=== PATIENT | male | born 1950 | race Caucasian/White ===

== ENCOUNTER 2019-09-17 08:38 | Inpatient (IN) | payer MEDICARE, MEDICAID, SELFPAY ==
[2019-09-17] VITALS (27 sets, daily range): BP systolic 111–144; BP diastolic 49–95; PULSE 76–112; RESP 17–28; TEMP 36.6–36.7; O2SAT 94–100; BMI 22.6
--- NOTE | ~2019-09-17 | XR_ITS ---
XR chest 1V portable DATE: 09/28/2019 05:45 INDICATION: Mechanical ventilation. Respiratory failure. TECHNIQUE: Portable AP chest on 09/28/2019 at 0520 hours 09/27/2019 portable AP chest at 0519 hours.. COMPARISON: None FINDINGS: ET tube is approximately 2.4 cm above yris in satisfactory position. An NG tube is noted in the stomach, the distal tibia on the margin of the examination. No central lines are noted. Normal heart size. There is aortic arch calcification. No pulmonary infiltrate or consolidation, pleu ral effusion or pulmonary vascular congestion or pneumothorax is detected. IMPRESSION: ET and NG tubes in satisfactory position No active pulmonary disease Reviewed, dictated and finalized at location A. ICAL GEOGRAPHER
--- NOTE | ~2019-09-17 | XR_ITS ---
EXAMINATION: XR chest 1V portable DATE: 10/05/2019 05:51 INDICATION: Respiratory failure. TECHNIQUE: A single frontal view of the chest was obtained. COMPARISON: Chest single view 10/04/2019, chest CT 09/27/2019 FINDINGS: There is mild atelectasis in the lower lung zones. No pleural effusion or pneumothorax. The heart size is normal. The endotracheal tube tip is 2.8 cm above the yris. The nasogastric tube tip is beyond the inferior margin of the radiograph, but at least to the stomach. A left upper extremity peripherally inserted central venous catheter (PICC) is seen with tip in the right atrium. IMPRESSION: 1. Mild atelectasis in the lower lung zones. Reviewed, dictated and finalized at location A. STATISTICAL PROGRAMMER
--- NOTE | ~2019-09-17 | CT_ITS ---
EXAMINATION: CT brain wo con INDICATION: Left hemiparesis COMPARISON: 09/27/2019 TECHNIQUE: Standard unenhanced head CT. The dose-length product (DLP) was 605.33 mGy-cm. The mA was a djusted according to patient size. Iterative reconstruction technique was employed. FINDINGS: There is no acute intraparenchymal hemorrhage. No evidence of mass lesion. There is a stabl e cystic area posterior medial to the left cerebellar hemisphere which has the appearance of an arach noid cyst. No evidence of acute infarction. There is mild periventricular and subcortical hypodensity probably related to small vessel ischemic disease. There is mild prominence of the sulci and ventric les related to cerebral atrophy. Intracranial calcified cerebral atherosclerosis is noted. There are no extra-axial collections. There is no mass effect or midline shift. Changes in the globes are likel y from ocular lens surgery. There is mild mucosal thickening of the paranasal sinuses. Again noted i s thickening and sclerosis in the joseph of the maxillary sinus, consistent with chronic sinusitis. IMPRESSION: 1. No acute intracranial abnormality. 2. Age related findings. 3. Chronic sinusitis. Reviewed, dictated and finalized at location A. ESTATE BRANCH MANAGER
--- NOTE | ~2019-09-17 | XR_ITS ---
EXAMINATION: XR chest 1V portable DATE: 09/27/2019 05:44 INDICATION: Respiratory failure TECHNIQUE: frontal view of the chest was obtained. COMPARISON: Chest radiograph dated 09/26/2019 FINDINGS: Endotracheal tube tip 1.2 cm above the yris. Nasogastric tube extends below the left hemidiaphragm with distal tip collimated off the study. Skinfold projects over the right midlung zone. No other airspace opacities, pulmonary edema, pleural effusion or pneumothorax. The cardiomediastinal silhouette is normal. IMPRESSION: 1. No acute cardiopulmonary disease. Reviewed, dictated and finalized at location A. GRAPH AND TELETYPE OPERATOR
--- NOTE | ~2019-09-17 | US_ITS ---
EXAMINATION: US venous doppler [facility] DATE: 09/25/2019 10:16 INDICATION: Fevers and leukocytosis, concern for deep venous thrombosis TECHNIQUE: Schultz scale images without and with compression and Doppler images of the bilateral lower e xtremity veins were obtained. COMPARISON: None. FINDINGS: The right common femoral vein, profunda femoral vein, femoral vein, popliteal vein, peroneal trunk, p osterior tibial veins, and greater saphenous vein are patent. The left common femoral vein, profunda femoral vein, femoral vein, popliteal vein, peroneal trunk, po sterior tibial veins, and greater saphenous vein are patent. IMPRESSION: 1. Patent bilateral lower extremity veins. No evidence of deep venous thrombosis. Reviewed, dictated and finalized at location A. NDER FARM WORKER IMPRESSION: 1. Patent bilateral lower extremity veins. No evidence of deep venous thrombosi s.
--- NOTE | ~2019-09-17 | XR_ITS ---
EXAMINATION: XR abdomen NG/feed tube recheck DATE: 09/23/2019 01:26 INDICATION: Orogastric tube moved. Recheck placement. TECHNIQUE: A supine view of the abdomen and lower chest was obtained for evaluation of feeding tube placement. COMPARISON: 09/20/2019 FINDINGS: Orogastric tube tip and proximal side port in the body of the stomach. Gas and stool seen in the visu alized colon. Note gas-filled loops of small bowel in the visualized abdomen. Lung bases are clear. H eart size is normal. IMPRESSION: 1. Orogastric tube in the stomach. Reviewed, dictated and finalized at location A. ETING CAMPAIGN ANALYST
--- NOTE | ~2019-09-17 | XR_ITS ---
EXAMINATION: XR abdomen NG/feed tube insert DATE: 09/20/2019 23:59 INDICATION: Nasogastric tube placement. TECHNIQUE: An upright view of the abdomen was obtained. COMPARISON: None. FINDINGS: The lower abdomen is excluded. There are no dilated loops of bowel. The nasogastric tube ti p is in the stomach. IMPRESSION: 1. Nasogastric tube tip in the stomach. Reviewed, dictated and finalized at location A. ALL MACHINE REPAIRER
--- NOTE | ~2019-09-17 | US_ITS ---
EXAMINATION: US art doppler w press LE DATE: 09/18/2019 09:47 BOX FOLDING MACHINE OPERATOR INDICATION: Right groin mass. TECHNIQUE: Segmental pressures and plethysmographic and Doppler waveforms of the brachial and lower e xtremity arteries were obtained. COMPARISON: None. FINDINGS: Right and left brachial artery pressures of 142 mm Hg and 140 mm Hg, respectively, are concordant (no rmal difference <= 30 mmHg). The right high-thigh pressure index is 1.1 (normal > 1.2). The right ankle-brachial index (TANGELA) is 1. 12 (normal >= 0.9-1.0). The right great toe-brachial index (TBI) is 1.06 (normal >= 0.60). The right lower extremity segmental pressure gradients are normal (normal gradients <= 20-30 mmHg between adjac ent levels on the same leg or the same levels on the two legs). Arterial Doppler waveforms are biphas ic. The left high-thigh pressure index is 1.08. The left TANGELA is 1.09. The left TBI is 0.84. The left lowe r extremity segmental pressure gradients are normal. Arterial Doppler waveforms are biphasic. IMPRESSION: 1. Normal lower extremity arterial Doppler. Reviewed, dictated and finalized at location B. FOLDING MACHINE OPERATOR
--- NOTE | ~2019-09-17 | XR_ITS ---
EXAMINATION: XR chest 1V portable INDICATION: Respiratory failure TECHNIQUE: Portable AP chest at 0510 hours COMPARISON: 09/30/2019 FINDINGS: The endotracheal tube ends approximately 3.1 cm above the yris. The nasogastric tube is f ollowed as far as the stomach. Its tip is beyond the inferior margin of the radiograph. Retrocardiac airspace opacities have resolved. There is no pleural effusion or pneumothorax. The cardiomediastinal silhouette is stable. IMPRESSION: 1. Resolved retrocardiac airspace opacities. No acute cardiopulmonary abnormality. Reviewed, dictated and finalized at location A. WARE QUALITY TEST ENGINEER IMPRESSION: 1. Resolved retrocardiac airspace opacities. No acute cardiopulmonary abnormali ty.
--- NOTE | ~2019-09-17 | XR_ITS ---
EXAMINATION: XR chest 1V portable EXAM DATE: 09/23/2019 22:41 INDICATION: Respiratory failure. TECHNIQUE: Portable AP frontal chest x-ray was obtained. Comparison is made to prior examination from 09/23/2019. FINDINGS: Endotracheal tube tip is 2 centimeters above the yris (ideal range is between 2 to 5 cm). Feeding tube is in position. There is ill-defined left basilar airspace disease, could be pneumonia, edema or aspiration. There a re no sizable pleural effusions. There is no pneumothorax suspected. Cardiomediastinal silhouette is normal. The bones and soft tissues are unremarkable. IMPRESSION: 1. Tubes in position. 2. Developing left basilar pneumonia, aspiration or edema. Reviewed, dictated and finalized at location A. RLIBRARY LOAN SPECIALIST
--- NOTE | ~2019-09-17 | XR_ITS ---
XR chest 1V portable 10/06/2019 06:15 Indication: Respiratory failure Procedure: AP portable chest Comparison: Comparison to multiple prior studies sequentially, with oldest reviewed study dated 10/02. Findings: Heart size normal. Left basilar airspace disease. Endotracheal tube tip 2.3 cm above the ca shahriar. NG tube in the stomach. No edema, pleural effusion or pneumothorax. Impression: 1: Left basilar airspace disease which may represent atelectasis or pneumonia. Reviewed, dictated and finalized at location A. OR WATER/WASTEWATER ENGINEER Impression: 1: Left basilar airspace disease which may represent atelectasis or pneumonia.
--- NOTE | ~2019-09-17 | US_ITS ---
EXAMINATION: US venous doppler LE EXAM DATE: 09/18/2019 16:14 INDICATION: Lower leg pain. TECHNIQUE: Multiple grayscale, color flow and Doppler images of the lower extremity deep venous syste ms bilaterally were obtained and reviewed. Correlation is made to right inguinal ultrasound earlier s janeth date. FINDINGS: Right side: The right common femoral, femoral and profunda veins demonstrate normal color flow, respi ratory variation, augmentation and compressibility. Compressibility, color flow confirmed within the right popliteal, posterior tibial, peroneal, and greater saphenous veins. Right inguinal lymphadeno robin, could be reactive, granulomatous process, lymphoma or metastatic disease. Left side: The left common femoral, femoral and profunda veins demonstrate normal color flow, respira tory variation, augmentation and compressibility. Compressibility, color flow confirmed within the l eft popliteal, posterior tibial, peroneal, and greater saphenous veins. IMPRESSION: 1. No lower extremity deep venous thrombosis bilaterally. 2. Right inguinal lymphadenopathy. Reviewed, dictated and finalized at location A. UTER EQUIPMENT INSTALLER
--- NOTE | ~2019-09-17 | CT_ITS ---
EXAMINATION: CT brain wo con DATE: 09/25/2019 09:23 INDICATION: Encephalopathy TECHNIQUE: Computed tomography (CT) of the head was performed without intravenous contrast. Sagittal and coronal reconstructions were performed. The mA was adjusted according to patient size. Iterative reconstruction technique was employed. The dose-length product was 529.67 mGy-cm. COMPARISON: head CT dated 09/21/2019 FINDINGS: No acute intracranial hemorrhage or acute infarction. Small posterior fossa arachnoid cyst along the left side of the falx. Unchanged mild to moderate scattered white matter hypoattenuation consistent w ith chronic small vessel ischemic disease. Ventricles are normal and symmetric. No mass/mass effect. Changes of bilateral intraocular lens replacement. Mucosal thickening in the paranasal sinuses. Mast oid air cells and middle ear cavities are clear. IMPRESSION: 1. No acute intracranial process. 2. Moderate scattered white matter hypoattenuation consistent with chronic small vessel ischemic dise ase. Reviewed, dictated and finalized at location A. EMS INTEGRATION ENGINEER IMPRESSION: 1. No acute intracranial process. 2. Moderate scattered white matter hypoattenuation consistent with chronic smal l vessel ischemic disease.
--- NOTE | ~2019-09-17 | XR_ITS ---
EXAMINATION: XR chest 1V portable INDICATION: Respiratory failure TECHNIQUE: Portable AP chest at 0519 hours COMPARISON: 10/03/2019 FINDINGS: The endotracheal tube ends approximately 1.7 cm above the yris. The nasogastric tube is f ollowed as far as the stomach. Its tip is beyond the inferior margin of the radiograph. A left upper extremity PICC has been inserted which ends with its tip at the superior cavoatrial junction. The harpal gs are free of acute opacities. Previously described bibasilar airspace opacities have resolved. Ther e is no pleural effusion or pneumothorax. The cardiomediastinal silhouette is normal. IMPRESSION: 1. No acute cardiopulmonary abnormality. 2. Left upper extremity PICC insertion. Reviewed, dictated and finalized at location A. TOR
--- NOTE | ~2019-09-17 | XR_ITS ---
EXAMINATION: XR chest 1V portable INDICATION: Acute on chronic respiratory failure TECHNIQUE: Portable AP chest at 0518 hours COMPARISON: 09/25/2019 FINDINGS: The endotracheal tube ends approximately 1.0 cm above the yris. The nasogastric tube is f ollowed as far as the stomach. Its tip is beyond the inferior margin of the radiograph. The lungs are free of acute opacities. There is no pleural effusion or pneumothorax. The cardiomediastinal silhoue tte is normal. IMPRESSION: 1. No acute cardiopulmonary abnormality. Reviewed, dictated and finalized at location A. DRIER
--- NOTE | ~2019-09-17 | CT_ITS ---
EXAMINATION: CT chest abdomen pelvis wo con DATE: 09/27/2019 08:47 INDICATION: Fever. TECHNIQUE: Computed tomography (CT) of the chest, abdomen, and pelvis was performed without intraveno us contrast. Automated exposure control and iterative reconstruction technique were employed. The dos e-length product was 741.41 mGy-cm. COMPARISON: Chest CT 03/11/2019 FINDINGS: CHEST CT: Motion artifact is noted. There is mild emphysema. There are tree-in-bud opacities in the lower lobes , consistent with pneumonia. There is mild atelectasis in left lower lobe and lingula. The endotrache al tube tip is in expected position above the yris. The heart size is normal. There are coronary ar tamie calcifications. No pericardial effusion. There is severe thoracic spondylosis. ABDOMEN/PELVIS CT: The nasogastric tube tip is in the proximal duodenum. The liver, gallbladder, spleen, pancreas, adren al glands, and kidneys are normal. There is no urolithiasis. The prostate is moderately enlarged. The re is a left inguinal hernia containing fat. There are no dilated loops of bowel. The appendix is not visualized. There is no free intraperitoneal fluid. There is right inguinal lymphadenopathy. The lar gest node measures 2.9 x 2.2 cm. There is severe lumbar spondylosis. IMPRESSION: 1. Mild pneumonia involving the lower lobes. 2. Mild emphysema. 3. Right inguinal lymphadenopathy, which may be lymphoma or less likely reactive lymphadenopathy. 4. Nasogastric tube tip in the proximal duodenum. Reviewed, dictated and finalized at location B. ROOM DANCE INSTRUCTOR IMPRESSION: 1. Mild pneumonia involving the lower lobes. 2. Mild emphysema. 3. Right inguinal lymphadenopathy, which may be lymphoma or less likely reactiv e lymphadenopathy. 4. Nasogastric tube tip in the proximal duodenum.
--- NOTE | ~2019-09-17 | XR_ITS ---
EXAMINATION: XR chest 1V portable INDICATION: Respiratory failure TECHNIQUE: Portable AP chest at 0546 hours COMPARISON: 09/29/2019 FINDINGS: The endotracheal tube ends approximately 3.2 cm above the yris. The nasogastric tube is f ollowed as far as the stomach. Its tip is beyond the inferior margin of the radiograph. The lungs are hyperinflated. Retrocardiac airspace opacities have improved. There is no pleural effusion or pneumo thorax. IMPRESSION: 1. Retrocardiac airspace opacities with improvement, consistent with atelectasis versus pneumonia. Reviewed, dictated and finalized at location A. OR MEDICAL ASSISTANT IMPRESSION: 1. Retrocardiac airspace opacities with improvement, consistent with atelectasi s versus pneumonia.
--- NOTE | ~2019-09-17 | XR_ITS ---
EXAMINATION: XR lumbar puncture diagnostic DATE: 09/30/2019 14:39 INDICATION: Altered mental status. Fever. TECHNIQUE: A timeout was performed to verify the patient's name, date of , and procedure to be performed. The skin overlying the L2-L3 level was prepped and draped in usual sterile fashion. Sub cutaneous 1% lidocaine was used for local anesthesia. A 20 gauge spinal needle was advanced under fl uoroscopic guidance. The needle was removed and the entry site was cleaned and dressed. There were n o immediate complications. Fluoroscopy exposure time was 0.1 minutes. The total number of images was 2. FINDINGS: Real-time fluoroscopy demonstrates the needle at the L2-L3 level. The opening pressure was 4 cm water (Normal range is variably defined as 6-20 cm water and up to 25 cm water in obese patients . Pressure >25 cm water is one of the modified Dandy criteria for idiopathic intracranial hypertensio n). 12 mL of clear, colorless fluid was collected in 4 tubes. IMPRESSION: 1. Successful fluoro-guided lumbar puncture. Reviewed, dictated and finalized at location A. TER MECHANICAL
--- NOTE | ~2019-09-17 | XR_ITS ---
EXAMINATION: XR chest 1V portable DATE: 10/08/2019 05:58 INDICATION: Respiratory failure. TECHNIQUE: A single frontal view of the chest was obtained. COMPARISON: Chest single view 10/07/2019 FINDINGS: A skin fold overlies left hemithorax. There are mild airspace opacities in left lower lung zone. No pleural effusion or pneumothorax. The heart size is normal. The endotracheal tube tip is 4.8 cm above the yris. A left upper extremity peripherally inserted central venous catheter (PICC) is seen with tip in the superior vena cava. The nasogastric tube tip is beyond the inferior margin of th e radiograph, but at least to the stomach. IMPRESSION: 1. Stable mild airspace opacities in left lower lung zone, consistent with atelectasis versus pneumon ia. Reviewed, dictated and finalized at location A. MOBILE CLUB MEMBERSHIP SALES AGENT IMPRESSION: 1. Stable mild airspace opacities in left lower lung zone, consistent with atel ectasis versus pneumonia.
--- NOTE | ~2019-09-17 | US_ITS ---
EXAMINATION: US biopsy lymph node DATE: 09/19/2019 11:03 INDICATION: Right inguinal lymphadenopathy. TECHNIQUE: The procedure including the risks, benefits, and alternatives was discussed with the patie nt. Risks discussed included bleeding and infection. The patient understood the risks and agreed to p roceed. The skin overlying the right inguinal region was prepped and draped in usual sterile fashion. Anesthetic was administered with 1% lidocaine subcutaneously. An 18 gauge core biopsy needle was t hen used to obtain 6 core biopsy specimens under continuous sonographic guidance. The entry site was cleaned and dressed. There were no immediate complications. FINDINGS: Ultrasound images demonstrate the needle in a 5.5 x 2.6 cm inguinal lymph node. IMPRESSION: 1. Ultrasound-guided core needle biopsy of a right inguinal lymph node. Reviewed, dictated and finalized at location A. AND FRAME MECHANIC
--- NOTE | ~2019-09-17 | XR_ITS ---
EXAMINATION: XR chest 1V portable DATE: 09/22/2019 05:30 INDICATION: Acute on chronic respiratory failure. TECHNIQUE: A single frontal view of the chest was obtained. COMPARISON: Chest single view 09/20/2019, chest CT 03/11/2019 FINDINGS: The chest demonstrates clear lungs without pneumonia, pleural effusion, or pneumothorax. Th e heart size is normal. The endotracheal tube tip is 3.0 cm above the yris. IMPRESSION: 1. No acute cardiopulmonary disease. Reviewed, dictated and finalized at location A. ING SECOND HAND
--- NOTE | ~2019-09-17 | CT_ITS ---
EXAMINATION: CT brain wo con DATE: 09/21/2019 09:54 INDICATION: Altered mental status. TECHNIQUE: Computed tomography (CT) of the head was performed without intravenous contrast. The mA wa s adjusted according to patient size. Iterative reconstruction technique was employed. The dose-lengt h product was 605.33 mGy-cm. COMPARISON: None FINDINGS: There are scattered areas of low attenuation in the cerebral white matter. There is no intr acranial hemorrhage, acute infarction, or abnormal intracranial mass lesion. There is an old infarct in left cerebellum. The ventricles are normal in size. There are likely changes of ocular lens replac ement surgeries. There is mucosal thickening in the paranasal sinuses. Left maxillary sinus is small and completely opacified. The mastoid air cells are normal. IMPRESSION: 1. Old infarct in left cerebellum. 2. Moderate nonspecific cerebral white matter disease, which likely represents chronic small vessel i schemic disease. 3. Silent sinus syndrome involving left maxillary sinus. Reviewed, dictated and finalized at location A. E VENDING MACHINE SERVICER IMPRESSION: 1. Old infarct in left cerebellum. 2. Moderate nonspecific cerebral white matter disease, which likely represents chronic small vessel ischemic disease. 3. Silent sinus syndrome involving left maxillary sinus.
--- NOTE | ~2019-09-17 | CT_ITS ---
EXAMINATION: CT brain wo con DATE: 09/27/2019 08:48 INDICATION: Encephalopathy. Fever. TECHNIQUE: Computed tomography (CT) of the head was performed without intravenous contrast. The mA wa s adjusted according to patient size. Iterative reconstruction technique was employed. The dose-lengt h product was 605.33 mGy-cm. COMPARISON: Head CT 09/25/2019 FINDINGS: There are scattered areas of low attenuation in the cerebral white matter. A 1.6 x 1.6 x 2. 8 cm cystic area posteromedial to left cerebellar hemisphere is likely an arachnoid cyst. There is no intracranial hemorrhage, acute infarction, or abnormal intracranial mass lesion. The ventricles are normal in size. There are likely changes of ocular lens replacement surgeries. There is mucosal thick ening in the paranasal sinuses. There is thickening and sclerosis of the joseph of the maxillary sinus es, consistent with chronic sinusitis. There are trace mastoid effusions. IMPRESSION: 1. Unchanged moderate nonspecific cerebral white matter disease, which likely represents chronic smal l vessel ischemic disease. 2. Chronic sinusitis. Reviewed, dictated and finalized at location B. OGENATION STILL OPERATOR IMPRESSION: 1. Unchanged moderate nonspecific cerebral white matter disease, which likely r epresents chronic small vessel ischemic disease. 2. Chronic sinusitis.
--- NOTE | ~2019-09-17 | XR_ITS ---
XR abdomen NG/feed tube rechec DATE: 09/26/2019 14:57 INDICATION: NG tube placement TECHNIQUE: Portable semiupright AP view on 09/26/2019 at 1452 hours COMPARISON: 09/23/2019 KUB for feeding tube placement FINDINGS: The nasogastric tube is present within the stomach, the distal tip overlying the gastric an trum. An ET tube is present, the distal tip approximately 1.7 cm above the yris; ideal range is 2-5 cm. Mild to moderate gaseous distention of proximal small bowel segments. Normal heart size. Thoracic aortic calcification. IMPRESSION: NG tube tip in gastric antrum Reviewed, dictated and finalized at Location A. Reviewed, dictated and finalized at location B. GE CONTROL MANAGER
--- NOTE | ~2019-09-17 | US_ITS ---
US soft tissue groin RT 09/18/2019 09:44 Indication: Palpable right groin mass for 2 months Procedure: High-resolution ultrasound of the right groin Comparison: No prior studies for comparison. Findings: There are enlarged right groin lymph nodes. The largest measures 6.1 x 4.6 x 2.6 cm with ef facement of the normal fatty hilum. Impression: 1: Right inguinal lymphadenopathy, largest demonstrating effacement of normal fatty hilum, possibly p athologic. Consider lymphoma. Recommend percutaneous biopsy. Reviewed, dictated and finalized at location B. T MAKER Impression: 1: Right inguinal lymphadenopathy, largest demonstrating effacement of normal f atty hilum, possibly pathologic. Consider lymphoma. Recommend percutaneous biop sy.
--- NOTE | ~2019-09-17 | XR_ITS ---
EXAMINATION: XR chest 1V portable DATE: 10/07/2019 05:51 INDICATION: Respiratory failure. TECHNIQUE: A single frontal view of the chest was obtained. COMPARISON: Chest single view 10/06/2019, chest CT 09/27/2019 FINDINGS: There are airspace opacities in left lower lung zone. No pleural effusion or pneumothorax. The heart size is normal. The endotracheal tube tip is 1.1 cm above the yris. The nasogastric tube tip is beyond the inferior margin of the radiograph, but at least to the stomach. A left upper extrem ity peripherally inserted central venous catheter (PICC) is seen with tip at the superior cavoatrial junction. IMPRESSION: 1. Stable airspace opacities in left lower lung zone, consistent with atelectasis versus pneumonia. Reviewed, dictated and finalized at location A. RCULOSIS SPECIALIST IMPRESSION: 1. Stable airspace opacities in left lower lung zone, consistent with atelectas is versus pneumonia.
--- NOTE | ~2019-09-17 | XR_ITS ---
XR chest 1V portable DATE: 09/29/2019 06:11 INDICATION: Mechanical ventilation, respiratory failure, fevers, leukocytosis TECHNIQUE: Portable AP chest on 09/29/2019 at 0554 hours COMPARISON: 09/28/2019 portable AP chest at 0520 hours FINDINGS: ET tube is approximately 1.4 cm above yris; ideal range is 2-5 cm. NG tube is noted passing into the stomach, beyond the margin of the radiograph. No central lines are noted. Bilateral hyperinflation. Mild infiltrate or atelectasis is suggested in the left lower lobe, retroca rdiac area. The lungs otherwise appear clear of infiltrate or consolidation. No pleural effusion or p ulmonary vascular congestion or pneumothorax. Normal heart size. Aortic arch calcification. IMPRESSION: ET tube 1.4 cm above yris; ideal range is 2-5 cm NG tube in stomach Bilateral hyperinflation Left lower lobe infiltrate and/atelectasis Reviewed, dictated and finalized at location A. STIC ASSOCIATE
--- NOTE | ~2019-09-17 | XR_ITS ---
EXAMINATION: XR chest 1V portable DATE: 09/25/2019 05:54 INDICATION: Acute on chronic respiratory failure TECHNIQUE: frontal view of the chest was obtained. COMPARISON: Chest radiograph dated 09/24/2019 09/17/2019 no new airspace opacities, pulmonary edema, pl eural effusion or pneumothorax. FINDINGS: Endotracheal tube tip approximately 5 mm above the yris. Nasogastric tube extends below the left h emidiaphragm with distal tip collimated off the study. Opacities at the left lower lung zone have essentially resolved with appearance now at baseline mark rable to radiograph dated 09/17/2019. The cardiomediastinal silhouette is normal. IMPRESSION: 1. Endotracheal tube tip 5 mm above yris. Recommend withdrawal by 1.5 cm. 2. No evident acute cardiopulmonary disease. Reviewed, dictated and finalized at location A. H SCALER AND MIXER
--- NOTE | ~2019-09-17 | XR_ITS ---
EXAMINATION: XR chest 1V portable DATE: 10/09/2019 05:44 INDICATION: Respiratory failure. TECHNIQUE: A single frontal view of the chest was obtained. COMPARISON: Chest single view 10/08/2019 FINDINGS: There are mild airspace opacities in the lower lung zones. No pleural effusion or pneumotho rax. The heart size is normal. The endotracheal tube tip is 3.8 cm above the yris. A left upper ext remity peripherally inserted central venous catheter (PICC) is seen with tip port in the superior ve na cava. IMPRESSION: 1. Mild airspace opacities in the lower lung zones with worsening on the right, consistent with atele ctasis versus pneumonia. Reviewed, dictated and finalized at location A. NG MACHINE OPERATOR IMPRESSION: 1. Mild airspace opacities in the lower lung zones with worsening on the right, consistent with atelectasis versus pneumonia.
--- NOTE | ~2019-09-17 | XR_ITS ---
EXAMINATION: XR chest 1V portable DATE: 09/24/2019 06:01 INDICATION: Acute respiratory failure. TECHNIQUE: frontal view of the chest was obtained. COMPARISON: Chest radiograph dated 09/23/2019 FINDINGS: Endotracheal tube tip 1.8 cm above the yris. Nasogastric tube extends below the left hemidiaphragm with distal tip collimated off the study. Unchanged subtle opacities in the left lower lung zone. No new airspace opacities, pleural effusion o r pneumothorax. The cardiomediastinal silhouette is normal. IMPRESSION: 1. Unchanged subtle opacities in the left lower lung zone with differential including atelectasis, pu lmonary edema or pneumonia. Reviewed, dictated and finalized at location A. CONDUCTOR PACKAGES PLATEMAKER IMPRESSION: 1. Unchanged subtle opacities in the left lower lung zone with differential inc luding atelectasis, pulmonary edema or pneumonia.
--- NOTE | ~2019-09-17 | XR_ITS ---
EXAMINATION: XR chest ET placement DATE: 09/20/2019 23:58 INDICATION: Endotracheal tube and nasogastric tube placement TECHNIQUE: 1. frontal view of the chest was obtained for assessment of endotracheal tube positioning. 2. Semiupright portable AP view of the abdomen was obtained for assessment of nasogastric tube positi oning. COMPARISON: Chest radiograph date FINDINGS: Chest: Endotracheal tube tip 1.7 cm above the yris. No focal airspace opacities, pulmonary edema, pleural effusion or pneumothorax. The cardiomediastinal silhouette is normal. Visualized bones and soft tissu es are unremarkable. Abdomen: Nasogastric tube tip in proximal side port in the body of the stomach. Gas and stool seen scattered t hroughout the visualized portion of the colon. No dilated loops of gas-filled small bowel to suggest obstruction. IMPRESSION: 1. Endotracheal tube and nasogastric tube in acceptable positions. 2. No acute cardiopulmonary disease. Reviewed, dictated and finalized at location A. IED EXERCISE PHYSIOLOGIST
--- NOTE | ~2019-09-17 | XR_ITS ---
EXAMINATION: XR chest 1V portable INDICATION: Respiratory failure TECHNIQUE: Portable AP chest at 0528 hours COMPARISON: 10/01/2019 FINDINGS: The endotracheal tube ends approximately 3.9 cm above the yris. The nasogastric tube is f ollowed as far as the stomach. Its tip is beyond the inferior margin of the radiograph. The lungs are free of acute opacities. There is no pleural effusion or pneumothorax. The cardiomediastinal silhoue tte is stable. IMPRESSION: 1. No acute cardiopulmonary abnormality. Reviewed, dictated and finalized at location A. MBLER CAMPER
--- NOTE | ~2019-09-17 | XR_ITS ---
EXAMINATION: XR chest 1V portable DATE: 10/07/2019 10:51 INDICATION: Respiratory failure. TECHNIQUE: A single frontal view of the chest was obtained on 2 radiographs. COMPARISON: Chest single view at 5:24 AM FINDINGS: There are mild airspace opacities in left lower lung zone. No pleural effusion or pneumotho rax. The heart size is normal. The endotracheal tube tip is 3.5 cm above the yris. A left upper ext remity peripherally inserted central venous catheter (PICC) is seen with tip in the superior vena cav a. The nasogastric tube tip is beyond the inferior margin of the radiograph, but at least to the stom ach. IMPRESSION: 1. Unchanged mild airspace opacities in left lower lung zone, consistent with atelectasis versus pneu monia. Reviewed, dictated and finalized at location A. RVISOR DOPING IMPRESSION: 1. Unchanged mild airspace opacities in left lower lung zone, consistent with a telectasis versus pneumonia.
--- NOTE | ~2019-09-17 | XR_ITS ---
XR chest 1V portable DATE: 10/03/2019 05:37 INDICATION: Respiratory failure TECHNIQUE: Portable AP chest on 10/03/2019 0517 hours COMPARISON: 10/02/2019 portable AP chest at 0528 hours FINDINGS: ET tube is in satisfactory position. A nasogastric tube is noted passing into the stomach, distal tip overlying gastric antrum. No central lines. Bilateral hyperinflation. Mild infiltrate and/atelectasis in the lung bases. Normal heart size. Aortic arch calcification. IMPRESSION: Bibasilar mild infiltrate and/or atelectasis Reviewed, dictated and finalized at location A. CTOR OF RETAIL MARKETING
--- NOTE | ~2019-09-17 | XR_ITS ---
EXAMINATION: XR chest 1V portable DATE: 09/23/2019 01:26 INDICATION: Acute on chronic respiratory failure TECHNIQUE: frontal view of the chest was obtained. COMPARISON: Chest radiograph dated 09/22/2019 FINDINGS: Endotracheal tube tip 2.3 cm above the yris. Orogastric tube which on subsequent radiograph demonst rates tip in proximal side port in the body of the stomach. Lungs are clear with no focal airspace opacities, pulmonary edema, pleural effusion or pneumothorax. The cardiomediastinal silhouette is normal. Widening of the left acromioclavicular joint with deformi ty of the lateral head of the left clavicle which could represent sequela of prior trauma, surgery or infection. IMPRESSION: 1. Lines and tubes in expected position. No acute cardiopulmonary disease. Reviewed, dictated and finalized at location A. BALL MARKER
--- NOTE | ~2019-09-17 | XR_ITS ---
EXAMINATION: XR chest 2V EXAM DATE: 09/17/2019 11:47 INDICATION: Shortness of breath, cough, COPD. TECHNIQUE: Frontal and lateral projections of the chest obtained and reviewed. Comparison is made to prior examination from 06/16/2019. FINDINGS: The lungs are clear. There are no pleural effusions. The cardiomediastinal silhouette is within normal limits. There is no pneumothorax suspected. The bones and soft tissues are unremarkab le. IMPRESSION: No acute cardiopulmonary findings. Reviewed, dictated and finalized at location A. ND EQUIPMENT REPAIRER
--- NOTE | 2019-09-17 08:57 | ED.SOB ---
HPI - SOB/Dyspnea General Chief Complaint: Shortness of Breath/Dyspnea Stated Complaint: I got COPD Time Seen by Provider: 09/17/19 08:46 Source: patient Mode of arrival: ambulatory Limitations: no limitations History of Present Illness HPI Narrative: Pt is a 69 y/o male with a H/O COPD, who presents to the ED with c/o worsening SOB. He states that his COPD flares up every once in a while. He is on 3L home O2 and uses his inhalers/nebulizers as needed. Pt denies having a fever. He also reports pain to his rt groin that radiates down his leg. MD elicited complaint: shortness of breath Pertinent past history: COPD Timing: progressively worsening Known history of: COPD Associated symptoms: other (rt groin pain, rt leg pain) Treatment prior to arrival: oxygen and bronchodilator Related Data Home oxygen amount: 3 liters Home Medications Medication Instructions Recorded Confirmed furosemide 20 mg tablet See Rx Instructions PO BID 07/17/19 08/19/19 imiquimod 5 % topical cream packet See Rx Instructions TOPICAL 5XW 07/17/19 08/19/19 tiotropium bromide 18 mcg capsule 1 cap INHALATION DAILY 07/17/19 08/19/19 with inhalation device Allergies Allergy/AdvReac Type Severity Reaction Status Date / Time penicillin G Allergy Severe Unknown Verified 09/17/19 09:02 Penicillins Allergy Unknown Unknown Verified 09/17/19 09:02 Review of Systems Review of Systems: All systems reviewed & are unremarkable except as noted in HPI and below Constitutional: Constitutional: Denies fever(s) Respiratory: Respiratory: Reports dyspnea Genitourinary: Genitourinary: Reports other (rt groin pain) Musculoskeletal: Musculoskeletal: Reports other (rt leg pain) [facility] Past Medical History Medical History Anxiety associated with depression (~1971) COPD mixed type (~2014) Encounter for counseling regarding immunization Osteoarthritis (arthritis due to wear and tear of joints) (~2008) Skin cancer (~2008) Tobacco abuse disorder (~1971) Surgical History Surgical History History of cataract surgery (~2015) Status post biopsy of skin (~2015) Family History Family History (Updated 07/17/19 @ 09:13 by Juliette Lomeli MD) Mother Family history of malignant neoplasm Family history of arthritis Hypertension Father Hypertension Acute myocardial infarction Sibling Hypertension 2 brothers and 2 sisters Acute myocardial infarction brother, sister Sibling Diabetes mellitus sister Sibling Cerebrovascular accident sister Social History Social History Social History: Pt states he quit smoking a couple of months ago. Started smoking @ age 18 Smoking packs per day: 3 Smoking cigarettes per day: 6 Years smoked: 30 Smoking pack-years: 9 Smoking status: Current some day smoker Tobacco type: cigarettes Second hand tobacco smoke exposure: No Alcohol intake: current Drinks per week: 2 Substance use: former Substance use type: marijuana Additional living arrangements comments: lives in the basement home of his son (sushi chef), [id number] (nurse), and their children. Retired from [employer]. Gender identity (if verbalized by the patient): Male Spiritual care concerns: No Agree to blood products: Yes Exam Const: General: no acute distress and alert Orientation/consciousness: patient oriented x3 HENMT: Head: normal to inspection Eyes: Conjunctivae: conjunctivae normal Pupils: Equal, round and reactive pupils present Neck: Neck: normal visual inspection Chest: Chest palpation & inspection: normal inspection of the chest Resp: Effort & Inspection: normal respiratory effort Auscultation: wheezes and diminished lung sounds Cardio: Rate: regular rate Rhythm: regular rhythm GI: GI Palp: Yes Soft to palpation Neuro:
[2019-09-17 09:05] LABS: Basophils Percent Auto 0.3 % (0.2-1.2); Eosinophils Absolute Auto 0.2 K/mm3 (0-0.3); Hematocrit 46.7 % (42.0-52.0); Hemoglobin 15.4 g/dL (14.0-18.0); Immature Granulocyte Absolute 0.03 K/mm3 (0.00-0.031); Immature Granulocyte Percent A 0.3 % (0-0.5); Lymphocytes Absolute Auto 2.07 K/mm3 (0.9-3.2); Lymphocytes Percent Auto 20.5 % (18.3-44.2); Mean Corpuscular Hemoglobin 30.6 pg (26-34); Mean Corpuscular Volume 92.8 fl (80-100); Monocytes Absolute Auto 1.1 K/mm3 (0.1-0.6); Monocytes Percent Auto 10.8 % (2.6-8.5); Neutrophils Absolute Auto 6.7 K/mm3 (1.3-6.7); Neutrophils Percent Auto 66.1 % (45.5-73.1); Platelet Count Result 361 k/mm3 (150-375); Red Blood Count 5.03 M/mm3 (4.6-6.20); Red Cell Distribution Width 14.1 % (11.5-14.5); White Blood Count 10.1 K/mm3 (4.5-10.0)
--- NOTE | 2019-09-17 09:08 | ECG_ITS ---
Measurements Intervals Myton Rate: 110 P: 50 MA: 147 QRS: 46 QRSD: 93 T: 61 QT: 338 QTc: 459 Interpretive Statements SINUS TACHYCARDIA ABNORMAL ECG Electronically Signed On 09-17-2019 10:56:39 ENTRY TECH by Santiago Whitfield D.O.
[2019-09-17] MEDS: methylPREDNISolone SOD SUCC 125 MG VIAL IV PUSH (10:13)
[2019-09-17] MEDS: ALBUTEROL SULFATE NEB 2.5 MG/0.5 ML INH 5 MG INHALATION ×3 (10:22→20:03)
[2019-09-17] MEDS: IPRATROPIUM BR 0.02% INH SOLN 0.5 MG/2.5 ML VIAL INHALATION ×3 (10:22→20:03)
[2019-09-17 10:29] LABS: CRP 20.2 mg/dL (<1.0)
[2019-09-17 10:33] LABS: Blood Urea Nitrogen 27 mg/dL (9-20); Calcium 9.7 mg/dL (8.4-10.2); Carbon Dioxide 22 mmol/L (22-30); Chloride 100 mmol/L (98-107); Estimated CRCL calculation 32 ml/min; Estimated Glomerular Filt Rate 36; Glucose 81 mg/dL (75-110); Potassium 3.9 mmol/L (3.4-5.0); Sodium 138 mmol/L (137-145)
--- NOTE | 2019-09-17 13:02 | PC.NURSE ---
SBAR faxed. Pt eating lunch tray
--- NOTE | 2019-09-17 13:29 | PC.NURSE ---
Attempt to call report, floor unable to take.
--- NOTE | 2019-09-17 14:01 | ADMGEN ---
This patient, Beto Cornejo, was admitted to [facility] Surg Room 307-01 at 135 . Patient/family oriented to hospital policies and general routines including ID bracelet, bed and alarms, visiting hours, pain management, procedures, bathroom and other care routines, personal items, smoking policy, room service/diet, and visiting hours. Valuables list has been completed. Information on how to activate the Rapid Response Team has been discussed. Patient/Family are encouraged to report perceived risks to care and to ask questions if they do not understand what they are told or what they should do.
--- NOTE | 2019-09-17 14:49 | ADMGEN ---
This patient, Beto Cornejo, was admitted to [facility] Surg Room 378-65 [id number]. Patient/family oriented to hospital policies and general routines including ID bracelet, bed and alarms, visiting hours, pain management, procedures, bathroom and other care routines, personal items, smoking policy, room service/diet, and visiting hours. Valuables list has been completed. Information on how to activate the Rapid Response Team has been discussed. Patient/Family are encouraged to report perceived risks to care and to ask questions if they do not understand what they are told or what they should do.
--- NOTE | 2019-09-17 16:16 | PM.IMHP ---
H&P: HPI History of Present Illness Chief complaint: Shortness of breath. Narrative: Beto Cornejo is a pleasant 69 year old male with COPD/asthma overlap, chronic respiratory failure with hypoxia, diastolic congestive heart failure, and history of tobacco abuse who presented to the emergency department earlier this morning from home for evaluation of shortness of breath. He is on 3 liters nasal cannula at nighttime and p.r.n. throughout the day and has inhalers and nebulizers at home if needed. Over the last several days, he notes progressive dyspnea on lesser and lesser exertion with wheezing, without a whole lot of benefit from his home treatments. He is not certain as to what sets off his COPD, but is wondering if it may be related to the changes in weather patterns recently. He also notes sinus congestion and a loose cough which he has not been able to expect rate as well as soreness in his chest muscles due to the coughing. He has not had fever, chills, or sweats. No exertional chest pain. No orthopnea or lower extremity edema. He denies nausea and vomiting but says his appetite has not been good and notes a 10 pound weight loss in the past couple of months. As an aside, the patient mentions a ?mass? in his right groin that is causing pain down his right leg and occasional paresthesias. He was seen by his primary care provider and was prescribed naproxen for the pain, which he has been taking daily for at least a month. Unfortunately, it has not helped him much. He has a difficult time describing the pain, but states it is as feels somewhat like pins and needles. Sounds like he may have some mild cramping that leg as well, that will occasionally be better with rest, but occasionally better if up ambulating. He has not noticed any lumps or bumps anywhere else. He has had low back pain for a long time, is not any worse than usual. He denies saddle anesthesia and incontinence. No temperature color changes of the lower limbs. Review of Systems Review of Systems: Narrative: Twelve systems were reviewed with pertinent positives and negatives as per HPI. He denies dysuria, hematuria, hesitancy, and frequency. He does note, however, that he gets up to use the bathroom 3 to 4 times per night. He admits that his stream is slower than usual and occasionally he will dribble. He does not believe that he has urinary retention, however. He is moving his bowels without issue. No lower extremity edema, calf pain, or tenderness. No history of venous thromboembolism. He denies racing heart and pleuritic pain. He has skin cancer ?all over my body? and is on imiquimod. His skin is chronically dry, scaly, and erythematous, and will filemon and this is unchanged. Except as documented, all other systems were reviewed and are negative. [facility] Past Medical History Medical History (Updated 09/17/19 @ 21:58 by Evangelina Mendoza PA-C) Anxiety associated with depression (~1971) Chronic anemia Chronic respiratory failure with hypoxia On 3 liters nasal cannula at nighttime and p.r.n. throughout the day. COPD mixed type (~2014) Asthma-COPD overlap. Followed by Dr. Karen Ozuna. Diastolic heart failure Echocardiogram in March 2019 showed normal LV size and function with an impaired diastolic relaxation and ejection fraction of 60 to 65%. Dyslipidemia Eczema Osteoarthritis (arthritis due to wear and tear of joints) (~2008) Skin cancer (~2008) Smoking Tobacco abuse disorder (~1971) Surgical History Surgical History (Updated 09/17/19 @ 16:21 by Evangelina Mendoza PA-C) History of cataract surgery (~2015) Status post biopsy of skin (~2015) Status post surgical removal of malignant neoplasm of skin Patient has had multiple skin cancers excised from the face, chest, and back. Family History Family History Mother Family history of malignant neoplasm Family history of arthritis Hypertension Fat
[2019-09-17] MEDS: SODIUM CHLORIDE 0.9% IV 1,000 ML 100 ML IV CONT (18:35)
[2019-09-17] MEDS: methylPREDNISolone SOD SUCC 125 MG VIAL 60 MG IV PUSH (18:50)
[2019-09-17] MEDS: TRAZODONE HCL 50 MG TABLET 100 MG PO (20:48)
[2019-09-18] VITALS (12 sets, daily range): BP systolic 123–134; BP diastolic 48–69; PULSE 58–109; RESP 16–20; TEMP 36.6–37.5; O2SAT 94–95; BMI 23.2
[2019-09-18] MEDS: ALBUTEROL SULFATE NEB 2.5 MG/0.5 ML INH 5 MG INHALATION ×4 (02:11→22:08)
[2019-09-18] MEDS: IPRATROPIUM BR 0.02% INH SOLN 0.5 MG/2.5 ML VIAL INHALATION ×4 (02:12→22:09)
[2019-09-18] MEDS: SODIUM CHLORIDE 0.9% IV 1,000 ML 100 ML IV CONT (05:10)
[2019-09-18] MEDS: methylPREDNISolone SOD SUCC 125 MG VIAL 60 MG IV PUSH ×4 (05:12→17:34)
[2019-09-18 06:20] LABS: Blood Urea Nitrogen 31 mg/dL (9-20); Calcium 8.8 mg/dL (8.4-10.2); Carbon Dioxide 21 mmol/L (22-30); Chloride 104 mmol/L (98-107); Estimated CRCL calculation 50 ml/min; Estimated Glomerular Filt Rate 60; Glucose 304 mg/dL (75-110); Hematocrit 34.2 % (42.0-52.0); Hemoglobin 11.8 g/dL (14.0-18.0); Immature Granulocyte Absolute 0.02 K/mm3 (0.00-0.031); Immature Granulocyte Percent A 0.2 % (0-0.5); Lymphocytes Absolute Auto 0.87 K/mm3 (0.9-3.2); Lymphocytes Percent Auto 10.7 % (18.3-44.2); Mean Corpuscular HGB Conc 34.5 g/dl (32-36); Mean Corpuscular Hemoglobin 30.9 pg (26-34); Mean Corpuscular Volume 89.5 fl (80-100); Monocytes Absolute Auto 0.4 K/mm3 (0.1-0.6); Monocytes Percent Auto 4.3 % (2.6-8.5); Neutrophils Absolute Auto 6.9 K/mm3 (1.3-6.7); Neutrophils Percent Auto 84.8 % (45.5-73.1); Platelet Count Result 316 k/mm3 (150-375); Potassium 3.9 mmol/L (3.4-5.0); Red Blood Count 3.82 M/mm3 (4.6-6.20); Red Cell Distribution Width 13.5 % (11.5-14.5); Sodium 136 mmol/L (137-145); White Blood Count 8.1 K/mm3 (4.5-10.0)
[2019-09-18] MEDS: TAMSULOSIN HCL 0.4 MG CAPSULE PO (08:48)
[2019-09-18] MEDS: TRAZODONE HCL 50 MG TABLET 100 MG PO ×2 (08:48→20:27)
[2019-09-18] MEDS: ACETAMINOPHEN 325 MG TABLET PO (14:39)
--- NOTE | 2019-09-18 15:07 | PM.IMPN ---
Progress Note: A&P Assessment and Plan (1) Acute exacerbation of chronic obstructive airways disease: Code(s): J44.1 - Chronic obstructive pulmonary disease with (acute) exacerbation Status: Acute Assessment and Plan: May be precipitated by the change in weather. No history to suggest infection. We will schedule nebulizers and steroids. Consider tapering tomorrow Add Mucinex and Cornet to help mobilize secretions. CRP is noted to be 20.2. Although we will continue without abx at this moment (2) Chronic respiratory failure with hypoxia: Code(s): J96.11 - Chronic respiratory failure with hypoxia Status: Acute Assessment and Plan: He is at his baseline oxygen requirement. Monitor for now (3) Acute kidney injury: Code(s): N17.9 - Acute kidney failure, unspecified Status: Acute Assessment and Plan: Etiology is not entirely clear, but would consider secondary to NSAID use. He also describes symptoms of BPH, and thus will do a bladder scan to rule out urinary retention. For now will have to avoid nephro-toxic agents, including holding his furosemide. Will hold IVF for now Monitor renal function tomorrow Consider further workup if Cr worsens tomorrow (4) Diastolic heart failure: Code(s): I50.30 - Unspecified diastolic (congestive) heart failure Status: Acute Assessment and Plan: He is clinically compensated. Monitor volume status as furosemide is currently on hold as above. IVF stopped for now (5) Chronic anemia: Code(s): D64.9 - Anemia, unspecified Status: Acute Assessment and Plan: Hemoglobin and hematocrit were higher than what they typically run, arguing that he may be dehydrated. H&H back to within his baseline Repeat CBC in a.m. Continue to monitor (6) Mass of right inguinal region: Code(s): R19.09 - Other intra-abdominal and pelvic swelling, mass and lump Status: Acute Assessment and Plan: Soft tissue ultrasound of the right inguinal region read as right inguinal lymphadenopathy, largest demonstrating effacement of normal fatty hilum, possibly pathologic. Consider lymphoma. Recommend percutaneous biopsy. Art doppler unremarkable Venous doppler to be performed Possibly infectious given elevated CRP vs malignancy vs other Patient wishes to have US guided biopsy of lymphadenopathy of right groin. Will order this for tomorrow Subjective Date/time seen: 09/18/19 15:07 Interval history: Patient is a 69 yo M with history of COPD/asthma overlap, chronic respiratory failure with hypoxia, diastolic congestive heart failure, and history of tobacco abuse who is here for COPD exacerbation and for evaluation of right inguinal lymphadenopathy. Patient states he is feeling slightly better today. He still has a dry cough that has unchanged since yesterday. His breathing has improved. His right inguinal pain has improved; the results of US today were discussed with him today and he wishes to proceed with the recommended US guided biopsy. He has a slight headache today. Patient otherwise has no other complaints. Denies f/c/ns, lightheadedness, dizziness, cp/palpitations, n/v/d/c, abdominal pain, dysuria, hematuria, brbpr, melena, calf pain/swelling, s/sx of stroke. Review of Systems Review of Systems: All systems reviewed & are unremarkable except as noted in HPI and below Exam Const: General: comfortable, no acute distress, acute distress (mild-moderate. Able to speak sentences. Coughing fits) respiratory and ill appearing chronically Orientation/consciousness: patient oriented x3 HENMT: Head: normocephalic and atraumatic General nose exam: Normal nares present (NC noted) Face and sinus: fa
[2019-09-19] VITALS (12 sets, daily range): BP systolic 118–137; BP diastolic 69–89; PULSE 76–107; RESP 16–20; TEMP 36.4–36.8; O2SAT 93–98
[2019-09-19] MEDS: ALBUTEROL SULFATE NEB 2.5 MG/0.5 ML INH 5 MG INHALATION ×4 (03:40→20:27)
[2019-09-19] MEDS: IPRATROPIUM BR 0.02% INH SOLN 0.5 MG/2.5 ML VIAL INHALATION ×4 (03:40→20:27)
[2019-09-19] MEDS: methylPREDNISolone SOD SUCC 125 MG VIAL 60 MG IV PUSH ×3 (05:26→20:43)
[2019-09-19 06:41] LABS: Basophils Percent Auto 0.1 % (0.2-1.2); Hematocrit 33.5 % (42.0-52.0); Hemoglobin 11.2 g/dL (14.0-18.0); Immature Granulocyte Absolute 0.06 K/mm3 (0.00-0.031); Immature Granulocyte Percent A 0.4 % (0-0.5); Lymphocytes Absolute Auto 1.42 K/mm3 (0.9-3.2); Mean Corpuscular HGB Conc 33.4 g/dl (32-36); Mean Corpuscular Hemoglobin 30.9 pg (26-34); Mean Corpuscular Volume 92.5 fl (80-100); Monocytes Absolute Auto 1.1 K/mm3 (0.1-0.6); Monocytes Percent Auto 7.7 % (2.6-8.5); Neutrophils Absolute Auto 11.6 K/mm3 (1.3-6.7); Neutrophils Percent Auto 81.8 % (45.5-73.1); Platelet Count Result 332 k/mm3 (150-375); Red Blood Count 3.62 M/mm3 (4.6-6.20); Red Cell Distribution Width 13.6 % (11.5-14.5); White Blood Count 14.2 K/mm3 (4.5-10.0)
[2019-09-19 06:52] LABS: Blood Urea Nitrogen 29 mg/dL (9-20); Calcium 8.8 mg/dL (8.4-10.2); Carbon Dioxide 28 mmol/L (22-30); Chloride 106 mmol/L (98-107); Estimated CRCL calculation 59 ml/min; Estimated Glomerular Filt Rate > 60; Glucose 166 mg/dL (75-110); Magnesium 1.9 mg/dL (1.6-2.3); Sodium 141 mmol/L (137-145)
[2019-09-19 06:57] LABS: CRP 5.3 mg/dL (<1.0)
[2019-09-19 07:14] LABS: INR 0.9; Prothrombin Time 11.6 Seconds (11.1-14.7)
[2019-09-19 07:15] LABS: Partial Thromboplastin Time 21.8 SECONDS (22.3-36.8)
--- NOTE | 2019-09-19 08:09 | PC.NURSE ---
Called radiology to verify that patient can have morning medication. Will give morning PO medication.
[2019-09-19] MEDS: TAMSULOSIN HCL 0.4 MG CAPSULE PO (08:32)
[2019-09-19] MEDS: TRAZODONE HCL 50 MG TABLET 100 MG PO ×2 (08:32→20:43)
--- NOTE | 2019-09-19 17:11 | PM.IMPN ---
Progress Note: A&P Assessment and Plan (1) Acute exacerbation of chronic obstructive airways disease: Code(s): J44.1 - Chronic obstructive pulmonary disease with (acute) exacerbation Status: Acute Assessment and Plan: May be precipitated by the change in weather. No history to suggest infection. Showing slow improvement Continue scheduled nebulizers and steroids. Will hold on Q8hr Solumedrol tomorrow. Taper the next day Add Mucinex and Cornet to help mobilize secretions. CRP is noted to be 20.2 on admission, which decreased to 5.3. We will continue without abx at this moment (2) Chronic respiratory failure with hypoxia: Code(s): J96.11 - Chronic respiratory failure with hypoxia Status: Acute Assessment and Plan: He is at his baseline oxygen requirement. Appeared to have increased effort in beginning of visit after coughing fit, but improved over the course of visit. Currently on RA Monitor for now (3) Acute kidney injury: Code(s): N17.9 - Acute kidney failure, unspecified Status: Acute Assessment and Plan: Etiology is not entirely clear, but would consider secondary to NSAID use. Cr improved to 1.00 today For now will have to avoid nephro-toxic agents, including holding his furosemide. Will hold IVF for now Monitor renal function tomorrow (4) Diastolic heart failure: Code(s): I50.30 - Unspecified diastolic (congestive) heart failure Status: Acute Assessment and Plan: He is clinically compensated. Monitor volume status as furosemide is currently on hold as above. IVF stopped for now Consider resuming lasix tomorrow (5) Chronic anemia: Code(s): D64.9 - Anemia, unspecified Status: Acute Assessment and Plan: Hemoglobin and hematocrit were higher than what they typically run, arguing that he may be dehydrated. H&H back to within his baseline. Hgb 11.2 today Trend tomorrow (6) Mass of right inguinal region: Code(s): R19.09 - Other intra-abdominal and pelvic swelling, mass and lump Status: Acute Assessment and Plan: Soft tissue ultrasound of the right inguinal region read as right inguinal lymphadenopathy, largest demonstrating effacement of normal fatty hilum, possibly pathologic. Consider lymphoma. Biopsy performed today. Venous Doppler negative for DVT. Possibly infectious given elevated CRP vs malignancy vs other Monitor for now Will have patient follow up with PCP as outpatient once results return Subjective Date/time seen: 09/19/19 17:11 Interval history: Patient is a 69 yo M with history of COPD/asthma overlap, chronic respiratory failure with hypoxia, diastolic congestive heart failure, and history of tobacco abuse who is here for COPD exacerbation and for evaluation of right inguinal lymphadenopathy. Patient states he is feeling overall better today, although he has good moments and bad moments, particularly when he woke up from his nap right before I entered the room. His coughing fits are better, but he gets SOB shortly after and takes a while to catch his breath. He still has a dry cough that has unchanged since yesterday. Patient otherwise has no other complaints. Denies f/c/ns, lightheadedness, dizziness, cp/palpitations, n/v/d/c, abdominal pain, dysuria, hematuria, brbpr, melena, calf pain/swelling, s/sx of stroke. Review of Systems Review of Systems: All systems reviewed & are unremarkable except as noted in HPI and below Exam Narrative: Exam Narrative: Patient lying on right side, increased work of breathing after having a coughing fit, this improved during visit. Patient on RA Const: General: comfortable, no acute distress, acute distress (mild-mod resp distress. Able
--- NOTE | 2019-09-19 19:36 | PC.NURSE ---
Patient states getting up independent and urinating on his own with no issues. R. groin mass biopsy covered with band-aid.
[2019-09-20] VITALS (16 sets, daily range): BP systolic 113–166; BP diastolic 48–85; PULSE 73–100; RESP 16–44; TEMP 37.1–39.2; O2SAT 92–99
[2019-09-20] MEDS: IPRATROPIUM BR 0.02% INH SOLN 0.5 MG/2.5 ML VIAL INHALATION ×3 (01:58→20:26)
[2019-09-20] MEDS: ALBUTEROL SULFATE NEB 2.5 MG/0.5 ML INH 5 MG INHALATION ×3 (01:58→20:25)
[2019-09-20] MEDS: ACETAMINOPHEN 325 MG TABLET PO (05:33)
[2019-09-20] MEDS: methylPREDNISolone SOD SUCC 125 MG VIAL 60 MG IV PUSH ×3 (05:34→22:17)
[2019-09-20 06:01] LABS: Basophils Percent Auto 0.1 % (0.2-1.2); Hematocrit 37.9 % (42.0-52.0); Hemoglobin 12.2 g/dL (14.0-18.0); Immature Granulocyte Absolute 0.13 K/mm3 (0.00-0.031); Immature Granulocyte Percent A 0.8 % (0-0.5); Lymphocytes Absolute Auto 0.97 K/mm3 (0.9-3.2); Lymphocytes Percent Auto 5.9 % (18.3-44.2); Mean Corpuscular HGB Conc 32.2 g/dl (32-36); Mean Corpuscular Hemoglobin 30.7 pg (26-34); Mean Corpuscular Volume 95.2 fl (80-100); Mean Platelet Volume 9.3 fl (7.4-10.4); Monocytes Absolute Auto 1.5 K/mm3 (0.1-0.6); Neutrophils Absolute Auto 13.9 K/mm3 (1.3-6.7); Neutrophils Percent Auto 84.2 % (45.5-73.1); Platelet Count Result 335 k/mm3 (150-375); Red Blood Count 3.98 M/mm3 (4.6-6.20); Red Cell Distribution Width 13.5 % (11.5-14.5); White Blood Count 16.5 K/mm3 (4.5-10.0)
[2019-09-20 06:25] LABS: Blood Urea Nitrogen 38 mg/dL (9-20); Carbon Dioxide 27 mmol/L (22-30); Chloride 103 mmol/L (98-107); Estimated CRCL calculation 54 ml/min; Estimated Glomerular Filt Rate > 60; Glucose 117 mg/dL (75-110); Potassium 4.1 mmol/L (3.4-5.0); Sodium 140 mmol/L (137-145)
[2019-09-20] MEDS: TAMSULOSIN HCL 0.4 MG CAPSULE PO (08:50)
[2019-09-20] MEDS: METAXALONE 800 MG TABLET PO ×2 (08:50→22:18)
[2019-09-20] MEDS: TRAZODONE HCL 50 MG TABLET 100 MG PO ×2 (08:51→22:17)
--- NOTE | 2019-09-20 11:28 | PC.NURSE ---
Received call from Dr. Bermeo with preliminary groin node biopsy- lymphoma. Melany Beverly PA-C notified with finding.
--- NOTE | 2019-09-20 12:45 | PM.IMPN ---
Progress Note: A&P Assessment and Plan (1) Acute exacerbation of chronic obstructive airways disease: Code(s): J44.1 - Chronic obstructive pulmonary disease with (acute) exacerbation Status: Acute Assessment and Plan: May be precipitated by the change in weather. No history to suggest infection. Clinically about the same as yesterday. Dr. Ozuna consulted as improvement has stagnated. Input is much appreciated. Continue scheduled nebulizers and steroids. Continue with Q8hr Solumedrol for now. Continue Mucinex and Cornet to help mobilize secretions. CRP is noted to be 20.2 on admission, which decreased to 5.3. We will continue without abx at this moment (2) Chronic respiratory failure with hypoxia: Code(s): J96.11 - Chronic respiratory failure with hypoxia Status: Acute Assessment and Plan: He is at his baseline oxygen requirement. Appeared to have increased effort in beginning of visit after coughing fit, but improved over the course of visit. Currently on 3L O2 [place] Monitor for now (3) Acute kidney injury: Code(s): N17.9 - Acute kidney failure, unspecified Status: Acute Assessment and Plan: Etiology is not entirely clear, but would consider secondary to NSAID use. Cr stable at 1.10 today For now will have to avoid nephro-toxic agents, including holding his furosemide. Will hold IVF for now Monitor renal function tomorrow (4) Diastolic heart failure: Code(s): I50.30 - Unspecified diastolic (congestive) heart failure Status: Acute Assessment and Plan: He is clinically compensated. Monitor volume status as furosemide is currently on hold as above. IVF stopped for now Consider resuming lasix tomorrow (5) Chronic anemia: Code(s): D64.9 - Anemia, unspecified Status: Acute Assessment and Plan: On admission, Hemoglobin and hematocrit were higher than what they typically run, arguing that he may be dehydrated. H&H back to within his baseline. Hgb 12.2 today Trend tomorrow (6) Mass of right inguinal region: Code(s): R19.09 - Other intra-abdominal and pelvic swelling, mass and lump Status: Acute Assessment and Plan: Soft tissue ultrasound of the right inguinal region read as right inguinal lymphadenopathy, largest demonstrating effacement of normal fatty hilum, possibly pathologic. Consider lymphoma. Biopsy performed yesterday and preliminary results have returned suggestive for lymphoma. Discussed this with him in length and he would like to see Heme/Onc to discuss further. Venous Doppler negative for DVT. Prelim biopsy suggestive of lymphoma Dr. Barr has been consulted and appreciate input. Monitor for now Subjective Date/time seen: 09/20/19 12:45 Interval history: Patient is a 69 yo M with history of COPD/asthma overlap, chronic respiratory failure with hypoxia, diastolic congestive heart failure, and history of tobacco abuse who is here for COPD exacerbation and for evaluation of right inguinal lymphadenopathy. Patient states he is feeling about the same as today. He states his symptoms are not improving the way they usually progress on previous COPD exacerbations. He still gets out of breath with walking to the bathroom, with eating his food, and particularly with his coughing fits. His preliminary results for his lymph node biopsy came back suggestive of lymphoma; I asked if he would like to here these results or wait for final results and he stated he would like to hear them and stated he wished to have further consultation to Heme/Onc while still here in the hospital. Denies f/c/ns, lightheadedness, dizziness, cp/palpitations, n/v/d/c, abdominal pain, dysuria, hematuria, brbpr, melena, calf p
[2019-09-20] MEDS: ACETAMINOPHEN 325 MG TABLET 650 MG PO ×2 (13:51→22:18)
--- NOTE | 2019-09-20 15:16 | CONS_ITS ---
DATE OF CONSULTATION: 09/20/2019 REASON FOR CONSULTATION: Lymphoma. HISTORY OF PRESENTING ILLNESS: This is a 69-year-old pleasant male with history of COPD/asthma, quit smoking about 6 months ago, came into the hospital with increasing shortness of breath. He has been on 3 L of oxygen at nighttime and as needed, but has been getting progressively more short of breath over the last several years duration. He also has been coughing and complaining of muscle soreness due to violent cough. He denies any fevers or chills. He noted the right inguinal region lymph node about a month ago. He does have some occasional paresthesias. He lost 25 pounds weight in 6 months. He denies any night sweats. REVIEW OF SYSTEMS: 12-point review of system was reviewed and as per HPI, otherwise negative. PAST MEDICAL HISTORY: Chronic anemia, chronic respiratory failure with hypoxia on 3 L of oxygen at home as needed, COPD, diastolic heart failure, dyslipidemia, eczema, osteoarthritis, history of skin cancer in 2008. PAST SURGICAL HISTORY: Cataract surgery, skin biopsy, and surgical removal of malignant neoplasm of the skin. FAMILY HISTORY: Coronary artery disease in the father and diabetes in siblings. Mother had unknown malignancy. SOCIAL HISTORY: The patient used to smoke heavily and quit about 6 months ago. He drinks 2 drinks per week. He lives with his son. HOME MEDICATIONS: Reviewed. ALLERGIES: REVIEWED. PHYSICAL EXAMINATION: GENERAL: This patient is quite tired looking male, in no apparent distress, oriented x3. VITAL SIGNS: Per nursing note. HEENT: Normocephalic, atraumatic. Clear oropharynx. LUNGS: Clear to auscultation bilaterally. CARDIOVASCULAR: Regular rate and rhythm. No murmurs. ABDOMEN: Soft, nontender, nondistended. Bowel sounds are positive in all 4 quadrants. No hepatosplenomegaly. EXTREMITIES: No edema. LYMPHATICS: There is a right inguinal lymph node noted. No axillary and cervical lymph nodes noted. LABORATORY DATA: WBC 16.5, hemoglobin 12.2, platelet 335,000, neutrophils 85%, lymphocytes 5.9%. INR 0.9, creatinine 1.1, calcium 9.0. C-reactive protein 5.3. ASSESSMENT AND PLAN: 1. Non-Hodgkin's lymphoma. Status post right inguinal lymph node biopsy today. Preliminary report shows non-Hodgkin's lymphoma. Final pathology is pending. The patient has lost weight about 25 pounds in 6 months. He has no other lymphadenopathy on my examination. I would recommend PET scan after discharge from the hospital for complete staging of this newly diagnosed lymphoma. Based on the final pathology and PET scan assessment, we will discuss treatment management with the patient. I have provided this patient my office information for followup. 2. COPD/asthma. The patient is on steroids along with nebulizer. Dr. Karen Ozuna is following the patient. 3. Leukocytosis, likely secondary to COPD exacerbation and steroid use. I would like to thank you for allowing us to see this patient in consultation. We will follow with him in the office for further management of his lymphoma. LYSSA STEINER M.D. TRAUMA MANAGER TRAUMA MANAGER D Jules MT: [place]
--- NOTE | 2019-09-20 22:55 | PC.NURSE ---
Transferred to ICU 9 per hospital bed. All belongings transferred and verified. Report given at bedside to Valentina CUPOLA MECHANIC.
--- NOTE | 2019-09-20 23:25 | P.PCNBED_ITS ---
Procedures Intubation: Intubation Date: 09/20/19 Intubation Time: 23:26 A pre- procedural Time-Out was completed immediately before starting the procedure and confirmed: Patient Identification, Site, Procedure, Patient Position and the Availability of Requisite Equipment: Yes Sedative: etomidate Mg given: 15 Paralytic: succinylcholine Mg given: 100 Laryngoscope: fiber optic video scope ET tube size: 8 Tube secured depth (cm): 24 Tube secured locati on: lips Tube placement confirmation: visualized tube passing through cords, equal breath sounds bilaterally, no breath sounds over epigastrium and confirmation by capnometry Patient tolerated procedure: well Intubation complications: none Additional comments: Date of service of procedure was 09/20/2019 at 23:15 hrs.
[2019-09-20 23:47] LABS: Alveolar/Arterial O2 Gradient 159.7 mmHg; Base Excess ABG 0.9 mEq/l (+/-2.0); Fractional Inspired Oxygen 60 %; HCO3 ABG 28.3 mEq/l (22.0-26.0); Oxygen Content ABG 18.6 %vol (16.0-22.0); Oxygen Saturation ABG 99.3 % (95.0-100.0); Oxyhemoglobin 97.9 % THb (90.0-100.0); PCO2 ABG 57.5 mmHg (35.0-45.0); PO2 ABG 204.9 mmHg (80.0-100.0); PO2 FiO2 Ratio Arterial Blood 3.41 %; Total Hemoglobin 13.2 g/dL (12.0-18.0)
[2019-09-20 23:48] LABS: Device VENTILATOR; Modified Allen's Test Pass; Site Drawn RIGHT RADIAL
[2019-09-20 23:49] LABS: Arterial Blood Gas PEEP 5 cmH2O; Arterial Blood Gas Vent Mode CMV; Arterial Blood Gas Ventilator rate 14 /MIN
[2019-09-21] VITALS (27 sets, daily range): BP systolic 100–136; BP diastolic 65–81; PULSE 79–102; RESP 13–25; TEMP 37.2–38; O2SAT 94–100
[2019-09-21] MEDS: MIDAZOLAM HCL 50 MG in DEXTROSE 5% 90 ML IV CONT (00:09)
--- NOTE | 2019-09-21 00:13 | PC.NURSE ---
This patient, Beto Cornejo, was received from [medical floor ] on 09/20/19 at 2240.REPORT RECEIVED FROM ARLETTE BUTLER. Personal belongings list checked and signed. Patient/family oriented to unit policies and routines
[2019-09-21] MEDS: ALBUTEROL SULFATE NEB 2.5 MG/0.5 ML INH 5 MG INHALATION ×4 (01:24→20:08)
[2019-09-21] MEDS: IPRATROPIUM BR 0.02% INH SOLN 0.5 MG/2.5 ML VIAL INHALATION ×4 (01:24→20:08)
[2019-09-21 04:28] LABS: Basophils Absolute Auto 0.1 K/mm3 (0.0-0.1); Basophils Percent Auto 0.2 % (0.2-1.2); Hematocrit 36.2 % (42.0-52.0); Hemoglobin 11.9 g/dL (14.0-18.0); Immature Granulocyte Absolute 0.23 K/mm3 (0.00-0.031); Immature Granulocyte Percent A 1.1 % (0-0.5); Lymphocytes Absolute Auto 1.68 K/mm3 (0.9-3.2); Lymphocytes Percent Auto 7.8 % (18.3-44.2); Mean Corpuscular HGB Conc 32.9 g/dl (32-36); Mean Corpuscular Hemoglobin 30.9 pg (26-34); Mean Platelet Volume 9.1 fl (7.4-10.4); Monocytes Absolute Auto 1.4 K/mm3 (0.1-0.6); Monocytes Percent Auto 6.5 % (2.6-8.5); Neutrophils Absolute Auto 18.1 K/mm3 (1.3-6.7); Neutrophils Percent Auto 84.4 % (45.5-73.1); Nucleated Red Blood Cells Perc 0.1 % (0.0-0.2); Platelet Count Result 245 k/mm3 (150-375); Red Blood Count 3.85 M/mm3 (4.6-6.20); Red Cell Distribution Width 13.7 % (11.5-14.5); White Blood Count 21.4 K/mm3 (4.5-10.0)
[2019-09-21 04:43] LABS: Blood Urea Nitrogen 38 mg/dL (9-20); Calcium 8.1 mg/dL (8.4-10.2); Carbon Dioxide 29 mmol/L (22-30); Chloride 101 mmol/L (98-107); Estimated CRCL calculation 50 ml/min; Estimated Glomerular Filt Rate 60; Glucose 225 mg/dL (75-110); Potassium 4.4 mmol/L (3.4-5.0); Sodium 138 mmol/L (137-145)
--- NOTE | 2019-09-21 05:06 | ECG_ITS ---
Measurements Intervals [place] Rate: 81 P: 59 SC: 158 QRS: 42 QRSD: 93 T: 60 QT: 374 QTc: 435 Interpretive Statements SINUS RHYTHM NORMAL ECG Electronically Signed On 09-21-2019 8:28:06 [employer]ATIONS by Santiago Whitfield D.O.
[2019-09-21 05:35] LABS: Alveolar/Arterial O2 Gradient 296.7 mmHg; Base Excess ABG 2.4 mEq/l (+/-2.0); Fractional Inspired Oxygen 60 %; HCO3 ABG 29.6 mEq/l (22.0-26.0); Oxygen Content ABG 18.5 %vol (16.0-22.0); Oxygen Saturation ABG 92.4 % (95.0-100.0); Oxyhemoglobin 91.4 % THb (90.0-100.0); PCO2 ABG 56.5 mmHg (35.0-45.0); PO2 FiO2 Ratio Arterial Blood 1.15 %; Site Drawn RIGHT RADIAL; Total Hemoglobin 14.4 g/dL (12.0-18.0); pH ABG 7.337 (7.350-7.450)
[2019-09-21 05:36] LABS: Arterial Blood Gas PEEP 5 cmH2O; Arterial Blood Gas Tidal Volume 500 ml; Arterial Blood Gas Vent Mode CMV; Arterial Blood Gas Ventilator rate 14 /MIN; Device VENTILATOR; Modified Allen's Test Pass
[2019-09-21] MEDS: methylPREDNISolone SOD SUCC 125 MG VIAL 60 MG IV PUSH ×3 (06:25→21:07)
[2019-09-21] MEDS: BUDESONIDE RESPULE NEB 0.5 MG/2 ML AMP INHALATION ×2 (08:45→20:08)
--- NOTE | 2019-09-21 09:15 | WPDCNINT ---
Assessment and Plan Assessment and plan (1) Acute and chronic respiratory failure: Qualifiers: Respiratory failure complication: unspecified whether with hypoxia or hypercapnia Qualified Code(s): J96.20 - Acute and chronic respiratory failure, unspecified whether with hypoxia or hypercapnia Code(s): J96.20 - Acute and chronic respiratory failure, unspecified whether with hypoxia or hypercapnia Status: Acute Assessment and Plan: patient worsened overnight on 09/20/2019, tachypneic, increased work of breathing, impending respiratory failure, Dr. Coughlin intubated the patient and transferred the patient to the ICU - continue bronchodilators - chest x-ray and ABGs reviewed, ventilator adjusted - likely secondary to COPD exacerbation and/or bronchitis - pulmonology was consulted when patient was on the floor, await evaluation and recommendations (2) Acute exacerbation of chronic obstructive airways disease: Code(s): J44.1 - Chronic obstructive pulmonary disease with (acute) exacerbation Status: Acute Assessment and Plan: continue mechanical ventilation, steroids, - will start ceftriaxone (3) Mass of right inguinal region: Code(s): R19.09 - Other intra-abdominal and pelvic swelling, mass and lump Status: Acute Assessment and Plan: patient had a lymph node biopsy from the right groin, preliminary report showed non-Hodgkin's lymphoma - appreciate Hematology/Oncology evaluation and recommendation (4) Acute kidney injury: Code(s): N17.9 - Acute kidney failure, unspecified Status: Acute Assessment and Plan: patient initially presented with acute kidney injury, the course of the stay in the hospital kidney functions have improved OUMAR has resolved - continue to monitor urine output, renal function electrolytes (5) Diastolic heart failure: Qualifiers: Heart failure chronicity: chronic Qualified Code(s): I50.32 - Chronic diastolic (congestive) heart failure Code(s): I50.30 - Unspecified diastolic (congestive) heart failure Status: Acute Assessment and Plan: history of chronic diastolic heart failure - Echocardiogram in March 2019 showed normal LV size and function with an impaired diastolic relaxation and ejection fraction of 60 to 65% - heart failure seems to be compensated, will continue to monitor (6) Hyperglycemia: Code(s): R73.9 - Hyperglycemia, unspecified Status: Acute Assessment and Plan: hyperglycemia likely related to steroids - started on sliding scale insulin Accu-Cheks (7) DVT prophylaxis: Code(s): Z29.9 - Encounter for prophylactic measures, unspecified Status: Acute Assessment and Plan: will start Lovenox Additional Plan discussed with brother and updated with his condition and plan of care. I answered all questions Code status: Full code Critical care time spent: 42 minutes Due to a high probability of clinically significant, life threatening deterioration, the patient required my highest level of preparedness to intervene emergently and I personally spent this critical care time directly and personally managing the patient. This critical care time included obtaining a history; examining the patient; pulse oximetry; ordering and review of studies; arranging urgent treatment with development of a management plan; evaluation of patient's response to treatment; frequent reassessment; and discussions with other providers. It was exclusive of separately billable procedures and treating other patients and teaching time. Please see Assessment and Plan section and the rest of the note for further information on patient assessment and treatment [employer] Utility Worker Consult Note Consult date: 09/21/19 Time Seen: 07:08 Reason for consult: acute on chronic respiratory failure with COPD exacerbation, non-Hodgkin's lymphoma HPI: Beto Cornejo is a 69 year old male with pa
[2019-09-21] MEDS: ENOXAPARIN 40 MG/0.4 ML SYRINGE SUB-Q (10:04)
[2019-09-21] MEDS: GUAIFENESIN 200 MG/10 ML UDC PO ×3 (12:11→21:07)
[2019-09-21] MEDS: INSULIN ASPART (*BKC) 100 UNITS/ML SUB-Q (12:26)
[2019-09-21] MEDS: MIDAZOLAM HCL 50 MG in DEXTROSE 5% 90 ML 8 MG IV CONT (13:41)
--- NOTE | 2019-09-21 16:38 | PM.IMPN ---
Progress Note: A&P Assessment and Plan (1) Acute exacerbation of chronic obstructive airways disease: Code(s): J44.1 - Chronic obstructive pulmonary disease with (acute) exacerbation Status: Acute Assessment and Plan: Worsening COPD with resp distress. Pt is intubated in ICU. Pt is on iv solumedrol, albuterol treatments, iv rocephin and iv vancomycin (2) Chronic respiratory failure with hypoxia: Code(s): J96.11 - Chronic respiratory failure with hypoxia Status: Acute Assessment and Plan: Pt wears oxygen at home (3) Acute kidney injury: Code(s): N17.9 - Acute kidney failure, unspecified Status: Acute Assessment and Plan: Monitor renal function (4) Diastolic heart failure: Qualifiers: Heart failure chronicity: chronic Qualified Code(s): I50.32 - Chronic diastolic (congestive) heart failure Code(s): I50.30 - Unspecified diastolic (congestive) heart failure Status: Acute Assessment and Plan: He is clinically compensated. (5) Chronic anemia: Code(s): D64.9 - Anemia, unspecified Status: Acute Assessment and Plan: Continue to trend hb/ hct (6) Mass of right inguinal region: Code(s): R19.09 - Other intra-abdominal and pelvic swelling, mass and lump Status: Acute Assessment and Plan: Soft tissue ultrasound of the right inguinal region read as right inguinal lymphadenopathy, largest demonstrating effacement of normal fatty hilum, possibly pathologic. Consider lymphoma. Biopsy performed yesterday and preliminary results have returned suggestive for lymphoma. Prelim biopsy suggestive of lymphoma Dr. Barr has been consulted and appreciate input. Pt to follow with Dr Barr on discharge Subjective Date/time seen: 09/21/19 16:38 Interval history: Patient is a 69 yo M with history of COPD/asthma overlap, scleroderma, chronic respiratory failure with hypoxia, diastolic congestive heart failure, and history of tobacco abuse who is here for COPD exacerbation and for evaluation of right inguinal lymphadenopathy. Pt had lymph node biospy seen by Dr Barr will need further investigations later after discharge for possible non hodgkins lymphoma. Pt unfortunately developed severe SOB and was intubated and admitted to ICU last night. Continue ventilatory support. Review of Systems Review of Systems: All systems reviewed & are unremarkable except as noted in HPI and below Exam Narrative: Exam Narrative: Intubated in icu, dry skin all over, smaller nose Const: General: acute distress (mild-mod resp distress. Able to speak shor sentences. Improved during visit) respiratory and ill appearing chronically HENMT: Head: normocephalic and atraumatic Face and sinus: face symmetric Mouth: Yes tongue normal and Yes dry mucous membranes Throat: posterior oropharynx normal Eyes: General: appearance normal, both eyes and all related structures Sclera: sclerae normal Pupils: Equal, round and reactive pupils present EOM: EOMs intact bilaterally Neck: Neck: trachea midline and supple Thyroid: thyroid normal Lymphatic: lymphadenopathy noted Resp: Auscultation: wheezes and diminished lung sounds diffuse Cardio: Rate: regular rate Rhythm: regular rhythm Heart sounds: no gallops, no murmurs and no rubs GI: Inspection: non-distended Auscultation: normal bowel sounds Other: Right inguinal lymph node with bandage, slight drainage on bandage Skin: General skin exam: erythema (diffusely erythematous, dry skin, diffuse lesions noted) Neuro: General: patient oriented x3 and no focal motor deficits Cranial nerves: Yes Equal, round and reactive pupils present Extrem: Right lower extremit
[2019-09-21] MEDS: ACETAMINOPHEN 325 MG TABLET 650 MG PO (18:42)
--- NOTE | 2019-09-21 19:54 | PM.PNPUL ---
Progress Note: A&P Assessment and Plan (1) Acute and chronic respiratory failure: Qualifiers: Respiratory failure complication: unspecified whether with hypoxia or hypercapnia Qualified Code(s): J96.20 - Acute and chronic respiratory failure, unspecified whether with hypoxia or hypercapnia Code(s): J96.20 - Acute and chronic respiratory failure, unspecified whether with hypoxia or hypercapnia Status: Acute Assessment and Plan: intubated 09/20/2019 for increased respiratory rate, increased hypercapnea, hypoxemia, failed BiPAP. (2) Acute exacerbation of chronic obstructive airways disease: Code(s): J44.1 - Chronic obstructive pulmonary disease with (acute) exacerbation Status: Acute Assessment and Plan: Has a history of COPD/asthma overlap; his home medications may not be sufficient. He has not been follwed in the office, although we have seen him ias an inpatient before. 04/02/2019 FEV1 59%, (+) airflow obstruction, TLC 131%, Airway resistance 410. DLCO 83%, normal. (3) Diastolic heart failure: Qualifiers: Heart failure chronicity: chronic Qualified Code(s): I50.32 - Chronic diastolic (congestive) heart failure Code(s): I50.30 - Unspecified diastolic (congestive) heart failure Status: Acute Assessment and Plan: Compensated. (4) History of tobacco abuse: Code(s): Z87.891 - Personal history of nicotine dependence Status: Acute Assessment and Plan: 2 ppd x 40 years, quit a yew months ago Subjective Date/time seen: 09/21/19 19:54 thank you for the consultation. Please see job #[id number]. Objective Data Vital Signs Vital Signs: Vital Signs - 24 hr 09/20/19 19:55 09/20/19 20:26 09/20/19 20:35 Temperature 37.1 C Pulse Rate 86 92 96 Respiratory Rate 32 H 28 H 24 H Blood Pressure Pulse Oximetry 96 09/20/19 22:10 09/20/19 22:18 09/20/19 22:35 Temperature 39.2 C H 39.2 C H Pulse Rate 100 Respiratory Rate 30 H 44 H Blood Pressure 166/85 H Pulse Oximetry 96 92 09/20/19 23:00 09/20/19 23:18 09/20/19 23:43 Temperature 37.6 C H Pulse Rate 92 Respiratory Rate 35 H Blood Pressure 136/70 Pulse Oximetry 99 94 09/21/19 00:00 09/21/19 01:24 09/21/19 01:33 Temperature 37.6 C H Pulse Rate 100 82 86 Respiratory Rate 23 H 13 22 H Blood Pressure 116/67 Pulse Oximetry 99 09/21/19 01:34 09/21/19 02:00 09/21/19 04:00 Temperature 37.2 C Pulse Rate 80 90 102 H Respiratory Rate 16 17 Blood Pressure 124/65 136/79 Pulse Oximetry 98 98 98 09/21/19 05:15 09/21/19 06:00 09/21/19 08:00 Temperature 38.0 C H Pulse Rate 81 79 86 Respiratory Rate 25 H Blood Pressure 128/74 Pulse Oximetry 98 100 09/21/19 08:45 09/21/19 08:55 09/21/19 10:00 Temperature Pulse Rate 98 95 95 Respiratory Rate 17 17 16 Blood Pressure 124/76 Pulse Oximetry 100 95 09/21/19 11:15 09/21/19 12:00 09/21/19 13:55 Temperature 38.0 C H Pulse Rate 98 98 96 Respiratory Rate 16 16 Blood Pressure 122/72 Pulse Oximetry 95 97 96 09/21/19 14:00 09/21/19 14:05 09/21/19 16:00 Temperature 37.7 C H Pulse Rate 100 88 96 Respiratory Rate 16 16 19 Blood Pressure 109/81 113/77 Pulse Oximetry 94 94 09/21/19 16:35 09/21/19 18:00 09/21/19 18:42 Temperature 37.6 C Pulse Rate 94 89 Respiratory Rate Blood Pressure Pulse Oximetry 94 09/21/19 18:55 09/21/19 19:42 Temperature 37.2 C Pulse Rate 89 Respiratory Rate 16 Blood Pressure 116/73 Pulse Oximetry 95 Intake/Output Intake/Output: Intake & Output 09/18/19 09/19/19 09/20/19 09/21/19 23:59 23:59 23:59 23:59 Intake Total 3680 1760 1810 473.8 O
[2019-09-22] VITALS (26 sets, daily range): BP systolic 114–136; BP diastolic 70–81; PULSE 67–104; RESP 9–19; TEMP 37.2–37.6; O2SAT 90–97
[2019-09-22] MEDS: GUAIFENESIN 200 MG/10 ML UDC PO ×6 (00:15→20:14)
--- NOTE | 2019-09-22 00:25 | CONS_ITS ---
DATE OF CONSULTATION: 09/21/2019 REASON FOR THE CONSULTATION: Adan Dorado, consulted me to see the patient for worsening acute on chronic respiratory failure. HISTORY: This 69-year-old male was admitted on September 17 with COPD exacerbation. He has COPD and asthma overlap. He also has diastolic congestive heart failure. He presented for increasing shortness of breath. He uses oxygen 3 L at night, and if needed during the day. On admission, he reported increasing shortness of breath with less exertion, as well as increased wheezing. His nebulized treatments were not helping him as much as usual. He thinks that the changes in the weather may have increased his COPD symptoms. He is currently intubated, so I cannot talk to him and get answers, but he told the admitting provider that he had not had fever, chills, sweats, lower extremity swelling, nausea, or vomiting, but he did have a 10-pound weight loss in the last few months and a mass in his groin, which was causing pain. Since admission, the mass was biopsied, and it is positive for non-Hodgkin lymphoma. He has not been a CO2 retainer in the past. A blood gas was obtained yesterday ,and he had increased PCO2 at 57.5. He started wearing BiPAP, and overnight, he deteriorated. He was semi-electively intubated around 11:30 last night, [address] Coughlin after being transferred to the intensive care unit. His chest x-ray does not show an infiltrate. He had the left pupil smaller than the right, so a stat head CT was obtained, which did not show any acute changes. The pupils have now normalized. ALLERGIES: PENICILLIN G. MEDICATIONS: Home Medications: 1. Symbicort 160/4.5 two puffs; this says q.4 to 6 hours; however, that is not the dosing of it. This is a controller medication, and the normal dose is 2 puffs twice a day. If he is using it every 4 to 6 hours like a rescue inhaler, this is a problem. 2. Lasix 20 mg p.o. b.i.d. 3. Topical imiquimod 5% topically 5 times per week. 4. Metaxalone, which is Skelaxin 800 mg p.o. b.i.d. p.r.n. muscle spasms. 5. Naprosyn 500 mg p.o. b.i.d. 6. Prednisone 10 mg daily, which was prescribed on September 17. 7. Spiriva HandiHaler 18 mcg 1 capsule daily. 8. Trazodone 100 mg p.o. b.i.d. 9. Ventolin HFA rescue inhaler 90 mcg q.4 hours p.r.n. shortness of breath. Hospital Medications: 1. Versed infusion 3 mg/hour. 2. Fentanyl infusion 75 mcg/hour. 3. Ceftriaxone 1 g IV daily, started today. 4. Vancomycin per pharmacy protocol, started today. 5. Nebulized albuterol 2.5 mg q.6 hours. 6. Ipratropium 0.5 mg nebulized q.6 hours. 7. Solu-Medrol 60 mg IV q.8 hours. 8. Aspart insulin sliding scale. 9. Budesonide 0.5 mg inhaled q.12 hours. 10. Enoxaparin 40 mg subcutaneously daily. 11. Guaifenesin 200 mg p.o. q.4 hours. PAST MEDICAL HISTORY: 1. COPD and asthma overlap. 2. Chronic respiratory failure with hypoxia, 3 L of oxygen at night, and during the day, if needed. 3. Diastolic congestive heart failure. Echo on March 22 showed a normal LV size and function, impaired diastolic relaxation, ejection fraction of 60% to 65%. 4. Dyslipidemia. 5. Osteoarthritis. 6. Squamous cell skin cancer on a biopsy of the right upper arm in 2016, multiple skin cancers removed from his limbs and face. 7. Osteoarthritis. 8. Eczema. 9. Chronic anemia. 10. Anxiety and depression. PAST SURGICAL HISTORY: 1. Cataract surgery in 2015. Multiple skin biopsies in 2008 to the present. 2. Left shoulder septic arthritis with an open left distal clavicle excision, irrigation and debridement down to the muscle for infection and abscess around the acromioclavicular joint. SOCIAL HISTORY: Heavy tobacco use, started at age 18, approximately 2 packs a day for approximately 40 years. He stoppe
[2019-09-22] MEDS: ALBUTEROL SULFATE NEB 2.5 MG/0.5 ML INH 5 MG INHALATION ×4 (02:07→19:52)
[2019-09-22] MEDS: IPRATROPIUM BR 0.02% INH SOLN 0.5 MG/2.5 ML VIAL INHALATION ×4 (02:07→19:52)
[2019-09-22 04:45] LABS: Alveolar/Arterial O2 Gradient 110.3 mmHg; Carboxyhemoglobin 0.2 % THb (0-2.0); Fractional Inspired Oxygen 35 %; HCO3 ABG 32.3 mEq/l (22.0-26.0); Methemoglobin ABG 0.3 %THb (0-1.5); Modified Allen's Test Pass; Oxygen Content ABG 17.4 %vol (16.0-22.0); Oxygen Saturation ABG 94.9 % (95.0-100.0); Oxyhemoglobin 94.1 % THb (90.0-100.0); PCO2 ABG 54.5 mmHg (35.0-45.0); PO2 ABG 75.9 mmHg (80.0-100.0); PO2 FiO2 Ratio Arterial Blood 2.17 %; Reduced Hemoglobin 5.4 %THb (0-5.0); Site Drawn RIGHT RADIAL; Total Hemoglobin 13.1 g/dL (12.0-18.0); pH ABG 7.391 (7.350-7.450)
[2019-09-22 04:46] LABS: Arterial Blood Gas Vent Mode CMV; Arterial Blood Gas Ventilator rate 16 /MIN; Device VENTILATOR
[2019-09-22 04:47] LABS: Arterial Blood Gas PEEP 5 cmH2O; Arterial Blood Gas Pressure Support 0 cmH2O; Arterial Blood Gas Tidal Volume 500 ml
[2019-09-22 04:52] LABS: Hematocrit 35.3 % (42.0-52.0); Hemoglobin 11.8 g/dL (14.0-18.0); Mean Corpuscular HGB Conc 33.4 g/dl (32-36); Mean Corpuscular Hemoglobin 31.3 pg (26-34); Mean Corpuscular Volume 93.6 fl (80-100); Mean Platelet Volume 9.3 fl (7.4-10.4); Platelet Count Result 231 k/mm3 (150-375); Red Blood Count 3.77 M/mm3 (4.6-6.20); Red Cell Distribution Width 13.1 % (11.5-14.5); White Blood Count 19.8 K/mm3 (4.5-10.0)
[2019-09-22 05:04] LABS: Lactic Acid 1.5 mmol/L (0.7-2.1)
[2019-09-22 05:21] LABS: Alanine Aminotransferase 50 U/L (4-50); Albumin Level 3.1 g/dL (3.5-5.1); Alkaline Phosphatase 79 U/L (38-126); Aspartate Amino Transferase 23 U/L (17-59); Bilirubin,Total 0.3 mg/dL (0.2-1.3); Blood Urea Nitrogen 49 mg/dL (9-20); Calcium 8.2 mg/dL (8.4-10.2); Carbon Dioxide 33 mmol/L (22-30); Chloride 100 mmol/L (98-107); Estimated CRCL calculation 46 ml/min; Estimated Glomerular Filt Rate 55; Glucose 220 mg/dL (75-110); Magnesium 2.6 mg/dL (1.6-2.3); Phosphorus 3.7 mg/dL (2.5-4.5); Potassium 4.6 mmol/L (3.4-5.0); Sodium 138 mmol/L (137-145)
[2019-09-22] MEDS: methylPREDNISolone SOD SUCC 125 MG VIAL 60 MG IV PUSH ×3 (05:56→21:49)
[2019-09-22] MEDS: INSULIN ASPART (*BKC) 100 UNITS/ML SUB-Q ×3 (06:21→23:16)
[2019-09-22] MEDS: MIDAZOLAM HCL 50 MG in DEXTROSE 5% 90 ML 6 MG IV CONT (06:50)
[2019-09-22 08:15] LABS: CRP 28.6 mg/dL (<1.0)
[2019-09-22] MEDS: ENOXAPARIN 40 MG/0.4 ML SYRINGE SUB-Q (08:35)
[2019-09-22] MEDS: BUDESONIDE RESPULE NEB 0.5 MG/2 ML AMP INHALATION ×2 (08:58→19:52)
[2019-09-22] MEDS: DORNASE ALFA INH SOLN 1 MG/ML 2.5 ML AMP 2.5 MG INHALATION ×2 (09:22→19:52)
[2019-09-22] MEDS: PANTOPRAZOLE SODIUM IV 40 MG VIAL IV PUSH (11:14)
--- NOTE | 2019-09-22 12:41 | PM.IMPN ---
Progress Note: A&P Assessment and Plan (1) Acute exacerbation of chronic obstructive airways disease: Code(s): J44.1 - Chronic obstructive pulmonary disease with (acute) exacerbation Status: Acute Assessment and Plan: Worsening COPD with resp distress. Pt is intubated in ICU. Pt is on iv solumedrol, albuterol treatments, iv rocephin and iv vancomycin (2) Chronic respiratory failure with hypoxia: Code(s): J96.11 - Chronic respiratory failure with hypoxia Status: Acute Assessment and Plan: Pt wears oxygen at home (3) Acute kidney injury: Code(s): N17.9 - Acute kidney failure, unspecified Status: Acute Assessment and Plan: Monitor renal function (4) Diastolic heart failure: Qualifiers: Heart failure chronicity: chronic Qualified Code(s): I50.32 - Chronic diastolic (congestive) heart failure Code(s): I50.30 - Unspecified diastolic (congestive) heart failure Status: Acute Assessment and Plan: He is clinically compensated. (5) Chronic anemia: Code(s): D64.9 - Anemia, unspecified Status: Acute Assessment and Plan: Continue to trend hb/ hct (6) Mass of right inguinal region: Code(s): R19.09 - Other intra-abdominal and pelvic swelling, mass and lump Status: Acute Assessment and Plan: Soft tissue ultrasound of the right inguinal region read as right inguinal lymphadenopathy, largest demonstrating effacement of normal fatty hilum, possibly pathologic. Consider lymphoma. Biopsy performed yesterday and preliminary results have returned suggestive for lymphoma. Prelim biopsy suggestive of lymphoma Dr. Barr has been consulted and appreciate input. Pt to follow with Dr Barr on discharge Subjective Date/time seen: 09/22/19 12:41 Interval history: Patient is a 69 yo M with history of COPD/asthma overlap, scleroderma, chronic respiratory failure with hypoxia, diastolic congestive heart failure, and history of tobacco abuse who is here for COPD exacerbation and for evaluation of right inguinal lymphadenopathy. Pt had lymph node biospy seen by Dr Barr will need further investigations later after discharge for possible non hodgkins lymphoma. Pt unfortunately developed severe SOB and was intubated and admitted to ICU, 09/20/2019. Continue ventilatory support. Discussion with brother at the bedside.. Review of Systems Review of Systems: ROS unobtainable: unobtainable due to endotracheal tube Exam Narrative: Exam Narrative: Intubated in icu, dry skin all over, smaller nose Const: General: acute distress (mild-mod resp distress. Able to speak shor sentences. Improved during visit) respiratory and ill appearing chronically Orientation/consciousness: patient oriented x3 HENMT: Head: normocephalic and atraumatic General nose exam: Normal nares present (NC noted) Face and sinus: face symmetric Mouth: Yes tongue normal and Yes dry mucous membranes Throat: posterior oropharynx normal Eyes: General: appearance normal, both eyes and all related structures Sclera: sclerae normal Pupils: Equal, round and reactive pupils present EOM: EOMs intact bilaterally Neck: Neck: trachea midline and supple Thyroid: thyroid normal Lymphatic: lymphadenopathy noted Resp: Auscultation: wheezes and diminished lung sounds diffuse Cardio: Rate: regular rate Rhythm: regular rhythm Heart sounds: no gallops, no murmurs and no rubs GI: Inspection: non-distended Auscultation: normal bowel sounds Other: Right inguinal lymph node with bandage, slight drainage on bandage Skin: General skin exam: erythema (diffusely erythematous, dry skin, diffuse lesions noted) Neuro: General: patient oriented
--- NOTE | 2019-09-22 13:15 | WPDINTPN ---
Progress Note: A&P Assessment and Plan (1) Staphylococcus aureus bacteremia: Code(s): R78.81 - Bacteremia Status: Acute Assessment and Plan: blood cultures x2 growing Staphylococcus aureus sensitivities pending, patient went on vancomycin and ceftriaxone - will repeat blood cultures - check echocardiogram for vegetations (2) UTI (urinary tract infection): Qualifiers: Urinary tract infection type: site unspecified Hematuria presence: without hematuria Qualified Code(s): N39.0 - Urinary tract infection, site not specified Code(s): N39.0 - Urinary tract infection, site not specified Status: Acute Assessment and Plan: urine cultures growing Staph aureus sensitivities pending - continue antibiotics as above (3) Acute and chronic respiratory failure: Qualifiers: Respiratory failure complication: unspecified whether with hypoxia or hypercapnia Qualified Code(s): J96.20 - Acute and chronic respiratory failure, unspecified whether with hypoxia or hypercapnia Code(s): J96.20 - Acute and chronic respiratory failure, unspecified whether with hypoxia or hypercapnia Status: Acute Assessment and Plan: patient worsened overnight on 09/20/2019, tachypneic, increased work of breathing, impending respiratory failure, Dr. Coughlin intubated the patient and transferred the patient to the ICU. Likely related to bacteremia and UTI and severe sepsis - continue bronchodilators - chest x-ray and ABGs reviewed, ventilator adjusted - likely secondary to COPD exacerbation and/or bronchitis - appreciate Pulmonary evaluation recommendation (4) Acute exacerbation of chronic obstructive airways disease: Code(s): J44.1 - Chronic obstructive pulmonary disease with (acute) exacerbation Status: Acute Assessment and Plan: continue mechanical ventilation, steroids, - continue antibiotics as above (5) Mass of right inguinal region: Code(s): R19.09 - Other intra-abdominal and pelvic swelling, mass and lump Status: Acute Assessment and Plan: patient had a lymph node biopsy from the right groin, preliminary report showed non-Hodgkin's lymphoma. Await final pathology report - appreciate Hematology/Oncology evaluation and recommendation (6) Acute kidney injury: Code(s): N17.9 - Acute kidney failure, unspecified Status: Acute Assessment and Plan: patient initially presented with acute kidney injury, the course of the stay in the hospital kidney functions have improved OUMAR has resolved - continue to monitor urine output, renal function electrolytes (7) Diastolic heart failure: Qualifiers: Heart failure chronicity: chronic Qualified Code(s): I50.32 - Chronic diastolic (congestive) heart failure Code(s): I50.30 - Unspecified diastolic (congestive) heart failure Status: Acute Assessment and Plan: history of chronic diastolic heart failure - Echocardiogram in March 2019 showed normal LV size and function with an impaired diastolic relaxation and ejection fraction of 60 to 65% - heart failure seems to be compensated, will continue to monitor (8) Hyperglycemia: Code(s): R73.9 - Hyperglycemia, unspecified Status: Acute Assessment and Plan: hyperglycemia likely related to steroids - continue sliding scale insulin Accu-Cheks (9) DVT prophylaxis: Code(s): Z29.9 - Encounter for prophylactic measures, unspecified Status: Acute Assessment and Plan: Lovenox Additional Plan discussed with family and updated them with his condition and plan of care. I answered all questions Code status: Full code Critical care time spent: 34 minutes minutes Due to a high probability of clinically significant, life threatening deterioration, the patient required my highest level of preparedness to intervene emergently and I personally spent this critical care
--- NOTE | 2019-09-22 15:24 | PC.NURSE ---
Pt sonMaxi, will bring nonformulary ointment 09/23/19. Imiquimod.
--- NOTE | 2019-09-22 20:30 | PM.PNPUL ---
Progress Note: A&P Assessment and Plan (1) Acute and chronic respiratory failure: Qualifiers: Respiratory failure complication: unspecified whether with hypoxia or hypercapnia Qualified Code(s): J96.20 - Acute and chronic respiratory failure, unspecified whether with hypoxia or hypercapnia Code(s): J96.20 - Acute and chronic respiratory failure, unspecified whether with hypoxia or hypercapnia Status: Acute Assessment and Plan: intubated 09/20/2019 for increased respiratory rate, increased hypercapnea, hypoxemia, failed BiPAP. His FiO2 was increased to 40% today, still low. He may be ready for extubation soon, as his CXR is stable without infiltrate, FiO2 40%, and sedation is lower. Will decrease solumedrol to 40 IV Q 8 hours, continue vancomycin and Rocephin. (2) Acute exacerbation of chronic obstructive airways disease: Code(s): J44.1 - Chronic obstructive pulmonary disease with (acute) exacerbation Status: Acute Assessment and Plan: Has a history of COPD/asthma overlap; his home medications may not be sufficient. He has not been followed in our office, although we have seen him as an inpatient before. 04/02/2019 PFT: FEV1 59%, (+) airflow obstruction, TLC 131%, Airway resistance 410%. DLCO 83%, normal. He is on IV steroids, decreasing dose tomorrow to 40 mg IV Q 8 hr. (3) Diastolic heart failure: Qualifiers: Heart failure chronicity: chronic Qualified Code(s): I50.32 - Chronic diastolic (congestive) heart failure Code(s): I50.30 - Unspecified diastolic (congestive) heart failure Status: Acute Assessment and Plan: Compensated. (4) History of tobacco abuse: Code(s): Z87.891 - Personal history of nicotine dependence Status: Acute Assessment and Plan: 2 ppd x 40 years, quit a few months ago (5) Staphylococcus aureus bacteremia: Code(s): R78.81 - Bacteremia Status: Acute Assessment and Plan: Blood cultures reported today 2:2 with Staph aureus from Sep 20. Echo ordered for tomorrow to r/o endocarditis. Subjective Date/time seen: 09/22/19 20:30 This 69 yo man is seen in follow up for for acute hypercapnic with chronic hypoxemic respiratory failure due to exacerbation of COPD/asthma. He was intubated late on the night of Sep 20. His FiO2 was 0.35, and increased to 0.4 toady due to thick secretions and saturation lower, around 90%. His blood cultures from Sep 20 show 2:2 Staph aureus, sensitivities are pending. PMH: New diagnosis of non-Hodgkin's lymphoma; OUMAR; dCHF, anemia, dyslipidemia, OA, multiple skin cancers, anxiety with depression. Review of Systems Review of Systems: Narrative: Not obtainable from the patient due to sedation and intubation. Exam Const: General: no acute distress Other: Versed 2 mg/hour Fentanyl 50 mcg/hour Eyes: Other: Left eye does not close completely. Neck: Neck: no JVD Resp: Auscultation: diminished lung sounds Cardio: Rate: regular rate Rhythm: regular rhythm GI: Other: decreased bowel sounds Skin: Other: Thick rough skin over limbs and torso Psych: Other: sedated Objective Data Vital Signs Vital Signs: Vital Signs - 24 hr 09/21/19 22:00 09/21/19 23:03 09/22/19 00:00 Temperature 37.2 C Pulse Rate 85 84 81 Respiratory Rate 16 16 Blood Pressure 106/70 114/71 Pulse Oximetry 94 95 95 09/22/19 02:00 09/22/19 02:08 09/22/19 04:00 Temperature 37.3 C Pulse Rate 82 85 85 Respiratory Rate 16 16 16 Blood Pressure 116/71 125/76 Pulse Oximetry 95 95 93 09/22/19 04:25 09/22/19 06:00 09/22/19 08:00 Temperature 37.5 C Pulse Rate 82 84 81 Respiratory Rate 16 16 Blood Pressure
[2019-09-23] VITALS (33 sets, daily range): BP systolic 132–176; BP diastolic 56–94; PULSE 43–125; RESP 10–48; TEMP 36.7–37.7; O2SAT 92–96; BMI 20.7
--- NOTE | 2019-09-23 | ECHO_ITS ---
Patient Info Name: Beto Cornejo Age: 69 years : 1950 Gender: Male Ht: 67 in Wt: 145 lbs BSA: 1.77 m2 HR: 85 bpm BP: 144 / 85 mmHg Technical Quality: Good Exam Date: 09/23/2019 8:02 AM Exam Location: [facility] Patient Status: Inpatient Admit Date: 09/18/2019 Staff Ordering Physician: Niharika Moran MD [employer] Teammate: Josué Newman, LIZBETH, RT Attending Provider: Destiney Del Rosario MD Referring Physician: Luisa GUARDADO; Exam Type: CA echo doppler color flow Study Info Indications I33.9 - Acute and subacute endocarditis, unspecified Complete two-dimensional, color flow and Doppler transthoracic echocardiogram is performed. Summary 1. Left ventricular chamber dimension is moderately enlarged. 2. Left ventricular systolic function is moderately reduced, estimated at 35-40%. 3. The left ventricular diastolic function is grade I diastolic dysfunction. 4. E/e' 10 is mildly elevated. 5. Global longitudinal strain is abnormal at -12.4%. 6. Left atrial chamber dimension is mildly enlarged. 7. The aortic valve is not well visualized. 8. There is mild aortic valve sclerosis. 9. The mitral valve has mild thickened leaflets. 10. There is moderate to severe mitral valve regurgitation. 11. There is trace tricuspid valve regurgitation. 12. Dilated inferior vena cava with >50% collapse upon inspiration consistent with elevated right atrial pressure, 10 mmHg. Left Ventricle E/e' 10 is mildly elevated. Global longitudinal strain is abnormal at -12.4%. Left ventricular chamber dimension is moderately enlarged. Left ventricular systolic function is moderately reduced, estimated at 35-40%. The left ventricular diastolic function is grade I diastolic dysfunction. Right Ventricle Right ventricular chamber dimension is normal. Right ventricular systolic function is normal. Left Atria Left atrial chamber dimension is mildly enlarged. Right Atria Right atrial chamber dimension is normal. Aortic Valve Cannot determine number of aortic valve leaflets. The aortic valve is not well visualized. There is mild aortic valve sclerosis. There is no aortic valve stenosis. There is no aortic valve regurgitation. No aortic valve vegetation visualized. Pulmonic Valve The pulmonic valve is not well visualized. There is no pulmonic regurgitation. Mitral Valve The mitral valve has mild thickened leaflets. There is no mitral valve stenosis. There is moderate to severe mitral valve regurgitation. No mitral valve vegetation visualized. Tricuspid Valve There is trace tricuspid valve regurgitation. No tricuspid valve vegetation visualized. RVSP is not calculated due to inadequate TR jet. Pericardium/Pleural There is no pericardial effusion. Inferior Vena Cava Dilated inferior vena cava with >50% collapse upon inspiration consistent with elevated right atrial pressure, 10 mmHg. Aorta The aortic root size at the sinus of Valsalva is normal. Left Ventricular Outflow Tract Name Value Normal LVOT 2D LVOT Diameter 2.1 cm Pulmonic Valve Name Value Normal -------
[2019-09-23] MEDS: GUAIFENESIN 200 MG/10 ML UDC PO ×4 (00:39→21:33)
--- NOTE | 2019-09-23 01:11 | PC.NURSE ---
OG noted to be moved out 3-5 cm on 0000 assessment. Tube replaced at 63 cm and taped to ETT for security. Dr. Coughlin called for KUB to ensure proper placement. Orders received.
[2019-09-23] MEDS: ALBUTEROL SULFATE NEB 2.5 MG/0.5 ML INH 5 MG INHALATION ×4 (01:59→20:31)
[2019-09-23] MEDS: IPRATROPIUM BR 0.02% INH SOLN 0.5 MG/2.5 ML VIAL INHALATION ×4 (01:59→20:31)
[2019-09-23] MEDS: MIDAZOLAM HCL 50 MG in DEXTROSE 5% 90 ML IV CONT ×2 (03:36→21:43)
[2019-09-23 04:24] LABS: Alveolar/Arterial O2 Gradient 136.5 mmHg; Base Excess ABG 8.4 mEq/l (+/-2.0); Carboxyhemoglobin 0.3 % THb (0-2.0); Device VENTILATOR; Fractional Inspired Oxygen 40 %; HCO3 ABG 34.6 mEq/l (22.0-26.0); Methemoglobin ABG 0.4 %THb (0-1.5); Modified Allen's Test Pass; Oxygen Content ABG 18.4 %vol (16.0-22.0); Oxygen Saturation ABG 96.5 % (95.0-100.0); Oxyhemoglobin 95.2 % THb (90.0-100.0); PCO2 ABG 54.5 mmHg (35.0-45.0); PO2 FiO2 Ratio Arterial Blood 2.15 %; Reduced Hemoglobin 4.1 %THb (0-5.0); Site Drawn RIGHT RADIAL; Total Hemoglobin 13.7 g/dL (12.0-18.0); pH ABG 7.421 (7.350-7.450)
[2019-09-23 04:25] LABS: Arterial Blood Gas PEEP 5 cmH2O; Arterial Blood Gas Vent Mode ASV
[2019-09-23 04:35] LABS: Hematocrit 37.7 % (42.0-52.0); Hemoglobin 12.4 g/dL (14.0-18.0); Mean Corpuscular HGB Conc 32.9 g/dl (32-36); Mean Corpuscular Hemoglobin 30.9 pg (26-34); Mean Platelet Volume 9.7 fl (7.4-10.4); Platelet Count Result 271 k/mm3 (150-375); Red Blood Count 4.01 M/mm3 (4.6-6.20); Red Cell Distribution Width 12.8 % (11.5-14.5); White Blood Count 17.7 K/mm3 (4.5-10.0)
[2019-09-23 04:49] LABS: Lactic Acid 2.3 mmol/L (0.7-2.1)
[2019-09-23 04:52] LABS: Blood Urea Nitrogen 59 mg/dL (9-20); Calcium 8.7 mg/dL (8.4-10.2); Carbon Dioxide 33 mmol/L (22-30); Chloride 103 mmol/L (98-107); Estimated CRCL calculation 59 ml/min; Estimated Glomerular Filt Rate > 60; Glucose 240 mg/dL (75-110); Magnesium 2.6 mg/dL (1.6-2.3); Phosphorus 3.1 mg/dL (2.5-4.5); Potassium 4.7 mmol/L (3.4-5.0); Sodium 143 mmol/L (137-145)
[2019-09-23] MEDS: INSULIN ASPART (*BKC) 100 UNITS/ML SUB-Q ×3 (05:02→17:00)
[2019-09-23] MEDS: methylPREDNISolone SOD SUCC 40 MG VIAL IV PUSH ×3 (05:10→21:33)
--- NOTE | 2019-09-23 06:55 | PC.NURSE ---
0000 bedside glucose noted to be 224 mg/dl. 3 units novolog SSI administered. 0600 bedside glucose noted to be 242 3 units novolog SSI administered.
--- NOTE | 2019-09-23 07:09 | WPDCDIQUERY2 ---
CDI Query Clarification Request 2 queries: 1) -Pt intubated on ventilator. -Dr Ozuna and Dr Moran have documented acute on chronic respiratory failure. -Dr Del Rosario just documented chronic respiratory failure Please clarify if acute respiratory failure was ruled in or ruled out. 2) -Two blood cultures are growing staph aureus -Urine culture growing staph aureus -Dr Moran has documented bacteremia and UTI -Dr Ozuna has documented bacteremia and will check echo to rule out endocarditis -Dr Del Rosario doesn't mention either - On 09/20 T 102.5, P100, RR 32, WBC 21.4 and lactic acid 2.3. Please clarify if there is a corresponding diagnosis/diagnoses for above findings. <Luly Verudzco RN - Last Filed: 09/23/19 07:22>
[2019-09-23] MEDS: PANTOPRAZOLE SODIUM IV 40 MG VIAL IV PUSH (07:23)
[2019-09-23] MEDS: ENOXAPARIN 40 MG/0.4 ML SYRINGE SUB-Q (07:24)
--- NOTE | 2019-09-23 08:22 | PC.NURSE ---
Patient is receiving 5 units of lantus, blood sugar check at 0820, blood sugar is 208. Unable to transmit blood sugar into computer.
[2019-09-23] MEDS: INSULIN GLARGINE (*BKC) 100 UNITS/ML SUB-Q (08:23)
[2019-09-23] MEDS: BUDESONIDE RESPULE NEB 0.5 MG/2 ML AMP INHALATION ×2 (08:52→20:31)
[2019-09-23] MEDS: DORNASE ALFA INH SOLN 1 MG/ML 2.5 ML AMP 2.5 MG INHALATION ×2 (08:52→20:31)
--- NOTE | 2019-09-23 09:25 | WPDINTPN ---
Progress Note: A&P Assessment and Plan (1) Staphylococcus aureus bacteremia: Code(s): R78.81 - Bacteremia Status: Acute Assessment and Plan: blood cultures x2 growing Staphylococcus aureus, sensitive to oxacillin (But patient is allergic to penicillin), patient on vancomycin and ceftriaxone. - blood cultures have been repeated - echocardiogram ordered to look for vegetations/endocarditis (2) UTI (urinary tract infection): Qualifiers: Urinary tract infection type: site unspecified Hematuria presence: without hematuria Qualified Code(s): N39.0 - Urinary tract infection, site not specified Code(s): N39.0 - Urinary tract infection, site not specified Status: Acute Assessment and Plan: urine cultures growing Staph aureus sensitivities pending - continue antibiotics as above (3) Acute and chronic respiratory failure: Qualifiers: Respiratory failure complication: unspecified whether with hypoxia or hypercapnia Qualified Code(s): J96.20 - Acute and chronic respiratory failure, unspecified whether with hypoxia or hypercapnia Code(s): J96.20 - Acute and chronic respiratory failure, unspecified whether with hypoxia or hypercapnia Status: Acute Assessment and Plan: patient worsened overnight on 09/20/2019, tachypneic, increased work of breathing, impending respiratory failure, Dr. Coughlin intubated the patient and transferred the patient to the ICU. Likely related to bacteremia and UTI and severe sepsis - continue bronchodilators - chest x-ray and ABGs reviewed, ventilator adjusted - likely secondary to COPD exacerbation and/or bronchitis - appreciate Pulmonary evaluation recommendation - started patient on Precedex infusion, will wean fentanyl and Versed, place patient on SBT and evaluate for extubation (4) Acute exacerbation of chronic obstructive airways disease: Code(s): J44.1 - Chronic obstructive pulmonary disease with (acute) exacerbation Status: Acute Assessment and Plan: continue mechanical ventilation, steroids, - continue antibiotics as above (5) Mass of right inguinal region: Code(s): R19.09 - Other intra-abdominal and pelvic swelling, mass and lump Status: Acute Assessment and Plan: patient had a lymph node biopsy from the right groin, preliminary report showed non-Hodgkin's lymphoma. Await final pathology report - appreciate Hematology/Oncology evaluation and recommendation (6) Acute kidney injury: Code(s): N17.9 - Acute kidney failure, unspecified Status: Acute Assessment and Plan: patient initially presented with acute kidney injury, the course of the stay in the hospital kidney functions have improved OUAMR has resolved - continue to monitor urine output, renal function electrolytes (7) Diastolic heart failure: Qualifiers: Heart failure chronicity: chronic Qualified Code(s): I50.32 - Chronic diastolic (congestive) heart failure Code(s): I50.30 - Unspecified diastolic (congestive) heart failure Status: Acute Assessment and Plan: history of chronic diastolic heart failure - Echocardiogram in March 2019 showed normal LV size and function with an impaired diastolic relaxation and ejection fraction of 60 to 65% - heart failure seems to be compensated, will continue to monitor (8) Hyperglycemia: Code(s): R73.9 - Hyperglycemia, unspecified Status: Acute Assessment and Plan: hyperglycemia likely related to steroids - continue sliding scale insulin Accu-Cheks - added low dose of Lantus (9) DVT prophylaxis: Code(s): Z29.9 - Encounter for prophylactic measures, unspecified Status: Acute Assessment and Plan: Lovenox Additional Plan discussed with family and updated them with his condition and plan of care. I answered all questions Code status: Full code Critical care time spent: 33 donna
--- NOTE | 2019-09-23 10:56 | PCDIET ---
Nutrition Follow-Up Complete: Nutrition Diagnosis: Inadequate Oral Intake as related to COPD as evidenced by weight loss of 10 pounds in the past 3 months/poor intake reported. Nutrition Goal: Adequate intake of at least 75% of meal/supplements Goal not met, as patient intubated. Previously tolerating tube feedings (Vital 1.2 @ 45mL/hr with 30mL water flush every 4 hours) but currently on hold with plan for SBT. Last recorded weight is 60.1 kg which is decreased. Bowel Motility: No documented bowel movements. Previously tolerating tube feedings with no significant residuals documented. Labs Reviewed: Glu (240), BUN (59), Alb (3.1) Meds Noted: Rocephin, Solu Medrol, Precedex, Novolog, Protonix, Vancomycin Additional Notes: No reported skin breakdown. Agree with holding feedings for possible extubation. If unable to extubate today, recommend resuming Vital 1.2. Recommend increased goal rate of 60mL/hr x 22 hours/day for total of 1584kcal, 99g protein and 1070mL free water. Would continue 30mL water flush every 4 hours. New goal: patient to meet estimated nutritional needs. Nutrition Monitoring and Evaluation: Follow up every Monday/Monday. Follow daily in ICU rounds.
[2019-09-23 16:02] LABS: Glucose Point of Care 224 (65-105)
[2019-09-23 16:02] LABS: Glucose Point of Care 200 (65-105)
[2019-09-23 16:02] LABS: Glucose Point of Care 202 (65-105)
[2019-09-23 16:02] LABS: Glucose Point of Care 177 (65-105)
[2019-09-23 16:02] LABS: Glucose Point of Care 264 (65-105)
[2019-09-23 16:02] LABS: Glucose Point of Care 242 (65-105)
[2019-09-23 16:02] LABS: Glucose Point of Care 208 (65-105)
[2019-09-23 16:02] LABS: Glucose Point of Care 200 (65-105)
[2019-09-23 16:02] LABS: Glucose Point of Care 198 (65-105)
[2019-09-23 16:02] LABS: Glucose Point of Care 210 (65-105)
[2019-09-23 16:10] LABS: Arterial Blood Gas Tidal Volume 500 ml
[2019-09-23 17:00] LABS: Glucose Point of Care 255 (65-105)
--- NOTE | 2019-09-23 17:18 | PM.IMPN ---
Progress Note: A&P Assessment and Plan (1) Acute exacerbation of chronic obstructive airways disease: Code(s): J44.1 - Chronic obstructive pulmonary disease with (acute) exacerbation Status: Acute Assessment and Plan: Patient is a 69 yo M with history of COPD/asthma overlap, scleroderma, chronic respiratory failure with hypoxia, diastolic congestive heart failure, and history of tobacco abuse who is here for acute on chrronid respiratory failure 2/2 COPD exacerbation and for evaluation of right inguinal lymphadenopathy. Pt had lymph node biospy seen by Dr Barr will need further investigations later after discharge for possible non hodgkins lymphoma. Pt unfortunately developed severe SOB and was intubated and admitted to ICU, 09/20/2019. Continue ventilatory support. Discussion with brother at the bedside.. patient blood and urine culure are growing staph resulting in bactremia, patient is being treated with vancomycin and ceftriaxone and cardiac echo is ordered to rule out vegetation, patient still on vent trail of weaning off the vent was unsuccessful today. (2) Chronic respiratory failure with hypoxia: Code(s): J96.11 - Chronic respiratory failure with hypoxia Status: Acute Assessment and Plan: Pt wears oxygen at home (3) Acute kidney injury: Code(s): N17.9 - Acute kidney failure, unspecified Status: Acute Assessment and Plan: Monitor renal function (4) Diastolic heart failure: Qualifiers: Heart failure chronicity: chronic Qualified Code(s): I50.32 - Chronic diastolic (congestive) heart failure Code(s): I50.30 - Unspecified diastolic (congestive) heart failure Status: Acute Assessment and Plan: He is clinically compensated. Cardiac echo is pending (5) Chronic anemia: Code(s): D64.9 - Anemia, unspecified Status: Acute Assessment and Plan: Continue to trend hb/ hct (6) Mass of right inguinal region: Code(s): R19.09 - Other intra-abdominal and pelvic swelling, mass and lump Status: Acute Assessment and Plan: Soft tissue ultrasound of the right inguinal region read as right inguinal lymphadenopathy, largest demonstrating effacement of normal fatty hilum, possibly pathologic. Consider lymphoma. Biopsy performed yesterday and preliminary results have returned suggestive for lymphoma. Prelim biopsy suggestive of lymphoma Dr. Barr has been consulted and appreciate input. Pt to follow with Dr Barr on discharge (7) Staphylococcus aureus bacteremia: Code(s): R78.81 - Bacteremia Status: Acute Assessment and Plan: Plan is above (8) Acute and chronic respiratory failure: Qualifiers: Respiratory failure complication: unspecified whether with hypoxia or hypercapnia Qualified Code(s): J96.20 - Acute and chronic respiratory failure, unspecified whether with hypoxia or hypercapnia Code(s): J96.20 - Acute and chronic respiratory failure, unspecified whether with hypoxia or hypercapnia Status: Acute Assessment and Plan: Plan is above Subjective Date/time seen: 09/23/19 17:18 Interval history: Patient is a 69 yo M with history of COPD/asthma overlap, scleroderma, chronic respiratory failure with hypoxia, diastolic congestive heart failure, and history of tobacco abuse who is here for acute on chrronid respiratory failure 2/2 COPD exacerbation and for evaluation of right inguinal lymphadenopathy. Pt had lymph node biospy seen by Dr Barr will need further investigations later after discharge for possible non hodgkins lymphoma. Pt unfortunately developed severe SOB and was intubated and admitted to ICU, 09/20/2019. Continue ventilatory martinez
[2019-09-23] MEDS: MIDAZOLAM HCL 2 MG/2 ML VIAL IV PUSH (20:29)
[2019-09-23 23:23] LABS: Alveolar/Arterial O2 Gradient 131.4 mmHg; Base Excess ABG 7.7 mEq/l (+/-2.0); Carboxyhemoglobin 0.3 % THb (0-2.0); Fractional Inspired Oxygen 35 %; HCO3 ABG 32.7 mEq/l (22.0-26.0); Methemoglobin ABG 0.2 %THb (0-1.5); Oxygen Content ABG 17.1 %vol (16.0-22.0); Oxygen Saturation ABG 93.2 % (95.0-100.0); Oxyhemoglobin 91.5 % THb (90.0-100.0); PO2 ABG 63.5 mmHg (80.0-100.0); PO2 FiO2 Ratio Arterial Blood 1.81 %; Total Hemoglobin 13.3 g/dL (12.0-18.0)
[2019-09-23 23:24] LABS: Device VENTILATOR; Modified Allen's Test Pass; Site Drawn RIGHT RADIAL
[2019-09-23 23:25] LABS: Arterial Blood Gas PEEP 5 cmH2O; Arterial Blood Gas Tidal Volume 500 ml; Arterial Blood Gas Vent Mode CMV; Arterial Blood Gas Ventilator rate 16 /MIN
[2019-09-24] VITALS (29 sets, daily range): BP systolic 123–164; BP diastolic 76–100; PULSE 74–120; RESP 16–24; TEMP 36.4–39.2; O2SAT 93–100
[2019-09-24 01:07] LABS: Glucose Point of Care 373 (65-105)
[2019-09-24] MEDS: INSULIN ASPART (*BKC) 100 UNITS/ML SUB-Q ×3 (01:07→17:54)
[2019-09-24] MEDS: GUAIFENESIN 200 MG/10 ML UDC PO ×6 (01:07→20:29)
[2019-09-24] MEDS: ALBUTEROL SULFATE NEB 2.5 MG/0.5 ML INH 5 MG INHALATION ×4 (02:29→21:34)
[2019-09-24] MEDS: IPRATROPIUM BR 0.02% INH SOLN 0.5 MG/2.5 ML VIAL INHALATION ×4 (02:29→21:34)
[2019-09-24 04:43] LABS: Hematocrit 39.6 % (42.0-52.0); Hemoglobin 12.7 g/dL (14.0-18.0); Mean Corpuscular HGB Conc 32.1 g/dl (32-36); Mean Corpuscular Hemoglobin 30.6 pg (26-34); Mean Corpuscular Volume 95.4 fl (80-100); Mean Platelet Volume 10.5 fl (7.4-10.4); Platelet Count Result 262 k/mm3 (150-375); Red Blood Count 4.15 M/mm3 (4.6-6.20)
[2019-09-24 04:54] LABS: Blood Urea Nitrogen 68 mg/dL (9-20); Calcium 8.6 mg/dL (8.4-10.2); Carbon Dioxide 33 mmol/L (22-30); Chloride 103 mmol/L (98-107); Estimated CRCL calculation 42 ml/min; Estimated Glomerular Filt Rate 55; Glucose 350 mg/dL (75-110); Magnesium 2.6 mg/dL (1.6-2.3); Phosphorus 3.7 mg/dL (2.5-4.5); Potassium 4.3 mmol/L (3.4-5.0); Sodium 144 mmol/L (137-145)
[2019-09-24] MEDS: methylPREDNISolone SOD SUCC 40 MG VIAL IV PUSH (05:04)
[2019-09-24] MEDS: MIDAZOLAM HCL 50 MG in DEXTROSE 5% 90 ML 12 MG IV CONT (05:06)
[2019-09-24] MEDS: BUDESONIDE RESPULE NEB 0.5 MG/2 ML AMP INHALATION ×2 (08:10→21:34)
[2019-09-24] MEDS: DORNASE ALFA INH SOLN 1 MG/ML 2.5 ML AMP 2.5 MG INHALATION ×2 (08:11→21:34)
[2019-09-24] MEDS: ACETAMINOPHEN 325 MG TABLET 650 MG PO (08:37)
[2019-09-24] MEDS: ENOXAPARIN 40 MG/0.4 ML SYRINGE SUB-Q (08:38)
[2019-09-24] MEDS: PANTOPRAZOLE SODIUM IV 40 MG VIAL IV PUSH (08:38)
[2019-09-24] MEDS: INSULIN GLARGINE (*BKC) 100 UNITS/ML 12 UNITS SUB-Q (08:54)
[2019-09-24] MEDS: polyethylene glycoL 3350 17 GM POWD.PACK PO (10:32)
--- NOTE | 2019-09-24 10:43 | PCDIET ---
Nutrition Follow-Up Complete: Nutrition Diagnosis: Inadequate Oral Intake as related to COPD as evidenced by weight loss of 10 pounds in the past 3 months/poor intake reported. Nutrition Goal: Patient to meet estimated nutritional needs. Goal in progress. MD ordered increase to 60mL/hr Vital 1.2 as recommended. Previously tolerating Vital 1.2 @ 45mL/hr without issues. Last recorded weight is 60.1 kg which is stable. Bowel Motility: No documented bowel movement. Residuals 0-20. Labs Reviewed: Glu (350) Meds Noted: Lantus, Novolog, Miralax, Albuterol, Rocephin, Versed, Protonix, Vancomycin, Solu Medrol Additional Notes: MD added Lantus and Miralax. +Febrile with plan to consult ID. No pressure sores documented. Nutrition Monitoring and Evaluation: Follow up every Monday/Monday. Follow daily in ICU rounds.
[2019-09-24] MEDS: INSULIN HUMAN REGULAR (*BKC) 100 UNITS/ML 10 UNITS SUB-Q (12:15)
--- NOTE | 2019-09-24 13:15 | WPDINTPN ---
Progress Note: A&P Assessment and Plan (1) Staphylococcus aureus bacteremia: Code(s): R78.81 - Bacteremia Status: Acute Assessment and Plan: blood cultures x2 growing Staphylococcus aureus, sensitive to oxacillin (But patient is allergic to penicillin), patient on vancomycin and ceftriaxone. - repeat blood cultures 09/22/2019 growing staph aureus - echocardiogram on 09/23/2019 showed EF of 35-40%, grade 1 diastolic dysfunction, aortic valve is not visualized well, mitral valve has mild thickened leaflets, moderate to severe mitral valve regurg, - patient required PANKAJ - infectious Disease has been consulted and await evaluation (2) UTI (urinary tract infection): Qualifiers: Urinary tract infection type: site unspecified Hematuria presence: without hematuria Qualified Code(s): N39.0 - Urinary tract infection, site not specified Code(s): N39.0 - Urinary tract infection, site not specified Status: Acute Assessment and Plan: urine cultures growing Staph aureus sensitivities pending - continue antibiotics as above (3) Acute and chronic respiratory failure: Qualifiers: Respiratory failure complication: unspecified whether with hypoxia or hypercapnia Qualified Code(s): J96.20 - Acute and chronic respiratory failure, unspecified whether with hypoxia or hypercapnia Code(s): J96.20 - Acute and chronic respiratory failure, unspecified whether with hypoxia or hypercapnia Status: Acute Assessment and Plan: patient worsened overnight on 09/20/2019, tachypneic, increased work of breathing, impending respiratory failure, Dr. Coughlin intubated the patient and transferred the patient to the ICU. Likely related to bacteremia and UTI and severe sepsis - continue bronchodilators - chest x-ray and ABGs reviewed, ventilator adjusted - likely secondary to COPD exacerbation and/or bronchitis - appreciate Pulmonary evaluation recommendation - patient currently off all sedation, will continue monitor and add fentanyl and Versed infusion if necessary (4) Acute exacerbation of chronic obstructive airways disease: Code(s): J44.1 - Chronic obstructive pulmonary disease with (acute) exacerbation Status: Acute Assessment and Plan: continue mechanical ventilation, - no wheezing noted, will discontinue steroids - continue antibiotics as above (5) Mass of right inguinal region: Code(s): R19.09 - Other intra-abdominal and pelvic swelling, mass and lump Status: Acute Assessment and Plan: patient had a lymph node biopsy from the right groin, preliminary report showed non-Hodgkin's lymphoma. 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 - appreciate Hematology/Oncology evaluation and recommendation (6) Acute kidney injury: Code(s): N17.9 - Acute kidney failure, unspecified Status: Acute Assessment and Plan: patient initially presented with acute kidney injury, the course of the stay in the hospital kidney functions have improved OUMAR has resolved - continue to monitor urine output, renal function electrolytes (7) Diastolic heart failure: Qualifiers: Heart failure chronicity: chronic Qualified Code(s): I50.32 - Chronic diastolic (congestive) heart failure Code(s): I50.30 - Unspecified diastolic (congestive) heart failure Status: Acute Assessment and Plan: history of chronic diastolic heart failure - echocardiogram 09/23/2019 as above. Grade 2 diastolic dysfunction, EF is reduced to 35-40% from previous echocardiogram - Echocardiogram in March 2019 showed normal LV size and function with an impaired diastolic relaxation and ejection fraction of 60 to 65% - heart failure seems to be compensated, will continue to monitor (8) Hyperglycemia: Code(s): R73.9 - Hyperglycemia, unspecified Status: Acute Assessment and Plan: hyperglycemia likely r
[2019-09-24 13:17] LABS: Vancomycin Trough < 5.0 ug/mL (10.0-20.0)
[2019-09-24 15:39] LABS: Glucose Point of Care 423 (65-105)
--- NOTE | 2019-09-24 16:53 | PM.IMPN ---
Progress Note: A&P Assessment and Plan (1) Acute exacerbation of chronic obstructive airways disease: Code(s): J44.1 - Chronic obstructive pulmonary disease with (acute) exacerbation Status: Acute Assessment and Plan: Patient is a 69 yo M with history of COPD/asthma overlap, scleroderma, chronic respiratory failure with hypoxia, diastolic congestive heart failure, and history of tobacco abuse who is here for acute on chrronid respiratory failure 2/2 COPD exacerbation and for evaluation of right inguinal lymphadenopathy. Pt had lymph node biospy seen by Dr Barr will need further investigations later after discharge for possible non hodgkins lymphoma. Pt unfortunately developed severe SOB and was intubated and admitted to ICU, 09/20/2019. Continue ventilatory support. Discussion with brother at the bedside.. patient blood and urine culure are growing staph resulting in bactremia, patient is being treated with vancomycin and ceftriaxone and cardiac echo is ordered to rule out vegetation shows possible vegitation and PANKAJ is orderd and patient will be seen by Dr. Frausto, patient still on vent trail of weaning off the vent was unsuccessful today. (2) Chronic respiratory failure with hypoxia: Code(s): J96.11 - Chronic respiratory failure with hypoxia Status: Acute Assessment and Plan: Pt wears oxygen at home (3) Acute kidney injury: Code(s): N17.9 - Acute kidney failure, unspecified Status: Acute Assessment and Plan: Monitor renal function (4) Diastolic heart failure: Qualifiers: Heart failure chronicity: chronic Qualified Code(s): I50.32 - Chronic diastolic (congestive) heart failure Code(s): I50.30 - Unspecified diastolic (congestive) heart failure Status: Acute Assessment and Plan: He is clinically compensated. Cardiac echo is pending (5) Chronic anemia: Code(s): D64.9 - Anemia, unspecified Status: Acute Assessment and Plan: Continue to trend hb/ hct (6) Mass of right inguinal region: Code(s): R19.09 - Other intra-abdominal and pelvic swelling, mass and lump Status: Acute Assessment and Plan: Soft tissue ultrasound of the right inguinal region read as right inguinal lymphadenopathy, largest demonstrating effacement of normal fatty hilum, possibly pathologic. Consider lymphoma. Biopsy performed yesterday and preliminary results have returned suggestive for lymphoma. Prelim biopsy suggestive of lymphoma Dr. Barr has been consulted and appreciate input. Pt to follow with Dr Barr on discharge (7) Staphylococcus aureus bacteremia: Onset Date: 09/2019 Code(s): R78.81 - Bacteremia Status: Acute Assessment and Plan: Plan is above (8) Acute and chronic respiratory failure: Qualifiers: Respiratory failure complication: unspecified whether with hypoxia or hypercapnia Qualified Code(s): J96.20 - Acute and chronic respiratory failure, unspecified whether with hypoxia or hypercapnia Code(s): J96.20 - Acute and chronic respiratory failure, unspecified whether with hypoxia or hypercapnia Status: Acute Assessment and Plan: Plan is above Subjective Date/time seen: 09/24/19 16:53 Interval history: Patient is a 69 yo M with history of COPD/asthma overlap, scleroderma, chronic respiratory failure with hypoxia, diastolic congestive heart failure, and history of tobacco abuse who is here for acute on chrronid respiratory failure 2/2 COPD exacerbation and for evaluation of right inguinal lymphadenopathy. Pt had lymph node biospy seen by Dr Barr will need further investigations later after discharge for possible non hodgkins lymphoma. Pt unfortunately developed severe SOB
--- NOTE | 2019-09-24 17:00 | WPDINFPN2 ---
Progress Note: A&P Assessment and Plan (1) Staphylococcus aureus bacteremia: Onset Date: 09/20/19 Code(s): R78.81 - Bacteremia Status: Acute Assessment and Plan: 1. JAMILAH bacteremia, unknown source 2. New Dx NHL 3. Resp failure REC Ctx # 4. Further history from patient once extubated. Stop vanc Subjective Date/time seen: 09/24/19 17:00 Objective Data Vital Signs Vital Signs: Vital Signs - 24 hr 09/23/19 17:26 09/23/19 18:00 09/23/19 20:00 Temperature 37.1 C 36.7 C Pulse Rate 95 110 H 108 H Respiratory Rate 30 H 38 H Blood Pressure 160/75 H 149/74 H Pulse Oximetry 96 94 94 09/23/19 20:32 09/23/19 20:45 09/23/19 20:50 Temperature Pulse Rate 97 112 H 118 H Respiratory Rate 26 H 24 H Blood Pressure Pulse Oximetry 95 09/23/19 21:25 09/23/19 22:00 09/23/19 23:20 Temperature Pulse Rate 118 H 125 H 110 H Respiratory Rate 48 H Blood Pressure 132/78 Pulse Oximetry 93 92 09/24/19 00:00 09/24/19 02:00 09/24/19 02:29 Temperature 36.7 C Pulse Rate 104 H 104 H 103 H Respiratory Rate 22 H 18 19 Blood Pressure 134/76 123/79 Pulse Oximetry 96 96 09/24/19 02:30 09/24/19 02:36 09/24/19 03:39 Temperature 36.4 C L Pulse Rate 104 H 103 H 114 H Respiratory Rate 21 H 20 Blood Pressure 152/80 H Pulse Oximetry 95 94 09/24/19 04:58 09/24/19 06:00 09/24/19 08:00 Temperature 39.2 C H Pulse Rate 113 H 114 H 97 Respiratory Rate 16 16 Blood Pressure 134/85 135/85 Pulse Oximetry 95 96 95 09/24/19 08:11 09/24/19 08:21 09/24/19 08:37 Temperature 39.2 C H Pulse Rate 111 H 114 H Respiratory Rate 19 18 Blood Pressure Pulse Oximetry 96 09/24/19 09:37 09/24/19 10:00 09/24/19 10:33 Temperature 39.1 C H 39.1 C H 39.2 C H Pulse Rate 112 H Respiratory Rate 20 Blood Pressure 138/86 Pulse Oximetry 96 09/24/19 11:19 09/24/19 12:00 09/24/19 14:00 Temperature 39.1 C H Pulse Rate 114 H 113 H 110 H Respiratory Rate 20 17 Blood Pressure 147/94 H 128/76 Pulse Oximetry 95 95 94 09/24/19 14:02 09/24/19 14:12 09/24/19 16:00 Temperature 39.2 C H Pulse Rate 108 H 112 H 120 H Respiratory Rate 16 20 23 H Blood Pressure 160/94 H Pulse Oximetry 95 94 09/24/19 16:50 Temperature Pulse Rate 112 H Respiratory Rate Blood Pressure Pulse Oximetry 95 Intake/Output Intake/Output: Intake & Output 09/21/19 09/22/19 09/23/19 09/24/19 23:59 23:59 23:59 23:59 Intake Total 520.8 637.0 1117 1264 Output Total 1650 1880 2000 1800 Balance -1129.2 -1243.0 -883 -536 Meds/Results Medications: Active Medications Generic Name Dose Route Start Last Admin Trade Name Freq PRN Reason Stop Dose Admin Acetaminophen 650 mg 09/20/19 09:00 09/24/19 08:37 Tylenol Tablet PO 650 mg Q4H PRN Administration Headache Albuterol 5 mg 09/17/19 14:00 09/24/19 14:02 Albuterol Sulf Neb 2.5mg/0.5ml INHALATION 5 mg Q6HRT AZUCENA Administration Budesonide 0.5 mg 09/21/19 08:55 09/24/19 08:10 Pulmicort Respule Neb INHALATION 0.5 mg Q12HRT AZUCENA Administration Dextrose 12.5 gm 09/24/19 08:05 Dextrose 50% Syringe IV PUSH PRN PRN Hypoglycemia Protocol Dornase Jesus 2.5 mg 09/22/19 09:15 09/24/19 08:11 Pulmozyme INHALATION 2.5 mg Q12HRT AZUCENA Administration Enoxaparin Sodium 40 mg 09/21/19 09:00 09/24/19 08:38 Lovenox SUB-Q 40 mg DAILY AZUCENA Administration Glucagon 1 mg 09/24/19 08:05 Glucagon For Inj IM PRN PRN Hypoglycemia Protocol Glucose 15 gm 09/24/19 08:05 Glutose 15 PO PRN PRN Hypoglycemia Protocol Guaifenesin 200 mg 09/21/19 10:45 09/24/19 14:16 Guaifenesin Liq PO 200 mg Q4HR AZUCENA Administration Sodium Chloride 1,000 mls @ 100 mls/hr 09/17/19 16:25 09/18/19 08:45 Normal Saline Iv IV CONT 0 mls/hr .Q10H AZUCENA Infusion Ceftriaxone Sodium/Dextrose 1 gm in 50 mls @ 100 mls/hr 09/21/19 09:00
[2019-09-24 17:47] LABS: Glucose Point of Care 269 (65-105)
--- NOTE | 2019-09-24 19:48 | CONS_ITS ---
DATE OF CONSULTATION: 09/24/2019 REASON FOR CONSULTATION: Staph aureus bacteremia. HISTORY OF PRESENT ILLNESS: The patient is a 69-year-old male who cannot provide any history as he is sedated and intubated. He was admitted to the hospital originally on September 17. He was treated for COPD exacerbation initially, but then developed increasing respiratory distress on the evening of September 20, blood cultures were collected at that point and he was intubated. He remains on the ventilator currently. Blood cultures returned positive following day and he has been given vancomycin and ceftriaxone, consultation now requested. Further blood cultures collected on September 22, were also positive as noted below. Otherwise, his hospital course has been complicated by a new development of non-Hodgkin's lymphoma after biopsy of a right inguinal lymph node, acute kidney injury, diastolic heart failure, and ongoing anemia. His present illness encompassed several days of dyspnea, audible wheezing, sinus congestion, cough, chest soreness, anorexia, 10-pound weight loss, lower extremity pain, cramping, and low back pain. ALLERGIES: PENICILLIN, UNKNOWN REACTION. PRESENT MEDICATIONS: Prednisone 10 mg daily. No other immunosuppressants. PAST MEDICAL HISTORY: Multiple skin biopsies and skin cancer removals, cataract surgery, osteoarthritis, eczema, hyperlipidemia, diastolic heart failure, chronic respiratory failure on home O2, chronic anemia, anxiety, and depression. HABITS: Quit smoking several months ago. No illicit drugs. Past marijuana and cocaine. SOCIAL HISTORY: Retired. Lives with his son and [id number]. FAMILY HISTORY: Not pertinent to his present illness. REVIEW OF SYSTEMS: A 14-point review is otherwise negative, not obtainable from the patient directly today due to intubated status. PHYSICAL EXAMINATION: GENERAL: Middle-aged male, appears older than his actual age. VITAL SIGNS: He was initially afebrile, but on the afternoon of September 20, it got to 38.6, and later that day up to 39.2. In the last 24 hours, T-max 39.2, no pressors, 160/94, 23, 120, 35% FiO2. SKIN: Erythroderma, multiple areas of skin atrophy and scarring, torso, upper and lower extremities as well as the face. NODES: No axillary or cervical adenopathy. EENT: Suffused conjunctiva. Oral exam is difficult due to multiple tubes, but inspection is normal otherwise. NECK: Without meningismus or mass. CHEST: He has no indwelling vascular devices such as pacemakers or defibrillators. LUNGS: Coarse breath sounds with rhonchi. Breath sounds are vesicular. Clear to percussion. CARDIAC: Distant S1, S2. Tachycardic, regular. ABDOMEN: Mildly distended. Hypoactive bowel sounds. No organomegaly. No masses. EXTREMITIES: 1+ edema. No clubbing. No cyanosis. No splinter hemorrhages. LABORATORY DATA: Blood culture on September 20 and , all with JAMILAH, GABRIELA equal 2. MRSA screen was positive from the notes. White count 14.0, hemoglobin 12.7, platelets are 262. No differential done today; earlier showed a minimal left shift. Blood gases reviewed. Chemistries with CO2 33, BUN 68, creatinine 1.3. Estimated GFR 55. His glucose 350. Accu-Cheks widely variable. Magnesium high, CRP 29. His albumin 3.1. Vancomycin trough undetectable. Pathology report indicates peripheral T-cell lymphoma. RADIOLOGY DATA: Chest x-ray with left lower lung zone opacities, appropriate tube placements. Echocardiogram with Doppler showed no vegetations. ASSESSMENT: 1. Staph aureus bacteremia with infection, not a skin contaminant, associated with fever and leukocytosis. Potential sources could include skin, primary endovascular including endocarditis, pulmonary, , or bone joint infection such
[2019-09-24] MEDS: MIDAZOLAM HCL 50 MG in DEXTROSE 5% 90 ML 6 MG IV CONT (22:08)
--- NOTE | 2019-09-24 23:09 | PM.PNPUL ---
Progress Note: A&P Assessment and Plan (1) Acute and chronic respiratory failure: Qualifiers: Respiratory failure complication: unspecified whether with hypoxia or hypercapnia Qualified Code(s): J96.20 - Acute and chronic respiratory failure, unspecified whether with hypoxia or hypercapnia Code(s): J96.20 - Acute and chronic respiratory failure, unspecified whether with hypoxia or hypercapnia Status: Acute Assessment and Plan: -CXR is fairly normal - weaning and vent management per ground water technician (2) COPD exacerbation: Code(s): J44.1 - Chronic obstructive pulmonary disease with (acute) exacerbation Status: Acute Assessment and Plan: 1) continue Albuterol and Pulmicort Nebs 2) daily weaning trials and vent managment per Riprap Placer 3) Nicotine patch 21 mg daily Subjective Date/time seen: 09/24/19 23:09 Interval history: 69 y/o male with severe COPD admitted with MSSA bacteremia and COPD exacerbation. He is intubated and sedation holiday was being attemted this morning. No source of the MSSA bacteremia has been clearly identified. He is on minimal support from the vent. 2D Echo did not show endocarditis. Review of Systems Review of Systems: All systems reviewed & are unremarkable except as noted in HPI and below Exam Narrative: Exam Narrative: Intubated and sedated Const: General: no acute distress Neck: Neck: supple and no JVD Resp: Auscultation: no crackles, no rhonchi, wheezes and diminished lung sounds Other: no significant ET tube secretions Cardio: Rate: regular rate Rhythm: regular rhythm Heart sounds: no gallops, no murmurs and no rubs GI: Auscultation: normal bowel sounds Extrem: General: normal to inspection, no edema and no pedal edema Objective Data Vital Signs Vital Signs: Vital Signs - 24 hr 09/23/19 23:20 09/24/19 00:00 09/24/19 02:00 Temperature 36.7 C Pulse Rate 110 H 104 H 104 H Respiratory Rate 22 H 18 Blood Pressure 134/76 123/79 Pulse Oximetry 92 96 96 09/24/19 02:29 09/24/19 02:30 09/24/19 02:36 Temperature Pulse Rate 103 H 104 H 103 H Respiratory Rate 19 21 H Blood Pressure Pulse Oximetry 95 09/24/19 03:39 09/24/19 04:58 09/24/19 06:00 Temperature 36.4 C L Pulse Rate 114 H 113 H 114 H Respiratory Rate 20 16 Blood Pressure 152/80 H 134/85 Pulse Oximetry 94 95 96 09/24/19 08:00 09/24/19 08:11 09/24/19 08:21 Temperature 39.2 C H Pulse Rate 97 111 H 114 H Respiratory Rate 16 19 18 Blood Pressure 135/85 Pulse Oximetry 95 96 09/24/19 08:37 09/24/19 09:37 09/24/19 10:00 Temperature 39.2 C H 39.1 C H 39.1 C H Pulse Rate 112 H Respiratory Rate 20 Blood Pressure 138/86 Pulse Oximetry 96 09/24/19 10:33 09/24/19 11:03 09/24/19 11:19 Temperature 39.2 C H 39.2 C H Pulse Rate 114 H Respiratory Rate Blood Pressure Pulse Oximetry 95 09/24/19 12:00 09/24/19 14:00 09/24/19 14:02 Temperature 39.1 C H Pulse Rate 113 H 110 H 108 H Respiratory Rate 20 17 16 Blood Pressure 147/94 H 128/76 Pulse Oximetry 95 94 95 09/24/19 14:12 09/24/19 16:00 09/24/19 16:50 Temperature 39.2 C H Pulse Rate 112 H 112 H 112 H Respiratory Rate 20 23 H Blood Pressure 160/94 H Pulse Oximetry 95 95 09/24/19 18:00 09/24/19 20:00 09/24/19 21:34 Temperature 37.9 C H 37.3 C Pulse Rate 112 H 107 H 101 H Respiratory Rate 17 22 H 16 Blood Pressure 164/98 H 155/100 H Pulse Oximetry 94 100 93 09/24/19 21:54 09/24/19 22:00 Temperature Pulse Rate 102 H 109 H Respiratory Rate 20 24 H Blood Pressure 155/90 H Pulse Oximetry 95 Intake/Output Intake/Output: Intake & Output 09/21/19 09/22/19 09/23/19 09/24/19 23:59 23:59 23:59 23:59 Intake Total 520.8 637.0 1117 2575 Output Total 1650 1880 1999 3250 Balance -1129.2 -1243.0 -883 -675 Meds/Results Medications: Active Medications Generic Name Dose Route Start Last Admin Trade Name Freq PRN Reason Stop
[2019-09-25] VITALS (30 sets, daily range): BP systolic 123–158; BP diastolic 74–100; PULSE 99–145; RESP 10–30; TEMP 37.2–38.7; O2SAT 91–98
[2019-09-25] MEDS: INSULIN ASPART (*BKC) 100 UNITS/ML SUB-Q ×5 (00:32→23:59)
[2019-09-25] MEDS: GUAIFENESIN 200 MG/10 ML UDC PO ×5 (00:32→20:47)
[2019-09-25 00:33] LABS: Glucose Point of Care 332 (65-105)
[2019-09-25] MEDS: ALBUTEROL SULFATE NEB 2.5 MG/0.5 ML INH 5 MG INHALATION ×4 (02:39→20:54)
[2019-09-25] MEDS: IPRATROPIUM BR 0.02% INH SOLN 0.5 MG/2.5 ML VIAL INHALATION ×4 (02:39→20:54)
[2019-09-25 04:42] LABS: Alveolar/Arterial O2 Gradient 124.3 mmHg; Base Excess ABG 5.5 mEq/l (+/-2.0); Carboxyhemoglobin 0.3 % THb (0-2.0); Fractional Inspired Oxygen 35 %; HCO3 ABG 30.4 mEq/l (22.0-26.0); Methemoglobin ABG 0.2 %THb (0-1.5); Oxygen Content ABG 18.1 %vol (16.0-22.0); Oxygen Saturation ABG 95.1 % (95.0-100.0); Oxyhemoglobin 93.6 % THb (90.0-100.0); PCO2 ABG 45.3 mmHg (35.0-45.0); PO2 ABG 72.6 mmHg (80.0-100.0); PO2 FiO2 Ratio Arterial Blood 2.07 %; Reduced Hemoglobin 5.9 %THb (0-5.0); Total Hemoglobin 13.7 g/dL (12.0-18.0); pH ABG 7.445 (7.350-7.450)
[2019-09-25 04:43] LABS: Hematocrit 42.2 % (42.0-52.0); Hemoglobin 13.2 g/dL (14.0-18.0); Mean Corpuscular HGB Conc 31.3 g/dl (32-36); Mean Corpuscular Hemoglobin 29.7 pg (26-34); Mean Corpuscular Volume 94.8 fl (80-100); Mean Platelet Volume 10.1 fl (7.4-10.4); Platelet Count Result 241 k/mm3 (150-375); Red Blood Count 4.45 M/mm3 (4.6-6.20); Red Cell Distribution Width 12.9 % (11.5-14.5); White Blood Count 20.1 K/mm3 (4.5-10.0)
[2019-09-25 04:43] LABS: Device VENTILATOR; Modified Allen's Test Pass; Site Drawn LEFT RADIAL
[2019-09-25 04:44] LABS: Arterial Blood Gas Minute Volume 9 LPM; Arterial Blood Gas PEEP 5 cmH2O; Arterial Blood Gas Tidal Volume 733 ml; Arterial Blood Gas Vent Mode ASV; Arterial Blood Gas Ventilator rate 10 /MIN
[2019-09-25 05:00] LABS: Blood Urea Nitrogen 66 mg/dL (9-20); Calcium 8.6 mg/dL (8.4-10.2); Carbon Dioxide 33 mmol/L (22-30); Chloride 109 mmol/L (98-107); Estimated CRCL calculation 59 ml/min; Estimated Glomerular Filt Rate > 60; Glucose 374 mg/dL (75-110); Magnesium 2.7 mg/dL (1.6-2.3); Potassium 3.7 mmol/L (3.4-5.0); Sodium 148 mmol/L (137-145)
[2019-09-25] MEDS: SODIUM CHLORIDE 0.9% IV 500 ML 999 ML IV CONT ×2 (05:10→20:30)
[2019-09-25 06:14] LABS: Glucose Point of Care 345 (65-105)
[2019-09-25] MEDS: PANTOPRAZOLE SODIUM IV 40 MG VIAL IV PUSH (09:46)
[2019-09-25] MEDS: polyethylene glycoL 3350 17 GM POWD.PACK PO (09:56)
[2019-09-25] MEDS: BUDESONIDE RESPULE NEB 0.5 MG/2 ML AMP INHALATION ×2 (09:59→20:54)
[2019-09-25] MEDS: DORNASE ALFA INH SOLN 1 MG/ML 2.5 ML AMP 2.5 MG INHALATION ×2 (10:00→20:54)
[2019-09-25] MEDS: ENOXAPARIN 40 MG/0.4 ML SYRINGE SUB-Q (10:02)
[2019-09-25] MEDS: INSULIN GLARGINE (*BKC) 100 UNITS/ML 25 UNITS SUB-Q ×2 (10:36→20:44)
--- NOTE | 2019-09-25 10:54 | PCDIET ---
ICU Rounding Note: Patient remains intubated; receiving Glucerna 1.2 @ 60mL/hr and tolerating well. Last recorded weight is 59.9kg which is stable. I/O negative. Bowel Motility: No documented bowel movement. MD adding Dulcolax today. Labs Reviewed: Glu (345), Na (148) Meds Noted: Albuterol, Rocephin, Fentanyl, Novolog, Lantus, Versed, Protonix, Miralax, NS @ 100mL/hr Additional Notes: Lantus increased from 12u to 25u daily BID. No reported skin issues. Following daily in ICU rounds. Assessing/reassessing every Monday/Monday.
--- NOTE | 2019-09-25 11:13 | ECG_ITS ---
Measurements Intervals [place] Rate: 126 P: 71 MS: 133 QRS: 60 QRSD: 95 T: 77 QT: 297 QTc: 431 Interpretive Statements SINUS TACHYCARDIA BASELINE ARTIFACT- II, III ABNORMAL ECG Electronically Signed On 09-25-2019 11:25:53 [employer] by Santiago Whitfield D.O.
[2019-09-25 12:08] LABS: Glucose Point of Care 331 (65-105)
--- NOTE | 2019-09-25 12:20 | WPDINFPN2 ---
Progress Note: A&P Assessment and Plan (1) Staphylococcus aureus bacteremia: Onset Date: 09/20/19 Code(s): R78.81 - Bacteremia Status: Acute Assessment and Plan: 1. JAMILAH bacteremia, unknown source 2. New Dx NHL 3. Resp failure 4. Multifactorial leukocytosis 5. PCN allergy REC Ctx # 5. Further history from patient once extubated. Redo BCs. Subjective Date/time seen: 09/25/19 12:20 Interval history: sedated and intubated Exam Narrative: Exam Narrative: t max since last visit 38.7 Const: General: in distress Eyes: General: appearance normal, both eyes and all related structures Resp: Effort & Inspection: normal respiratory effort Auscultation: rales Cardio: Rate: tachycardic Rhythm: regular rhythm Heart sounds: no murmurs GI: Inspection: non-distended GI Palp: Yes Soft to palpation and No Tenderness to palpation present (GI) Urinary Catheter: Urinary Catheter: patent and draining Objective Data Vital Signs Vital Signs: Vital Signs - 24 hr 09/24/19 14:00 09/24/19 14:02 09/24/19 14:12 Temperature Pulse Rate 110 H 108 H 112 H Respiratory Rate 17 16 20 Blood Pressure 128/76 Pulse Oximetry 94 95 09/24/19 16:00 09/24/19 16:50 09/24/19 18:00 Temperature 39.2 C H 37.9 C H Pulse Rate 112 H 112 H 112 H Respiratory Rate 23 H 17 Blood Pressure 160/94 H 164/98 H Pulse Oximetry 95 95 94 09/24/19 20:00 09/24/19 21:34 09/24/19 21:54 Temperature 37.3 C Pulse Rate 107 H 101 H 102 H Respiratory Rate 22 H 16 20 Blood Pressure 155/100 H Pulse Oximetry 100 93 09/24/19 22:00 09/24/19 23:30 09/25/19 00:00 Temperature 37.2 C Pulse Rate 109 H 102 H 99 Respiratory Rate 24 H 12 Blood Pressure 155/90 H 141/77 H Pulse Oximetry 95 93 98 09/25/19 02:00 09/25/19 02:39 09/25/19 02:48 Temperature Pulse Rate 107 H 110 H 110 H Respiratory Rate 12 10 L 11 L Blood Pressure 137/82 Pulse Oximetry 93 92 09/25/19 03:53 09/25/19 04:00 09/25/19 04:50 Temperature 37.2 C 37.2 C Pulse Rate 128 H 120 H Respiratory Rate 12 Blood Pressure 123/74 Pulse Oximetry 93 94 09/25/19 06:00 09/25/19 08:00 09/25/19 10:00 Temperature 37.2 C Pulse Rate 118 H 113 H 124 H Respiratory Rate 14 12 15 Blood Pressure 152/86 H 145/83 H Pulse Oximetry 93 94 09/25/19 10:08 09/25/19 10:24 09/25/19 11:16 Temperature Pulse Rate 124 H 127 H 127 H Respiratory Rate 19 Blood Pressure Pulse Oximetry 96 91 09/25/19 12:00 Temperature 38.7 C H Pulse Rate 145 H Respiratory Rate 22 H Blood Pressure 158/91 H Pulse Oximetry 95 Intake/Output Intake/Output: Intake & Output 09/22/19 09/23/19 09/24/19 09/25/19 23:59 23:59 23:59 23:59 Intake Total 637.0 1117 2575 1086.8 Output Total 1880 2000 3250 1250 Balance -1243.0 -883 -675 -163.2 Meds/Results Medications: Active Medications Generic Name Dose Route Start Last Admin Trade Name Freq PRN Reason Stop Dose Admin Acetaminophen 650 mg 09/20/19 09:00 09/24/19 08:37 Tylenol Tablet PO 650 mg Q4H PRN Administration Headache Albuterol 5 mg 09/17/19 14:00 09/25/19 09:59 Albuterol Sulf Neb 2.5mg/0.5ml INHALATION 5 mg Q6HRT AZUCENA Administration Budesonide 0.5 mg 09/21/19 08:55 09/25/19 09:59 Pulmicort Respule Neb INHALATION 0.5 mg Q12HRT AZUCENA Administration Dextrose 12.5 gm 09/24/19 08:05 Dextrose 50% Syringe IV PUSH PRN PRN Hypoglycemia Protocol Dornase Jesus 2.5 mg 09/22/19 09:15 09/25/19 10:00 Pulmozyme INHALATION 2.5 mg Q12HRT AZUCENA Administration Enoxaparin Sodium 40 mg 09/21/19 09:00 09/25/19 10:02 Lovenox SUB-Q 40 mg DAILY AZUCENA Administration Glucagon 1 mg 09/24/19 08:05 Glucagon For Inj IM PRN PRN Hypoglycemia Protocol Glucose 15 gm 09/24/19 08:05 Glutose 15 PO PRN PRN Hypoglycemia Protocol Guaifenesin 200 mg 09/21/19 10:45 09/25/19 09:56 Guaifenesin Liq PO 200 mg
[2019-09-25] MEDS: BISACODYL 10 MG SUPPOSITORY RECTAL (13:15)
[2019-09-25] MEDS: PROPOFOL IV EMULSION 100 ML 1.8 MG IV CONT (13:51)
--- NOTE | 2019-09-25 14:05 | WPDINTPN ---
Progress Note: A&P Assessment and Plan (1) Staphylococcus aureus bacteremia: Onset Date: 09/20/19 Code(s): R78.81 - Bacteremia Status: Acute Assessment and Plan: blood cultures x2 growing Staphylococcus aureus, sensitive to oxacillin (But patient is allergic to penicillin), patient on vancomycin and ceftriaxone. - repeat blood cultures 09/22/2019 growing staph aureus - echocardiogram on 09/23/2019 showed EF of 35-40%, grade 1 diastolic dysfunction, aortic valve is not visualized well, mitral valve has mild thickened leaflets, moderate to severe mitral valve regurg, - appreciate infectious disease evaluation recommendations. Continue ceftriaxone 2 g daily, vancomycin was discontinued. Infectious Disease physician does not think that he needs a PANKAJ at this point (2) UTI (urinary tract infection): Qualifiers: Urinary tract infection type: site unspecified Hematuria presence: without hematuria Qualified Code(s): N39.0 - Urinary tract infection, site not specified Code(s): N39.0 - Urinary tract infection, site not specified Status: Acute Assessment and Plan: urine cultures growing Staph aureus continue ceftriaxone as above (3) Acute and chronic respiratory failure: Qualifiers: Respiratory failure complication: unspecified whether with hypoxia or hypercapnia Qualified Code(s): J96.20 - Acute and chronic respiratory failure, unspecified whether with hypoxia or hypercapnia Code(s): J96.20 - Acute and chronic respiratory failure, unspecified whether with hypoxia or hypercapnia Status: Acute Assessment and Plan: patient worsened overnight on 09/20/2019, tachypneic, increased work of breathing, impending respiratory failure, Dr. Coughlin intubated the patient and transferred the patient to the ICU. Likely related to bacteremia and UTI and severe sepsis - continue bronchodilators - chest x-ray and ABGs reviewed, ventilator adjusted - likely secondary to COPD exacerbation and/or bronchitis - appreciate Pulmonary evaluation recommendation - patient currently off sedation, opens eyes but does not follow simple commands or track. Will start on low-dose propofol given hypertension and tachycardia (4) Acute exacerbation of chronic obstructive airways disease: Code(s): J44.1 - Chronic obstructive pulmonary disease with (acute) exacerbation Status: Acute Assessment and Plan: continue mechanical ventilation, - no wheezing noted, will discontinue steroids - continue antibiotics as above (5) Mass of right inguinal region: Code(s): R19.09 - Other intra-abdominal and pelvic swelling, mass and lump Status: Acute Assessment and Plan: patient had a lymph node biopsy from the right groin, preliminary report showed non-Hodgkin's lymphoma. 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 - appreciate Hematology/Oncology evaluation and recommendation (6) Acute kidney injury: Code(s): N17.9 - Acute kidney failure, unspecified Status: Acute Assessment and Plan: patient initially presented with acute kidney injury, the course of the stay in the hospital kidney functions have improved OUMAR has resolved - continue to monitor urine output, renal function electrolytes (7) Diastolic heart failure: Qualifiers: Heart failure chronicity: chronic Qualified Code(s): I50.32 - Chronic diastolic (congestive) heart failure Code(s): I50.30 - Unspecified diastolic (congestive) heart failure Status: Acute Assessment and Plan: history of chronic diastolic heart failure - echocardiogram 09/23/2019 as above. Grade 2 diastolic dysfunction, EF is reduced to 35-40% from previous echocardiogram - Echocardiogram in March 2019 showed normal LV size and function with an impaired diastolic relaxation and ejection fraction of 60 to 65% - heart failure seems to be compensated, will
--- NOTE | 2019-09-25 15:19 | PM.IMPN ---
Progress Note: A&P Assessment and Plan (1) Acute exacerbation of chronic obstructive airways disease: Code(s): J44.1 - Chronic obstructive pulmonary disease with (acute) exacerbation Status: Acute (2) Chronic respiratory failure with hypoxia: Code(s): J96.11 - Chronic respiratory failure with hypoxia Status: Acute Assessment and Plan: 09/25/19 15:19 Patient is a 69 yo M with history of COPD/asthma overlap, scleroderma, chronic respiratory failure with hypoxia, diastolic congestive heart failure, and history of tobacco abuse who is here for acute on chrronid respiratory failure 2/2 COPD exacerbation and for evaluation of right inguinal lymphadenopathy. Pt had lymph node biospy seen by Dr Barr will need further investigations later after discharge for possible non hodgkins lymphoma. Pt unfortunately developed severe SOB and was intubated and admitted to ICU, 09/20/2019. Continue ventilatory support. Discussion with brother at the bedside.. patient blood and urine culure are growing staph resulting in bactremia, patient is being treated with vancomycin and ceftriaxone and cardiac echo is ordered to rule out vegetation shows possible vegitation and PANKAJ is orderd and patient seen by Dr. 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 (3) Acute kidney injury: Code(s): N17.9 - Acute kidney failure, unspecified Status: Acute Assessment and Plan: Monitor renal function (4) Diastolic heart failure: Qualifiers: Heart failure chronicity: chronic Qualified Code(s): I50.32 - Chronic diastolic (congestive) heart failure Code(s): I50.30 - Unspecified diastolic (congestive) heart failure Status: Acute Assessment and Plan: He is clinically compensated. Cardiac ecch showed possible vegetation PANKAJ is ordered (5) Chronic anemia: Code(s): D64.9 - Anemia, unspecified Status: Acute Assessment and Plan: Continue to trend hb/ hct (6) Mass of right inguinal region: Code(s): R19.09 - Other intra-abdominal and pelvic swelling, mass and lump Status: Acute Assessment and Plan: Soft tissue ultrasound of the right inguinal region read as right inguinal lymphadenopathy, largest demonstrating effacement of normal fatty hilum, possibly pathologic. Consider lymphoma. Biopsy performed yesterday and preliminary results have returned suggestive for lymphoma. Prelim biopsy suggestive of lymphoma Dr. Barr has been consulted and appreciate input. Pt to follow with Dr Barr on discharge (7) Staphylococcus aureus bacteremia: Onset Date: 09/20/19 Code(s): R78.81 - Bacteremia Status: Acute Assessment and Plan: Plan is above (8) Acute and chronic respiratory failure: Qualifiers: Respiratory failure complication: unspecified whether with hypoxia or hypercapnia Qualified Code(s): J96.20 - Acute and chronic respiratory failure, unspecified whether with hypoxia or hypercapnia Code(s): J96.20 - Acute and chronic respiratory failure, unspecified whether with hypoxia or hypercapnia Status: Acute Assessment and Plan: Plan is above Subjective Date/time seen: 09/25/19 15:19 Patient is a 69 yo M with history of COPD/asthma overlap, scleroderma, chronic respiratory failure with hypoxia, diastolic congestive heart failure, and history of tobacco abuse who is here for acute on chrronid respiratory failure 2/2 COPD exacerbation and for evaluation of right inguinal lymphadenopathy. Pt had lymph no
[2019-09-25 17:35] LABS: Glucose Point of Care 282 (65-105)
--- NOTE | 2019-09-25 18:53 | PC.NURSE ---
Patient transtered to for CT head in the Am. No significant changes noted.
[2019-09-25 21:14] LABS: Glucose Point of Care 249 (65-105)
--- NOTE | 2019-09-25 22:11 | PM.PNPUL ---
Progress Note: A&P Assessment and Plan (1) COPD exacerbation: Code(s): J44.1 - Chronic obstructive pulmonary disease with (acute) exacerbation Status: Acute Assessment and Plan: Day 4 intubation on minimal vent support - daily SBT trials - continue duonebs but if tachycardia persists despite being fever free, consider hold Albuterol but continuing Ipratropium - Cardiology consulted for PANKAJ to r/ro endocarditis - consider MRI of brain if mental status does not improve off sedation. Time Spent With Patient Time with patient: 25 - 35 minutes Subjective Date/time seen: 09/25/19 22:11 Interval history: 69 y/o with combined severe Asthma/COPD overlap intubated for respiratory failure and severe sepsis from JAMILAH. New diagnosis of NHL. His blood culture from 09/22/19 are positive and he continues to have intermittent fever. Unclear if this is from ongoing infection or NHL. He certainly has metabolic encephalopty form sepsis and sedation. CT head was normal. Endocarditis should be ruled out by PANKAJ. I would also consider MRI to look for micro septic emboli if mental status does not improve. Review of Systems Review of Systems: All systems reviewed & are unremarkable except as noted in HPI and below Exam Const: General: no acute distress Other: intubated and sedated. Neck: Neck: supple and no JVD Resp: Auscultation: clear to auscultation bilaterally and diminished lung sounds Cardio: Rate: regular rate and tachycardic Heart sounds: no gallops and Murmur heart sound present GI: Auscultation: normal bowel sounds Skin: General skin exam: normal color Extrem: General: normal to inspection Other: no petichial hemorrhages Objective Data Vital Signs Vital Signs: Vital Signs - 24 hr 09/24/19 23:30 09/25/19 00:00 09/25/19 02:00 Temperature 37.2 C Pulse Rate 102 H 99 107 H Respiratory Rate 12 12 Blood Pressure 141/77 H 137/82 Pulse Oximetry 93 98 93 09/25/19 02:39 09/25/19 02:48 09/25/19 03:53 Temperature 37.2 C Pulse Rate 110 H 110 H Respiratory Rate 10 L 11 L Blood Pressure Pulse Oximetry 92 09/25/19 04:00 09/25/19 04:50 09/25/19 06:00 Temperature 37.2 C Pulse Rate 128 H 120 H 118 H Respiratory Rate 12 14 Blood Pressure 123/74 152/86 H Pulse Oximetry 93 94 93 09/25/19 08:00 09/25/19 10:00 09/25/19 10:08 Temperature 37.2 C Pulse Rate 115 H 126 H 124 H Respiratory Rate 12 15 Blood Pressure 145/83 H Pulse Oximetry 94 96 09/25/19 10:24 09/25/19 11:16 09/25/19 12:00 Temperature 38.7 C H Pulse Rate 127 H 127 H 143 H Respiratory Rate 19 22 H Blood Pressure 158/91 H Pulse Oximetry 91 95 09/25/19 12:32 09/25/19 13:01 09/25/19 14:00 Temperature 38.7 C H 38.6 C H Pulse Rate 133 H Respiratory Rate 17 Blood Pressure 154/100 H Pulse Oximetry 94 09/25/19 14:20 09/25/19 14:21 09/25/19 16:00 Temperature 37.6 C H Pulse Rate 137 H 134 H 137 H Respiratory Rate 24 H 22 H Blood Pressure 156/91 H Pulse Oximetry 94 94 09/25/19 17:20 09/25/19 18:00 09/25/19 20:00 Temperature 38.1 C H Pulse Rate 131 H 130 H 134 H Respiratory Rate 21 H 24 H Blood Pressure 151/91 H 141/81 H Pulse Oximetry 94 95 94 09/25/19 20:55 09/25/19 21:03 Temperature Pulse Rate 137 H 135 H Respiratory Rate 29 H 30 H Blood Pressure Pulse Oximetry Intake/Output Intake/Output: Intake & Output 09/22/19 09/23/19 09/24/19 09/25/19 23:59 23:59 23:59 23:59 Intake Total 637.0 1117 2575 2191.8 Output Total 1880 1999 9160 2400 [facility] -1243.0 -883 -675 -208.2 Meds/Results Medications: Active Medications Generic Name Dose Route Start Last Admin Trade Name Freq PRN Reason Stop Dose Admin Acetaminophen 650 mg 09/20/19 09:00 09/24/19 08:37 Tylenol Tablet PO 650 mg Q4H PRN Administration Headache Albuterol 5 mg 09/17/19 14:00 09/25/19 20:54 Albuterol Sulf Neb 2.5mg/0.5ml INHALATION 5 mg Q6HRT AZUCENA Administrati
[2019-09-26] VITALS (31 sets, daily range): BP systolic 115–153; BP diastolic 63–92; PULSE 108–133; RESP 18–120; TEMP 37.3–39.3; O2SAT 92–98
[2019-09-26] MEDS: GUAIFENESIN 200 MG/10 ML UDC PO ×6 (00:03→20:17)
[2019-09-26 00:07] LABS: Glucose Point of Care 227 (65-105)
[2019-09-26] MEDS: PROPOFOL IV EMULSION 100 ML 10.8 MG IV CONT (00:49)
[2019-09-26 01:17] LABS: Hematocrit 42.1 % (42.0-52.0); Hemoglobin 13.3 g/dL (14.0-18.0); Mean Corpuscular HGB Conc 31.6 g/dl (32-36); Mean Corpuscular Hemoglobin 30.8 pg (26-34); Mean Corpuscular Volume 97.5 fl (80-100); Mean Platelet Volume 10.4 fl (7.4-10.4); Platelet Count Result 253 k/mm3 (150-375); Red Blood Count 4.32 M/mm3 (4.6-6.20); Red Cell Distribution Width 13.4 % (11.5-14.5); White Blood Count 23.8 K/mm3 (4.5-10.0)
[2019-09-26 01:33] LABS: Blood Urea Nitrogen 61 mg/dL (9-20); Carbon Dioxide 36 mmol/L (22-30); Chloride 113 mmol/L (98-107); Estimated CRCL calculation 45 ml/min; Estimated Glomerular Filt Rate 60; Glucose 240 mg/dL (75-110); Magnesium 2.6 mg/dL (1.6-2.3); Phosphorus 2.4 mg/dL (2.5-4.5); Potassium 4.2 mmol/L (3.4-5.0); Sodium 153 mmol/L (137-145)
[2019-09-26] MEDS: IPRATROPIUM BR 0.02% INH SOLN 0.5 MG/2.5 ML VIAL INHALATION ×4 (01:53→20:18)
[2019-09-26] MEDS: ALBUTEROL SULFATE NEB 2.5 MG/0.5 ML INH 5 MG INHALATION ×4 (01:53→20:18)
[2019-09-26 02:04] LABS: Vancomycin Trough < 5.0 ug/mL (10.0-20.0)
[2019-09-26 05:00] LABS: Alveolar/Arterial O2 Gradient 134.3 mmHg; Carboxyhemoglobin 0.3 % THb (0-2.0); Fractional Inspired Oxygen 35 %; HCO3 ABG 33.9 mEq/l (22.0-26.0); Methemoglobin ABG 0.3 %THb (0-1.5); Oxygen Content ABG 18.2 %vol (16.0-22.0); Oxygen Saturation ABG 94.6 % (95.0-100.0); Oxyhemoglobin 92.9 % THb (90.0-100.0); PCO2 ABG 42.8 mmHg (35.0-45.0); PO2 ABG 65.5 mmHg (80.0-100.0); PO2 FiO2 Ratio Arterial Blood 1.87 %; Reduced Hemoglobin 6.5 %THb (0-5.0); Total Hemoglobin 13.9 g/dL (12.0-18.0)
[2019-09-26 05:02] LABS: Device VENTILATOR; Modified Allen's Test Pass; Site Drawn LEFT RADIAL; pH ABG 7.517 (7.350-7.450)
[2019-09-26 05:03] LABS: Arterial Blood Gas PEEP 5 cmH2O; Arterial Blood Gas Tidal Volume 754 ml; Arterial Blood Gas Vent Mode ASV; Arterial Blood Gas Ventilator rate 23 /MIN
[2019-09-26] MEDS: INSULIN ASPART (*BKC) 100 UNITS/ML SUB-Q (05:26)
[2019-09-26 05:32] LABS: Glucose Point of Care 206 (65-105)
[2019-09-26] MEDS: PROPOFOL IV EMULSION 100 ML 12.6 MG IV CONT ×3 (07:49→21:26)
[2019-09-26] MEDS: INSULIN GLARGINE (*BKC) 100 UNITS/ML 30 UNITS SUB-Q ×2 (08:03→20:18)
[2019-09-26] MEDS: BUDESONIDE RESPULE NEB 0.5 MG/2 ML AMP INHALATION ×2 (08:30→20:18)
[2019-09-26] MEDS: DORNASE ALFA INH SOLN 1 MG/ML 2.5 ML AMP 2.5 MG INHALATION ×2 (08:30→20:22)
--- NOTE | 2019-09-26 08:48 | WPDINTPN ---
Progress Note: A&P Assessment and Plan (1) Staphylococcus aureus bacteremia: Onset Date: 09/20/19 Code(s): R78.81 - Bacteremia Status: Acute Assessment and Plan: blood cultures x2 growing Staphylococcus aureus, sensitive to oxacillin (But patient is allergic to penicillin), patient on vancomycin and ceftriaxone. - repeat blood cultures 09/22/2019 growing staph aureus - echocardiogram on 09/23/2019 showed EF of 35-40%, grade 1 diastolic dysfunction, aortic valve is not visualized well, mitral valve has mild thickened leaflets, moderate to severe mitral valve regurg, - appreciate infectious disease evaluation recommendations. Continue ceftriaxone 2 g daily, vancomycin was discontinued. Infectious Disease physician does not think that he needs a PANKAJ at this point (2) UTI (urinary tract infection): Qualifiers: Hematuria presence: without hematuria Urinary tract infection type: site unspecified Qualified Code(s): N39.0 - Urinary tract infection, site not specified Code(s): N39.0 - Urinary tract infection, site not specified Status: Acute Assessment and Plan: urine cultures growing Staph aureus continue ceftriaxone as above (3) Acute and chronic respiratory failure: Qualifiers: Respiratory failure complication: unspecified whether with hypoxia or hypercapnia Qualified Code(s): J96.20 - Acute and chronic respiratory failure, unspecified whether with hypoxia or hypercapnia Code(s): J96.20 - Acute and chronic respiratory failure, unspecified whether with hypoxia or hypercapnia Status: Acute Assessment and Plan: patient worsened overnight on 09/20/2019, tachypneic, increased work of breathing, impending respiratory failure, Dr. Coughlin intubated the patient and transferred the patient to the ICU. Likely related to bacteremia and UTI and severe sepsis - continue bronchodilators - chest x-ray and ABGs reviewed, continue ASV mode of ventilation - likely secondary to COPD exacerbation and/or bronchitis - appreciate Pulmonary evaluation recommendation - on propofol for sedation (4) Acute exacerbation of chronic obstructive airways disease: Code(s): J44.1 - Chronic obstructive pulmonary disease with (acute) exacerbation Status: Acute Assessment and Plan: continue mechanical ventilation, - continue antibiotics as above (5) Mass of right inguinal region: Code(s): R19.09 - Other intra-abdominal and pelvic swelling, mass and lump Status: Acute Assessment and Plan: patient had a lymph node biopsy from the right groin, preliminary report showed non-Hodgkin's lymphoma. 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 - appreciate Hematology/Oncology evaluation and recommendation (6) Acute kidney injury: Code(s): N17.9 - Acute kidney failure, unspecified Status: Acute Assessment and Plan: patient initially presented with acute kidney injury, the course of the stay in the hospital kidney functions have improved OUMAR has resolved - continue to monitor urine output, renal function electrolytes (7) Diastolic heart failure: Qualifiers: Heart failure chronicity: chronic Qualified Code(s): I50.32 - Chronic diastolic (congestive) heart failure Code(s): I50.30 - Unspecified diastolic (congestive) heart failure Status: Acute Assessment and Plan: history of chronic diastolic heart failure - echocardiogram 09/23/2019 as above. Grade 2 diastolic dysfunction, EF is reduced to 35-40% from previous echocardiogram - Echocardiogram in March 2019 showed normal LV size and function with an impaired diastolic relaxation and ejection fraction of 60 to 65% - heart failure seems to be compensated, will continue to monitor - Will add metoprolol (8) Hyperglycemia: Code(s): R73.9 - Hyperglycemia, unspecified Status: Acute Assessment and Plan:
--- NOTE | 2019-09-26 09:01 | P.CDI_ITS ---
CDI Query Clarification Request - 69 y/o with combined severe Asthma/COPD overlap intubated for respiratory failure and severe sepsis from JAMILAH. documented by Dr Rhina Huerta - Likely related to bacteremia and UTI and severe sepsis documented by Dr Moran - Hospitalists have documented bacteremia. - Bacteremia (positive blood culture without systemic illness) and sepsis (systemic illness) are conflicting diagnosis. Please clarify diagnosis: * Bacteremia * Sepsis * Unable to determine <Luly Verduzco RN - Last Filed: 09/26/19 09:06>
[2019-09-26] MEDS: POTASSIUM/PHOSPHORUS/SODIUM 1.5 GM PACKET 1 PACKET FEED TUBE (09:04)
[2019-09-26] MEDS: ENOXAPARIN 40 MG/0.4 ML SYRINGE SUB-Q (09:05)
[2019-09-26] MEDS: polyethylene glycoL 3350 17 GM POWD.PACK PO (09:07)
[2019-09-26] MEDS: PANTOPRAZOLE SODIUM IV 40 MG VIAL IV PUSH (09:07)
[2019-09-26] MEDS: BISACODYL 10 MG SUPPOSITORY RECTAL (10:34)
[2019-09-26] MEDS: METOPROLOL TARTRATE 25 MG TABLET PO (10:35)
--- NOTE | 2019-09-26 11:19 | PCDIET ---
ICU Rounding Note: Patient tolerating Glucerna 1.2 @ 60mL/hr goal rate with no significant residuals. MD adding Dulcolax again today, as no reported bowel movements. Last recorded weight is 59.7kg which is stable. Bowel Motility: No documented bowel movements. Labs Reviewed: Glu (206), BUN (61), Na (153), Cl (113), PO4 (2.4), Mg (2.6) Meds Noted: s/p Phos-NaK, Propofol at 12.6mL/hr (332kcal over 24 hour period), Albuterol, Rocephin, Fentanyl, Novolog, Lantus, Versed, Protonix, Miralax Additional Notes: Glucose levels improving with increasing insulin. No documented pressure sores. Recommend continuing present tube feeding and considering added water flushes (100mL every 4 hours). Currently receiving 30mL water every 4 hours. Following daily in ICU rounds. Assessing/reassessing every Monday/Monday.
--- NOTE | 2019-09-26 12:30 | NEURO_ITS ---
TEST: ELECTROENCEPHALOGRAM DIAGNOSIS: ACUTE ENCEPHALOPATHY PATIENT NUMBER: [id number] EEG NUMBER: 20 RECORDING DATE: 09/26/19 CLINICAL HISTORY: Patient started having trouble breathing 3 days ago, was brought into the ICU and intubated. Now having trouble taking off of sedation. CONDITION OF RECORDING: COMATOSE EEG DESCRIPTION: The whole record consists of diffused low to medium voltage 2- 3hz delta activity mixed with 5-7hz theta activity. Bilateral symmetrical sleep activity is seen during sleep. Intermittently there are 2-3hz delta followed by the low voltage beta activity; Raising the possibility of hypoxic encephalopathy. Nonparoxysmal. Nonfocal. Nonlateralizing. IMPRESSION: Severely abnormal record due to the presence of bi-hemispheric theta and delta activity without any evidence of paroxysmal discharge. The findings are consistent with the diagnosis of organic or metabolic encephalopathy, most likely hypoxia. MTDD
--- NOTE | 2019-09-26 12:38 | WPDONCPN ---
Progress Note: A/P - Additional Plan Right inguinal lymphadenopathy. Status post biopsy. 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 Other possibility include reactive process. 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 I have discussed this with Dr. Schmidt today. Staph aureus bacteremia. Patient is on is on Rocephin. Acute respiratory failure. CT head showed no evidence of disease. EEG is being done. 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 Looks quite tired and weak and obvious signs of significant weight loss. Exam Vital signs: Temp Pulse Resp BP Pulse Ox 38.6 C H 121 H 18 124/77 95 09/26/19 12:00 09/26/19 12:00 09/26/19 12:00 09/26/19 12:00 09/26/19 12:00 Patient is sedated and intubated Lungs are clear to auscultation bilaterally Cardiovascular regular rate rhythm no murmurs Abdomen soft nontender nondistended bowel sounds are positive Extremities no edema PN: Objective Data - Labs CBC & Chem 7: 09/26/19 00:59 09/26/19 00:59 Labs: Laboratory Results - last 24 hr 09/25/19 09/25/19 09/26/19 17:23 20:42 00:01 WBC RBC Hgb Hct MCV MCH MCHC RDW Plt Count MPV Puncture Site ABG pH ABG pCO2 ABG pO2 ABG PO2/FiO2 Ratio ABG HCO3 ABG O2 Saturation ABG O2 Content ABG Base Excess A-a Gradient Oxyhemoglobin Carboxyhemoglobin Methemoglobin Reduced Hemoglobin Total Hemoglobin O2 Delivery Device O2 Liters/Min Minute Volume Vent Rate Vent Mode FiO2 Tidal Volume PEEP Peak Inspir Pressure Pressure Support Sodium Potassium Chloride Carbon Dioxide BUN Creatinine Estim Creat Clear Calc Estimated GFR Glucose POC Capillary Glucose 282 H 249 H 227 H Calcium Phosphorus Magnesium Vancomycin Trough 09/26/19 09/26/19 09/26/19 00:59 00:59 00:59 WBC 23.8 H RBC 4.32 L Hgb 13.3 L Hct 42.1 MCV 97.5 MCH 30.8 MCHC 31.6 L RDW 13.4 Plt Count 253 MPV 10.4 Puncture Site ABG pH ABG pCO2 ABG pO2 ABG PO2/FiO2 Ratio ABG HCO3 ABG O2 Saturation ABG O2 Content ABG Base Excess A-a Gradient Oxyhemoglobin Carboxyhemoglobin Methemoglobin Reduced Hemoglobin Total Hemoglobin O2 Delivery Device O2 Liters/Min Minute Volume Vent Rate Vent Mode FiO2 Tidal Volume PEEP Peak Inspir Pressure Pressure Support Sodium 153 H Potassium 4.2 Chloride 113 H Carbon Dioxide 36 H BUN 61 H Creatinine 1.20 Estim Creat Clear Calc 45 Estimated GFR 60 Glucose 240 H POC Capillary Glucose Calcium 9.0 Phosphorus 2.4 L Magnesium 2.6 H Vancomycin Trough < 5.0 L 09/26/19 09/26/19 04:49 05:26 WBC RBC Hgb Hct MCV MCH MCHC RDW Plt Count MPV Puncture Site Left radial ABG pH 7.517 H* ABG pCO2 42.8 ABG pO2 65.5 L ABG PO2/FiO2 Ratio 1.87 ABG HCO3 33.9 H ABG O2 Saturation 94.6 L ABG O2 Content 18.2 ABG Base Excess 10.0 A-a Gradient 134.3 Oxyhemoglobin 92.9 Carboxyhemoglobin 0.3 Methemoglobin 0.3 Reduced Hemoglobin 6.5 H Total Hemoglobin 13.9 O2 Delivery Device Ventilator O2 Liters/Min Not Reportable Minute Volume Not Reportable Vent Rate 23 Vent Mode Asv FiO2 35 Tidal Volume 754 PEEP 5 Peak Inspir Pressure Not Reportable Pressure Support Not Reportable Sodium Potassium Chloride Carbon D
--- NOTE | 2019-09-26 13:18 | WPDINFPN2 ---
Progress Note: A&P Assessment and Plan (1) Staphylococcus aureus bacteremia: Onset Date: 09/20/19 Code(s): R78.81 - Bacteremia Status: Acute Assessment and Plan: 1. JAMILAH bacteremia, unknown source, still positive. TTE result discussed 2. New Dx NHL 3. Resp failure 4. Multifactorial leukocytosis 5. PCN allergy REC Ctx # 6, continue. Discussed: PANKAJ not required from my standpoint, since prolonged IV rx is expected. But PANKAJ results + or - would give helpful prognostic info and would help guide length of therapy. Myocardial or perivalvular abscess - if present -would also change his plan of care. In addition, his low LOC could be a manifestation of IE, in which case PANKAJ result would also be helpful. Further history from patient once extubated. Subjective Date/time seen: 09/26/19 13:18 Interval history: sedated on propafol, though did not arouse when sedation withdrawn. EEG in process. No pressors Exam Narrative: Exam Narrative: t max 38.6 Const: General: no acute distress Eyes: Other: suffused conjunctivae Neck: Neck: no JVD Resp: Auscultation: rales and diminished lung sounds Cardio: Rate: tachycardic Rhythm: regular rhythm Heart sounds: S1 normal heart sound present, S2 normal heart sound present and no murmurs GI: GI Palp: No abdominal tenderness, Yes Soft to palpation and No Guarding due to palpation present (GI) Objective Data Vital Signs Vital Signs: Vital Signs - 24 hr 09/25/19 14:00 09/25/19 14:20 09/25/19 14:21 Temperature Pulse Rate 133 H 137 H 134 H Respiratory Rate 17 24 H Blood Pressure 154/100 H Pulse Oximetry 94 94 09/25/19 16:00 09/25/19 17:20 09/25/19 18:00 Temperature 37.6 C H Pulse Rate 137 H 131 H 130 H Respiratory Rate 22 H 21 H Blood Pressure 156/91 H 151/91 H Pulse Oximetry 94 94 95 09/25/19 20:00 09/25/19 20:05 09/25/19 20:30 Temperature 38.1 C H 37.9 C H Pulse Rate 134 H 135 H Respiratory Rate 24 H Blood Pressure 141/81 H Pulse Oximetry 94 93 09/25/19 20:55 09/25/19 21:00 09/25/19 21:03 Temperature 37.5 C Pulse Rate 137 H 135 H Respiratory Rate 29 H 30 H Blood Pressure Pulse Oximetry 09/25/19 22:00 09/25/19 22:55 09/26/19 00:00 Temperature 38.2 C H Pulse Rate 128 H 128 H 129 H Respiratory Rate 23 H 22 H Blood Pressure 135/76 123/80 Pulse Oximetry 94 94 93 09/26/19 01:53 09/26/19 01:58 09/26/19 01:59 Temperature Pulse Rate 127 H 126 H 126 H Respiratory Rate 21 H 23 H Blood Pressure Pulse Oximetry 94 09/26/19 02:00 09/26/19 04:00 09/26/19 04:52 Temperature 37.3 C Pulse Rate 127 H 128 H 127 H Respiratory Rate 24 H 26 H Blood Pressure 137/81 136/75 Pulse Oximetry 95 95 94 09/26/19 06:00 09/26/19 07:40 09/26/19 08:00 Temperature 38.2 C H Pulse Rate 126 H 128 H 131 H Respiratory Rate 20 25 H Blood Pressure 128/92 H 142/87 H Pulse Oximetry 94 94 94 09/26/19 08:30 09/26/19 08:32 09/26/19 08:45 Temperature 38.4 C H Pulse Rate 125 H 124 H 126 H Respiratory Rate 28 H 28 H Blood Pressure Pulse Oximetry 92 09/26/19 10:00 09/26/19 10:35 09/26/19 10:41 Temperature Pulse Rate 130 H 133 H 132 H Respiratory Rate 23 H Blood Pressure 153/72 H Pulse Oximetry 93 94 09/26/19 12:00 Temperature 38.6 C H Pulse Rate 120 H Respiratory Rate 18 Blood Pressure 124/77 Pulse Oximetry 95 Intake/Output Intake/Output: Intake & Output 09/23/19 09/24/19 09/25/19 09/26/19 23:59 23:59 23:59 23:59 Intake Total 1117 2575 3291.8 1276.0 Output Total 1999 3250 2400 1300 [facility] -883 -675 891.8 -24.0 Meds/Results Medications: Active Medications Generic Name Dose Route Start Last Admin Trade Name Freq PRN Reason Stop Dose Admin Acetaminophen 650 mg 09/20/19 09:00 09/24/19 08:37 Tylenol Tablet PO 650 mg Q4H PRN Administration Headache Albuterol 5 mg 09/17/19 14:00 09/26/19 08:30 Albuterol Sulf Neb 2.5mg/0.5ml INHALATION 5
--- NOTE | 2019-09-26 13:23 | PM.CNCAR ---
Assessment and Plan Assessment and plan (1) Staphylococcus aureus bacteremia: Onset Date: 09/20/19 Code(s): R78.81 - Bacteremia Status: Acute Assessment and Plan: Unknown source. Concern with regards to reported progression of severity mitral regurgitation from current echocardiogram compared to March. My personal review reveals no more than moderate mitral regurgitation, however, EF has declined compared to prior study. Persistent JAMILAH despite sensitive antibiotics with recurrent fever and progressive leukocytosis. As such, we have been asked to perform transesophageal echocardiogram to exclude cardiac source of emboli. (2) Mitral regurgitation: Code(s): I34.0 - Nonrheumatic mitral (valve) insufficiency Status: Acute Assessment and Plan: Severity is progressed although likely a function of annular dilatation given LV dysfunction and critical illness as no clear mobile echodensity is identified on the mitral valve by surface echocardiogram. PANKAJ to further clarify. (3) Encephalopathy: Code(s): G93.40 - Encephalopathy, unspecified Status: Acute Assessment and Plan: Per Critical Care/ICU. EEG pending. Likely multifactorial. (4) Acute and chronic respiratory failure: Qualifiers: Respiratory failure complication: unspecified whether with hypoxia or hypercapnia Qualified Code(s): J96.20 - Acute and chronic respiratory failure, unspecified whether with hypoxia or hypercapnia Code(s): J96.20 - Acute and chronic respiratory failure, unspecified whether with hypoxia or hypercapnia Status: Acute Assessment and Plan: Remains intubated. Management per Critical Care Service. Wean ventilatory support as able. (5) Lymphoma: Code(s): C85.90 - Non-Hodgkin lymphoma, unspecified, unspecified site Status: Acute Assessment and Plan: Oncology following patient recent diagnosis of lymphoma. Overall prognosis quite poor given encephalopathy, persistent bacteremia, immune compromised state and lymphoma. (6) Cardiomyopathy: Code(s): I42.9 - Cardiomyopathy, unspecified Status: Acute Assessment and Plan: New diagnosis EF 35-40%. Patient appears reasonably compensated. Likely functional critical illness, however, cannot exclude underlying CAD. Further workup deferred until stabilization with regards to persistent bacteremia and lymphoma prognosis is clarified. Continue supportive medical therapy as tolerated. Change Metoprolol to Carvedilol. FRANCINE-I as BP allows. History of Present Illness History of Present Illness Consult date/time: Date of service: 09/26/19 13:23 This is a cardiology consultation at the request of for our opinion regarding transesophageal echocardiogram in setting of persistent Staph Aureus bacteremia with unidentified source. Requesting physician: Liz Duran MD Consult reason: Other (persistent bacteremia, transesophageal echocardiogram) Reason For Visit: copd exacerbation Narrative: Patient is a 69 yo WM with a history of COPD with exacerbation, acute on chronic respiratory failure requiring intubation, chronic diastolic heart failure, tobacco abuse, and recent diagnosis lymphoma with persistent JAMILAH bacteremia, progressive leukocytosis and fevers despite antibiotics with unknown source of bacteremia referred for transesophageal echocardiogram. On previous echo EF noted to be preserved with mild mitral regurgitation in March an echo this hospitalization interpreted as moderate to severe MR with EF 35-40. Given these findings and clinical concern we have been asked to perform transesophageal echocardiogram to evaluate for endocarditis/cardiac source of emboli. Patient is unable to provide any history and is unresponsive at this time given his encephalopathy as well as resumption of anesthesia per ICU protocol with propofol. Infectious Disease has been consulted and is following this patient as
[2019-09-26 13:26] LABS: Glucose Point of Care 191 (65-105)
--- NOTE | 2019-09-26 13:32 | WPDMODSED ---
Moderate Sedation Note-Pt Data Patient Data Diagnosis: Persistent bacteremia, septicemia, mitral regurgitation Present Complaint: None; intubated/sedated mechanical ventilatory support Procedure to be performed/Plan: Transesophageal echocardiogram Allergies Allergy/AdvReac Type Severity Reaction Status Date / Time penicillin G Allergy Severe Unknown Verified 09/17/19 09:02 Penicillins Allergy Unknown Unknown Verified 09/17/19 09:02 Home Medications Medication Instructions Recorded Confirmed Type budesonide-formoterol HFA 160 2 puff INHALATION Q4-6H #10.2 gm 07/17/19 09/17/19 Rx mcg-4.5 mcg/actuation aerosol inhaler furosemide 20 mg tablet 20 mg PO BID 07/17/19 09/17/19 History imiquimod 5 % topical cream packet See Rx Instructions TOPICAL 5XW 07/17/19 09/17/19 History metaxalone 800 mg tablet 800 mg PO BID PRN #60 tablet 07/17/19 09/17/19 Rx tiotropium bromide 18 mcg capsule 1 cap INHALATION DAILY 07/17/19 09/17/19 History with inhalation device trazodone 100 mg tablet 100 mg PO BID #180 tablet 07/17/19 09/17/19 Rx naproxen 500 mg tablet 500 mg PO BID #20 tablet 08/22/19 09/17/19 Rx Ventolin HFA 90 mcg/actuation 1 puff INHALATION Q4H PRN #18 gm NS 09/17/19 09/17/19 Rx aerosol inhaler prednisone 10 mg tablet 10 mg PO DAILY #100 tablet 09/17/19 09/17/19 Rx Current Medications: Active Medications Acetaminophen (Tylenol Tablet) 650 mg PO Q4H PRN PRN Reason: Headache Last Admin: 09/24/19 08:37 Dose: 650 mg Documented by: Albuterol (Albuterol Sulf Neb 2.5mg/0.5ml) 5 mg INHALATION Q6HRT [facility] Last Admin: 09/26/19 08:30 Dose: 5 mg Documented by: Budesonide (Pulmicort Respule Neb) 0.5 mg INHALATION Q12HRT [facility] Last Admin: 09/26/19 08:30 Dose: 0.5 mg Documented by: Dextrose (Dextrose 50% Syringe) 12.5 gm IV PUSH PRN PRN; Protocol PRN Reason: Hypoglycemia Dornase Jesus (Pulmozyme) 2.5 mg INHALATION Q12HRT [facility] Last Admin: 09/26/19 08:30 Dose: 2.5 mg Documented by: Enoxaparin Sodium (Lovenox) 40 mg SUB-Q DAILY [facility] Last Admin: 09/26/19 09:05 Dose: 40 mg Documented by: Glucagon (Glucagon For Inj) 1 mg IM PRN PRN; Protocol PRN Reason: Hypoglycemia Glucose (Glutose 15) 15 gm PO PRN PRN; Protocol PRN Reason: Hypoglycemia Guaifenesin (Guaifenesin Liq) 200 mg PO Q4HR [facility] Last Admin: 09/26/19 13:17 Dose: 200 mg Documented by: Sodium Chloride (Normal Saline Iv) 1,000 mls @ 100 mls/hr IV CONT .Q10H [facility] Last Infusion: 09/18/19 08:45 Dose: 0 mls/hr Documented by: Midazolam HCl 50 mg/ Dextrose 100 mls @ 0 mls/hr IV CONT .Q0M [facility]; Protocol Last Titration: 09/25/19 12:00 Dose: 0 mg/hr, 0 mls/hr Documented by: Fentanyl Citrate 2,500 mcg/ (Sodium Chloride) 250 mls @ 0 mls/hr IV CONT .Q0M [facility]; Protocol Last Titration: 09/25/19 12:00 Dose: 0 mcg/hr, 0 mls/hr Documented by: Dextrose (Dextrose 5% 1,000 Ml) 1,000 mls @ 100 mls/hr IVPB PRN PRN; Protocol PRN Reason: Hypoglycemia Ceftriaxone Sodium (Rocephin 2 Gm/D5w 100 Ml) 2 gm in 100 mls @ 200 mls/hr IVPB DAILY [facility] Last Admin: 09/26/19 09:04 Dose: 200 mls/hr Documented by: Acetaminophen (Ofirmev 1,000 Mg Ivpb) 1,000 mg in 100 mls @ 400 mls/hr IVPB Q6H PRN PRN Reason: Pain or Fever Last Infusion: 09/26/19 08:20 Dose: Infused Documented by: Propofol (Diprivan) 100 mls @ 12.579 mls/hr IV CONT .Q7H57M [facility]; Protocol Last Admin: 09/26/19 07:49 Dose: 35 mcg/kg/min, 12.6 mls/hr Documented by: Insulin Aspart (Novolog) 3 - 6 units SUB-Q Q6HR [facility]; Protocol Last Admin: 09/26/19 12:45 Dose: Not Given Documented by: Insulin Glargine (Lantus) 30 units SUB-Q Q12HR [facility] Last Admin: 09/26/19 08:03 Dose: 30 units Documented by: Ipratropium Powell (Atrovent Neb) 0.5 mg INHALATION Q6HRT [facility] Last Admin: 09/26/19 08:30 Dose: 0.5 mg Documented by: Metoprolol Tartrate (Lopressor) 25 mg PO Q12HR [facility] Multi-Ingred Cream/Lotion/Oil/Oint (Lubrifresh Pm Eye Ointment) 1 applic EACH EYE Q12HR [facility] Last Admin: 09/26/19 09:06 Dose: 1 applic Docu
--- NOTE | 2019-09-26 13:35 | WPDTEECHO ---
PANKAJ TransEsophageal Echocardiogram Date of procedure: 09/26/19 Procedure Type: Transesophageal echocardiogram Diagnosis: Persistent bacteremia, septicemia, mitral regurgitation Indications: Persistent bacteremia, septicemia, mitral regurgitation Image Quality: Good Findings: Brief history present illness: Patient is a 69 yo WM with a history of COPD with exacerbation, acute on chronic respiratory failure requiring intubation, chronic diastolic heart failure, tobacco abuse, and recent diagnosis lymphoma with persistent JAMILAH bacteremia, progressive leukocytosis and fevers despite antibiotics with unknown source of bacteremia referred for transesophageal echocardiogram. On previous echo EF noted to be preserved with mild mitral regurgitation in March an echo this hospitalization interpreted as moderate to severe MR with EF 35-40%. Given these findings and clinical concern we have been asked to perform transesophageal echocardiogram to evaluate for endocarditis/cardiac source of emboli. Patient remains intubated and encephalopathic. Patient is currently sedated with propofol per ICU protocol. Procedure in detail: After verbal and written informed consent was obtained from the patient's son (LIBERTY) the patient risks, benefits, and alternatives explained in detail he agreed to proceed with the plan of care as outlined above. The patient was evaluated at bedside in the ICU. The posterior oropharynx examination was limited due to OG and ET tube placement. Examination of the neck and jaw were again limited but without significant abnormality. Lungs were clear to auscultation but diminished diffusely. The patient was then placed in the appropriate 30 to 45 degree angle supine position at a slight left lateral decubitus position. Patient was monitored throughout the study with telemetry, oxygen saturation, end-tidal CO2 monitoring, blood pressure, heart rate, and respirations. After confirmation of adequate moderate sedation with continuation of Propofol as managed by Critical Care and ICU protocol, the transesophageal echocardiogram probe was advanced through the oral bite block into the posterior hypopharynx posterior to the ET and OG tube and into the esophagus easily and without complication. Multiple, multiplanar echocardiographic images were obtained in multiple standard re- projections. Pulsed wave, continuous-wave, and color-flow Doppler were utilized in conjunction with this study. At the conclusion of the study, the transesophageal echocardiogram probe was removed and without complication. The OG tube remained in place with removal of PANKAJ probed at the conclusion of the study. The patient tolerated the procedure well without difficulty. Patient was in sinus rhythm/tachycardia throughout the study. Moderate Sedation/Anesthesia administration: Patient was already sedated with Propofol per ICU protocol managed by Critical Care and received a 40mcg bolus of Propofol prior to initiation of study. Procedure start time was 1346 and end time was 1408 for a total intra-service/procedure face-face time of 18 minutes. Sedation was administered by a qualified/certified observer Сергей Pritchett RN under supervision of Dr. Moran/Critical Care and myself with intra-procedure [id number] observation and management throughout the entirety of the procedure. There were no other issues or complications and patient tolerated the procedure well. Findings: Left ventricular size was within normal limits with moderate LV systolic dysfunction ejection fraction of 35%. Right ventricular size and systolic function within normal limits. Left atrial size is mildly enlarged.. Right atrial size is normal. 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 Mitral valve is anatomically normal with preserved leaflet excursion
--- NOTE | 2019-09-26 13:46 | PM.PNPUL ---
Progress Note: A&P Assessment and Plan (1) COPD exacerbation: Code(s): J44.1 - Chronic obstructive pulmonary disease with (acute) exacerbation Status: Acute Assessment and Plan: -Stable COPD -Intubated for airway protection from septic encephalopathy -continue Albuterol/Ipratropium Nebs Q6h -continue Pulmicort Nebs 0.5 mg bid -daily SBT per [employer] as tolerated. Time Spent With Patient Time with patient: 25 - 35 minutes Subjective Date/time seen: 09/26/19 13:46 Interval history: Still intubated sedated. Still febrile with tachycardia, severe sepsis, WBC trending down. Still encephalopathic. Getting PANKAJ today to definitively rule out endocarditis. COPD is stable, no significant endotracheal secretions. Review of Systems Review of Systems: All systems reviewed & are unremarkable except as noted in HPI and below Constitutional: Constitutional: Reports as per HPI Exam Const: General: no acute distress Other: intubated, on minimal sedation with propofol HENMT: Mouth: Yes moist mucous membranes Neck: Neck: supple and no JVD Resp: Auscultation: no crackles, no rhonchi, no wheezes and diminished lung sounds Cardio: Rate: tachycardic Rhythm: regular rhythm Heart sounds: no gallops and no murmurs Skin: Wounds: wounds noted Other: very dry skin, eczema like Neuro: Cognition (Neuro): abnormal cognition Other: sedated Extrem: General: normal to inspection, no edema and no pedal edema Objective Data Vital Signs Vital Signs: Vital Signs - 24 hr 09/25/19 14:00 09/25/19 14:20 09/25/19 14:21 Temperature Pulse Rate 133 H 137 H 134 H Respiratory Rate 17 24 H Blood Pressure 154/100 H Pulse Oximetry 94 94 09/25/19 16:00 09/25/19 17:20 09/25/19 18:00 Temperature 37.6 C H Pulse Rate 137 H 131 H 130 H Respiratory Rate 22 H 21 H Blood Pressure 156/91 H 151/91 H Pulse Oximetry 94 94 95 09/25/19 20:00 09/25/19 20:05 09/25/19 20:30 Temperature 38.1 C H 37.9 C H Pulse Rate 134 H 135 H Respiratory Rate 24 H Blood Pressure 141/81 H Pulse Oximetry 94 93 09/25/19 20:55 09/25/19 21:00 09/25/19 21:03 Temperature 37.5 C Pulse Rate 137 H 135 H Respiratory Rate 29 H 30 H Blood Pressure Pulse Oximetry 09/25/19 22:00 09/25/19 22:55 09/26/19 00:00 Temperature 38.2 C H Pulse Rate 128 H 128 H 129 H Respiratory Rate 23 H 22 H Blood Pressure 135/76 123/80 Pulse Oximetry 94 94 93 09/26/19 01:53 09/26/19 01:58 09/26/19 01:59 Temperature Pulse Rate 127 H 126 H 126 H Respiratory Rate 21 H 23 H Blood Pressure Pulse Oximetry 94 09/26/19 02:00 09/26/19 04:00 09/26/19 04:52 Temperature 37.3 C Pulse Rate 127 H 128 H 127 H Respiratory Rate 24 H 26 H Blood Pressure 137/81 136/75 Pulse Oximetry 95 95 94 09/26/19 06:00 09/26/19 07:40 09/26/19 08:00 Temperature 38.2 C H Pulse Rate 126 H 128 H 131 H Respiratory Rate 20 25 H Blood Pressure 128/92 H 142/87 H Pulse Oximetry 94 94 94 09/26/19 08:30 09/26/19 08:32 09/26/19 08:45 Temperature 38.4 C H Pulse Rate 125 H 124 H 126 H Respiratory Rate 28 H 28 H Blood Pressure Pulse Oximetry 92 09/26/19 10:00 09/26/19 10:35 09/26/19 10:41 Temperature Pulse Rate 130 H 133 H 132 H Respiratory Rate 23 H Blood Pressure 153/72 H Pulse Oximetry 93 94 09/26/19 12:00 Temperature 38.6 C H Pulse Rate 120 H Respiratory Rate 18 Blood Pressure 124/77 Pulse Oximetry 95 Intake/Output Intake/Output: Intake & Output 09/23/19 09/24/19 09/25/19 09/26/19 23:59 23:59 23:59 23:59 Intake Total 1117 2575 3291.8 1276.0 Output Total 1999 3250 2400 1300 Balance -883 -675 891.8 -24.0 Meds/Results Medications: Active Medications Generic Name Dose Route Start Last Admin Trade Name Freq PRN Reason Stop Dose Admin Acetaminophen 650 mg 09/20/19 09:00 09/24/19 08:37 Tylenol Tablet PO 650 mg Q4H PRN Administration Headache Albuterol 5 mg 09/17
--- NOTE | 2019-09-26 16:23 | PM.IMPN ---
Progress Note: A&P Assessment and Plan (1) Acute exacerbation of chronic obstructive airways disease: Code(s): J44.1 - Chronic obstructive pulmonary disease with (acute) exacerbation Status: Acute (2) Chronic respiratory failure with hypoxia: Code(s): J96.11 - Chronic respiratory failure with hypoxia Status: Acute Assessment and Plan: 09/26/19 16:23 Patient is a 69 yo M with history of COPD/asthma overlap, scleroderma, chronic respiratory failure with hypoxia, diastolic congestive heart failure, and history of tobacco abuse who is here for acute on chrronid respiratory failure 2/2 COPD exacerbation and for evaluation of right inguinal lymphadenopathy. Pt had lymph node biospy seen by Dr Barr will need further investigations later after discharge for possible non hodgkins lymphoma. Pt unfortunately developed severe SOB and was intubated and admitted to ICU, 09/20/2019. Continue ventilatory support. Discussion with brother at the bedside.. patient blood and urine culure are growing staph resulting in bactremia, patient is being treated with vancomycin and ceftriaxone and cardiac echo is ordered to rule out vegetation shows possible vegitation and PANKAJ is orderd and patient seen by Dr. 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 (3) Acute kidney injury: Code(s): N17.9 - Acute kidney failure, unspecified Status: Acute Assessment and Plan: Monitor renal function (4) Diastolic heart failure: Qualifiers: Heart failure chronicity: chronic Qualified Code(s): I50.32 - Chronic diastolic (congestive) heart failure Code(s): I50.30 - Unspecified diastolic (congestive) heart failure Status: Acute Assessment and Plan: He is clinically compensated. Cardiac ecch showed possible vegetation PANKAJ is ordered (5) Chronic anemia: Code(s): D64.9 - Anemia, unspecified Status: Acute Assessment and Plan: Continue to trend hb/ hct (6) Mass of right inguinal region: Code(s): R19.09 - Other intra-abdominal and pelvic swelling, mass and lump Status: Acute Assessment and Plan: Soft tissue ultrasound of the right inguinal region read as right inguinal lymphadenopathy, largest demonstrating effacement of normal fatty hilum, possibly pathologic. Consider lymphoma. Biopsy performed yesterday and preliminary results have returned suggestive for lymphoma. Prelim biopsy suggestive of lymphoma Dr. Barr has been consulted and appreciate input. Pt to follow with Dr Barr on discharge (7) Staphylococcus aureus bacteremia: Onset Date: 09/20/19 Code(s): R78.81 - Bacteremia Status: Acute Assessment and Plan: Plan is above (8) Acute and chronic respiratory failure: Qualifiers: Respiratory failure complication: unspecified whether with hypoxia or hypercapnia Qualified Code(s): J96.20 - Acute and chronic respiratory failure, unspecified whether with hypoxia or hypercapnia Code(s): J96.20 - Acute and chronic respiratory failure, unspecified whether with hypoxia or hypercapnia Status: Acute Assessment and Plan: Plan is above Subjective Date/time seen: 09/26/19 16:23 Patient is a 69 yo M with history of COPD/asthma overlap, scleroderma, chronic respiratory failure with hypoxia, diastolic congestive heart failure, and history of tobacco abuse who is here for acute on chrronid respiratory failure 2/2 COPD exacerbation and for evaluation o
[2019-09-26 17:34] LABS: Glucose Point of Care 132 (65-105)
--- NOTE | 2019-09-26 18:28 | PC.NURSE ---
Patient continues to be febrile. WBC increasing. PANKAJ and EEG done. Dr. Shaver attempted to contact patient's son with results of PANKAJ. no change in neurological status.
[2019-09-26] MEDS: carvediloL 3.125 MG TABLET PO (20:17)
[2019-09-27] VITALS (34 sets, daily range): BP systolic 100–142; BP diastolic 67–83; PULSE 95–118; RESP 20–33; TEMP 37.9–38.7; O2SAT 94–99
[2019-09-27 00:10] LABS: Glucose Point of Care 157 (65-105)
[2019-09-27] MEDS: GUAIFENESIN 200 MG/10 ML UDC PO ×6 (00:15→20:14)
[2019-09-27] MEDS: ALBUTEROL SULFATE NEB 2.5 MG/0.5 ML INH 5 MG INHALATION ×4 (02:15→19:29)
[2019-09-27] MEDS: IPRATROPIUM BR 0.02% INH SOLN 0.5 MG/2.5 ML VIAL INHALATION ×4 (02:15→19:30)
[2019-09-27 05:11] LABS: Alveolar/Arterial O2 Gradient 225.2 mmHg; Base Excess ABG 8.9 mEq/l (+/-2.0); Carboxyhemoglobin 0.3 % THb (0-2.0); Fractional Inspired Oxygen 50 %; HCO3 ABG 32.7 mEq/l (22.0-26.0); Methemoglobin ABG 0.3 %THb (0-1.5); Oxygen Content ABG 18.5 %vol (16.0-22.0); Oxygen Saturation ABG 97.1 % (95.0-100.0); Oxyhemoglobin 95.3 % THb (90.0-100.0); PCO2 ABG 41.6 mmHg (35.0-45.0); PO2 ABG 84.5 mmHg (80.0-100.0); PO2 FiO2 Ratio Arterial Blood 1.69 %; Reduced Hemoglobin 4.1 %THb (0-5.0); Total Hemoglobin 13.8 g/dL (12.0-18.0)
[2019-09-27 05:13] LABS: Arterial Blood Gas PEEP 5 cmH2O; Arterial Blood Gas Vent Mode CMV; Arterial Blood Gas Ventilator rate 18 /MIN; Device VENTILATOR; Modified Allen's Test Unable to perform; Site Drawn LEFT RADIAL; pH ABG 7.513 (7.350-7.450)
[2019-09-27 05:14] LABS: Arterial Blood Gas Tidal Volume 450 ml
[2019-09-27 05:15] LABS: Basophils Absolute Auto 0.1 K/mm3 (0.0-0.1); Basophils Percent Auto 0.2 % (0.2-1.2); Eosinophils Absolute Auto 0.1 K/mm3 (0-0.3); Eosinophils Percent Auto 0.4 % (0-4.4); Hematocrit 43.3 % (42.0-52.0); Hemoglobin 13.3 g/dL (14.0-18.0); Immature Granulocyte Absolute 0.67 K/mm3 (0.00-0.031); Immature Granulocyte Percent A 2.5 % (0-0.5); Lymphocytes Absolute Auto 2.45 K/mm3 (0.9-3.2); Lymphocytes Percent Auto 9.2 % (18.3-44.2); Mean Corpuscular HGB Conc 30.7 g/dl (32-36); Mean Corpuscular Hemoglobin 30.6 pg (26-34); Mean Corpuscular Volume 99.5 fl (80-100); Monocytes Absolute Auto 0.8 K/mm3 (0.1-0.6); Monocytes Percent Auto 3.1 % (2.6-8.5); Neutrophils Absolute Auto 22.5 K/mm3 (1.3-6.7); Neutrophils Percent Auto 84.6 % (45.5-73.1); Platelet Count Result 228 k/mm3 (150-375); Red Blood Count 4.35 M/mm3 (4.6-6.20); Red Cell Distribution Width 13.6 % (11.5-14.5); White Blood Count 26.6 K/mm3 (4.5-10.0)
[2019-09-27 05:16] LABS: Blood Urea Nitrogen 64 mg/dL (9-20); Calcium 8.8 mg/dL (8.4-10.2); Carbon Dioxide 37 mmol/L (22-30); Chloride 110 mmol/L (98-107); Estimated CRCL calculation 45 ml/min; Estimated Glomerular Filt Rate 60; Glucose 164 mg/dL (75-110); Sodium 149 mmol/L (137-145)
[2019-09-27] MEDS: PROPOFOL IV EMULSION 100 ML 12.6 MG IV CONT ×3 (05:26→20:20)
[2019-09-27 05:39] LABS: Magnesium 2.5 mg/dL (1.6-2.3)
--- NOTE | 2019-09-27 06:13 | CONS_ITS ---
DATE OF CONSULTATION: 09/26/2019 HISTORY OF PRESENT ILLNESS: A 69 years old right-handed male, admitted to the hospital with the diagnoses of 1. COPD with asthma overlap. 2. Chronic respiratory failure with hypoxia. 3. Diastolic congestive heart failure. 4. History of tobacco abuse, initially presented to the emergency room for the complaint of increasing shortness of breath. He was on 3 L nasal cannula at night and p.r.n. throughout the day, but over the last several days he was having progressive dyspnea, Additionally, he has ongoing history of sinus congestion, mass in the right groin causing pain down his right lower extremity. Initially, he was evaluated by the physician with the ongoing diagnosis of anxiety and depression, chronic anemia, chronic respiratory failure, diastolic heart failure, eczema, osteoarthritis, smoking and tobacco abuse disorder. Since that time, he has been seen by a different physician. Neurology consultation has been obtained for the reason that he is comatose. As per the review of the most recent notes, the patient does have lymphoma diagnosed by the oncologist with right inguinal lymph node, though no axillary or cervical lymph notes, diagnosed as non-Hodgkin lymphoma, underwent right inguinal lymph node biopsy as well. He has also been seen by the critical care physician, Dr. Moran for the respiratory failure complication. Neuro consultation has been obtained because of the unresponsive status. Most recently has been treated for the Staphylococcus aureus bacteremia, hematuria with UTI, and respiratory failure with hypoxia or hypercapnia in addition to ongoing diagnosis of diabetes mellitus. PHYSICAL EXAMINATION: GENERAL: Today, he was not in acute distress. HEENT: Head was normocephalic with no cranial bruit. Ear, nose, throat exam was normal. NECK: Supple with no meningeal signs. HEART: Regular with no murmur. LUNGS: Clear with rhonchi. ABDOMEN: Soft with normal bowel sounds. NEUROLOGICAL: He was unresponsive to verbal commands, unresponsive to painful stimuli. Pupils were sluggish. Extraocular moves are absent. Gag was absent. Motor examination revealed him to have a spontaneous movement of the upper and lower extremities. Reflexes were completely absent. Plantar responses could not be elicited. ASSESSMENT AND PLAN: Status post respiratory failure with no localizing signs on the neurological examination. Patient has had the CT scan on 09/25, which revealed him to have no bleed, scattered white matter hypoattenuation consistent with chronic vessel ischemic changes. EEG will be requested, and further recommendation will be made accordingly. LEOPOLDO Tre SANDERS SOAP MAKER SOAP MAKER D I MT: Reagan GUIDRY
[2019-09-27] MEDS: polyethylene glycoL 3350 17 GM POWD.PACK PO (07:31)
[2019-09-27] MEDS: PANTOPRAZOLE SODIUM IV 40 MG VIAL IV PUSH (07:31)
[2019-09-27] MEDS: carvediloL 3.125 MG TABLET PO ×2 (07:31→20:14)
[2019-09-27] MEDS: ENOXAPARIN 40 MG/0.4 ML SYRINGE SUB-Q (07:32)
[2019-09-27] MEDS: INSULIN GLARGINE (*BKC) 100 UNITS/ML 30 UNITS SUB-Q ×2 (08:05→20:26)
[2019-09-27] MEDS: DORNASE ALFA INH SOLN 1 MG/ML 2.5 ML AMP 2.5 MG INHALATION ×2 (08:58→19:30)
[2019-09-27] MEDS: BUDESONIDE RESPULE NEB 0.5 MG/2 ML AMP INHALATION ×2 (08:58→19:29)
--- NOTE | 2019-09-27 10:28 | PM.PNPUL ---
Progress Note: A&P Assessment and Plan (1) COPD exacerbation: Code(s): J44.1 - Chronic obstructive pulmonary disease with (acute) exacerbation Status: Acute Assessment and Plan: -Stable COPD -Intubated for airway protection from septic encephalopathy -continue Albuterol/Ipratropium Nebs Q6h -continue Pulmicort Nebs 0.5 mg bid -daily SBT per [employer] Vice President as tolerated Subjective Date/time seen: 09/27/19 10:28 Interval history: Still intubated and sedated. Still having significant fevers with climbing WBC. I viewed CT chest from [facility] and do not see any significant pneumonia to explain fevers. He has very small LLL atelectesis only. He is stable on ASV. PANKAJ did showed no evidence of endocarditis Review of Systems Review of Systems: All systems reviewed & are unremarkable except as noted in HPI and below Exam Const: General: comfortable and no acute distress Other: intubated and sedated on propofol HENMT: Mouth: Yes moist mucous membranes Neck: Neck: supple and no JVD Resp: Effort & Inspection: normal respiratory effort Auscultation: clear to auscultation bilaterally, no crackles, no rhonchi, no wheezes and diminished lung sounds Cardio: Rate: regular rate and tachycardic GI: Auscultation: normal bowel sounds Skin: Other: diffuse chronic echzema Extrem: General: normal to inspection, no edema and no pedal edema Objective Data Vital Signs Vital Signs: Vital Signs - 24 hr 09/26/19 10:35 09/26/19 10:41 09/26/19 12:00 Temperature 38.6 C H Pulse Rate 133 H 132 H 120 H Respiratory Rate 18 Blood Pressure 124/77 Pulse Oximetry 94 95 09/26/19 14:00 09/26/19 14:30 09/26/19 14:45 Temperature Pulse Rate 124 H 119 H 117 H Respiratory Rate 120 H 24 H 24 H Blood Pressure 116/67 Pulse Oximetry 92 96 09/26/19 16:00 09/26/19 17:05 09/26/19 17:16 Temperature 38.8 C H Pulse Rate 121 H 116 H Respiratory Rate 25 H Blood Pressure 126/77 Pulse Oximetry 95 96 09/26/19 17:46 09/26/19 18:00 09/26/19 20:00 Temperature 39.3 C H 39.3 C H 39.2 C H Pulse Rate 120 H 114 H Respiratory Rate 20 22 H Blood Pressure 119/71 116/72 Pulse Oximetry 96 96 09/26/19 20:17 09/26/19 20:18 09/26/19 20:34 Temperature Pulse Rate 112 H 116 H 115 H Respiratory Rate 25 H 26 H Blood Pressure Pulse Oximetry 96 09/26/19 22:00 09/26/19 23:26 09/27/19 00:00 Temperature 38.4 C H 38.5 C H Pulse Rate 108 H 113 H 118 H Respiratory Rate 22 H 28 H Blood Pressure 115/63 127/75 Pulse Oximetry 96 98 96 09/27/19 02:00 09/27/19 02:18 09/27/19 02:30 Temperature 38.6 C H Pulse Rate 114 H 117 H 118 H Respiratory Rate 28 H 33 H 30 H Blood Pressure 119/74 Pulse Oximetry 96 97 09/27/19 02:41 09/27/19 03:00 09/27/19 03:45 Temperature 38.5 C H 38.4 C H 38.3 C H Pulse Rate 108 H Respiratory Rate 24 H Blood Pressure 115/72 Pulse Oximetry 96 09/27/19 05:14 09/27/19 05:33 09/27/19 07:31 Temperature 38.1 C H Pulse Rate 112 H 104 H 114 H Respiratory Rate 20 Blood Pressure 113/74 Pulse Oximetry 96 96 09/27/19 09:01 09/27/19 09:43 Temperature Pulse Rate 101 H 98 Respiratory Rate 25 H 23 H Blood Pressure Pulse Oximetry Intake/Output Intake/Output: Intake & Output 09/24/19 09/25/19 09/26/19 09/27/19 23:59 23:59 23:59 23:59 Intake Total 2575 3291.8 2323.0 1150 Output Total 3250 2400 2050 1030 Balance -675 891.8 273.0 120 Meds/Results Medications: Active Medications Generic Name Dose Route Start Last Admin Trade Name Freq PRN Reason Stop Dose Admin Acetaminophen 650 mg 09/20/19 09:00 09/24/19 08:37 Tylenol Tablet PO 650 mg Q4H PRN Administration Headache Albuterol 5 mg 09/17/19 14:00 09/27/19 08:58 Albuterol Sulf Neb 2.5mg/0.5ml INHALATION 5 mg Q6HRT AZUCENA Administration Budesonide 0.5 mg 09/21/19 08:55 09/27/19 08:58 Pulmicort Respule Neb INHALATION 0.5 mg Q12HRT AZUCENA Administr
--- NOTE | 2019-09-27 10:58 | PCDIET ---
Nutrition Follow-Up Complete: Nutrition Diagnosis: Inadequate oral intake as related to COPD as evidenced by weight loss of 10 pounds in the past 3 months/poor intake reported. Nutrition Goal: Patient to meet estimated nutritional needs. Goal met. Patient tolerating Glucerna 1.2 @ 60mL/hr with no significant residuals. Last recorded weight is 59.1 kg which is stable. Bowel Motility: +BM reported. ordering Dulcolax again today. Labs Reviewed: Glu (164), Na (149), Cl (110) Meds Noted: Albuterol, Rocephin, Fentanyl, Novolog, Lantus, Versed, Miralax, Propofol @ 12.6mL/hr (332kcal over 24 hour period) Additional Notes: No skin breakdown, per RN. Recommend increasing water flush to 100mL every 4 hours and checking TG level. Will continue to monitor with same goal. Nutrition Monitoring and Evaluation: Follow up every Monday/Monday. Follow daily in ICU rounds.
--- NOTE | 2019-09-27 11:16 | WPDINTPN ---
Progress Note: A&P Assessment and Plan (1) Staphylococcus aureus bacteremia: Onset Date: 09/20/19 Code(s): R78.81 - Bacteremia Status: Acute Assessment and Plan: blood cultures x2 growing Staphylococcus aureus, sensitive to oxacillin (But patient is allergic to penicillin) - repeat blood cultures 09/22/2019 growing staph aureus - echocardiogram on 09/23/2019 showed EF of 35-40%, grade 1 diastolic dysfunction, aortic valve is not visualized well, mitral valve has mild thickened leaflets, moderate to severe mitral valve regurg, - PANKAJ on 09/26/2019 with no vegetations or intracardiac thrombi, EF 35%, mild to moderate mitral valve regurg. - appreciate infectious disease evaluation recommendations. Continue ceftriaxone 2 g daily, - Patient continues to spike fevers with increasing leukocytosis, CT scan of the head, chest/abdomen /pelvis without contrast was ordered on 09/27/19, no acute intracranial abnormalities were noted, mild pneumonia involving the lower lobes, emphysema, right inguinal lymphadenopathy which may be lymphoma (2) UTI (urinary tract infection): Qualifiers: Urinary tract infection type: site unspecified Hematuria presence: without hematuria Qualified Code(s): N39.0 - Urinary tract infection, site not specified Code(s): N39.0 - Urinary tract infection, site not specified Status: Acute Assessment and Plan: urine cultures growing Staph aureus continue ceftriaxone as above (3) Acute and chronic respiratory failure: Qualifiers: Respiratory failure complication: unspecified whether with hypoxia or hypercapnia Qualified Code(s): J96.20 - Acute and chronic respiratory failure, unspecified whether with hypoxia or hypercapnia Code(s): J96.20 - Acute and chronic respiratory failure, unspecified whether with hypoxia or hypercapnia Status: Acute Assessment and Plan: patient worsened overnight on 09/20/2019, tachypneic, increased work of breathing, impending respiratory failure, Dr. Coughlin intubated the patient on 09/20/2019 and transferred the patient to the ICU. Likely related to bacteremia and UTI and severe sepsis - continue bronchodilators - chest x-ray and ABGs reviewed, continue CMV mode of ventilation - likely secondary to COPD exacerbation and/or bronchitis - appreciate Pulmonary evaluation recommendation - on propofol for sedation (4) Acute exacerbation of chronic obstructive airways disease: Code(s): J44.1 - Chronic obstructive pulmonary disease with (acute) exacerbation Status: Acute Assessment and Plan: continue mechanical ventilation, - continue antibiotics as above (5) Mass of right inguinal region: Code(s): R19.09 - Other intra-abdominal and pelvic swelling, mass and lump Status: Acute Assessment and Plan: patient had a lymph node biopsy from the right groin, preliminary report showed non-Hodgkin's lymphoma. 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 - appreciate Hematology/Oncology evaluation and recommendation (6) Acute kidney injury: Code(s): N17.9 - Acute kidney failure, unspecified Status: Acute Assessment and Plan: patient initially presented with acute kidney injury, the course of the stay in the hospital kidney functions have improved OUMAR has resolved - continue to monitor urine output, renal function electrolytes (7) Diastolic heart failure: Qualifiers: Heart failure chronicity: chronic Qualified Code(s): I50.32 - Chronic diastolic (congestive) heart failure Code(s): I50.30 - Unspecified diastolic (congestive) heart failure Status: Acute Assessment and Plan: history of chronic diastolic heart failure - echocardiogram 09/23/2019 as above. Grade 2 diastolic dysfunction, EF is reduced to 35-40% from previous echocardiogram - Echocardiogram in March 2019 showed normal LV size and funct
[2019-09-27 12:42] LABS: Glucose Point of Care 129 (65-105)
--- NOTE | 2019-09-27 15:13 | WPDINFPN2 ---
Progress Note: A&P Assessment and Plan (1) Staphylococcus aureus bacteremia: Onset Date: 09/20/19 Code(s): R78.81 - Bacteremia Status: Acute Assessment and Plan: 1. JAMILAH bacteremia, endovascular source currently, but no focal site is apparent. PANKAJ no infection seen 2. New Dx NHL 3. Resp failure 4. Multifactorial leukocytosis, persists 5. PCN allergy REC Ctx # 7, continue. He is on optimal therapy: Ancef would be more narrow spectrum but not superior, and I would prefer Ctx given his azotemia (and thus avoid the potential for underdosing of ancef). Discussed. Subjective Date/time seen: 09/27/19 15:13 Interval history: intubated no pressors Exam Narrative: Exam Narrative: 39.3 core = t max. All temperature readings since yesterday are via urinary bladder probe. Const: General: no acute distress Resp: Effort & Inspection: normal respiratory effort Auscultation: clear to auscultation bilaterally, no crackles, no rales and diminished lung sounds Cardio: Rate: tachycardic Rhythm: regular rhythm Heart sounds: no gallops and no murmurs GI: Inspection: non-distended GI Palp: Yes Soft to palpation and No Tenderness to palpation present (GI) Urinary Catheter: Urinary Catheter: patent and draining and urine clear Skin: General skin exam: erythema Rashes: no rashes noted Extrem: General: no edema Objective Data Vital Signs Vital Signs: Vital Signs - 24 hr 09/26/19 16:00 09/26/19 17:05 09/26/19 17:16 Temperature 38.8 C H Pulse Rate 121 H 116 H Respiratory Rate 25 H Blood Pressure 126/77 Pulse Oximetry 95 96 09/26/19 17:46 09/26/19 18:00 09/26/19 20:00 Temperature 39.3 C H 39.3 C H 39.2 C H Pulse Rate 120 H 114 H Respiratory Rate 20 22 H Blood Pressure 119/71 116/72 Pulse Oximetry 96 96 09/26/19 20:17 09/26/19 20:18 09/26/19 20:34 Temperature Pulse Rate 112 H 116 H 115 H Respiratory Rate 25 H 26 H Blood Pressure Pulse Oximetry 96 09/26/19 22:00 09/26/19 23:26 09/27/19 00:00 Temperature 38.4 C H 38.5 C H Pulse Rate 108 H 113 H 118 H Respiratory Rate 22 H 28 H Blood Pressure 115/63 127/75 Pulse Oximetry 96 98 96 09/27/19 02:00 09/27/19 02:18 09/27/19 02:30 Temperature 38.6 C H Pulse Rate 114 H 117 H 118 H Respiratory Rate 28 H 33 H 30 H Blood Pressure 119/74 Pulse Oximetry 96 97 09/27/19 02:41 09/27/19 03:00 09/27/19 03:45 Temperature 38.5 C H 38.4 C H 38.3 C H Pulse Rate 108 H Respiratory Rate 24 H Blood Pressure 115/72 Pulse Oximetry 96 09/27/19 05:14 09/27/19 05:33 09/27/19 07:31 Temperature 38.1 C H Pulse Rate 112 H 104 H 114 H Respiratory Rate 20 Blood Pressure 113/74 Pulse Oximetry 96 96 09/27/19 08:00 09/27/19 08:50 09/27/19 09:01 Temperature 37.9 C H Pulse Rate 113 H 102 H 101 H Respiratory Rate 25 H 25 H Blood Pressure 133/83 Pulse Oximetry 98 99 09/27/19 09:43 09/27/19 10:00 09/27/19 10:30 Temperature 38.1 C H Pulse Rate 98 100 112 H Respiratory Rate 23 H 24 H Blood Pressure 105/69 Pulse Oximetry 95 97 09/27/19 12:00 09/27/19 12:05 09/27/19 12:35 Temperature 38.6 C H 38.6 C H 38.7 C H Pulse Rate 113 H Respiratory Rate 25 H Blood Pressure 113/80 Pulse Oximetry 98 09/27/19 13:53 09/27/19 13:58 09/27/19 14:16 Temperature 38.3 C H Pulse Rate 105 H 105 H 110 H Respiratory Rate 28 H 27 H 25 H Blood Pressure 104/75 Pulse Oximetry 98 Intake/Output Intake/Output: Intake & Output 09/24/19 09/25/19 09/26/19 09/27/19 23:59 23:59 23:59 23:59 Intake Total 2575 3291.8 2323.0 1450 Output Total 3250 2400 2050 1030 Balance -675 891.8 273.0 420 Meds/Results Medications: Active Medications Generic Name Dose Route Start Last Admin Trade Name Freq PRN Reason Stop Dose Admin Acetaminophen 650 mg 09/20/19 09:00 09/24/19 08:37 Tylenol Tablet PO 650 mg Q4H PRN Administration Headache Albuterol 5 mg 09/17/19 14:00 09/27/19
--- NOTE | 2019-09-27 16:32 | PM.PNCARD ---
Progress Note: A&P Assessment and Plan (1) Staphylococcus aureus bacteremia: Onset Date: 09/20/19 Code(s): R78.81 - Bacteremia Status: Acute Assessment and Plan: Unknown source. PANKAJ 09/26/2019: No evidence of echodensity on the mitral, aortic or visualized portions of the tricuspid valve. No evidence for intracardiac thrombi or vegetation identified on the study. Moderate LV dysfunction EF 35% with [id number] mitral regurgitation (2) Mitral regurgitation: Qualifiers: Cardiac valve disease etiology: nonrheumatic Qualified Code(s): I34.0 - Nonrheumatic mitral (valve) insufficiency Code(s): I34.0 - Nonrheumatic mitral (valve) insufficiency Status: Acute Assessment and Plan: PANKAJ as above (3) Encephalopathy: Code(s): G93.40 - Encephalopathy, unspecified Status: Acute Assessment and Plan: Per Critical Care/ICU. Likely multifactorial. Continue supportive care (4) Acute and chronic respiratory failure: Qualifiers: Respiratory failure complication: unspecified whether with hypoxia or hypercapnia Qualified Code(s): J96.20 - Acute and chronic respiratory failure, unspecified whether with hypoxia or hypercapnia Code(s): J96.20 - Acute and chronic respiratory failure, unspecified whether with hypoxia or hypercapnia Status: Acute Assessment and Plan: Remains intubated. Management per Critical Care Service (5) Lymphoma: Code(s): C85.90 - Non-Hodgkin lymphoma, unspecified, unspecified site Status: Acute Assessment and Plan: Oncology following. Recent diagnosis of lymphoma. Overall prognosis quite poor given encephalopathy, persistent bacteremia, immune compromised state and lymphoma . (6) Cardiomyopathy: Qualifiers: Cardiomyopathy type: unspecified Qualified Code(s): I42.9 - Cardiomyopathy, unspecified Code(s): I42.9 - Cardiomyopathy, unspecified Status: Acute Assessment and Plan: New diagnosis EF 35-40%. Reasonably compensated. Likely functional critical illness, however, cannot exclude underlying CAD. Further workup deferred until stabilization with regards to persistent bacteremia and lymphoma prognosis is clarified. Continue supportive medical therapy as tolerated. Continue carvedilol at 3.125 mg q.12 hours. Blood pressure soft at times. Will not start lisinopril at this point Additional Plan No further cardiac recommendations at this time. Will follow p.r.n.. Please do not hesitate to call if we can be of further assistance. Plan discussed with Dr. Singh 1966 09/27/2019 Time Spent With Patient Time with patient: less than 15 minutes Subjective Date/time seen: 09/27/19 16:32 Interval history: Follow-up for: Ejection fraction 35% found on PANKAJ, mitral regurgitation Date of service: 09/27/2019 Subjective: Sedated, intubated, not responsive Review of Systems Review of Systems: ROS unobtainable: unobtainable due to endotracheal tube and unobtainable due to mental condition Exam Const: General: comfortable and no acute distress HENMT: General nose exam: no epistaxis Eyes: Sclera: sclerae normal Other: Open signs spontaneously but not to command Neck: Neck: no JVD Resp: Auscultation: clear to auscultation bilaterally Other: Intubated on vent Cardio: Rate: tachycardic Heart sounds: no murmurs GI: Auscultation: normal bowel sounds Other: Oral/gastric tube with tube feeding Urinary Catheter: Urinary Catheter: patent and draining and urine dark Skin: General skin exam: normal color Neuro: Other: Intubated/sedated. Does not respond to verbal or noxious stimuli Extrem: General: no edema and no pedal edema Psych: Other: Intubated/ sedated Objective Data V
--- NOTE | 2019-09-27 16:36 | PM.IMPN ---
Progress Note: A&P Assessment and Plan (1) Acute exacerbation of chronic obstructive airways disease: Code(s): J44.1 - Chronic obstructive pulmonary disease with (acute) exacerbation Status: Acute (2) Chronic respiratory failure with hypoxia: Code(s): J96.11 - Chronic respiratory failure with hypoxia Status: Acute Assessment and Plan: Patient is a 69 yo M with history of COPD/asthma overlap, scleroderma, chronic respiratory failure with hypoxia, diastolic congestive heart failure, and history of tobacco abuse who is here for acute on chrronid respiratory failure 2/2 COPD exacerbation and for evaluation of right inguinal lymphadenopathy. Pt had lymph node biospy seen by Dr Barr will need further investigations later after discharge for possible non hodgkins lymphoma. Pt unfortunately developed severe SOB and was intubated and admitted to ICU, 09/20/2019. Continue ventilatory support. Discussion with brother at the bedside.. patient blood and urine culure are growing staph resulting in bactremia, patient is being treated with vancomycin and ceftriaxone and cardiac echo is ordered to rule out vegetation shows possible vegitation and PANKAJ is orderd and patient seen by Dr. Frausto recommended CPM and order redo blood culture, today patient is more somnolent and not as responsive DW an/sqq 89([id number] scan of the head is negative seen by neurologist recommended EEG, patient had a PANKAJ 09/26 did not show any vegetation patient still on vent trail of weaning off the vent.. (3) Acute kidney injury: Code(s): N17.9 - Acute kidney failure, unspecified Status: Acute Assessment and Plan: Monitor renal function (4) Diastolic heart failure: Qualifiers: Heart failure chronicity: chronic Qualified Code(s): I50.32 - Chronic diastolic (congestive) heart failure Code(s): I50.30 - Unspecified diastolic (congestive) heart failure Status: Acute Assessment and Plan: He is clinically compensated. Cardiac ecch showed possible vegetation PANKAJ is ordered (5) Chronic anemia: Code(s): D64.9 - Anemia, unspecified Status: Acute Assessment and Plan: Continue to trend hb/ hct (6) Mass of right inguinal region: Code(s): R19.09 - Other intra-abdominal and pelvic swelling, mass and lump Status: Acute Assessment and Plan: Soft tissue ultrasound of the right inguinal region read as right inguinal lymphadenopathy, largest demonstrating effacement of normal fatty hilum, possibly pathologic. Consider lymphoma. Biopsy performed yesterday and preliminary results have returned suggestive for lymphoma. Prelim biopsy suggestive of lymphoma Dr. Barr has been consulted and appreciate input. Pt to follow with Dr Barr on discharge (7) Staphylococcus aureus bacteremia: Onset Date: 09/20/19 Code(s): R78.81 - Bacteremia Status: Acute Assessment and Plan: Patient is seen by suspect possible endocardiac source however PANKAJ dose not show any vagetation, plan is above (8) Acute and chronic respiratory failure: Qualifiers: Respiratory failure complication: unspecified whether with hypoxia or hypercapnia Qualified Code(s): J96.20 - Acute and chronic respiratory failure, unspecified whether with hypoxia or hypercapnia Code(s): J96.20 - Acute and chronic respiratory failure, unspecified whether with hypoxia or hypercapnia Status: Acute Assessment and Plan: Plan is above Subjective Date/time seen: 09/27/19 16:36 Patient is a 69 yo M with history of COPD/asthma overlap, scleroderma, chronic respiratory failure with hypoxia, diastolic congestive heart failure, and history of tobacco abuse who is here for acute on chrronid r
[2019-09-27 20:19] LABS: Glucose Point of Care 131 (65-105)
[2019-09-27 20:34] LABS: Glucose Point of Care 130 (65-105)
[2019-09-27 23:22] LABS: Glucose Point of Care 97 (65-105)
[2019-09-28] VITALS (37 sets, daily range): BP systolic 94–138; BP diastolic 58–86; PULSE 88–112; RESP 18–44; TEMP 37.6–39.1; O2SAT 94–99
[2019-09-28] MEDS: ALBUTEROL SULFATE NEB 2.5 MG/0.5 ML INH 5 MG INHALATION ×4 (01:12→20:04)
[2019-09-28] MEDS: IPRATROPIUM BR 0.02% INH SOLN 0.5 MG/2.5 ML VIAL INHALATION ×4 (01:13→20:04)
[2019-09-28] MEDS: GUAIFENESIN 200 MG/10 ML UDC PO ×6 (01:53→20:45)
[2019-09-28] MEDS: PROPOFOL IV EMULSION 100 ML 12.6 MG IV CONT (03:04)
[2019-09-28 04:33] LABS: Alveolar/Arterial O2 Gradient 209.4 mmHg; Base Excess ABG 8.1 mEq/l (+/-2.0); Carboxyhemoglobin 0.3 % THb (0-2.0); Fractional Inspired Oxygen 50 %; HCO3 ABG 32.4 mEq/l (22.0-26.0); Methemoglobin ABG 0.2 %THb (0-1.5); Oxygen Content ABG 18.5 %vol (16.0-22.0); Oxygen Saturation ABG 97.9 % (95.0-100.0); Oxyhemoglobin 96.7 % THb (90.0-100.0); PCO2 ABG 43.5 mmHg (35.0-45.0); PO2 ABG 98.2 mmHg (80.0-100.0); PO2 FiO2 Ratio Arterial Blood 1.96 %; Reduced Hemoglobin 2.8 %THb (0-5.0); Total Hemoglobin 13.5 g/dL (12.0-18.0)
[2019-09-28 04:34] LABS: Device VENTILATOR; Modified Allen's Test Pass; Site Drawn LEFT RADIAL
[2019-09-28 04:35] LABS: Arterial Blood Gas PEEP 5 cmH2O; Arterial Blood Gas Tidal Volume 450 ml; Arterial Blood Gas Vent Mode CMV; Arterial Blood Gas Ventilator rate 18 /MIN
[2019-09-28 05:36] LABS: Glucose Point of Care 93 (65-105)
[2019-09-28 06:34] LABS: Hematocrit 41.2 % (42.0-52.0); Hemoglobin 12.9 g/dL (14.0-18.0); Mean Corpuscular HGB Conc 31.3 g/dl (32-36); Mean Corpuscular Hemoglobin 30.4 pg (26-34); Mean Corpuscular Volume 97.2 fl (80-100); Mean Platelet Volume 11.3 fl (7.4-10.4); Platelet Count Result 198 k/mm3 (150-375); Red Blood Count 4.24 M/mm3 (4.6-6.20); Red Cell Distribution Width 13.4 % (11.5-14.5); White Blood Count 27.2 K/mm3 (4.5-10.0)
[2019-09-28 07:05] LABS: Blood Urea Nitrogen 64 mg/dL (9-20); Calcium 9.2 mg/dL (8.4-10.2); Carbon Dioxide 33 mmol/L (22-30); Chloride 109 mmol/L (98-107); Estimated CRCL calculation 41 ml/min; Estimated Glomerular Filt Rate 60; Glucose 94 mg/dL (75-110); Magnesium 2.6 mg/dL (1.6-2.3); Phosphorus 4.6 mg/dL (2.5-4.5); Sodium 147 mmol/L (137-145)
[2019-09-28] MEDS: DORNASE ALFA INH SOLN 1 MG/ML 2.5 ML AMP 2.5 MG INHALATION ×2 (08:29→20:05)
[2019-09-28] MEDS: BUDESONIDE RESPULE NEB 0.5 MG/2 ML AMP INHALATION ×2 (08:29→20:04)
[2019-09-28] MEDS: PANTOPRAZOLE SODIUM IV 40 MG VIAL IV PUSH (08:42)
[2019-09-28] MEDS: polyethylene glycoL 3350 17 GM POWD.PACK PO (08:42)
[2019-09-28] MEDS: ENOXAPARIN 40 MG/0.4 ML SYRINGE SUB-Q (08:44)
[2019-09-28] MEDS: carvediloL 3.125 MG TABLET PO ×2 (08:44→20:45)
[2019-09-28] MEDS: FAMOTIDINE 20 MG/2 ML VIAL IV PUSH ×2 (09:34→20:45)
[2019-09-28] MEDS: INSULIN GLARGINE (*BKC) 100 UNITS/ML 22 UNITS SUB-Q (09:34)
--- NOTE | 2019-09-28 10:00 | PM.PNCARD ---
Progress Note: A&P Assessment and Plan (1) Staphylococcus aureus bacteremia: Onset Date: 09/20/19 Code(s): R78.81 - Bacteremia Status: Acute Assessment and Plan: Unknown source. PANKAJ 09/26/2019: No evidence of echodensity on the mitral, aortic or visualized portions of the tricuspid valve. No evidence for intracardiac thrombi or vegetation identified on the study. Moderate LV dysfunction EF 35% with [id number] mitral regurgitation (2) Mitral regurgitation: Qualifiers: Cardiac valve disease etiology: nonrheumatic Qualified Code(s): I34.0 - Nonrheumatic mitral (valve) insufficiency Code(s): I34.0 - Nonrheumatic mitral (valve) insufficiency Status: Acute Assessment and Plan: PANKAJ as above (3) Encephalopathy: Code(s): G93.40 - Encephalopathy, unspecified Status: Acute Assessment and Plan: Per Critical Care/ICU. Likely multifactorial. Continue supportive care (4) Acute and chronic respiratory failure: Qualifiers: Respiratory failure complication: unspecified whether with hypoxia or hypercapnia Qualified Code(s): J96.20 - Acute and chronic respiratory failure, unspecified whether with hypoxia or hypercapnia Code(s): J96.20 - Acute and chronic respiratory failure, unspecified whether with hypoxia or hypercapnia Status: Acute Assessment and Plan: Remains intubated. Management per Critical Care Service (5) Lymphoma: Code(s): C85.90 - Non-Hodgkin lymphoma, unspecified, unspecified site Status: Acute Assessment and Plan: Oncology following. Recent diagnosis of lymphoma. Overall prognosis quite poor given encephalopathy, persistent bacteremia, immune compromised state and lymphoma . (6) Cardiomyopathy: Qualifiers: Cardiomyopathy type: unspecified Qualified Code(s): I42.9 - Cardiomyopathy, unspecified Code(s): I42.9 - Cardiomyopathy, unspecified Status: Acute Assessment and Plan: New diagnosis EF 35-40%. Reasonably compensated. Likely functional critical illness, however, cannot exclude underlying CAD. Further workup deferred until stabilization with regards to persistent bacteremia and lymphoma prognosis is clarified. Continue supportive medical therapy as tolerated. Continue carvedilol at 3.125 mg q.12 hours. Blood pressure soft at times. Will not start lisinopril at this point (7) Hypernatremia: Code(s): E87.0 - Hyperosmolality and hypernatremia Status: Acute Assessment and Plan: I think he is intravascularly dry. He is hypernatremic has elevated BUN and creatinine consistent with prerenal azotemia. Will give him 500 cc of normal saline at 100 cc/hour Subjective Date/time seen: 09/28/19 10:00 Interval history: Follow-up for: Ejection fraction 35% found on PANKAJ, mitral regurgitation Date of service: 09/28/2019 Subjective: Sedated, intubated, not responsive. Still mildly tachycardic. Review of Systems Review of Systems: All systems reviewed & are unremarkable except as noted in HPI and below ROS unobtainable: unobtainable due to endotracheal tube and unobtainable due to mental condition Constitutional: Constitutional: Reports as per HPI and Reports no additional constitutional complaints Eyes: Eyes: Reports as per HPI and Reports no additional eye complaints ENT: Reports system reviewed and no additional complaints, except as documented and Reports as per HPI Cardiovascular: Cardiovascular: Reports as per HPI and Reports no additional cardiovascular complaints Respiratory: Respiratory: Reports as per HPI and Reports no additional respiratory complaints Gastrointestinal: Gastrointestinal: Reports as per HPI and Reports no additional gastrointestinal complaints G
[2019-09-28] MEDS: SODIUM CHLORIDE 0.9% IV 500 ML 100 ML IV CONT (10:09)
[2019-09-28] MEDS: MUPIROCIN 2% OINT 22 GM TUBE 1 APPLIC EACH NARE ×2 (11:36→20:45)
--- NOTE | 2019-09-28 12:07 | PM.PNPUL ---
Progress Note: A&P Assessment and Plan (1) COPD exacerbation: Code(s): J44.1 - Chronic obstructive pulmonary disease with (acute) exacerbation Status: Acute Assessment and Plan: -Stable COPD -Intubated for airway protection from septic encephalopathy -continue Albuterol/Ipratropium Nebs Q6h -continue Pulmicort Nebs 0.5 mg bid -daily SBT per Service Team Leader as tolerated Subjective Date/time seen: 09/28/19 12:07 Interval history: Mental status is still poor but difficulty to fully assess while on propofol. Still having fevers but not as high today. More tachypneic today. Review of Systems Review of Systems: All systems reviewed & are unremarkable except as noted in HPI and below Exam Const: General: in distress (tachypnic ) moderate HENMT: Mouth: Yes moist mucous membranes Neck: Neck: supple and no JVD Resp: Auscultation: wheezes (mild today) Cardio: Rate: tachycardic Rhythm: regular rhythm Heart sounds: no gallops and no murmurs GI: Auscultation: normal bowel sounds Skin: Other: diffuse chronic eczema Neuro: Other: sedated, no response to commands but does with draw to pain or irritation. [id number]: 6 Extrem: General: normal to inspection, no edema and no pedal edema Objective Data Vital Signs Vital Signs: Vital Signs - 24 hr 09/27/19 12:35 09/27/19 13:53 09/27/19 13:58 Temperature 38.7 C H 38.3 C H Pulse Rate 105 H 105 H Respiratory Rate 28 H 27 H Blood Pressure 104/75 Pulse Oximetry 98 09/27/19 14:16 09/27/19 16:00 09/27/19 17:08 Temperature 37.9 C H Pulse Rate 110 H 111 H 109 H Respiratory Rate 25 H 24 H Blood Pressure 142/78 H Pulse Oximetry 97 96 09/27/19 18:00 09/27/19 19:35 09/27/19 19:37 Temperature 37.9 C H Pulse Rate 103 H 113 H 114 H Respiratory Rate 20 30 H Blood Pressure 130/77 Pulse Oximetry 94 97 09/27/19 19:44 09/27/19 20:00 09/27/19 20:14 Temperature 38.1 C H Pulse Rate 115 H 115 H 115 H Respiratory Rate 28 H 23 H Blood Pressure 100/67 Pulse Oximetry 97 09/27/19 20:59 09/27/19 21:29 09/27/19 22:00 Temperature 38.3 C H 38.1 C H 38.2 C H Pulse Rate 97 Respiratory Rate 21 H Blood Pressure 115/78 Pulse Oximetry 96 09/27/19 23:37 09/28/19 00:00 09/28/19 01:13 Temperature 38.2 C H Pulse Rate 95 110 H 107 H Respiratory Rate 20 28 H Blood Pressure 110/69 Pulse Oximetry 98 95 09/28/19 01:14 09/28/19 01:20 09/28/19 02:00 Temperature 38.4 C H Pulse Rate 109 H 103 H 108 H Respiratory Rate 22 H 18 Blood Pressure 111/74 Pulse Oximetry 96 96 09/28/19 03:29 09/28/19 03:59 09/28/19 04:00 Temperature 38.6 C H 37.8 C H 38.3 C H Pulse Rate 103 H Respiratory Rate 30 H Blood Pressure 112/76 Pulse Oximetry 98 09/28/19 04:09 09/28/19 05:54 09/28/19 05:55 Temperature 38.0 C H Pulse Rate 95 104 H 108 H Respiratory Rate 24 H Blood Pressure 125/79 Pulse Oximetry 99 95 09/28/19 08:00 09/28/19 08:29 09/28/19 08:43 Temperature 37.6 C H Pulse Rate 111 H 109 H 108 H Respiratory Rate 30 H 29 H Blood Pressure 138/86 Pulse Oximetry 94 95 09/28/19 08:44 09/28/19 08:45 09/28/19 10:00 Temperature 38.1 C H Pulse Rate 108 H 110 H 105 H Respiratory Rate 31 H 24 H Blood Pressure 134/80 Pulse Oximetry 97 09/28/19 11:24 Temperature Pulse Rate 97 Respiratory Rate Blood Pressure Pulse Oximetry 96 Intake/Output Intake/Output: Intake & Output 09/25/19 09/26/19 09/27/19 09/28/19 23:59 23:59 23:59 23:59 Intake Total 3291.8 2323.0 2632 1141 Output Total 2400 2050 1980 700 Balance 891.8 273.0 652 441 Meds/Results Medications: Active Medications Generic Name Dose Route Start Last Admin Trade Name Freq PRN Reason Stop Dose Admin Acetaminophen 650 mg 09/20/19 09:00 09/24/19 08:37 Tylenol Tablet PO 650 mg Q4H PRN Administration Headache Albuterol 5 mg 09/17/19 14:00 09/28/19 08:29 Albuterol Sulf Neb 2.5mg/0.5ml INH
[2019-09-28] MEDS: PROPOFOL IV EMULSION 100 ML 10.8 MG IV CONT (12:11)
[2019-09-28 12:34] LABS: Glucose Point of Care 117 (65-105)
--- NOTE | 2019-09-28 12:41 | WPDINTPN ---
Progress Note: A&P Assessment and Plan (1) Staphylococcus aureus bacteremia: Onset Date: 09/20/19 Code(s): R78.81 - Bacteremia Status: Acute Assessment and Plan: blood cultures x2 from 09/20 growing Staphylococcus aureus, sensitive to oxacillin (But patient is allergic to penicillin) - repeat blood cultures 09/22/2019 growing staph aureus. now blood culture from 09/26 are negative till date. - echocardiogram on 09/23/2019 showed EF of 35-40%, grade 1 diastolic dysfunction, aortic valve is not visualized well, mitral valve has mild thickened leaflets, moderate to severe mitral valve regurg, - PANKAJ on 09/26/2019 with no vegetations or intracardiac thrombi, EF 35%, mild to moderate mitral valve regurg. - appreciate infectious disease evaluation recommendations. Continue ceftriaxone 2 g daily - Patient continues to spike fevers with increasing leukocytosis, CT scan of the head, chest/abdomen /pelvis without contrast was ordered on 09/27/19, no acute intracranial abnormalities were noted, mild pneumonia involving the lower lobes, emphysema, right inguinal lymphadenopathy which may be lymphoma (2) UTI (urinary tract infection): Qualifiers: Urinary tract infection type: site unspecified Hematuria presence: without hematuria Qualified Code(s): N39.0 - Urinary tract infection, site not specified Code(s): N39.0 - Urinary tract infection, site not specified Status: Acute Assessment and Plan: urine cultures growing Staph aureus continue ceftriaxone as above (3) Acute and chronic respiratory failure: Qualifiers: Respiratory failure complication: unspecified whether with hypoxia or hypercapnia Qualified Code(s): J96.20 - Acute and chronic respiratory failure, unspecified whether with hypoxia or hypercapnia Code(s): J96.20 - Acute and chronic respiratory failure, unspecified whether with hypoxia or hypercapnia Status: Acute Assessment and Plan: patient worsened overnight on 09/20/2019, tachypneic, increased work of breathing, impending respiratory failure, Dr. Coughlin intubated the patient on 09/20/2019 and transferred the patient to the ICU. Likely related to bacteremia and UTI and severe sepsis - continue bronchodilators - chest x-ray and ABGs reviewed, continue CMV mode of ventilation - likely secondary to COPD exacerbation and/or bronchitis. He has been off steroids now. - appreciate Pulmonary evaluation recommendation - Weaning propofol. Will place him on a Precedex drip. No benzodiazepine and opiates will be given even on p.r.n. basis. - Not ready for SBT trial because of poor mental status and not following command. SBT trial when he is fully awake and following command. (4) Acute exacerbation of chronic obstructive airways disease: Code(s): J44.1 - Chronic obstructive pulmonary disease with (acute) exacerbation Status: Acute Assessment and Plan: continue mechanical ventilation, - continue antibiotics as above - Of steroids now. - Continue bronchodilators. (5) Mass of right inguinal region: Code(s): R19.09 - Other intra-abdominal and pelvic swelling, mass and lump Status: Acute Assessment and Plan: patient had a lymph node biopsy from the right groin, preliminary report showed non-Hodgkin's lymphoma. 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 - appreciate Hematology/Oncology evaluation and recommendation (6) Acute kidney injury: Code(s): N17.9 - Acute kidney failure, unspecified Status: Acute Assessment and Plan: patient initially presented with acute kidney injury, the course of the stay in the hospital kidney functions have improved OUMAR has resolved - continue to monitor urine output, renal function electrolytes (7) Diastolic heart failure: Qualif
[2019-09-28 17:24] LABS: Glucose Point of Care 88 (65-105)
--- NOTE | 2019-09-28 17:40 | PM.IMPN ---
Progress Note: A&P Assessment and Plan (1) Acute exacerbation of chronic obstructive airways disease: Code(s): J44.1 - Chronic obstructive pulmonary disease with (acute) exacerbation Status: Acute (2) Chronic respiratory failure with hypoxia: Code(s): J96.11 - Chronic respiratory failure with hypoxia Status: Acute Assessment and Plan: 09/28/19 17:40 Patient is a 69 yo M with history of COPD/asthma overlap, scleroderma, chronic respiratory failure with hypoxia, diastolic congestive heart failure, and history of tobacco abuse who is here for acute on chrronid respiratory failure 2/2 COPD exacerbation and for evaluation of right inguinal lymphadenopathy. Pt had lymph node biospy seen by Dr Barr will need further investigations later after discharge for possible non hodgkins lymphoma. Pt unfortunately developed severe SOB and was intubated and admitted to ICU, 09/20/2019. Continue ventilatory support. Discussion with brother at the bedside.. patient blood and urine culure are growing staph resulting in bactremia, patient is being treated with vancomycin and ceftriaxone and cardiac echo is ordered to rule out vegetation shows possible vegitation and PANKAJ is orderd and patient seen by Dr. 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 CT scan of the head is negative seen by neurologist recommended EEG, patient had a PANKAJ 09/26 did not show any vegetation patient still on vent trail of weaning off the vent possibly tomorrow (3) Acute kidney injury: Code(s): N17.9 - Acute kidney failure, unspecified Status: Acute Assessment and Plan: Monitor renal function (4) Diastolic heart failure: Qualifiers: Heart failure chronicity: chronic Qualified Code(s): I50.32 - Chronic diastolic (congestive) heart failure Code(s): I50.30 - Unspecified diastolic (congestive) heart failure Status: Acute Assessment and Plan: He is clinically compensated. Cardiac ecch showed possible vegetation PANKAJ is ordered (5) Chronic anemia: Code(s): D64.9 - Anemia, unspecified Status: Acute Assessment and Plan: Continue to trend hb/ hct (6) Mass of right inguinal region: Code(s): R19.09 - Other intra-abdominal and pelvic swelling, mass and lump Status: Acute Assessment and Plan: Soft tissue ultrasound of the right inguinal region read as right inguinal lymphadenopathy, largest demonstrating effacement of normal fatty hilum, possibly pathologic. Consider lymphoma. Biopsy performed yesterday and preliminary results have returned suggestive for lymphoma. Prelim biopsy suggestive of lymphoma Dr. Barr has been consulted and appreciate input. Pt to follow with Dr Barr on discharge (7) Staphylococcus aureus bacteremia: Onset Date: 09/20/19 Code(s): R78.81 - Bacteremia Status: Acute Assessment and Plan: Patient is seen by suspect possible endocardiac source however PANKAJ dose not show any vagetation, plan is above (8) Acute and chronic respiratory failure: Qualifiers: Respiratory failure complication: unspecified whether with hypoxia or hypercapnia Qualified Code(s): J96.20 - Acute and chronic respiratory failure, unspecified whether with hypoxia or hypercapnia Code(s): J96.20 - Acute and chronic respiratory failure, unspecified whether with hypoxia or hypercapnia Status: Acute Assessment and Plan: Plan is above Subjective Date/time seen: 09/28/19 17:40 Patient is a 69 yo M with history of COPD/asthma overlap, scleroderma, chronic respiratory failure with hypoxia, diastolic congestive heart failure, and history of tobacco abus
[2019-09-28 20:58] LABS: Glucose Point of Care 85 (65-105)
[2019-09-28 23:53] LABS: Glucose Point of Care 102 (65-105)
[2019-09-29] VITALS (37 sets, daily range): BP systolic 102–139; BP diastolic 61–84; PULSE 76–98; RESP 18–33; TEMP 36.9–39.1; O2SAT 92–99
[2019-09-29] MEDS: GUAIFENESIN 200 MG/10 ML UDC PO ×6 (00:54→20:10)
[2019-09-29] MEDS: ALBUTEROL SULFATE NEB 2.5 MG/0.5 ML INH 5 MG INHALATION ×4 (01:39→19:28)
[2019-09-29] MEDS: IPRATROPIUM BR 0.02% INH SOLN 0.5 MG/2.5 ML VIAL INHALATION ×4 (01:40→19:29)
[2019-09-29 04:29] LABS: Alveolar/Arterial O2 Gradient 216.1 mmHg; Base Excess ABG 4.8 mEq/l (+/-2.0); Carboxyhemoglobin 0.3 % THb (0-2.0); Fractional Inspired Oxygen 50 %; HCO3 ABG 27.5 mEq/l (22.0-26.0); Methemoglobin ABG 0.2 %THb (0-1.5); Oxygen Content ABG 17.3 %vol (16.0-22.0); Oxygen Saturation ABG 98.2 % (95.0-100.0); Oxyhemoglobin 96.4 % THb (90.0-100.0); PCO2 ABG 34.2 mmHg (35.0-45.0); PO2 ABG 101.9 mmHg (80.0-100.0); PO2 FiO2 Ratio Arterial Blood 2.04 %; Reduced Hemoglobin 3.1 %THb (0-5.0); Total Hemoglobin 12.7 g/dL (12.0-18.0)
[2019-09-29 04:33] LABS: Device VENTILATOR; Modified Allen's Test Pass; Site Drawn RIGHT RADIAL; pH ABG 7.523 (7.350-7.450)
[2019-09-29 04:34] LABS: Arterial Blood Gas PEEP 5 cmH2O; Arterial Blood Gas Vent Mode CMV; Arterial Blood Gas Ventilator rate 18 /MIN
[2019-09-29 04:35] LABS: Arterial Blood Gas Tidal Volume 450 ml
[2019-09-29 04:48] LABS: Glucose Point of Care 122 (65-105)
[2019-09-29 06:23] LABS: Basophils Percent Auto 0.1 % (0.2-1.2); Eosinophils Absolute Auto 0.1 K/mm3 (0-0.3); Eosinophils Percent Auto 0.6 % (0-4.4); Hematocrit 39.1 % (42.0-52.0); Hemoglobin 12.3 g/dL (14.0-18.0); Immature Granulocyte Percent A 1.3 % (0-0.5); Lymphocytes Absolute Auto 2.02 K/mm3 (0.9-3.2); Lymphocytes Percent Auto 8.5 % (18.3-44.2); Mean Corpuscular HGB Conc 31.5 g/dl (32-36); Mean Corpuscular Hemoglobin 30.7 pg (26-34); Mean Corpuscular Volume 97.5 fl (80-100); Mean Platelet Volume 11.8 fl (7.4-10.4); Monocytes Absolute Auto 0.9 K/mm3 (0.1-0.6); Monocytes Percent Auto 3.8 % (2.6-8.5); Neutrophils Absolute Auto 20.3 K/mm3 (1.3-6.7); Neutrophils Percent Auto 85.7 % (45.5-73.1); Platelet Count Result 208 k/mm3 (150-375); Red Blood Count 4.01 M/mm3 (4.6-6.20); Red Cell Distribution Width 13.1 % (11.5-14.5); White Blood Count 23.7 K/mm3 (4.5-10.0)
[2019-09-29 07:54] LABS: Blood Urea Nitrogen 61 mg/dL (9-20); Calcium 8.9 mg/dL (8.4-10.2); Carbon Dioxide 27 mmol/L (22-30); Chloride 110 mmol/L (98-107); Estimated CRCL calculation 42 ml/min; Estimated Glomerular Filt Rate 60; Glucose 114 mg/dL (75-110); Sodium 143 mmol/L (137-145)
[2019-09-29] MEDS: BUDESONIDE RESPULE NEB 0.5 MG/2 ML AMP INHALATION ×2 (08:28→19:29)
[2019-09-29] MEDS: DORNASE ALFA INH SOLN 1 MG/ML 2.5 ML AMP 2.5 MG INHALATION ×2 (08:32→19:29)
[2019-09-29] MEDS: MUPIROCIN 2% OINT 22 GM TUBE 1 APPLIC EACH NARE ×2 (08:40→20:11)
[2019-09-29] MEDS: ENOXAPARIN 40 MG/0.4 ML SYRINGE SUB-Q (08:41)
[2019-09-29] MEDS: FAMOTIDINE 20 MG/2 ML VIAL IV PUSH ×2 (08:41→20:10)
[2019-09-29] MEDS: carvediloL 3.125 MG TABLET PO ×2 (08:42→20:08)
--- NOTE | 2019-09-29 08:49 | WPDINTPN ---
Progress Note: A&P Assessment and Plan (1) Staphylococcus aureus bacteremia: Onset Date: 09/20/19 Code(s): R78.81 - Bacteremia Status: Acute Assessment and Plan: blood cultures x2 from 09/20 growing Staphylococcus aureus, sensitive to oxacillin (But patient is allergic to penicillin) - repeat blood cultures 09/22/2019 growing staph aureus. now blood culture from 09/26 are negative till date. - echocardiogram on 09/23/2019 showed EF of 35-40%, grade 1 diastolic dysfunction, aortic valve is not visualized well, mitral valve has mild thickened leaflets, moderate to severe mitral valve regurg, - PANKAJ on 09/26/2019 with no vegetations or intracardiac thrombi, EF 35%, mild to moderate mitral valve regurg. - appreciate infectious disease evaluation recommendations. Continue ceftriaxone 2 g daily - Patient continues to spike fevers with increasing leukocytosis, CT scan of the head, chest/abdomen /pelvis without contrast was ordered on 09/27/19, no acute intracranial abnormalities were noted, mild pneumonia involving the lower lobes, emphysema, right inguinal lymphadenopathy which may be lymphoma. - WBC count seems stable today. (2) UTI (urinary tract infection): Qualifiers: Hematuria presence: without hematuria Urinary tract infection type: site unspecified Qualified Code(s): N39.0 - Urinary tract infection, site not specified Code(s): N39.0 - Urinary tract infection, site not specified Status: Acute Assessment and Plan: urine cultures growing Staph aureus continue ceftriaxone as above (3) Acute and chronic respiratory failure: Qualifiers: Respiratory failure complication: unspecified whether with hypoxia or hypercapnia Qualified Code(s): J96.20 - Acute and chronic respiratory failure, unspecified whether with hypoxia or hypercapnia Code(s): J96.20 - Acute and chronic respiratory failure, unspecified whether with hypoxia or hypercapnia Status: Acute Assessment and Plan: patient worsened overnight on 09/20/2019, tachypneic, increased work of breathing, impending respiratory failure, Dr. Coughlin intubated the patient on 09/20/2019 and transferred the patient to the ICU. Likely related to bacteremia and UTI and severe sepsis - continue bronchodilators - chest x-ray and ABGs reviewed, continue CMV mode of ventilation. - likely secondary to COPD exacerbation and/or bronchitis. He has been off steroids now. - appreciate Pulmonary evaluation recommendation - Weaned from propofol completely. He is currently on Precedex drip. No benzodiazepine will be given even on p.r.n. basis. May use p.r.n. doses of opiates 25 mcg at the time but try not to give him a lot. - Not ready for SBT trial because of poor mental status and not following command. SBT trial when he is fully awake and following command. - Respiratory alkalosis likely secondary to tachypnea because of withdrawal of propofol. We will continue to monitor. - ETT tip is 1.4 cm above yris. Will pull the tube of 2 cm and repeated chest x-ray. (4) Acute exacerbation of chronic obstructive airways disease: Code(s): J44.1 - Chronic obstructive pulmonary disease with (acute) exacerbation Status: Acute Assessment and Plan: continue mechanical ventilation, - continue antibiotics as above - Off steroids now. - Continue bronchodilators. (5) Mass of right inguinal region: Code(s): R19.09 - Other intra-abdominal and pelvic swelling, mass and lump Status: Acute Assessment and Plan: patient had a lymph node biopsy from the right groin, preliminary report showed non-Hodgkin's lymphoma. 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 - appreciate Hematology/Oncology evaluation and recommendation (6) Acute kidney injury: Code(s): N17.9 -
--- NOTE | 2019-09-29 09:14 | PM.PNCARD ---
Progress Note: A&P Assessment and Plan (1) Staphylococcus aureus bacteremia: Onset Date: 09/20/19 Code(s): R78.81 - Bacteremia Status: Acute Assessment and Plan: Unknown source. PANKAJ 09/26/2019: No evidence of echodensity on the mitral, aortic or visualized portions of the tricuspid valve. No evidence for intracardiac thrombi or vegetation identified on the study. Moderate LV dysfunction EF 35% with [id number] mitral regurgitation (2) Mitral regurgitation: Qualifiers: Cardiac valve disease etiology: nonrheumatic Qualified Code(s): I34.0 - Nonrheumatic mitral (valve) insufficiency Code(s): I34.0 - Nonrheumatic mitral (valve) insufficiency Status: Acute Assessment and Plan: PANKAJ as above (3) Encephalopathy: Code(s): G93.40 - Encephalopathy, unspecified Status: Acute Assessment and Plan: Per Critical Care/ICU. Likely multifactorial. Continue supportive care (4) Acute and chronic respiratory failure: Qualifiers: Respiratory failure complication: unspecified whether with hypoxia or hypercapnia Qualified Code(s): J96.20 - Acute and chronic respiratory failure, unspecified whether with hypoxia or hypercapnia Code(s): J96.20 - Acute and chronic respiratory failure, unspecified whether with hypoxia or hypercapnia Status: Acute Assessment and Plan: Remains intubated. Management per Critical Care Service (5) Lymphoma: Code(s): C85.90 - Non-Hodgkin lymphoma, unspecified, unspecified site Status: Acute Assessment and Plan: Oncology following. Recent diagnosis of lymphoma. Overall prognosis quite poor given encephalopathy, persistent bacteremia, immune compromised state and lymphoma . (6) Cardiomyopathy: Qualifiers: Cardiomyopathy type: unspecified Qualified Code(s): I42.9 - Cardiomyopathy, unspecified Code(s): I42.9 - Cardiomyopathy, unspecified Status: Acute Assessment and Plan: New diagnosis EF 35-40%. Reasonably compensated. Likely functional critical illness, however, cannot exclude underlying CAD. Further workup deferred until stabilization with regards to persistent bacteremia and lymphoma prognosis is clarified. Continue supportive medical therapy as tolerated. Continue carvedilol at 3.125 mg q.12 hours. Blood pressure soft at times. Will not start lisinopril at this point (7) Hypernatremia: Code(s): E87.0 - Hyperosmolality and hypernatremia Status: Acute Assessment and Plan: Sodium improved after IV fluids yesterday Subjective Date/time seen: 09/29/19 09:14 Interval history: Follow-up for: Ejection fraction 35% found on PANKAJ, mitral regurgitation Date of service: 09/29/2019 Subjective: Sedated, intubated and more responsive today. Tachycardia has improved after I give him IV fluids yesterday. Hypernatremia has also improved. Review of Systems Review of Systems: All systems reviewed & are unremarkable except as noted in HPI and below ROS unobtainable: unobtainable due to endotracheal tube and unobtainable due to mental condition Constitutional: Constitutional: Reports as per HPI and Reports no additional constitutional complaints Eyes: Eyes: Reports as per HPI and Reports no additional eye complaints ENT: Reports system reviewed and no additional complaints, except as documented and Reports as per HPI Cardiovascular: Cardiovascular: Reports as per HPI and Reports no additional cardiovascular complaints Respiratory: Respiratory: Reports as per HPI and Reports no additional respiratory complaints Gastrointestinal: Gastrointestinal: Reports as per HPI and Reports no additional gastrointestinal complaints Genitourinary: Genitourinary: Reports no additional m
[2019-09-29] MEDS: INSULIN GLARGINE (*BKC) 100 UNITS/ML 16 UNITS SUB-Q (09:52)
--- NOTE | 2019-09-29 11:11 | PM.PNPUL ---
Progress Note: A&P Assessment and Plan (1) COPD exacerbation: Code(s): J44.1 - Chronic obstructive pulmonary disease with (acute) exacerbation Status: Acute Assessment and Plan: -Stable COPD -Intubated for airway protection from septic encephalopathy -continue Albuterol/Ipratropium Nebs Q6h -continue Pulmicort Nebs 0.5 mg bid -daily SBT per Monitor Car Operator as tolerated Time Spent With Patient Time with patient: 25 - 35 minutes Subjective Date/time seen: 09/29/19 11:11 Interval history: Slightly more alert with some response. GCS is 7 today. Still on ASV with minimal support. No significant ET secretions. Still having signficant intermittent fevers. Has been switeched to Dexametomidine for attempting to wean from vent. Review of Systems Review of Systems: All systems reviewed & are unremarkable except as noted in HPI and below Exam Const: General: no acute distress Neck: Neck: supple and no JVD Resp: Auscultation: no crackles, no rales, no rhonchi, no wheezes and diminished lung sounds Cardio: Rate: regular rate Rhythm: regular rhythm Heart sounds: no gallops and no murmurs GI: Auscultation: normal bowel sounds Neuro: Other: GCS 7 Extrem: General: normal to inspection, no edema and no pedal edema Objective Data Vital Signs Vital Signs: Vital Signs - 24 hr 09/28/19 11:24 09/28/19 12:00 09/28/19 14:00 Temperature 38.3 C H 38.8 C H Pulse Rate 97 105 H 95 Respiratory Rate 44 H 22 H Blood Pressure 106/63 95/61 L Pulse Oximetry 96 99 97 09/28/19 14:30 09/28/19 14:39 09/28/19 14:43 Temperature 38.9 C H Pulse Rate 96 97 Respiratory Rate 31 H Blood Pressure Pulse Oximetry 95 09/28/19 14:49 09/28/19 15:21 09/28/19 16:00 Temperature 39.1 C H 39.1 C H Pulse Rate 97 100 Respiratory Rate 27 H 26 H Blood Pressure 113/71 Pulse Oximetry 96 09/28/19 17:31 09/28/19 18:00 09/28/19 20:00 Temperature 39.1 C H 37.9 C H Pulse Rate 109 H 107 H 100 Respiratory Rate 29 H 26 H Blood Pressure 135/83 95/66 L Pulse Oximetry 97 97 98 09/28/19 20:05 09/28/19 20:13 09/28/19 20:37 Temperature Pulse Rate 100 100 112 H Respiratory Rate 30 H 29 H Blood Pressure Pulse Oximetry 95 09/28/19 20:45 09/28/19 20:59 09/28/19 21:29 Temperature 39.0 C H 37.8 C H Pulse Rate 111 H Respiratory Rate Blood Pressure Pulse Oximetry 09/28/19 22:00 09/28/19 23:27 09/29/19 00:00 Temperature 37.8 C H 37.3 C Pulse Rate 88 88 85 Respiratory Rate 21 H 23 H Blood Pressure 94/58 L 124/73 Pulse Oximetry 96 95 97 09/29/19 01:40 09/29/19 01:41 09/29/19 02:00 Temperature Pulse Rate 89 91 86 Respiratory Rate 27 H 25 H Blood Pressure 107/65 Pulse Oximetry 99 92 09/29/19 03:57 09/29/19 04:00 09/29/19 04:10 Temperature 38.2 C H Pulse Rate 91 91 92 Respiratory Rate 22 H Blood Pressure 119/71 Pulse Oximetry 95 99 09/29/19 05:51 09/29/19 08:00 09/29/19 08:02 Temperature 38.9 C H Pulse Rate 94 89 98 Respiratory Rate 33 H 25 H Blood Pressure 139/72 133/84 Pulse Oximetry 94 98 09/29/19 08:15 09/29/19 08:16 09/29/19 08:30 Temperature 39.0 C H Pulse Rate 94 96 94 Respiratory Rate 32 H 32 H Blood Pressure Pulse Oximetry 96 96 09/29/19 08:40 09/29/19 08:42 09/29/19 10:00 Temperature Pulse Rate 95 95 90 Respiratory Rate 32 H 24 H Blood Pressure 122/71 Pulse Oximetry 96 Intake/Output Intake/Output: Intake & Output 09/26/19 09/27/19 09/28/19 09/29/19 23:59 23:59 23:59 23:59 Intake Total 2323.0 2632 2956 1297 Output Total 2049 1980 1550 800 Balance 273.0 652 1406 497 Meds/Results Medications: Active Medications Generic Name Dose Route Start Last Admin Trade Name Freq PRN Reason Stop Dose Admin Acetaminophen 650 mg 09/20/19 09:00 09/24/19 08:37 Tylenol Tablet PO 650 mg Q4H PRN Administration Headache Albuterol 5 mg 09/17/19 14:00 09/29/19 08:28 Albuterol
[2019-09-29 12:03] LABS: Glucose Point of Care 144 (65-105)
--- NOTE | 2019-09-29 15:55 | PM.IMPN ---
Progress Note: A&P Assessment and Plan (1) Acute exacerbation of chronic obstructive airways disease: Code(s): J44.1 - Chronic obstructive pulmonary disease with (acute) exacerbation Status: Acute (2) Chronic respiratory failure with hypoxia: Code(s): J96.11 - Chronic respiratory failure with hypoxia Status: Acute Assessment and Plan: 09/29/19 15:55 Patient is a 69 yo M with history of COPD/asthma overlap, scleroderma, chronic respiratory failure with hypoxia, diastolic congestive heart failure, and history of tobacco abuse who is here for acute on chrronid respiratory failure 2/2 COPD exacerbation and for evaluation of right inguinal lymphadenopathy. Pt had lymph node biospy seen by Dr Barr will need further investigations later after discharge for possible non hodgkins lymphoma. Pt unfortunately developed severe SOB and was intubated and admitted to ICU, 09/20/2019. Continue ventilatory support. Discussion with brother at the bedside.. patient blood and urine culure are growing staph resulting in bactremia, patient is being treated with vancomycin and ceftriaxone and cardiac echo is ordered to rule out vegetation shows possible vegitation and PANKAJ is orderd and patient seen by Dr. 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 CT scan of the head is negative seen by neurologist recommended EEG, patient had a PANKAJ 09/26 did not show any vegetation D/W cotton presser patient is littel more awake today patient still on vent trail of weaning off the vent possibly tomorrow (3) Acute kidney injury: Code(s): N17.9 - Acute kidney failure, unspecified Status: Acute Assessment and Plan: Monitor renal function (4) Diastolic heart failure: Qualifiers: Heart failure chronicity: chronic Qualified Code(s): I50.32 - Chronic diastolic (congestive) heart failure Code(s): I50.30 - Unspecified diastolic (congestive) heart failure Status: Acute Assessment and Plan: He is clinically compensated. Cardiac ecch showed possible vegetation PANKAJ is ordered (5) Chronic anemia: Code(s): D64.9 - Anemia, unspecified Status: Acute Assessment and Plan: Continue to trend hb/ hct (6) Mass of right inguinal region: Code(s): R19.09 - Other intra-abdominal and pelvic swelling, mass and lump Status: Acute Assessment and Plan: Soft tissue ultrasound of the right inguinal region read as right inguinal lymphadenopathy, largest demonstrating effacement of normal fatty hilum, possibly pathologic. Consider lymphoma. Biopsy performed yesterday and preliminary results have returned suggestive for lymphoma. Prelim biopsy suggestive of lymphoma Dr. Barr has been consulted and appreciate input. Pt to follow with Dr Barr on discharge (7) Staphylococcus aureus bacteremia: Onset Date: 09/20/19 Code(s): R78.81 - Bacteremia Status: Acute Assessment and Plan: Patient is seen by suspect possible endocardiac source however PANKAJ dose not show any vagetation, plan is above (8) Acute and chronic respiratory failure: Qualifiers: Respiratory failure complication: unspecified whether with hypoxia or hypercapnia Qualified Code(s): J96.20 - Acute and chronic respiratory failure, unspecified whether with hypoxia or hypercapnia Code(s): J96.20 - Acute and chronic respiratory failure, unspecified whether with hypoxia or hypercapnia Status: Acute Assessment and Plan: Plan is above Subjective Date/time seen: 09/29/19 15:55 Patient is a 69 yo M with history of COPD/asthma overlap, scleroderma, chronic respiratory failure with hypoxia, diastolic co
--- NOTE | 2019-09-29 16:01 | WPDNEUROPN ---
Progress Note: A&P Assessment and Plan (1) Hypernatremia: Code(s): E87.0 - Hyperosmolality and hypernatremia Status: Acute (2) Cardiomyopathy: Qualifiers: Cardiomyopathy type: unspecified Qualified Code(s): I42.9 - Cardiomyopathy, unspecified Code(s): I42.9 - Cardiomyopathy, unspecified Status: Acute (3) Lymphoma: Code(s): C85.90 - Non-Hodgkin lymphoma, unspecified, unspecified site Status: Acute (4) Mitral regurgitation: Qualifiers: Cardiac valve disease etiology: nonrheumatic Qualified Code(s): I34.0 - Nonrheumatic mitral (valve) insufficiency Code(s): I34.0 - Nonrheumatic mitral (valve) insufficiency Status: Acute (5) Encephalopathy: Code(s): G93.40 - Encephalopathy, unspecified Status: Acute (6) COPD exacerbation: Code(s): J44.1 - Chronic obstructive pulmonary disease with (acute) exacerbation Status: Acute (7) UTI (urinary tract infection): Qualifiers: Urinary tract infection type: site unspecified Hematuria presence: without hematuria Qualified Code(s): N39.0 - Urinary tract infection, site not specified Code(s): N39.0 - Urinary tract infection, site not specified Status: Acute (8) Staphylococcus aureus bacteremia: Onset Date: 09/20/19 Code(s): R78.81 - Bacteremia Status: Acute (9) History of tobacco abuse: Code(s): Z87.891 - Personal history of nicotine dependence Status: Acute (10) DVT prophylaxis: Code(s): Z29.9 - Encounter for prophylactic measures, unspecified Status: Acute (11) Hyperglycemia: Code(s): R73.9 - Hyperglycemia, unspecified Status: Acute (12) Acute and chronic respiratory failure: Qualifiers: Respiratory failure complication: unspecified whether with hypoxia or hypercapnia Qualified Code(s): J96.20 - Acute and chronic respiratory failure, unspecified whether with hypoxia or hypercapnia Code(s): J96.20 - Acute and chronic respiratory failure, unspecified whether with hypoxia or hypercapnia Status: Acute (13) Chronic anemia: Code(s): D64.9 - Anemia, unspecified Status: Acute (14) Diastolic heart failure: Qualifiers: Heart failure chronicity: chronic Qualified Code(s): I50.32 - Chronic diastolic (congestive) heart failure Code(s): I50.30 - Unspecified diastolic (congestive) heart failure Status: Acute (15) Acute kidney injury: Code(s): N17.9 - Acute kidney failure, unspecified Status: Acute (16) Chronic respiratory failure with hypoxia: Code(s): J96.11 - Chronic respiratory failure with hypoxia Status: Acute (17) 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 Status: Acute (18) Critical illness neuropathy: Code(s): 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 - Critical illness polyneuropathy Status: Acute (19) Left hemiparesis: Code(s): G81.94 - Hemiplegia, unspecified affecting left nondominant side Status: Acute Additional Plan please continue the medical management as being done and consider doing a spinal tap once the CT scan of the brain and repeat is done without contrast discussed with the wash worker Review of Systems Constitutional: Constitutional: Reports no additional constitutional complaints Eyes: Eyes: Reports no additional eye complaints ENT: Reports system reviewed and no additional complaints, except as documented Cardiovascular: Cardiovascular: Reports no additional cardiovascular complaints Respiratory: Respiratory: Reports no additional respiratory complaints Gastrointestinal: Gastrointestinal: Reports no additional gastrointestinal complaints Genitourinary: Genitourinary: Reports no additional male genitourinary complaints Musculoskeletal: Musculoskeletal: Reports no additional musculoskeletal complaints Neurologic: Comments: on clinical examination ganesh
[2019-09-29 16:41] LABS: Glucose Point of Care 146 (65-105)
[2019-09-29 23:41] LABS: Glucose Point of Care 124 (65-105)
[2019-09-30] VITALS (40 sets, daily range): BP systolic 81–143; BP diastolic 56–113; PULSE 71–114; RESP 14–43; TEMP 37.9–39.6; O2SAT 91–100
[2019-09-30] MEDS: GUAIFENESIN 200 MG/10 ML UDC PO ×3 (00:33→08:26)
[2019-09-30] MEDS: IPRATROPIUM BR 0.02% INH SOLN 0.5 MG/2.5 ML VIAL INHALATION ×4 (01:34→20:24)
[2019-09-30] MEDS: ALBUTEROL SULFATE NEB 2.5 MG/0.5 ML INH 5 MG INHALATION ×4 (01:34→20:24)
[2019-09-30 05:18] LABS: Hematocrit 38.3 % (42.0-52.0); Mean Corpuscular HGB Conc 31.3 g/dl (32-36); Mean Corpuscular Hemoglobin 30.3 pg (26-34); Mean Corpuscular Volume 96.7 fl (80-100); Mean Platelet Volume 11.5 fl (7.4-10.4); Platelet Count Result 245 k/mm3 (150-375); Red Blood Count 3.96 M/mm3 (4.6-6.20); Red Cell Distribution Width 12.7 % (11.5-14.5); White Blood Count 19.6 K/mm3 (4.5-10.0)
[2019-09-30 05:30] LABS: Blood Urea Nitrogen 49 mg/dL (9-20); Calcium 8.8 mg/dL (8.4-10.2); Carbon Dioxide 28 mmol/L (22-30); Chloride 107 mmol/L (98-107); Estimated CRCL calculation 48 ml/min; Estimated Glomerular Filt Rate 60; Glucose 138 mg/dL (75-110); Magnesium 2.3 mg/dL (1.6-2.3); Potassium 3.8 mmol/L (3.4-5.0); Sodium 142 mmol/L (137-145)
[2019-09-30 05:35] LABS: Alveolar/Arterial O2 Gradient 218.3 mmHg; Base Excess ABG 4.8 mEq/l (+/-2.0); Carboxyhemoglobin 0.3 % THb (0-2.0); Fractional Inspired Oxygen 50 %; HCO3 ABG 28.9 mEq/l (22.0-26.0); Methemoglobin ABG 0.2 %THb (0-1.5); Oxygen Saturation ABG 97.4 % (95.0-100.0); Oxyhemoglobin 95.7 % THb (90.0-100.0); PCO2 ABG 41.1 mmHg (35.0-45.0); PO2 FiO2 Ratio Arterial Blood 1.84 %; Reduced Hemoglobin 3.8 %THb (0-5.0); Total Hemoglobin 11.8 g/dL (12.0-18.0); pH ABG 7.465 (7.350-7.450)
[2019-09-30 05:36] LABS: Device VENTILATOR; Modified Allen's Test Pass; Site Drawn RIGHT RADIAL
[2019-09-30 05:37] LABS: Arterial Blood Gas PEEP 5 cmH2O; Arterial Blood Gas Tidal Volume 450 ml; Arterial Blood Gas Vent Mode CMV; Arterial Blood Gas Ventilator rate 18 /MIN
[2019-09-30] MEDS: DORNASE ALFA INH SOLN 1 MG/ML 2.5 ML AMP 2.5 MG INHALATION (08:03)
[2019-09-30] MEDS: BUDESONIDE RESPULE NEB 0.5 MG/2 ML AMP INHALATION ×2 (08:03→20:24)
[2019-09-30] MEDS: ENOXAPARIN 40 MG/0.4 ML SYRINGE SUB-Q (08:26)
[2019-09-30] MEDS: MUPIROCIN 2% OINT 22 GM TUBE 1 APPLIC EACH NARE ×2 (08:26→20:20)
[2019-09-30] MEDS: carvediloL 3.125 MG TABLET PO ×2 (08:26→21:05)
[2019-09-30] MEDS: FAMOTIDINE 20 MG/2 ML VIAL IV PUSH ×2 (08:26→20:20)
[2019-09-30] MEDS: polyethylene glycoL 3350 17 GM POWD.PACK PO (08:27)
[2019-09-30 08:42] LABS: Glucose Point of Care 126 (65-105)
--- NOTE | 2019-09-30 08:48 | WPDINTPN ---
Progress Note: A&P Assessment and Plan (1) Staphylococcus aureus bacteremia: Onset Date: 09/20/19 Code(s): R78.81 - Bacteremia Status: Acute Assessment and Plan: Blood cultures x2 from 09/20 growing Staphylococcus aureus, sensitive to oxacillin (But patient is allergic to penicillin) - Currently on Rocephin - Repeat blood cultures 09/22/2019 growing staph aureus. now blood culture from 09/26 are negative till date. - Echocardiogram on 09/23/2019 showed EF of 35-40%, grade 1 diastolic dysfunction, aortic valve is not visualized well, mitral valve has mild thickened leaflets, moderate to severe mitral valve regurg, - PANKAJ on 09/26/2019 with no vegetations or intracardiac thrombi, EF 35%, mild to moderate mitral valve regurg. - Appreciate infectious disease evaluation recommendations. Continue ceftriaxone 2 g daily - Patient continues to spike fevers with increasing leukocytosis, CT scan of the head, chest/abdomen /pelvis without contrast was ordered on 09/27/19, no acute intracranial abnormalities were noted, mild pneumonia involving the lower lobes, emphysema, right inguinal lymphadenopathy which may be lymphoma which could also be causing these fevers. Will check lipase - WBC count seems to be coming down now (2) Acute and chronic respiratory failure: Qualifiers: Respiratory failure complication: unspecified whether with hypoxia or hypercapnia Qualified Code(s): J96.20 - Acute and chronic respiratory failure, unspecified whether with hypoxia or hypercapnia Code(s): J96.20 - Acute and chronic respiratory failure, unspecified whether with hypoxia or hypercapnia Status: Acute Assessment and Plan: patient worsened overnight on 09/20/2019, tachypneic, increased work of breathing, impending respiratory failure, Dr. Coughlin intubated the patient on 09/20/2019 and transferred the patient to the ICU. Likely related to bacteremia and UTI and severe sepsis - continue bronchodilators - chest x-ray and ABGs reviewed, continue CMV mode of ventilation. - likely secondary to COPD exacerbation and/or bronchitis. He has been off steroids now. - appreciate Pulmonary evaluation recommendation - Weaned from propofol completely. He is currently on Precedex drip. No benzodiazepine will be given even on p.r.n. basis. May use p.r.n. doses of opiates 25 mcg at the time but try not to give him a lot. - Mental status has improved overall. Will try SBT today but dont expect extubation with continued agitation - ABG reviewed. I will decrease TV to 400 due to resp alkalosis (3) Encephalopathy: Code(s): G93.40 - Encephalopathy, unspecified Status: Acute Assessment and Plan: patient with acute encephalopathy. Most [facility] - CT scan of the brain without contrast was done, did not show any acute intracranial abnormalities - neurology has been consulted, - EEG was done on 09/26/2019, Reportedly showing diffuse slowing. - Plan to repeat head CT today - Mental status has overall improved since pt has been taken off of heavy sedatives for mech ventilation - Continue precedex. Currently on Precedex drip.. No benzodiazepine will be given even for p.r.n. basis. May use low-dose opiates on p.r.n. basis but will keep it to the minimum. (4) UTI (urinary tract infection): Qualifiers: Urinary tract infection type: site unspecified Hematuria presence: without hematuria Qualified Code(s): N39.0 - Urinary tract infection, site not specified Code(s): N39.0 - Urinary tract infection, site not specified Status: Acute Assessment and Plan: urine cultures growing Staph aureus continue ceftriaxone as above (5) Acute exacerbation of chronic obstructive airways disease: Code(s): J44.1 - Chronic obstructive pulmonary disease with (acute) exacerbation Status: Acute Assessment and Plan: continue mechanical ventilation, - continue an
[2019-09-30 09:25] LABS: Lipase 71 U/L (23-300)
--- NOTE | 2019-09-30 11:05 | PCDIET ---
ICU Rounding Note: Patient has been tolerating Glucerna 1.2 @ 60mL/hr goal rate with no significant residuals. Water flush increased to 70mL every 4 hours. Last recorded weight is 64.0kg which is increased from last review (stable with admission). Bowel Motility: Last documented bowel movement 09/28/19. Labs Reviewed: Glu (138), BUN (49) Meds Noted: Albuterol, Pepcid, Rocephin, Fentanyl, Precedex, Novolog, Miralax, Lantus Additional Notes: No documented skin breakdown. Neurology to see today. Following daily in ICU rounds. Assessing/reassessing every Monday/Monday.
--- NOTE | 2019-09-30 11:21 | PM.EVENT ---
Event Note Event Note Event Note: Head CT reviewed and discussed with Neurology. Ordered XR guided LP
--- NOTE | 2019-09-30 11:36 | WPDNEUROPN ---
Progress Note: A&P Additional Plan will need spinal tap for febrile status Review of Systems Review of Systems: All systems reviewed & are unremarkable except as noted in HPI and below Exam Const: General: ill appearing and uncomfortable Nutritional Appearance: cachectic Orientation/consciousness: confusion Eyes: Alignment and Position: position normal Pupils: Equal, round and reactive pupils present Direct Ophthalmoscopy: no photophobia Neck: Neck: full ROM Resp: Auscultation: rhonchi GI: Auscultation: normal bowel sounds Neuro: General: no meningeal signs, patient obtunded and Unable to assess gait Cranial nerves: Yes Equal, round and reactive pupils present, Yes Nystagmus not present and Yes Normal facial strength present Cognition (Neuro): abnormal cognition Gait exam (Neuro): Unable to assess gait Motor exam (neuro): Abnormal motor strength present Sensory Exam: normal sensation Deep tendon reflexes (DTR's): Right patellar reflex intensity grade: 1+ and Left patellar reflex intensity grade: 1+ Plantar Reflex Responses: equivocal: bilateral Objective Data Vital Signs Vital Signs: Vital Signs - 24 hr 09/29/19 11:40 09/29/19 12:00 09/29/19 12:18 Temperature 38.2 C H 39.1 C H Pulse Rate 80 83 Respiratory Rate 28 H Blood Pressure 102/65 Pulse Oximetry 95 97 09/29/19 12:48 09/29/19 14:00 09/29/19 14:15 Temperature 38.9 C H 38.9 C H Pulse Rate 78 84 Respiratory Rate 30 H 30 H Blood Pressure 117/63 Pulse Oximetry 97 93 09/29/19 14:25 09/29/19 14:29 09/29/19 16:00 Temperature 38.7 C H Pulse Rate 83 91 78 Respiratory Rate 30 H 18 Blood Pressure 106/61 Pulse Oximetry 96 09/29/19 17:35 09/29/19 18:00 09/29/19 19:29 Temperature 36.9 C Pulse Rate 86 89 86 Respiratory Rate 21 H 33 H Blood Pressure 116/73 Pulse Oximetry 95 97 09/29/19 19:36 09/29/19 19:42 09/29/19 19:48 Temperature Pulse Rate 86 98 93 Respiratory Rate 32 H 33 H Blood Pressure Pulse Oximetry 96 98 09/29/19 20:00 09/29/19 20:08 09/29/19 20:09 Temperature 38.6 C H 38.6 C H Pulse Rate 89 92 Respiratory Rate 29 H Blood Pressure 137/68 Pulse Oximetry 94 09/29/19 20:32 09/29/19 22:00 09/29/19 23:25 Temperature 38.6 C H 38.6 C H Pulse Rate 84 76 Respiratory Rate 24 H Blood Pressure 115/66 Pulse Oximetry 96 95 09/30/19 00:00 09/30/19 01:35 09/30/19 01:40 Temperature 38.2 C H Pulse Rate 88 95 95 Respiratory Rate 27 H 20 Blood Pressure 143/81 H Pulse Oximetry 96 96 09/30/19 01:42 09/30/19 02:00 09/30/19 03:35 Temperature 37.9 C H Pulse Rate 81 79 80 Respiratory Rate 20 22 H 22 H Blood Pressure 118/60 Pulse Oximetry 91 95 09/30/19 04:00 09/30/19 04:16 09/30/19 04:46 Temperature 38.2 C H 38.3 C H 38.4 C H Pulse Rate 79 Respiratory Rate 21 H Blood Pressure 113/62 Pulse Oximetry 95 09/30/19 04:55 09/30/19 06:00 09/30/19 08:03 Temperature 38.7 C H Pulse Rate 95 81 90 Respiratory Rate 21 H 22 H Blood Pressure 94/59 L Pulse Oximetry 99 94 95 09/30/19 08:13 09/30/19 08:26 09/30/19 11:16 Temperature 39.6 C H Pulse Rate 92 104 H Respiratory Rate 23 H Blood Pressure Pulse Oximetry Intake/Output Intake/Output: Intake & Output 09/27/19 09/28/19 09/29/19 09/30/19 23:59 23:59 23:59 23:59 Intake Total 2632 2956 2873 1330 Output Total 1980 1550 1900 950 Balance 652 1406 973 380 Meds/Results Medications: Active Medications Generic Name Dose Route Start Last Admin Trade Name Freq PRN Reason Stop Dose Admin Acetaminophen 650 mg 09/20/19 09:00 09/24/19 08:37 Tylenol Tablet PO 650 mg Q4H PRN Administration Headache Albuterol 5 mg 09/17/19 14:00 09/30/19 08:03 Albuterol Sulf Neb 2.5mg/0.5ml INHALATION 5 mg Q6HRT AZUCENA Administration Budesonide 0.5 mg 09/21/19 08:55 09/30/19 08:03 Pulmicort Respule Neb INHALATION 0.5 mg Q12HRT AZUCENA Administration Carvedil
--- NOTE | 2019-09-30 12:14 | WPDINFPN2 ---
Progress Note: A&P Assessment and Plan (1) Staphylococcus aureus bacteremia: Onset Date: 09/20/19 Code(s): R78.81 - Bacteremia Status: Acute Assessment and Plan: 1. JAMILAH bacteremia, endovascular source currently, but no focal site is apparent. PANKAJ no infection seen. Repeat BCs appear to have sterilized (4 days incubation) 2. New Dx NHL, with immunocompromise 3. Resp failure 4. Multifactorial leukocytosis, persists 5. PCN allergy REC Ctx # 10, continue. He is on optimal therapy. LP planned. 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 infections or (less likely) from the lymphoma itself Subjective Date/time seen: 09/30/19 12:14 Interval history: sedated no pressors intubated, eyes open does not follow simple requests Exam Narrative: Exam Narrative: t max 39.7 core Const: General: no acute distress Eyes: General: appearance normal, both eyes and all related structures Resp: Auscultation: clear to auscultation bilaterally, no rales, no rhonchi, no wheezes and diminished lung sounds Cardio: Rate: regular rate Rhythm: regular rhythm Heart sounds: no murmurs GI: Inspection: distended GI Palp: Yes Soft to palpation, No Tenderness to palpation present (GI) and No Guarding due to palpation present (GI) Urinary Catheter: Urinary Catheter: patent and draining and urine clear Objective Data Vital Signs Vital Signs: Vital Signs - 24 hr 09/29/19 12:18 09/29/19 12:48 09/29/19 14:00 Temperature 39.1 C H 38.9 C H 38.9 C H Pulse Rate 78 Respiratory Rate 30 H Blood Pressure 117/63 Pulse Oximetry 97 09/29/19 14:15 09/29/19 14:25 09/29/19 14:29 Temperature Pulse Rate 84 83 91 Respiratory Rate 30 H 30 H Blood Pressure Pulse Oximetry 93 09/29/19 16:00 09/29/19 17:35 09/29/19 18:00 Temperature 38.7 C H 36.9 C Pulse Rate 78 86 89 Respiratory Rate 18 21 H Blood Pressure 106/61 116/73 Pulse Oximetry 96 95 97 09/29/19 19:29 09/29/19 19:36 09/29/19 19:42 Temperature Pulse Rate 86 86 98 Respiratory Rate 33 H 32 H Blood Pressure Pulse Oximetry 96 98 09/29/19 19:48 09/29/19 20:00 09/29/19 20:08 Temperature 38.6 C H Pulse Rate 93 89 92 Respiratory Rate 33 H 29 H Blood Pressure 137/68 Pulse Oximetry 94 09/29/19 20:09 09/29/19 20:32 09/29/19 22:00 Temperature 38.6 C H 38.6 C H 38.6 C H Pulse Rate 84 Respiratory Rate 24 H Blood Pressure 115/66 Pulse Oximetry 96 09/29/19 23:25 09/30/19 00:00 09/30/19 01:35 Temperature 38.2 C H Pulse Rate 76 88 95 Respiratory Rate 27 H 20 Blood Pressure 143/81 H Pulse Oximetry 95 96 09/30/19 01:40 09/30/19 01:42 09/30/19 02:00 Temperature 37.9 C H Pulse Rate 95 81 79 Respiratory Rate 20 22 H Blood Pressure 118/60 Pulse Oximetry 96 91 09/30/19 03:35 09/30/19 04:00 09/30/19 04:16 Temperature 38.2 C H 38.3 C H Pulse Rate 80 79 Respiratory Rate 22 H 21 H Blood Pressure 113/62 Pulse Oximetry 95 95 09/30/19 04:46 09/30/19 04:55 09/30/19 06:00 Temperature 38.4 C H 38.7 C H Pulse Rate 95 81 Respiratory Rate 21 H Blood Pressure 94/59 L Pulse Oximetry 99 94 09/30/19 08:00 09/30/19 08:03 09/30/19 08:13 Temperature 39.4 C H Pulse Rate 93 90 92 Respiratory Rate 21 H 22 H 23 H Blood Pressure 136/72 Pulse Oximetry 91 95 09/30/19 08:26 09/30/19 11:16 Temperature 39.6 C H Pulse Rate 104 H Respiratory Rate Blood Pressure Pulse Oximetry Intake/Output Intake/Output: Intake & Output 09/27/19 09/28/19 09/29/19 09/30/19 23:59 23:59 23:59 23:59 Intake Total 2632 2956 2873 1330 Output Total 1980 1550 1900 950 Balance 652 1406 973 380 Meds/Results Medications: Active Medications Generic Name Dose Route Start Last Admin Trade Name Freq PRN Reason Stop Dose Admin Acetaminophen 650 mg 09/20/19 09:00 09/24/19 08:37 Tylenol Tablet PO 650 mg Q4H PRN Administration Headache Albuterol 5 mg 09/17/19
--- NOTE | 2019-09-30 12:34 | PM.PNCARD ---
Progress Note: A&P Assessment and Plan (1) Staphylococcus aureus bacteremia: Onset Date: 09/20/19 Code(s): R78.81 - Bacteremia Status: Acute Assessment and Plan: Unknown source. PANKAJ 09/26/2019: No evidence of echodensity on the mitral, aortic or visualized portions of the tricuspid valve. No evidence for intracardiac thrombi or vegetation identified on the study. Moderate LV dysfunction EF 35% with [id number] mitral regurgitation. Management per hospitalist and (2) Mitral regurgitation: Qualifiers: Cardiac valve disease etiology: nonrheumatic Qualified Code(s): I34.0 - Nonrheumatic mitral (valve) insufficiency Code(s): I34.0 - Nonrheumatic mitral (valve) insufficiency Status: Acute Assessment and Plan: PANKAJ as above (3) Encephalopathy: Code(s): G93.40 - Encephalopathy, unspecified Status: Acute Assessment and Plan: Per Critical Care/ICU. Likely multifactorial. Continue supportive care. (4) Acute and chronic respiratory failure: Qualifiers: Respiratory failure complication: unspecified whether with hypoxia or hypercapnia Qualified Code(s): J96.20 - Acute and chronic respiratory failure, unspecified whether with hypoxia or hypercapnia Code(s): J96.20 - Acute and chronic respiratory failure, unspecified whether with hypoxia or hypercapnia Status: Acute Assessment and Plan: Remains intubated. Management per Critical Care Service (5) Lymphoma: Code(s): C85.90 - Non-Hodgkin lymphoma, unspecified, unspecified site Status: Acute Assessment and Plan: Oncology following. Recent diagnosis of lymphoma. Overall prognosis quite poor given encephalopathy, persistent bacteremia, immune compromised state and lymphoma . (6) Cardiomyopathy: Qualifiers: Cardiomyopathy type: unspecified Qualified Code(s): I42.9 - Cardiomyopathy, unspecified Code(s): I42.9 - Cardiomyopathy, unspecified Status: Acute Assessment and Plan: New diagnosis EF 35-40%. Reasonably compensated. Likely functional critical illness, however, cannot exclude underlying CAD. Further workup deferred until stabilization with regards to persistent bacteremia and lymphoma prognosis is clarified. Continue supportive medical therapy as tolerated. Continue carvedilol at 3.125 mg q.12 hours. Blood pressures remained soft at times. (7) Hypernatremia: Code(s): E87.0 - Hyperosmolality and hypernatremia Status: Acute Assessment and Plan: Sodium improved after IV fluids Continue to monitor Additional Plan Concerning that he has a fever of 103.1 and a heart rate of 95. Plan is for lumbar puncture today Plan discussed with Dr. Singh [id number] 09/30/2019 Subjective Date/time seen: 09/30/19 12:34 Interval history: Follow-up for: Ejection fraction 35% found on PANKAJ, mitral regurgitation Date of service: 09/30/2019 Subjective: Sedated, intubated, not responsive Review of Systems Review of Systems: ROS unobtainable: unobtainable due to endotracheal tube and unobtainable due to mental condition Exam Const: General: comfortable and no acute distress HENMT: General nose exam: no epistaxis Eyes: Sclera: sclerae normal Other: Open eyes spontaneously but not to command Neck: Neck: no JVD Resp: Auscultation: clear to auscultation bilaterally Other: Intubated on vent Cardio: Rate: regular rate Heart sounds: no murmurs GI: Auscultation: normal bowel sounds Other: Oral/gastric tube with tube feeding Urinary Catheter: Urinary Catheter: patent and draining and urine dark Skin: General skin exam: normal color Neuro: Other: Intubated/sedated. Does not respond to tyrese
[2019-09-30 12:36] LABS: Glucose Point of Care 138 (65-105)
[2019-09-30] MEDS: PROPOFOL IV EMULSION 100 ML 7.7 MG IV CONT (13:45)
--- NOTE | 2019-09-30 14:02 | PM.PNPUL ---
Progress Note: A&P Assessment and Plan (1) COPD exacerbation: Code(s): J44.1 - Chronic obstructive pulmonary disease with (acute) exacerbation Status: Acute Assessment and Plan: -Stable COPD -Intubated for airway protection from septic encephalopathy -continue Albuterol/Ipratropium Nebs Q6h -continue Pulmicort Nebs 0.5 mg bid -daily SBT per Pre Kindergarten Teacher as tolerated Subjective Date/time seen: 09/30/19 14:02 Interval history: Slightly more alert with some response. GCS is 7 today. Still on ASV with minimal support. No significant ET secretions. Still having signficant intermittent fevers. Has been switeched to Dexametomidine for attempting to wean from vent. Review of Systems Review of Systems: All systems reviewed & are unremarkable except as noted in HPI and below Constitutional: Constitutional: Reports as per HPI Exam Narrative: Exam Narrative: Intubated and sedated Const: General: comfortable, no acute distress and in distress (tachypnic ) moderate Other: intubated and sedated on propofol HENMT: Mouth: Yes moist mucous membranes Eyes: Other: Left eye does not close completely. Neck: Neck: supple and no JVD Resp: Effort & Inspection: normal respiratory effort Auscultation: clear to auscultation bilaterally, no crackles, no rales, no rhonchi, no wheezes and diminished lung sounds Other: no significant ET tube secretions Cardio: Rate: regular rate and tachycardic Rhythm: regular rhythm Heart sounds: no gallops, no murmurs and no rubs GI: Auscultation: normal bowel sounds Other: decreased bowel sounds Skin: General skin exam: normal color Wounds: wounds noted Other: diffuse chronic eczema Neuro: Cognition (Neuro): abnormal cognition Other: GCS 7 Extrem: General: normal to inspection, no edema and no pedal edema Other: no petichial hemorrhages Psych: Other: sedated Objective Data Vital Signs Vital Signs: Vital Signs - 24 hr 09/29/19 14:15 09/29/19 14:25 09/29/19 14:29 Temperature Pulse Rate 84 83 91 Respiratory Rate 30 H 30 H Blood Pressure Pulse Oximetry 93 09/29/19 16:00 09/29/19 17:35 09/29/19 18:00 Temperature 38.7 C H 36.9 C Pulse Rate 78 86 89 Respiratory Rate 18 21 H Blood Pressure 106/61 116/73 Pulse Oximetry 96 95 97 09/29/19 19:29 09/29/19 19:36 09/29/19 19:42 Temperature Pulse Rate 86 86 98 Respiratory Rate 33 H 32 H Blood Pressure Pulse Oximetry 96 98 09/29/19 19:48 09/29/19 20:00 09/29/19 20:08 Temperature 38.6 C H Pulse Rate 93 89 92 Respiratory Rate 33 H 29 H Blood Pressure 137/68 Pulse Oximetry 94 09/29/19 20:09 09/29/19 20:32 09/29/19 22:00 Temperature 38.6 C H 38.6 C H 38.6 C H Pulse Rate 84 Respiratory Rate 24 H Blood Pressure 115/66 Pulse Oximetry 96 09/29/19 23:25 09/30/19 00:00 09/30/19 01:35 Temperature 38.2 C H Pulse Rate 76 88 95 Respiratory Rate 27 H 20 Blood Pressure 143/81 H Pulse Oximetry 95 96 09/30/19 01:40 09/30/19 01:42 09/30/19 02:00 Temperature 37.9 C H Pulse Rate 95 81 79 Respiratory Rate 20 22 H Blood Pressure 118/60 Pulse Oximetry 96 91 09/30/19 03:35 09/30/19 04:00 09/30/19 04:16 Temperature 38.2 C H 38.3 C H Pulse Rate 80 79 Respiratory Rate 22 H 21 H Blood Pressure 113/62 Pulse Oximetry 95 95 09/30/19 04:46 09/30/19 04:55 09/30/19 06:00 Temperature 38.4 C H 38.7 C H Pulse Rate 95 81 Respiratory Rate 21 H Blood Pressure 94/59 L Pulse Oximetry 99 94 09/30/19 08:00 09/30/19 08:03 09/30/19 08:13 Temperature 39.4 C H Pulse Rate 93 90 92 Respiratory Rate 21 H 22 H 23 H Blood Pressure 136/72 Pulse Oximetry 91 95 09/30/19 08:26 09/30/19 11:16 09/30/19 11:45 Temperature 39.6 C H 39.5 C H Pulse Rate 104 H Respiratory Rate Blood Pressure Pulse Oximetry 09/30/19 11:46 Temperature 39.5 C H Pulse Rate Respiratory Rate Blood Pressure Pulse Oximetry Intake/Output Intak
[2019-09-30 15:11] LABS: Glucose CSF 64 mg/dL (40-70); Total Protein CSF 112 mg/dL (12-60)
[2019-09-30 15:58] LABS: Appearance CSF Clear (Clear); CSF source CSF; Color CSF Colorless (Colorless); Lymphocytes CSF 64 % (40-80); Neutrophils CSF 4 % (0-6); Nucleated Cell CSF 8 /uL (0-5); Red Blood Cell CSF 27 (0-2)
[2019-09-30 16:00] LABS: Macrophages CSF 2
[2019-09-30 16:01] LABS: Monocytes CSF 30 % (15-45)
--- NOTE | 2019-09-30 16:25 | PM.IMPN ---
Progress Note: A&P Assessment and Plan (1) Acute exacerbation of chronic obstructive airways disease: Code(s): J44.1 - Chronic obstructive pulmonary disease with (acute) exacerbation Status: Acute (2) Chronic respiratory failure with hypoxia: Code(s): J96.11 - Chronic respiratory failure with hypoxia Status: Acute Assessment and Plan: 09/30/19 16:25 Patient is a 69 yo M with history of COPD/asthma overlap, scleroderma, chronic respiratory failure with hypoxia, diastolic congestive heart failure, and history of tobacco abuse who is here for acute on chrronid respiratory failure 2/2 COPD exacerbation and for evaluation of right inguinal lymphadenopathy. Pt had lymph node biospy seen by Dr Barr will need further investigations later after discharge for possible non hodgkins lymphoma. Pt unfortunately developed severe SOB and was intubated and admitted to ICU, 09/20/2019. Continue ventilatory support. Discussion with brother at the bedside.. patient blood and urine culure are growing staph resulting in bactremia, patient is being treated with vancomycin and ceftriaxone and cardiac echo is ordered to rule out vegetation shows possible vegitation and PANKAJ is orderd and patient seen by Dr. 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 Frausto and will have LP today to further evaluate. seen by neurologist and EEG was ordered pending. (3) Acute kidney injury: Code(s): N17.9 - Acute kidney failure, unspecified Status: Acute Assessment and Plan: Monitor renal function (4) Diastolic heart failure: Qualifiers: Heart failure chronicity: chronic Qualified Code(s): I50.32 - Chronic diastolic (congestive) heart failure Code(s): I50.30 - Unspecified diastolic (congestive) heart failure Status: Acute Assessment and Plan: He is clinically compensated. Cardiac ecch showed possible vegetation PANKAJ is ordered (5) Chronic anemia: Code(s): D64.9 - Anemia, unspecified Status: Acute Assessment and Plan: Continue to trend hb/ hct (6) Mass of right inguinal region: Code(s): R19.09 - Other intra-abdominal and pelvic swelling, mass and lump Status: Acute Assessment and Plan: Soft tissue ultrasound of the right inguinal region read as right inguinal lymphadenopathy, largest demonstrating effacement of normal fatty hilum, possibly pathologic. Consider lymphoma. Biopsy performed yesterday and preliminary results have returned suggestive for lymphoma. Prelim biopsy suggestive of lymphoma Dr. Barr has been consulted and appreciate input. Pt to follow with Dr Barr on discharge (7) Staphylococcus aureus bacteremia: Onset Date: 09/20/19 Code(s): R78.81 - Bacteremia Status: Acute Assessment and Plan: Patient is seen by suspect possible endocardiac source however PANKAJ dose not show any vagetation, plan is above (8) Acute and chronic respiratory failure: Qualifiers: Respiratory failure complication: unspecified whether with hypoxia or hypercapnia Qualified Code(s): J96.20 - Acute and chronic respiratory failure, unspecified whether with hypoxia or hypercapnia Code(s): J96.20 - Acute and chronic respiratory failure, unspecified whether with hypoxia or hypercapnia Status: Acute Assessment and Plan: Plan is above Subjective Date/time seen: 09/30/19 16:25 Patient is a 69 yo M with hi
[2019-09-30 19:06] LABS: Glucose Point of Care 126 (65-105)
[2019-09-30] MEDS: INSULIN GLARGINE (*BKC) 100 UNITS/ML 16 UNITS SUB-Q (20:19)
[2019-09-30] MEDS: PROPOFOL IV EMULSION 100 ML 13.4 MG IV CONT (21:10)
[2019-10-01] VITALS (28 sets, daily range): BP systolic 99–141; BP diastolic 63–93; PULSE 77–121; RESP 16–30; TEMP 38–39.3; O2SAT 91–100
[2019-10-01 00:31] LABS: Glucose Point of Care 105 (65-105)
[2019-10-01] MEDS: IPRATROPIUM BR 0.02% INH SOLN 0.5 MG/2.5 ML VIAL INHALATION ×4 (02:59→19:37)
[2019-10-01] MEDS: ALBUTEROL SULFATE NEB 2.5 MG/0.5 ML INH 5 MG INHALATION ×4 (02:59→19:37)
[2019-10-01] MEDS: PROPOFOL IV EMULSION 100 ML 13.4 MG IV CONT (04:14)
[2019-10-01 04:15] LABS: Alveolar/Arterial O2 Gradient 174.4 mmHg; Base Excess ABG 5.9 mEq/l (+/-2.0); Carboxyhemoglobin 0.1 % THb (0-2.0); Fractional Inspired Oxygen 40 %; HCO3 ABG 29.6 mEq/l (22.0-26.0); Methemoglobin ABG 0.2 %THb (0-1.5); Oxygen Content ABG 16.8 %vol (16.0-22.0); Oxygen Saturation ABG 94.2 % (95.0-100.0); Oxyhemoglobin 92.5 % THb (90.0-100.0); PCO2 ABG 39.8 mmHg (35.0-45.0); PO2 FiO2 Ratio Arterial Blood 1.63 %; Reduced Hemoglobin 7.2 %THb (0-5.0); Total Hemoglobin 12.9 g/dL (12.0-18.0)
[2019-10-01 04:16] LABS: Arterial Blood Gas PEEP 5 cmH2O; Arterial Blood Gas Tidal Volume 400 ml; Arterial Blood Gas Vent Mode CMV; Arterial Blood Gas Ventilator rate 18 /MIN; Device VENTILATOR; Modified Allen's Test Pass; Site Drawn LEFT RADIAL
[2019-10-01 04:48] LABS: Hematocrit 36.6 % (42.0-52.0); Hemoglobin 11.7 g/dL (14.0-18.0); Mean Corpuscular Hemoglobin 30.5 pg (26-34); Mean Corpuscular Volume 95.6 fl (80-100); Platelet Count Result 248 k/mm3 (150-375); Red Blood Count 3.83 M/mm3 (4.6-6.20); Red Cell Distribution Width 12.8 % (11.5-14.5); White Blood Count 18.1 K/mm3 (4.5-10.0)
[2019-10-01 05:08] LABS: Alanine Aminotransferase 57 U/L (4-50); Alkaline Phosphatase 77 U/L (38-126); Aspartate Amino Transferase 67 U/L (17-59); Bilirubin,Total 0.4 mg/dL (0.2-1.3); Blood Urea Nitrogen 48 mg/dL (9-20); Calcium 8.9 mg/dL (8.4-10.2); Carbon Dioxide 29 mmol/L (22-30); Chloride 111 mmol/L (98-107); Estimated CRCL calculation 53 ml/min; Estimated Glomerular Filt Rate > 60; Glucose 110 mg/dL (75-110); Magnesium 2.5 mg/dL (1.6-2.3); Potassium 3.7 mmol/L (3.4-5.0); Sodium 145 mmol/L (137-145)
[2019-10-01] MEDS: ENOXAPARIN 40 MG/0.4 ML SYRINGE SUB-Q (08:15)
[2019-10-01] MEDS: polyethylene glycoL 3350 17 GM POWD.PACK PO (08:16)
[2019-10-01] MEDS: FAMOTIDINE 20 MG/2 ML VIAL IV PUSH ×2 (08:17→21:22)
[2019-10-01] MEDS: MUPIROCIN 2% OINT 22 GM TUBE 1 APPLIC EACH NARE ×2 (08:17→21:22)
[2019-10-01] MEDS: INSULIN GLARGINE (*BKC) 100 UNITS/ML 16 UNITS SUB-Q ×2 (08:17→21:33)
[2019-10-01] MEDS: BUDESONIDE RESPULE NEB 0.5 MG/2 ML AMP INHALATION ×2 (08:28→19:37)
[2019-10-01] MEDS: carvediloL 3.125 MG TABLET PO (09:25)
--- NOTE | 2019-10-01 10:45 | PCDIET ---
Nutrition Follow-Up Complete: Nutrition Diagnosis: Inadequate Oral Intake as related to COPD as evidenced by weight loss of 10 pounds in the past 3 months/poor intake reported. Nutrition Goals: Patient to meet estimated nutritional needs. Goal met. Patient tolerating Glucerna 1.2 @ 60mL/hr goal rate with no reported issues. Receiving 70mL water flush every 4 hours. Last recorded weight is 64.9 kg which is stable. Bowel Motility: Last documented bowel movement 09/28/19. Labs Reviewed: BUN (48), Alb (3.0), Hgb (11.7), Hct (36.6) Meds Noted: Albuterol, Rocephin, Precedex, Pepcid, Fentanyl, Novolog, Lantus, Miralax Additional Notes: No reported skin breakdown. Recommend continuing present tube feeding and continuing to monitor with same goal. Nutrition Monitoring and Evaluation: Follow up every Monday/Monday. Follow daily in ICU rounds.
--- NOTE | 2019-10-01 10:49 | PC.NURSE ---
pt's family, brother and [id number] here, both aware of isolation precautions and gowns and gloves, both choose not to use them
[2019-10-01 12:12] LABS: Glucose Point of Care 125 (65-105)
--- NOTE | 2019-10-01 12:14 | WPDINTPN ---
Progress Note: A&P Assessment and Plan (1) Staphylococcus aureus bacteremia: Onset Date: 09/20/19 Code(s): R78.81 - Bacteremia Status: Acute Assessment and Plan: Blood cultures x2 from 09/20 growing Staphylococcus aureus, sensitive to oxacillin (But patient is allergic to penicillin) - Currently on Rocephin - Repeat blood cultures 09/22/2019 growing staph aureus. now blood culture from 09/26 are negative till date. - Echocardiogram on 09/23/2019 showed EF of 35-40%, grade 1 diastolic dysfunction, aortic valve is not visualized well, mitral valve has mild thickened leaflets, moderate to severe mitral valve regurg, - PANKAJ on 09/26/2019 with no vegetations or intracardiac thrombi, EF 35%, mild to moderate mitral valve regurg. - Appreciate infectious disease evaluation recommendations. Continue ceftriaxone 2 g daily - Patient continues to spike fevers with increasing leukocytosis, CT scan of the head, chest/abdomen /pelvis without contrast was ordered on 09/27/19, no acute intracranial abnormalities were noted, mild pneumonia involving the lower lobes, emphysema, right inguinal lymphadenopathy which may be lymphoma which could also be causing these fevers. - WBC count seems to be coming down now. will check procalcitonin levels . (2) Acute and chronic respiratory failure: Qualifiers: Respiratory failure complication: unspecified whether with hypoxia or hypercapnia Qualified Code(s): J96.20 - Acute and chronic respiratory failure, unspecified whether with hypoxia or hypercapnia Code(s): J96.20 - Acute and chronic respiratory failure, unspecified whether with hypoxia or hypercapnia Status: Acute Assessment and Plan: patient worsened overnight on 09/20/2019, tachypneic, increased work of breathing, impending respiratory failure, Dr. Coughlin intubated the patient on 09/20/2019 and transferred the patient to the ICU. Likely related to bacteremia and UTI and severe sepsis - continue bronchodilators - chest x-ray and ABGs reviewed, continue CMV mode of ventilation. - likely secondary to COPD exacerbation and/or bronchitis. He has been off steroids now. - appreciate Pulmonary evaluation recommendation - Weaned from propofol completely. He is currently on Precedex drip. No benzodiazepine will be given even on p.r.n. basis. On fentanyl drip. - On SBT but encephaloapthy still preventing extubation. - also has some component of systolic and diastolic heart failure contributing to respiratory failure. Moderate MR on echo, EF is 35% . Will increase coreg dose to control HR . (3) Encephalopathy: Code(s): G93.40 - Encephalopathy, unspecified Status: Acute Assessment and Plan: patient with acute encephalopathy. Most [facility] - CT scan of the brain without contrast was done, did not show any acute intracranial abnormalities - neurology has been consulted, - EEG was done on 09/26/2019, Reportedly showing diffuse slowing. - CT head 09/30- negative - still remians encephalopathic - Continue precedex. Currently on Precedex drip.. No benzodiazepine will be given even for p.r.n. basis. will start seroquel - LP showed no signs of meningitis , cx are pending (4) UTI (urinary tract infection): Qualifiers: Urinary tract infection type: site unspecified Hematuria presence: without hematuria Qualified Code(s): N39.0 - Urinary tract infection, site not specified Code(s): N39.0 - Urinary tract infection, site not specified Status: Acute Assessment and Plan: urine cultures growing Staph aureus continue ceftriaxone as above (5) Acute exacerbation of chronic obstructive airways disease: Code(s): J44.1 - Chronic obstructive pulmonary disease with (acute) exacerbation Status: Acute Assessment and Plan: continue mechanical ventilation, - continue antibiotics as above - Off steroids now. - Continu
[2019-10-01] MEDS: ACETAMINOPHEN 325 MG TABLET 650 MG PO (13:00)
--- NOTE | 2019-10-01 13:26 | PC.NURSE ---
pt core temp 102.9, Dr. 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
--- NOTE | 2019-10-01 13:49 | WPDINFPN2 ---
Progress Note: A&P Assessment and Plan (1) Staphylococcus aureus bacteremia: Onset Date: 09/20/19 Code(s): R78.81 - Bacteremia Status: Acute Assessment and Plan: 1. JAMILAH bacteremia, endovascular source currently, but no focal site is apparent. PANKAJ no infection seen. Repeat BCs appear to have sterilized (4 days incubation) 2. New Dx NHL, with immunocompromise 3. Resp failure 4. Multifactorial leukocytosis, persists 5. PCN allergy REC Ctx # 11, continue. He is on optimal therapy. LP suggests no infection, though gram stain not available. 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 BCs being drawn presently. Subjective Date/time seen: 10/01/19 13:49 Interval history: intubated eyes open Exam Narrative: Exam Narrative: t max 39.3 core temp Const: General: in distress Eyes: General: appearance normal, both eyes and all related structures Resp: Effort & Inspection: normal respiratory effort Auscultation: clear to auscultation bilaterally and diminished lung sounds Cardio: Rate: tachycardic Rhythm: regular rhythm Heart sounds: no gallops and no murmurs GI: Inspection: non-distended GI Palp: Yes Soft to palpation and No Tenderness to palpation present (GI) Urinary Catheter: Urinary Catheter: patent and draining and urine clear Extrem: General: normal to inspection Objective Data Vital Signs Vital Signs: Vital Signs - 24 hr 09/30/19 13:50 09/30/19 14:00 09/30/19 14:05 Temperature Pulse Rate 90 71 Respiratory Rate 23 H 17 Blood Pressure 114/99 H 81/63 L Pulse Oximetry 97 97 100 09/30/19 14:30 09/30/19 14:48 09/30/19 14:58 Temperature Pulse Rate 114 H 106 H 108 H Respiratory Rate 14 43 H 42 H Blood Pressure 90/66 L Pulse Oximetry 98 97 09/30/19 15:58 09/30/19 16:00 09/30/19 16:22 Temperature 38.7 C H Pulse Rate 90 101 H Respiratory Rate 25 H 20 Blood Pressure 87/56 L Pulse Oximetry 100 100 99 09/30/19 17:53 09/30/19 18:00 09/30/19 19:49 Temperature 38.6 C H Pulse Rate 110 H 92 90 Respiratory Rate 27 H 19 Blood Pressure 90/57 L Pulse Oximetry 100 98 95 09/30/19 20:00 09/30/19 20:24 09/30/19 20:37 Temperature 38.6 C H Pulse Rate 90 103 H 108 H Respiratory Rate 23 H 24 H 23 H Blood Pressure 97/85 L Pulse Oximetry 96 93 09/30/19 21:05 09/30/19 22:00 09/30/19 23:17 Temperature 38.6 C H Pulse Rate 106 H 103 H 105 H Respiratory Rate 21 H Blood Pressure 132/113 H Pulse Oximetry 95 97 09/30/19 23:41 10/01/19 00:00 10/01/19 02:00 Temperature 38.5 C H 38.5 C H Pulse Rate 91 91 98 Respiratory Rate 19 16 23 H Blood Pressure 99/64 L 113/72 Pulse Oximetry 91 97 94 10/01/19 02:59 10/01/19 04:00 10/01/19 05:00 Temperature 38.2 C H Pulse Rate 109 H 97 96 Respiratory Rate 16 Blood Pressure 102/64 Pulse Oximetry 95 93 91 10/01/19 06:00 10/01/19 08:00 10/01/19 08:28 Temperature 38.0 C H 38.4 C H Pulse Rate 106 H 107 H 113 H Respiratory Rate 19 17 18 Blood Pressure 108/93 H 126/88 Pulse Oximetry 98 95 10/01/19 08:32 10/01/19 09:11 10/01/19 10:00 Temperature Pulse Rate 113 H 108 H 102 H Respiratory Rate 18 21 H Blood Pressure 116/69 Pulse Oximetry 96 98 10/01/19 11:40 10/01/19 12:00 10/01/19 13:00 Temperature 38.7 C H 39.3 C H Pulse Rate 121 H 114 H Respiratory Rate 26 H Blood Pressure 141/85 H Pulse Oximetry 94 95 10/01/19 13:35 10/01/19 13:36 10/01/19 13:47 Temperature Pulse Rate 114 H 112 H 108 H Respiratory Rate 24 H 20 Blood Pressure Pulse Oximetry 97 Intake/Output Intake/Output: Intake & Output 09/28/19 09/29/19 09/30/19 10/01/19 23:59 23:59 23:59 23:59 Intake Total 2956 2873 2636 1051 Output Total 1550 1900 1450 950 Balance 3313 087 1393 101 Meds/Results Medications: Active Medications Generic Name Dose Route Start Last Admin Trade Name Freq PRN Reason Stop Dose
[2019-10-01 13:54] LABS: Albumin Level 3.1 g/dL (3.5-5.1); Blood Urea Nitrogen 44 mg/dL (9-20); Carbon Dioxide 30 mmol/L (22-30); Chloride 106 mmol/L (98-107); Estimated CRCL calculation 58 ml/min; Estimated Glomerular Filt Rate > 60; Glucose 128 mg/dL (75-110); Magnesium 2.3 mg/dL (1.6-2.3); Phosphorus 3.8 mg/dL (2.5-4.5); Potassium 3.6 mmol/L (3.4-5.0); Sodium 142 mmol/L (137-145)
--- NOTE | 2019-10-01 16:12 | PM.IMPN ---
Progress Note: A&P Assessment and Plan (1) Acute exacerbation of chronic obstructive airways disease: Code(s): J44.1 - Chronic obstructive pulmonary disease with (acute) exacerbation Status: Acute (2) Chronic respiratory failure with hypoxia: Code(s): J96.11 - Chronic respiratory failure with hypoxia Status: Acute Assessment and Plan: 09/30/19 16:25 Patient is a 69 yo M with history of COPD/asthma overlap, scleroderma, chronic respiratory failure with hypoxia, diastolic congestive heart failure, and history of tobacco abuse who is here for acute on chrronid respiratory failure 2/2 COPD exacerbation and for evaluation of right inguinal lymphadenopathy. Pt had lymph node biospy seen by Dr Barr will need further investigations later after discharge for possible non hodgkins lymphoma. Pt unfortunately developed severe SOB and was intubated and admitted to ICU, 09/20/2019. Continue ventilatory support. Discussion with brother at the bedside.. 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 Ongoing bactremia, encehalopathy and respiratory failure, difficult to wean of the vent. (3) Acute kidney injury: Code(s): N17.9 - Acute kidney failure, unspecified Status: Acute Assessment and Plan: Monitor renal function. (4) Diastolic heart failure: Qualifiers: Heart failure chronicity: chronic Qualified Code(s): I50.32 - Chronic diastolic (congestive) heart failure Code(s): I50.30 - Unspecified diastolic (congestive) heart failure Status: Acute Assessment and Plan: He is clinically compensated. Cardiac echo showed possible vegetation PANKAJ is ordered (5) Chronic anemia: Code(s): D64.9 - Anemia, unspecified Status: Acute Assessment and Plan: Continue to trend hb/ hct (6) Mass of right inguinal region: Code(s): R19.09 - Other intra-abdominal and pelvic swelling, mass and lump Status: Acute Assessment and Plan: Soft tissue ultrasound of the right inguinal region read as right inguinal lymphadenopathy, largest demonstrating effacement of normal fatty hilum, possibly pathologic. Consider lymphoma. Biopsy performed yesterday and preliminary results have returned suggestive for lymphoma. Prelim biopsy suggestive of lymphoma Dr. Barr has been consulted and appreciate input. Pt to follow with Dr Barr on discharge (7) Staphylococcus aureus bacteremia: Onset Date: 09/20/19 Code(s): R78.81 - Bacteremia Status: Acute Assessment and Plan: Patient is seen by suspect possible endocardiac source however PANKAJ dose not show any vagetation, plan is above (8) Acute and chronic respiratory failure: Qualifiers: Respiratory failure complication: unspecified whether with hypoxia or hypercapnia Qualified Code(s): J96.20 - Acute and chronic respiratory failure, unspecified whether with hypoxia or hypercapnia Code(s): J96.20 - Acute and chronic respiratory failure, unspecified whether with hypoxia or hypercapnia Status: Acute Assessment and Plan: Plan is above Subjective Date/time seen: 10/01/19 16:12 Interval history: Patient is a 69 yo M with history of COPD/asthma overlap, scleroderma, chronic respiratory failure with hypoxia, diastolic congest
[2019-10-01 17:10] LABS: Glucose Point of Care 138 (65-105)
--- NOTE | 2019-10-01 18:29 | PM.PNCARD ---
Progress Note: A&P Assessment and Plan (1) Cardiomyopathy: Qualifiers: Cardiomyopathy type: unspecified Qualified Code(s): I42.9 - Cardiomyopathy, unspecified Code(s): I42.9 - Cardiomyopathy, unspecified Status: Acute Assessment and Plan: New diagnosis EF 35-40%. Reasonably compensated. Likely functional critical illness, however, cannot exclude underlying CAD. Further workup deferred until stabilization with regards to persistent bacteremia and lymphoma prognosis is clarified. Continue supportive medical therapy as tolerated. Tolerating carvedilol at 3.125 mg q.12 hours. Blood pressures remained soft at times. (2) Mitral regurgitation: Qualifiers: Cardiac valve disease etiology: nonrheumatic Qualified Code(s): I34.0 - Nonrheumatic mitral (valve) insufficiency Code(s): I34.0 - Nonrheumatic mitral (valve) insufficiency Status: Acute Assessment and Plan: PANKAJ as above (3) Staphylococcus aureus bacteremia: Onset Date: 09/20/19 Code(s): R78.81 - Bacteremia Status: Acute Assessment and Plan: Unknown source. PANKAJ 09/26/2019: No vegetations. Moderate LV dysfunction EF 35% with [id number] mitral regurgitation. Lumbar puncture negative. management per hospitalist and (4) Encephalopathy: Code(s): G93.40 - Encephalopathy, unspecified Status: Acute Assessment and Plan: Per Critical Care/ICU. Likely multifactorial. Continue supportive care. (5) Acute and chronic respiratory failure: Qualifiers: Respiratory failure complication: unspecified whether with hypoxia or hypercapnia Qualified Code(s): J96.20 - Acute and chronic respiratory failure, unspecified whether with hypoxia or hypercapnia Code(s): J96.20 - Acute and chronic respiratory failure, unspecified whether with hypoxia or hypercapnia Status: Acute Assessment and Plan: Remains intubated. Management per Critical Care Service (6) Lymphoma: Code(s): C85.90 - Non-Hodgkin lymphoma, unspecified, unspecified site Status: Acute Assessment and Plan: Oncology following. Recent diagnosis of lymphoma. Overall prognosis quite poor given encephalopathy, persistent bacteremia, immune compromised state and lymphoma . (7) Hypernatremia: Code(s): E87.0 - Hyperosmolality and hypernatremia Status: Acute Assessment and Plan: Sodium improved after IV fluids Continue to monitor Time Spent With Patient Time with patient: 15 - 25 minutes Subjective Date/time seen: 10/01/19 18:29 Interval history: Follow-up for: Ejection fraction 35% found on PANKAJ, mitral regurgitation 09/30/2019 daily visit: Sedated, intubated, not responsive 10/01/2019 date of service new line patient remains sedated, was confused and agitated throughout the day, not following commands, and finally sleeping. Getting tube feedings. Still having fevers up to 39.0?. No obvious pain or shortness of breath. Review of Systems Review of Systems: ROS unobtainable: unobtainable due to mental condition and unobtainable due to mental status Constitutional: Constitutional: Reports as per HPI ENT: Reports as per HPI Cardiovascular: Cardiovascular: Reports as per HPI Respiratory: Respiratory: Reports as per HPI Gastrointestinal: Gastrointestinal: Reports as per HPI Exam Narrative: Exam Narrative: Ill-appearing male asleep, no distress, NG tube present. Const: General: no acute distress HENMT: Mouth: Yes dry mucous membranes Eyes: Sclera: sclerae normal Neck: Neck: supple Resp: Effort & Inspection: normal respiratory effort Auscultation: clear to auscultation bilaterally Cardio: Rate: regular rate Rhythm: regu
--- NOTE | 2019-10-01 20:00 | PM.PNPUL ---
Progress Note: A&P Assessment and Plan (1) COPD exacerbation: Code(s): J44.1 - Chronic obstructive pulmonary disease with (acute) exacerbation Status: Acute Assessment and Plan: -Intubated for airway protection from septic encephalopathy -continue Albuterol/Ipratropium Nebs Q6h -continue Pulmicort Nebs 0.5 mg bid -daily SBT per Transitional Care Liaison as tolerated _ on small amounts of sedation as he is more alert and responsive, still febrile; mentation is gradually improving. Subjective Date/time seen: 10/01/19 20:00 Review of Systems Review of Systems: All systems reviewed & are unremarkable except as noted in HPI and below Constitutional: Constitutional: Reports as per HPI Exam Narrative: Exam Narrative: Intubated and sedated Const: General: comfortable, no acute distress and in distress (tachypnic ) moderate Other: intubated and sedated on propofol HENMT: Mouth: Yes moist mucous membranes Eyes: Other: Left eye does not close completely. Neck: Neck: supple and no JVD Resp: Effort & Inspection: normal respiratory effort Auscultation: clear to auscultation bilaterally, no crackles, no rales, no rhonchi, no wheezes and diminished lung sounds Other: no significant ET tube secretions Cardio: Rate: regular rate and tachycardic Rhythm: regular rhythm Heart sounds: no gallops, no murmurs and no rubs GI: Auscultation: normal bowel sounds Other: decreased bowel sounds Skin: General skin exam: normal color Wounds: wounds noted Other: diffuse chronic eczema Neuro: Cognition (Neuro): abnormal cognition Other: GCS 7 Extrem: General: normal to inspection, no edema and no pedal edema Other: no petichial hemorrhages Psych: Other: sedated Objective Data Vital Signs Vital Signs: Vital Signs - 24 hr 09/30/19 20:24 09/30/19 20:37 09/30/19 21:05 Temperature Pulse Rate 103 H 108 H 106 H Respiratory Rate 24 H 23 H Blood Pressure Pulse Oximetry 93 09/30/19 22:00 09/30/19 23:17 09/30/19 23:41 Temperature 38.6 C H Pulse Rate 103 H 105 H 91 Respiratory Rate 21 H 19 Blood Pressure 132/113 H Pulse Oximetry 95 97 91 10/01/19 00:00 10/01/19 02:00 10/01/19 02:59 Temperature 38.5 C H 38.5 C H Pulse Rate 91 98 109 H Respiratory Rate 16 23 H Blood Pressure 99/64 L 113/72 Pulse Oximetry 97 94 95 10/01/19 04:00 10/01/19 05:00 10/01/19 06:00 Temperature 38.2 C H 38.0 C H Pulse Rate 97 96 106 H Respiratory Rate 16 19 Blood Pressure 102/64 108/93 H Pulse Oximetry 93 91 98 10/01/19 08:00 10/01/19 08:28 10/01/19 08:32 Temperature 38.4 C H Pulse Rate 107 H 113 H 113 H Respiratory Rate 17 18 Blood Pressure 126/88 Pulse Oximetry 95 96 10/01/19 09:11 10/01/19 10:00 10/01/19 11:40 Temperature Pulse Rate 108 H 102 H 121 H Respiratory Rate 18 21 H Blood Pressure 116/69 Pulse Oximetry 98 94 10/01/19 12:00 10/01/19 13:00 10/01/19 13:35 Temperature 38.7 C H 39.3 C H Pulse Rate 114 H 114 H Respiratory Rate 26 H 24 H Blood Pressure 141/85 H Pulse Oximetry 95 10/01/19 13:36 10/01/19 13:47 10/01/19 14:00 Temperature 39.0 C H Pulse Rate 112 H 108 H 107 H Respiratory Rate 20 24 H Blood Pressure 105/86 Pulse Oximetry 97 96 10/01/19 16:00 10/01/19 17:03 10/01/19 18:00 Temperature 38.4 C H Pulse Rate 104 H 81 77 Respiratory Rate 30 H 20 Blood Pressure 137/79 99/63 L Pulse Oximetry 95 94 96 Intake/Output Intake/Output: Intake & Output 09/28/19 09/29/19 09/30/19 10/01/19 23:59 23:59 23:59 23:59 Intake Total 2956 2873 2636 2310 Output Total 1550 1900 1450 1800 Balance 2753 414 7884 510 Meds/Results Medications: Active Medications Generic Name Dose Route Start Last Admin Trade Name Freq PRN Reason Stop Dose Admin Acetaminophen 650 mg 09/20/19 09:00 10/01/19 13:00 Tylenol Tablet PO 650 mg Q4H PRN Administration Headache Albuterol 5 mg 09/17/19 14:00 10/01/19 19:37 Albuterol Sulf Neb
[2019-10-01] MEDS: carvediloL 12.5 MG TABLET PO (21:22)
[2019-10-01] MEDS: QUEtiapine FUMARATE 25 MG TABLET 50 MG FEED TUBE (21:23)
[2019-10-02] VITALS (53 sets, daily range): BP systolic 87–141; BP diastolic 55–83; PULSE 69–111; RESP 12–38; TEMP 37.3–39.3; O2SAT 90–100
[2019-10-02 00:05] LABS: Glucose Point of Care 100 (65-105)
[2019-10-02 00:59] LABS: Cryptococcus Antigen Not Detected (Not Detected); Cryptococcus Specimen Source CSF
[2019-10-02] MEDS: IPRATROPIUM BR 0.02% INH SOLN 0.5 MG/2.5 ML VIAL INHALATION ×4 (02:03→22:01)
[2019-10-02] MEDS: ALBUTEROL SULFATE NEB 2.5 MG/0.5 ML INH 5 MG INHALATION ×4 (02:03→22:01)
[2019-10-02] MEDS: ACETAMINOPHEN 325 MG TABLET 650 MG PO (03:16)
[2019-10-02 04:38] LABS: Hematocrit 35.1 % (42.0-52.0); Hemoglobin 11.4 g/dL (14.0-18.0); Mean Corpuscular HGB Conc 32.5 g/dl (32-36); Mean Corpuscular Hemoglobin 30.5 pg (26-34); Mean Corpuscular Volume 93.9 fl (80-100); Mean Platelet Volume 10.9 fl (7.4-10.4); Platelet Count Result 322 k/mm3 (150-375); Red Blood Count 3.74 M/mm3 (4.6-6.20); Red Cell Distribution Width 12.7 % (11.5-14.5); White Blood Count 17.2 K/mm3 (4.5-10.0)
[2019-10-02 04:51] LABS: Alanine Aminotransferase 61 U/L (4-50); Albumin Level 2.9 g/dL (3.5-5.1); Alkaline Phosphatase 89 U/L (38-126); Aspartate Amino Transferase 60 U/L (17-59); Bilirubin,Total 0.4 mg/dL (0.2-1.3); Blood Urea Nitrogen 50 mg/dL (9-20); Carbon Dioxide 29 mmol/L (22-30); Chloride 108 mmol/L (98-107); Estimated CRCL calculation 53 ml/min; Estimated Glomerular Filt Rate > 60; Glucose 120 mg/dL (75-110); Magnesium 2.4 mg/dL (1.6-2.3); Potassium 3.8 mmol/L (3.4-5.0); Sodium 144 mmol/L (137-145)
[2019-10-02 05:08] LABS: Alveolar/Arterial O2 Gradient 164.6 mmHg; Base Excess ABG 4.2 mEq/l (+/-2.0); Carboxyhemoglobin 0.3 % THb (0-2.0); Fractional Inspired Oxygen 40 %; HCO3 ABG 26.4 mEq/l (22.0-26.0); Methemoglobin ABG 0.3 %THb (0-1.5); Oxygen Saturation ABG 97.4 % (95.0-100.0); Oxyhemoglobin 95.5 % THb (90.0-100.0); PCO2 ABG 31.7 mmHg (35.0-45.0); PO2 ABG 84.1 mmHg (80.0-100.0); Reduced Hemoglobin 3.9 %THb (0-5.0); Total Hemoglobin 12.6 g/dL (12.0-18.0)
[2019-10-02 05:12] LABS: Modified Allen's Test Pass; Site Drawn LEFT RADIAL; pH ABG 7.538 (7.350-7.450)
[2019-10-02 05:13] LABS: Arterial Blood Gas Ventilator rate 20 /MIN; Device VENTILATOR
[2019-10-02 05:14] LABS: Arterial Blood Gas PEEP 5 cmH2O; Arterial Blood Gas Tidal Volume 450 ml; Arterial Blood Gas Vent Mode CMV
[2019-10-02 06:11] LABS: Glucose Point of Care 121 (65-105)
[2019-10-02] MEDS: FAMOTIDINE 20 MG/2 ML VIAL IV PUSH ×2 (08:32→22:26)
[2019-10-02] MEDS: BUDESONIDE RESPULE NEB 0.5 MG/2 ML AMP INHALATION ×2 (08:32→22:02)
[2019-10-02] MEDS: ENOXAPARIN 40 MG/0.4 ML SYRINGE SUB-Q (08:32)
[2019-10-02] MEDS: carvediloL 12.5 MG TABLET PO ×2 (08:33→22:27)
[2019-10-02] MEDS: MUPIROCIN 2% OINT 22 GM TUBE 1 APPLIC EACH NARE ×2 (08:33→22:27)
[2019-10-02] MEDS: CHLORDIAZEPOXIDE 5 MG CAPSULE 25 MG FEED TUBE ×3 (08:34→22:46)
[2019-10-02] MEDS: QUEtiapine FUMARATE 25 MG TABLET 50 MG FEED TUBE ×2 (08:34→22:27)
[2019-10-02] MEDS: INSULIN GLARGINE (*BKC) 100 UNITS/ML 16 UNITS SUB-Q (08:36)
--- NOTE | 2019-10-02 10:57 | WPDINTPN ---
Progress Note: A&P Assessment and Plan (1) Staphylococcus aureus bacteremia: Onset Date: 09/20/19 Code(s): R78.81 - Bacteremia Status: Acute Assessment and Plan: Blood cultures x2 from 09/20 growing Staphylococcus aureus, sensitive to oxacillin (But patient is allergic to penicillin) - Currently on Rocephin - Repeat blood cultures 09/22/2019 growing staph aureus. now blood culture from 09/26 are negative till date. - Echocardiogram on 09/23/2019 showed EF of 35-40%, grade 1 diastolic dysfunction, aortic valve is not visualized well, mitral valve has mild thickened leaflets, moderate to severe mitral valve regurg, - PANKAJ on 09/26/2019 with no vegetations or intracardiac thrombi, EF 35%, mild to moderate mitral valve regurg. - Appreciate infectious disease evaluation recommendations. Continue ceftriaxone 2 g daily - Patient continues to spike fevers with increasing leukocytosis, CT scan of the head, chest/abdomen /pelvis without contrast was ordered on 09/27/19, no acute intracranial abnormalities were noted, mild pneumonia involving the lower lobes, emphysema, right inguinal lymphadenopathy which may be lymphoma which could also be causing these fevers. - WBC count seems to be coming down now. will check procalcitonin levels . - blood and sputum cx resent 10/01 (2) Acute and chronic respiratory failure: Qualifiers: Respiratory failure complication: unspecified whether with hypoxia or hypercapnia Qualified Code(s): J96.20 - Acute and chronic respiratory failure, unspecified whether with hypoxia or hypercapnia Code(s): J96.20 - Acute and chronic respiratory failure, unspecified whether with hypoxia or hypercapnia Status: Acute Assessment and Plan: patient worsened overnight on 09/20/2019, tachypneic, increased work of breathing, impending respiratory failure, Dr. Coughlin intubated the patient on 09/20/2019 and transferred the patient to the ICU. Likely related to bacteremia and UTI and severe sepsis - continue bronchodilators - chest x-ray and ABGs reviewed, continue CMV mode of ventilation. - likely secondary to COPD exacerbation and/or bronchitis. He has been off steroids now. - appreciate Pulmonary evaluation recommendation - Weaned from propofol completely. He is currently on Precedex drip. On fentanyl drip. - On SBT but encephaloapthy and increased secretions still preventing extubation. - also has some component of systolic and diastolic heart failure contributing to respiratory failure. Moderate MR on echo, EF is 35% . Will increase coreg dose to control HR . (3) Encephalopathy: Code(s): G93.40 - Encephalopathy, unspecified Status: Acute Assessment and Plan: patient with acute encephalopathy. Most [facility] - CT scan of the brain without contrast was done, did not show any acute intracranial abnormalities - neurology has been consulted, - EEG was done on 09/26/2019, Reportedly showing diffuse slowing. - CT head 09/30- negative - still remians encephalopathic - Continue precedex. Currently on Precedex drip.. No benzodiazepine will be given even for p.r.n. basis. will start seroquel - LP showed no signs of meningitis , cx are pending (4) UTI (urinary tract infection): Qualifiers: Hematuria presence: without hematuria Urinary tract infection type: site unspecified Qualified Code(s): N39.0 - Urinary tract infection, site not specified Code(s): N39.0 - Urinary tract infection, site not specified Status: Acute Assessment and Plan: urine cultures growing Staph aureus continue ceftriaxone as above (5) Acute exacerbation of chronic obstructive airways disease: Code(s): J44.1 - Chronic obstructive pulmonary disease with (acute) exacerbation Status: Acute Assessment and Plan: continue mechanical ventilation, - continue antibiotics as above - Off steroids now. -
--- NOTE | 2019-10-02 11:08 | PCDIET ---
ICU Rounding Note: Patient remains intubated; continues to tolerate Glucerna 1.2 @ 60mL/hr goal rate with 70mL water flush every 4 hours. Last recorded weight is down at 62.0kg. I/O positive. Bowel Motility: BM x 1 today. Labs Reviewed: Glu (120), Alb (2.9), BUN (50), Cl (108) Meds Noted: Albuterol, Rocephin, Precedex, Librium, Pepcid, Fentanyl, Novolog, Lantus, Miralax Additional Notes: Left lip scab. No documented pressure ulcers. Gastric residuals ~10mL. Recommend continuing current tube feeding. Following daily in ICU rounds. Assessing/reassessing every Monday/Monday.
[2019-10-02 12:26] LABS: Glucose Point of Care 156 (65-105)
--- NOTE | 2019-10-02 12:47 | PM.PNCARD ---
Progress Note: A&P Assessment and Plan (1) Cardiomyopathy: Qualifiers: Cardiomyopathy type: unspecified Qualified Code(s): I42.9 - Cardiomyopathy, unspecified Code(s): I42.9 - Cardiomyopathy, unspecified Status: Acute Assessment and Plan: New diagnosis EF 35-40%. Was tachycardic and carvedilol increased which he seems to be tolerating as blood pressure has improved. Compensated, without volume overload.. Further workup deferred; probably re-evaluate as an outpatient. Continue supportive medical therapy as tolerated. Tolerating carvedilol, might add lisinopril at a later date depending on blood pressure etc. (2) Mitral regurgitation: Qualifiers: Cardiac valve disease etiology: nonrheumatic Qualified Code(s): I34.0 - Nonrheumatic mitral (valve) insufficiency Code(s): I34.0 - Nonrheumatic mitral (valve) insufficiency Status: Acute Assessment and Plan: PANKAJ as above, no veggies, mild to moderate MR (3) Staphylococcus aureus bacteremia: Onset Date: 09/20/19 Code(s): R78.81 - Bacteremia Status: Acute Assessment and Plan: Unknown source. PANKAJ 09/26/2019: No vegetations. Lumbar puncture negative. management per hospitalist and (4) Encephalopathy: Code(s): G93.40 - Encephalopathy, unspecified Status: Acute Assessment and Plan: Per Critical Care/ICU. Might be improving per my exam today.. Continue supportive care. (5) Acute and chronic respiratory failure: Qualifiers: Respiratory failure complication: unspecified whether with hypoxia or hypercapnia Qualified Code(s): J96.20 - Acute and chronic respiratory failure, unspecified whether with hypoxia or hypercapnia Code(s): J96.20 - Acute and chronic respiratory failure, unspecified whether with hypoxia or hypercapnia Status: Acute Assessment and Plan: Remains intubated. Management per Critical Care Service (6) Lymphoma: Code(s): C85.90 - Non-Hodgkin lymphoma, unspecified, unspecified site Status: Acute Assessment and Plan: Oncology following. Recent diagnosis of lymphoma. Overall prognosis quite poor given encephalopathy, persistent bacteremia, immune compromised state and lymphoma . Subjective Date/time seen: 10/02/19 12:47 Interval history: Follow-up for: Ejection fraction 35% found on PANKAJ, mitral regurgitation 09/30/2019 daily visit: Sedated, intubated, not responsive 10/01/2019 visit: Patient remains sedated, was confused and agitated throughout the day, not following commands, and finally sleeping. Getting tube feedings. Still having fevers up to 39.0?. No obvious pain or shortness of breath. Date of service: 10/02/2019. Patient remained sedated with Precedex and on the ventilator, confused, not following commands per RN. Febrile yesterday, abated at 4:00 a.m.. Carvedilol increased yesterday for tachycardia. Getting tube feedings. No obvious pain or shortness of breath. Review of Systems Review of Systems: All systems reviewed & are unremarkable except as noted in HPI and below ROS unobtainable: unobtainable due to endotracheal tube, unobtainable due to mental condition and unobtainable due to mental status Constitutional: Constitutional: Reports as per HPI and Reports no additional constitutional complaints Eyes: Eyes: Reports as per HPI and Reports no additional eye complaints ENT: Reports system reviewed and no additional complaints, except as documented and Reports as per HPI Cardiovascular: Cardiovascular: Reports as per HPI and Reports no additional cardiovascular complaints Respiratory: Respiratory: Reports as per HPI and Reports no additional respiratory complaints Gastrointestinal: Gastrointestinal: R
--- NOTE | 2019-10-02 14:37 | WPDINFPN2 ---
Progress Note: A&P Assessment and Plan (1) Staphylococcus aureus bacteremia: Onset Date: 09/20/19 Code(s): R78.81 - Bacteremia Status: Acute Assessment and Plan: 1. JAMILAH bacteremia, endovascular source currently, but no focal site is apparent. PANKAJ no infection seen. Microbiologic cure, though febrile early this am 2. New Dx NHL, with immunocompromise 3. Resp failure 4. Multifactorial leukocytosis, persists 5. PCN allergy REC Ctx # 12, continue. He is on optimal therapy. LP suggests no infection. His ongoing fever may be from pulmonary endovascular , less likely SPICE BLENDER or non infectious. Subjective Date/time seen: 10/02/19 14:37 Interval history: intubated, OG tube, no pressors Exam Narrative: Exam Narrative: t max 39.2 core Const: General: in distress Eyes: General: appearance normal, both eyes and all related structures Resp: Effort & Inspection: normal respiratory effort Auscultation: clear to auscultation bilaterally and diminished lung sounds Cardio: Rate: regular rate Rhythm: regular rhythm Heart sounds: no gallops and no murmurs GI: Inspection: non-distended GI Palp: Yes Firmness to palpation present (GI) and No Tenderness to palpation present (GI) Skin: General skin exam: normal color and no rashes or lesions noted Other: erythema at knees Objective Data Vital Signs Vital Signs: Vital Signs - 24 hr 10/01/19 16:00 10/01/19 17:03 10/01/19 18:00 Temperature 38.4 C H Pulse Rate 104 H 81 77 Respiratory Rate 30 H 20 Blood Pressure 137/79 99/63 L Pulse Oximetry 95 94 96 10/01/19 19:35 10/01/19 19:38 10/01/19 19:57 Temperature Pulse Rate 100 100 96 Respiratory Rate 28 H 23 H Blood Pressure Pulse Oximetry 93 10/01/19 20:00 10/01/19 21:22 10/01/19 22:00 Temperature 38.4 C H 38.2 C H Pulse Rate 101 H 90 87 Respiratory Rate 26 H 28 H Blood Pressure 121/74 129/74 Pulse Oximetry 97 100 10/01/19 23:00 10/02/19 00:00 10/02/19 02:00 Temperature 39.2 C H 39.2 C H Pulse Rate 90 86 100 Respiratory Rate 22 H 31 H Blood Pressure 103/69 105/79 Pulse Oximetry 98 96 96 10/02/19 02:10 10/02/19 03:16 10/02/19 04:00 Temperature 39.2 C H 38.8 C H Pulse Rate 105 H 111 H Respiratory Rate 28 H 23 H Blood Pressure 141/83 H Pulse Oximetry 99 10/02/19 05:15 10/02/19 06:00 10/02/19 08:00 Temperature 37.3 C 37.4 C Pulse Rate 108 H 98 94 Respiratory Rate 20 32 H Blood Pressure 118/71 119/69 Pulse Oximetry 96 95 96 10/02/19 08:32 10/02/19 08:35 10/02/19 08:55 Temperature Pulse Rate 87 95 94 Respiratory Rate 12 32 H Blood Pressure Pulse Oximetry 96 10/02/19 10:00 10/02/19 11:12 10/02/19 12:00 Temperature 37.3 C Pulse Rate 75 71 69 Respiratory Rate 12 16 Blood Pressure 101/68 104/64 Pulse Oximetry 96 94 94 10/02/19 13:58 10/02/19 14:03 10/02/19 14:13 Temperature Pulse Rate 89 87 88 Respiratory Rate 24 H 20 Blood Pressure Pulse Oximetry 98 Intake/Output Intake/Output: Intake & Output 09/29/19 09/30/19 10/01/19 10/02/19 23:59 23:59 23:59 23:59 Intake Total 2873 2636 2410 1548 Output Total 1900 1450 1800 675 Balance 973 1186 610 873 Meds/Results Medications: Active Medications Generic Name Dose Route Start Last Admin Trade Name Derekq PRN Reason Stop Dose Admin Acetaminophen 650 mg 09/20/19 09:00 10/02/19 03:16 Tylenol Tablet PO 650 mg Q4H PRN Administration Headache Albuterol 5 mg 09/17/19 14:00 10/02/19 13:56 Albuterol Sulf Neb 2.5mg/0.5ml INHALATION 5 mg Q6HRT AZUCENA Administration Budesonide 0.5 mg 09/21/19 08:55 10/02/19 08:32 Pulmicort Respule Neb INHALATION 0.5 mg Q12HRT AZUCENA Administration Carvedilol 12.5 mg 10/01/19 21:00 10/02/19 08:33 Coreg PO 12.5 mg Q12HR AZUCENA Administration Chlordiazepoxide HCl 25 mg 10/02/19 14:00 10/02/19 08:34 Librium Po FEED TUBE 25 mg Q8HR AZUCENA Administration Dextrose 12.5 gm 09/24/19 08
[2019-10-02 14:44] LABS: Alveolar/Arterial O2 Gradient 139.8 mmHg; Base Excess ABG 5.3 mEq/l (+/-2.0); Carboxyhemoglobin 0.3 % THb (0-2.0); Fractional Inspired Oxygen 35 %; HCO3 ABG 28.4 mEq/l (22.0-26.0); Methemoglobin ABG 0.2 %THb (0-1.5); Oxygen Saturation ABG 95.1 % (95.0-100.0); Oxyhemoglobin 92.7 % THb (90.0-100.0); PCO2 ABG 36.2 mmHg (35.0-45.0); PO2 ABG 67.7 mmHg (80.0-100.0); PO2 FiO2 Ratio Arterial Blood 1.93 %; Reduced Hemoglobin 6.8 %THb (0-5.0); Total Hemoglobin 11.5 g/dL (12.0-18.0)
[2019-10-02 14:47] LABS: Device VENTILATOR; Site Drawn LEFT BRACHIAL; pH ABG 7.512 (7.350-7.450)
[2019-10-02 14:48] LABS: Arterial Blood Gas PEEP 5 cmH2O; Arterial Blood Gas Pressure Support 8 cmH2O; Arterial Blood Gas Vent Mode SPONTANEOUS
[2019-10-02 16:15] LABS: VDRL Quantitative CSF Nonreactive (Nonreactive)
[2019-10-02 18:04] LABS: Glucose Point of Care 104 (65-105)
--- NOTE | 2019-10-02 18:28 | PM.IMPN ---
Progress Note: A&P Assessment and Plan (1) Acute exacerbation of chronic obstructive airways disease: Code(s): J44.1 - Chronic obstructive pulmonary disease with (acute) exacerbation Status: Acute (2) Chronic respiratory failure with hypoxia: Code(s): J96.11 - Chronic respiratory failure with hypoxia Status: Acute Assessment and Plan: 09/30/19 16:25 Patient is a 69 yo M with history of COPD/asthma overlap, scleroderma, chronic respiratory failure with hypoxia, diastolic congestive heart failure, and history of tobacco abuse who is here for acute on chrronid respiratory failure 2/2 COPD exacerbation and for evaluation of right inguinal lymphadenopathy. Pt had lymph node biospy seen by Dr Barr will need further investigations later after discharge for possible non hodgkins lymphoma. Pt unfortunately developed severe SOB and was intubated and admitted to ICU, 09/20/2019. Continue ventilatory support. Discussion with brother at the bedside.. 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 Ongoing bactremia, encehalopathy and respiratory failure, difficult to wean of the vent. Continue care, hopeful extubation soon. (3) Acute kidney injury: Code(s): N17.9 - Acute kidney failure, unspecified Status: Acute Assessment and Plan: Monitor renal function. (4) Diastolic heart failure: Qualifiers: Heart failure chronicity: chronic Qualified Code(s): I50.32 - Chronic diastolic (congestive) heart failure Code(s): I50.30 - Unspecified diastolic (congestive) heart failure Status: Acute Assessment and Plan: He is clinically compensated. Cardiac echo showed possible vegetation PANKAJ is ordered (5) Chronic anemia: Code(s): D64.9 - Anemia, unspecified Status: Acute Assessment and Plan: Continue to trend hb/ hct (6) Mass of right inguinal region: Code(s): R19.09 - Other intra-abdominal and pelvic swelling, mass and lump Status: Acute Assessment and Plan: Soft tissue ultrasound of the right inguinal region read as right inguinal lymphadenopathy, largest demonstrating effacement of normal fatty hilum, possibly pathologic. Consider lymphoma. Biopsy performed yesterday and preliminary results have returned suggestive for lymphoma. Prelim biopsy suggestive of lymphoma Dr. Barr has been consulted and appreciate input. Pt to follow with Dr Barr on discharge (7) Staphylococcus aureus bacteremia: Onset Date: 09/20/19 Code(s): R78.81 - Bacteremia Status: Acute Assessment and Plan: Patient is seen by suspect possible endocardiac source however PANKAJ dose not show any vagetation, plan is above (8) Acute and chronic respiratory failure: Qualifiers: Respiratory failure complication: unspecified whether with hypoxia or hypercapnia Qualified Code(s): J96.20 - Acute and chronic respiratory failure, unspecified whether with hypoxia or hypercapnia Code(s): J96.20 - Acute and chronic respiratory failure, unspecified whether with hypoxia or hypercapnia Status: Acute Assessment and Plan: Plan is above Subjective Date/time seen: 10/02/19 18:28 Interval history: Patient is a 69 yo M with history of COPD/asthma overlap, scleroderma, chronic respiratory
--- NOTE | 2019-10-02 19:50 | PM.PNPUL ---
Progress Note: A&P Assessment and Plan (1) COPD exacerbation: Code(s): J44.1 - Chronic obstructive pulmonary disease with (acute) exacerbation Status: Acute Assessment and Plan: -Intubated for airway protection from septic encephalopathy -continue Albuterol/Ipratropium Nebs Q6h -continue Pulmicort Nebs 0.5 mg bid -daily SBT per Internal Medicine Nurse Practitioner as tolerated _ on small amounts of sedation as he is more alert and responsive, still febrile; mentation is gradually improving. Subjective Date/time seen: 10/02/19 19:50 thiws 69 yo man is seen for acute resp failure, on mechanical ventilation, FiO2 35%. He is off sedatives. Review of Systems Review of Systems: Narrative: Not obtainable due to decreased mental status. Objective Data Vital Signs Vital Signs: Vital Signs - 24 hr 10/01/19 19:57 10/01/19 20:00 10/01/19 21:22 Temperature 38.4 C H Pulse Rate 96 101 H 90 Respiratory Rate 23 H 26 H Blood Pressure 121/74 Pulse Oximetry 97 10/01/19 22:00 10/01/19 23:00 10/02/19 00:00 Temperature 38.2 C H 39.2 C H Pulse Rate 87 90 86 Respiratory Rate 28 H 22 H Blood Pressure 129/74 103/69 Pulse Oximetry 100 98 96 10/02/19 02:00 10/02/19 02:10 10/02/19 03:16 Temperature 39.2 C H 39.2 C H Pulse Rate 100 105 H Respiratory Rate 31 H 28 H Blood Pressure 105/79 Pulse Oximetry 96 10/02/19 04:00 10/02/19 05:15 10/02/19 06:00 Temperature 38.8 C H 37.3 C Pulse Rate 111 H 108 H 98 Respiratory Rate 23 H 20 Blood Pressure 141/83 H 118/71 Pulse Oximetry 99 96 95 10/02/19 08:00 10/02/19 08:32 10/02/19 08:35 Temperature 37.4 C Pulse Rate 94 87 95 Respiratory Rate 32 H 12 Blood Pressure 119/69 Pulse Oximetry 96 96 10/02/19 08:55 10/02/19 10:00 10/02/19 11:12 Temperature Pulse Rate 94 75 71 Respiratory Rate 32 H 12 Blood Pressure 101/68 Pulse Oximetry 96 94 10/02/19 12:00 10/02/19 13:58 10/02/19 14:00 Temperature 37.3 C Pulse Rate 69 89 88 Respiratory Rate 16 24 H 24 H Blood Pressure 104/64 123/68 Pulse Oximetry 94 94 10/02/19 14:03 10/02/19 14:13 10/02/19 15:29 Temperature Pulse Rate 87 88 100 Respiratory Rate 20 Blood Pressure Pulse Oximetry 98 97 10/02/19 16:00 10/02/19 17:35 10/02/19 18:00 Temperature 38.5 C H Pulse Rate 90 93 98 Respiratory Rate 21 H 28 H Blood Pressure 124/64 115/58 L Pulse Oximetry 94 93 95 Intake/Output Intake/Output: Intake & Output 09/29/19 09/30/19 10/01/19 10/02/19 23:59 23:59 23:59 23:59 Intake Total 2873 2636 2410 2614 Output Total 1900 1450 1800 1375 Balance 973 4466 898 0783 Meds/Results Medications: Active Medications Generic Name Dose Route Start Last Admin Trade Name Freq PRN Reason Stop Dose Admin Acetaminophen 650 mg 09/20/19 09:00 10/02/19 03:16 Tylenol Tablet PO 650 mg Q4H PRN Administration Headache Albuterol 5 mg 09/17/19 14:00 10/02/19 13:56 Albuterol Sulf Neb 2.5mg/0.5ml INHALATION 5 mg Q6HRT AZUCENA Administration Budesonide 0.5 mg 09/21/19 08:55 10/02/19 08:32 Pulmicort Respule Neb INHALATION 0.5 mg Q12HRT AZUCENA Administration Carvedilol 12.5 mg 10/01/19 21:00 10/02/19 08:33 Coreg PO 12.5 mg Q12HR AZUCENA Administration Chlordiazepoxide HCl 25 mg 10/02/19 14:00 10/02/19 18:37 Librium Po FEED TUBE 25 mg Q8HR AZUCENA Administration Dextrose 12.5 gm 09/24/19 08:05 Dextrose 50% Syringe IV PUSH PRN PRN Hypoglycemia Protocol Enoxaparin Sodium 40 mg 09/21/19 09:00 10/02/19 08:32 Lovenox SUB-Q 40 mg DAILY AZUCENA Administration Famotidine 20 mg 09/28/19 09:00 10/02/19 08:32 Pepcid Iv IV PUSH 20 mg Q12HR AZUCENA Administration Glucagon 1 mg 09/24/19 08:05 Glucagon For Inj IM PRN PRN Hypoglycemia Protocol Glucose 15 gm 09/24/19 08:05 Glutose 15 PO PRN PRN Hypoglycemia Protocol Dextrose 1,000 mls @ 100 mls/hr 09/24/19 08:05 Dex
[2019-10-02 23:45] LABS: Herpes Simplex Type 1 DNA PCR Not Detected (Not Detected); Herpes Simplex Type 2 DNA PCR Not Detected (Not Detected)
[2019-10-02 23:59] LABS: Glucose Point of Care 109 (65-105)
[2019-10-03] VITALS (35 sets, daily range): BP systolic 82–118; BP diastolic 53–69; PULSE 66–90; RESP 12–33; TEMP 36.7–38.7; O2SAT 91–97
[2019-10-03] MEDS: INSULIN GLARGINE (*BKC) 100 UNITS/ML 16 UNITS SUB-Q ×3 (00:09→20:39)
[2019-10-03] MEDS: IPRATROPIUM BR 0.02% INH SOLN 0.5 MG/2.5 ML VIAL INHALATION ×4 (02:34→20:36)
[2019-10-03] MEDS: ALBUTEROL SULFATE NEB 2.5 MG/0.5 ML INH 5 MG INHALATION ×4 (02:34→20:36)
[2019-10-03 04:32] LABS: Hematocrit 33.2 % (42.0-52.0); Hemoglobin 10.8 g/dL (14.0-18.0); Mean Corpuscular HGB Conc 32.5 g/dl (32-36); Mean Corpuscular Hemoglobin 30.9 pg (26-34); Mean Corpuscular Volume 94.9 fl (80-100); Mean Platelet Volume 11.2 fl (7.4-10.4); Platelet Count Result 293 k/mm3 (150-375); Red Cell Distribution Width 12.7 % (11.5-14.5); White Blood Count 13.3 K/mm3 (4.5-10.0)
[2019-10-03 04:48] LABS: Alveolar/Arterial O2 Gradient 140.3 mmHg; Base Excess ABG 6.1 mEq/l (+/-2.0); Carboxyhemoglobin 0.3 % THb (0-2.0); Fractional Inspired Oxygen 35 %; HCO3 ABG 30.3 mEq/l (22.0-26.0); Methemoglobin ABG 0.3 %THb (0-1.5); Oxygen Content ABG 16.4 %vol (16.0-22.0); Oxygen Saturation ABG 92.6 % (95.0-100.0); Oxyhemoglobin 89.9 % THb (90.0-100.0); PO2 ABG 60.4 mmHg (80.0-100.0); PO2 FiO2 Ratio Arterial Blood 1.73 %; Reduced Hemoglobin 9.5 %THb (0-5.0); pH ABG 7.476 (7.350-7.450)
[2019-10-03 04:49] LABS: Device VENTILATOR; Modified Allen's Test Pass; Site Drawn RIGHT RADIAL
[2019-10-03 04:50] LABS: Arterial Blood Gas PEEP 5 cmH2O; Arterial Blood Gas Tidal Volume 450 ml; Arterial Blood Gas Vent Mode CMV; Arterial Blood Gas Ventilator rate 20 /MIN
[2019-10-03 04:51] LABS: Alanine Aminotransferase 57 U/L (4-50); Albumin Level 2.8 g/dL (3.5-5.1); Alkaline Phosphatase 73 U/L (38-126); Aspartate Amino Transferase 52 U/L (17-59); Bilirubin,Total 0.5 mg/dL (0.2-1.3); Blood Urea Nitrogen 50 mg/dL (9-20); Calcium 8.9 mg/dL (8.4-10.2); Carbon Dioxide 29 mmol/L (22-30); Chloride 105 mmol/L (98-107); Estimated CRCL calculation 56 ml/min; Estimated Glomerular Filt Rate > 60; Glucose 148 mg/dL (75-110); Magnesium 2.4 mg/dL (1.6-2.3); Potassium 4.2 mmol/L (3.4-5.0); Sodium 141 mmol/L (137-145)
[2019-10-03] MEDS: CHLORDIAZEPOXIDE 25 MG CAPSULE PO ×3 (05:52→20:25)
[2019-10-03] MEDS: polyethylene glycoL 3350 17 GM POWD.PACK PO (08:41)
[2019-10-03] MEDS: ENOXAPARIN 40 MG/0.4 ML SYRINGE SUB-Q (08:41)
[2019-10-03] MEDS: QUEtiapine FUMARATE 25 MG TABLET 50 MG FEED TUBE ×2 (08:41→20:25)
[2019-10-03] MEDS: carvediloL 12.5 MG TABLET PO ×2 (08:41→20:25)
[2019-10-03] MEDS: BUDESONIDE RESPULE NEB 0.5 MG/2 ML AMP INHALATION ×2 (08:44→20:49)
--- NOTE | 2019-10-03 08:53 | PM.PNCARD ---
Progress Note: A&P Assessment and Plan (1) Cardiomyopathy: Qualifiers: Cardiomyopathy type: unspecified Qualified Code(s): I42.9 - Cardiomyopathy, unspecified Code(s): I42.9 - Cardiomyopathy, unspecified Status: Acute Assessment and Plan: New diagnosis EF 35-40%. Was tachycardic and carvedilol increased 10/01/2019 which he seems to be tolerating. BP soft at times. Compensated, without volume overload.. Tolerating carvedilol, might add lisinopril at a later date depending on blood pressure etc. Will evaluate CM further as an outpatient. (2) Mitral regurgitation: Qualifiers: Cardiac valve disease etiology: nonrheumatic Qualified Code(s): I34.0 - Nonrheumatic mitral (valve) insufficiency Code(s): I34.0 - Nonrheumatic mitral (valve) insufficiency Status: Acute Assessment and Plan: PANKAJ as above, no veggies, mild to moderate MR (3) Staphylococcus aureus bacteremia: Onset Date: 09/20/19 Code(s): R78.81 - Bacteremia Status: Acute Assessment and Plan: Unknown source. PANKAJ 09/26/2019: No vegetations. Lumbar puncture negative. Still having fevers. White cell count declining. Management per hospitalist and Dr. Frausto (4) Encephalopathy: Code(s): G93.40 - Encephalopathy, unspecified Status: Acute Assessment and Plan: Improving. (5) Acute and chronic respiratory failure: Qualifiers: Respiratory failure complication: unspecified whether with hypoxia or hypercapnia Qualified Code(s): J96.20 - Acute and chronic respiratory failure, unspecified whether with hypoxia or hypercapnia Code(s): J96.20 - Acute and chronic respiratory failure, unspecified whether with hypoxia or hypercapnia Status: Acute Assessment and Plan: Remains intubated but on a breathing trial. Management per Critical Care Service (6) Lymphoma: Code(s): C85.90 - Non-Hodgkin lymphoma, unspecified, unspecified site Status: Acute Assessment and Plan: Oncology following. Recent diagnosis of lymphoma. Subjective Date/time seen: 10/03/19 08:53 Interval history: Follow-up for: Ejection fraction 35% found on PANKAJ, mitral regurgitation 09/30/2019 daily visit: Sedated, intubated, not responsive 10/01/2019 visit: Patient remains sedated, was confused and agitated throughout the day, not following commands, and finally sleeping. Getting tube feedings. Still having fevers up to 39.0?. No obvious pain or shortness of breath. 10/02/2019.Visit: Patient remained sedated with Precedex and on the ventilator, confused, not following commands per RN. Febrile yesterday, abated at 4:00 a.m.. Carvedilol increased yesterday for tachycardia. Getting tube feedings. No obvious pain or shortness of breath. Date of service 10/03/2019: Remains intubated, now on a breathing trial, following commands. T-max 101.8? last night, currently afebrile. Lots of secretions. Review of Systems Review of Systems: ROS unobtainable: unobtainable due to endotracheal tube, unobtainable due to mental condition, unobtainable due to mental status and other ( Patient indicates that he is not having any pain and is not cold by shaki) ENT: Reports system reviewed and no additional complaints, except as documented and Reports as per HPI Respiratory: Respiratory: Reports excessive phlegm production Gastrointestinal: Gastrointestinal: Reports as per HPI ( tube feedings on hold for breathing trial) Genitourinary: Genitourinary: Reports as per HPI ( Muro catheter) Musculoskeletal: Musculoskeletal: Denies back pain and Reports arthralgias Exam Narrative: Exam Narrative: Ill-appearing male quiet, eyes open,, no distress, NG tube and ET tube present.
[2019-10-03 10:07] LABS: Glucose Point of Care 115 (65-105)
[2019-10-03] MEDS: LIDOCAINE HCL 1% PF INJ 5 ML VIAL INFILTRATE (10:30)
[2019-10-03] MEDS: DORNASE ALFA INH SOLN 1 MG/ML 2.5 ML AMP 2.5 MG INHALATION ×2 (11:21→20:49)
--- NOTE | 2019-10-03 11:44 | WPDINTPN ---
Progress Note: A&P Assessment and Plan (1) Staphylococcus aureus bacteremia: Onset Date: 09/20/19 Code(s): R78.81 - Bacteremia Status: Acute Assessment and Plan: Blood cultures x2 from 09/20 growing Staphylococcus aureus, sensitive to oxacillin (But patient is allergic to penicillin) - Repeat blood cultures 09/22/2019 growing staph aureus. now blood culture from 09/26 are negative till date. - Echocardiogram on 09/23/2019 showed EF of 35-40%, grade 1 diastolic dysfunction, aortic valve is not visualized well, mitral valve has mild thickened leaflets, moderate to severe mitral valve regurg, - PANKAJ on 09/26/2019 with no vegetations or intracardiac thrombi, EF 35%, mild to moderate mitral valve regurg. - Appreciate infectious disease evaluation recommendations. Continue ceftriaxone 2 g daily - Patient continues to spike fevers, WBC count trending down., CT scan of the head, chest/abdomen /pelvis without contrast was ordered on 09/27/19, no acute intracranial abnormalities were noted, mild pneumonia involving the lower lobes, emphysema, right inguinal lymphadenopathy which may be lymphoma which could also be causing these fevers. - WBC count seems to be coming down now. Procalcitonin pending - blood and sputum cx recent on 10/01/2019 are negative (2) Acute and chronic respiratory failure: Qualifiers: Respiratory failure complication: unspecified whether with hypoxia or hypercapnia Qualified Code(s): J96.20 - Acute and chronic respiratory failure, unspecified whether with hypoxia or hypercapnia Code(s): J96.20 - Acute and chronic respiratory failure, unspecified whether with hypoxia or hypercapnia Status: Acute Assessment and Plan: patient worsened overnight on 09/20/2019, tachypneic, increased work of breathing, impending respiratory failure, Dr. Coughlin intubated the patient on 09/20/2019 and transferred the patient to the ICU. Likely related to bacteremia and UTI and severe sepsis - continue bronchodilators - chest x-ray and ABGs reviewed, on CMV mode of ventilation. - likely secondary to COPD exacerbation and/or bronchitis. He has been off steroids now. - appreciate Pulmonary evaluation recommendation - patient remains of propofol and fentanyl, currently on Precedex infusion . - encephalopathy much improved this morning as patient is more responsive and follows simple commands, will place patient on SBT. Patient still has excessive and thick secretions, will add Pulmozyme. - also has some component of systolic and diastolic heart failure contributing to respiratory failure. Moderate MR on echo, EF is 35% . On Coreg (3) Encephalopathy: Code(s): G93.40 - Encephalopathy, unspecified Status: Acute Assessment and Plan: patient with acute encephalopathy. [facility] - CT scan of the brain without contrast 09/27/2019 was done, did not show any acute intracranial abnormalities - EEG was done on 09/26/2019, Reportedly showing diffuse slowing. neurology following - CT head 09/30- negative - Continue precedex. continue Seroquel and Libriuml - LP done showed no signs of meningitis , bacterial, AFB, fungal cultures are all negative - patient more awake this morning, opens eyes to name, nods to questions and follows simple commands. Will continue to monitor (4) UTI (urinary tract infection): Qualifiers: Urinary tract infection type: site unspecified Hematuria presence: without hematuria Qualified Code(s): N39.0 - Urinary tract infection, site not specified Code(s): N39.0 - Urinary tract infection, site not specified Status: Acute Assessment and Plan: urine cultures growing Staph aureus continue ceftriaxone as above (5) Acute exacerbation of chronic obstructive airways disease: Code(s): J44.1 - Chronic obstructive pulmonary disease with (acute) exacerbation Status: Acute Assessment
[2019-10-03] MEDS: FAMOTIDINE 20 MG/2 ML VIAL IV PUSH ×2 (11:55→20:24)
[2019-10-03 12:08] LABS: Glucose Point of Care 79 (65-105)
--- NOTE | 2019-10-03 12:58 | PCDIET ---
ICU Rounding Note: Patient tolerating Glucerna 1.2 @ 60mL/hr goal rate with no significant residuals. Last recorded weight is 64.1kg which is increased. I/O positive. Bowel Motility: +BM 10/02/19. Labs Reviewed: Glu (148), Mg (2.4), Alb (2.8) Meds Noted: Albuterol, Rocephin, Librium, Precedex, Pepcid, Fentanyl, Novolog, Lantus, Miralax Additional Notes: No pressure sores reported. Recommend continuing tube feeding/rate. Following daily in ICU rounds. Assessing/reassessing every Monday/Monday.
[2019-10-03 13:23] LABS: Epstein Barr Virus DNA PCR Not Detected (Not Detected); Source Epstein Barr Virus CSF
--- NOTE | 2019-10-03 14:11 | WPDINFPN2 ---
Progress Note: A&P Assessment and Plan (1) Staphylococcus aureus bacteremia: Onset Date: 09/20/19 Code(s): R78.81 - Bacteremia Status: Acute Assessment and Plan: 1. JAMILAH bacteremia, endovascular source currently, but no focal site is apparent. PANKAJ no infection seen. Microbiologic cure, though febrile still 2. New Dx NHL, with immunocompromise 3. Resp failure 4. Multifactorial leukocytosis, persists 5. PCN allergy REC Ctx # 13, continue. He is on optimal therapy. LP suggests no infection. His ongoing fever may be from pulmonary endovascular , less likely VP STRATEGY or non infectious. No additional studies at this time; CXR without cavities/nodular infiltrates. Subjective Date/time seen: 10/03/19 14:11 Interval history: intubated, no pressors Exam Narrative: Exam Narrative: t max 39.3 core Const: General: in distress Eyes: General: appearance normal, both eyes and all related structures Resp: Effort & Inspection: normal respiratory effort Auscultation: clear to auscultation bilaterally and diminished lung sounds Cardio: Rate: regular rate Rhythm: regular rhythm Heart sounds: no gallops and no murmurs GI: Inspection: non-distended GI Palp: Yes Soft to palpation and No Tenderness to palpation present (GI) Urinary Catheter: Urinary Catheter: patent and draining and urine clear Skin: General skin exam: normal color and no rashes or lesions noted Objective Data Vital Signs Vital Signs: Vital Signs - 24 hr 10/02/19 14:13 10/02/19 15:29 10/02/19 16:00 Temperature 38.5 C H Pulse Rate 88 100 90 Respiratory Rate 20 21 H Blood Pressure 124/64 Pulse Oximetry 97 94 10/02/19 17:35 10/02/19 18:00 10/02/19 18:59 Temperature 39.3 C H Pulse Rate 93 98 84 Respiratory Rate 28 H 20 Blood Pressure 115/58 L Pulse Oximetry 93 95 94 10/02/19 19:00 10/02/19 19:01 10/02/19 19:15 Temperature 39.2 C H 39.2 C H 39.1 C H Pulse Rate 83 83 80 Respiratory Rate 20 20 20 Blood Pressure 87/59 L Pulse Oximetry 93 94 94 10/02/19 19:30 10/02/19 19:45 10/02/19 20:00 Temperature 38.9 C H 38.8 C H 38.8 C H Pulse Rate 79 79 104 H Respiratory Rate 20 20 24 H Blood Pressure 88/55 L Pulse Oximetry 94 95 93 10/02/19 20:01 10/02/19 20:15 10/02/19 20:20 Temperature 38.8 C H 38.8 C H Pulse Rate 78 94 89 Respiratory Rate 20 19 Blood Pressure Pulse Oximetry 93 94 93 10/02/19 20:31 10/02/19 20:45 10/02/19 21:00 Temperature 38.8 C H 38.9 C H 38.9 C H Pulse Rate 83 90 78 Respiratory Rate 33 H 28 H 20 Blood Pressure Pulse Oximetry 94 94 91 10/02/19 21:01 10/02/19 21:15 10/02/19 21:30 Temperature 38.9 C H 39.1 C H 39.1 C H Pulse Rate 80 82 79 Respiratory Rate 20 20 20 Blood Pressure 97/58 L Pulse Oximetry 93 93 94 10/02/19 21:45 10/02/19 21:50 10/02/19 22:00 Temperature 39.0 C H 38.9 C H Pulse Rate 78 88 94 Respiratory Rate 20 26 H 25 H Blood Pressure 115/66 Pulse Oximetry 93 96 10/02/19 22:01 10/02/19 22:05 10/02/19 22:15 Temperature 38.8 C H 39.1 C H Pulse Rate 98 85 85 Respiratory Rate 26 H 24 H 30 H Blood Pressure Pulse Oximetry 95 90 10/02/19 22:24 10/02/19 22:27 10/02/19 22:30 Temperature 39.0 C H 38.9 C H Pulse Rate 104 H 85 Respiratory Rate 26 H Blood Pressure Pulse Oximetry 92 10/02/19 22:45 10/02/19 23:00 10/02/19 23:05 Temperature 38.9 C H 38.9 C H Pulse Rate 102 H 85 79 Respiratory Rate 38 H 32 H Blood Pressure Pulse Oximetry 100 92 10/02/19 23:09 10/02/19 23:15 10/02/19 23:30 Temperature 38.8 C H 38.8 C H 38.7 C H Pulse Rate 83 80 78 Respiratory Rate 20 22 H 21 H Blood Pressure 93/67 L Pulse Oximetry 93 91 94 10/03/19 00:00 10/03/19 02:00 10/03/19 02:22 Temperature 38.4 C H 38.2 C H Pulse Rate 74 67 67 Respiratory Rate 20 20 Blood Pressure 91/65 L 95/60 L Pulse Oximetry 93 93 93 10/03/19 02:37 10/03/19 02:55 10/03/19 04:00 Temperature 36.9 C Pulse Rate 69 74 66 Respiratory R
--- NOTE | 2019-10-03 14:24 | PM.IMPN ---
Progress Note: A&P Assessment and Plan (1) Acute exacerbation of chronic obstructive airways disease: Code(s): J44.1 - Chronic obstructive pulmonary disease with (acute) exacerbation Status: Acute (2) Chronic respiratory failure with hypoxia: Code(s): J96.11 - Chronic respiratory failure with hypoxia Status: Acute Assessment and Plan: 09/30/19 16:25 Patient is a 69 yo M with history of COPD/asthma overlap, scleroderma, chronic respiratory failure with hypoxia, diastolic congestive heart failure, and history of tobacco abuse who is here for acute on chrronid respiratory failure 2/2 COPD exacerbation and for evaluation of right inguinal lymphadenopathy. Pt had lymph node biospy seen by Dr Barr will need further investigations later after discharge for possible non hodgkins lymphoma. Pt unfortunately developed severe SOB and was intubated and admitted to ICU, 09/20/2019. Continue ventilatory support. Discussion with brother at the bedside.. 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 Ongoing bactremia, encehalopathy and respiratory failure, pt doing much better today, on breathing trial hopeful extubation soon. Pt being seen by pulmology, ID, cardiology and ICU Mds. Bacterermia work up - LP is negative. PANKAJ was negative. Blood cultures x2 from 09/20 growing Staphylococcus aureus, sensitive to oxacillin (But patient is allergic to penicillin) Repeat blood cultures 09/22/2019 growing staph aureus. now blood culture from 09/26 are negative till date. Wcc coming down gradually, CXR shows mild PNEumonia ? secondary to lymphoma continue rocephin (3) Acute kidney injury: Code(s): N17.9 - Acute kidney failure, unspecified Status: Resolved Assessment and Plan: Monitor renal function. (4) Diastolic heart failure: Qualifiers: Heart failure chronicity: chronic Qualified Code(s): I50.32 - Chronic diastolic (congestive) heart failure Code(s): I50.30 - Unspecified diastolic (congestive) heart failure Status: Acute Assessment and Plan: He is clinically compensated. Cardiomyopathy, cardiology rounding (5) Chronic anemia: Code(s): D64.9 - Anemia, unspecified Status: Acute Assessment and Plan: Continue to trend hb/ hct (6) Mass of right inguinal region: Code(s): R19.09 - Other intra-abdominal and pelvic swelling, mass and lump Status: Acute Assessment and Plan: Soft tissue ultrasound of the right inguinal region read as right inguinal lymphadenopathy, largest demonstrating effacement of normal fatty hilum, possibly pathologic. Consider lymphoma. Biopsy performed yesterday and preliminary results have returned suggestive for lymphoma. Prelim biopsy suggestive of lymphoma Dr. Barr has been consulted and appreciate input. Pt to follow with Dr Barr on discharge (7) Staphylococcus aureus bacteremia: Onset Date: 09/20/19 Code(s): R78.81 - Bacteremia Status: Acute Assessment and Plan: Patient is seen by suspect possible endocardiac source however PANKAJ dose not show any vagetation, plan is above (8) Acute and chronic respiratory failure: Qualifiers: Respiratory failure complication: unspecified whether with hypoxia or hypercapnia Qualified Code(s): J96.2
[2019-10-03 17:50] LABS: Glucose Point of Care 99 (65-105)
[2019-10-03 20:45] LABS: Glucose Point of Care 90 (65-105)
[2019-10-04] VITALS (32 sets, daily range): BP systolic 89–152; BP diastolic 54–80; PULSE 65–106; RESP 15–44; TEMP 35.6–39.8; O2SAT 90–100
[2019-10-04] MEDS: ALBUTEROL SULFATE NEB 2.5 MG/0.5 ML INH 5 MG INHALATION ×3 (02:13→19:20)
[2019-10-04] MEDS: IPRATROPIUM BR 0.02% INH SOLN 0.5 MG/2.5 ML VIAL INHALATION ×3 (02:14→19:20)
[2019-10-04 04:53] LABS: Alveolar/Arterial O2 Gradient 197.5 mmHg; Base Excess ABG 3.7 mEq/l (+/-2.0); Carboxyhemoglobin 0.2 % THb (0-2.0); Fractional Inspired Oxygen 40 %; HCO3 ABG 25.6 mEq/l (22.0-26.0); Methemoglobin ABG 0.3 %THb (0-1.5); Oxygen Saturation ABG 91.9 % (95.0-100.0); Oxyhemoglobin 87.1 % THb (90.0-100.0); PCO2 ABG 29.9 mmHg (35.0-45.0); PO2 ABG 53.3 mmHg (80.0-100.0); PO2 FiO2 Ratio Arterial Blood 1.33 %; Reduced Hemoglobin 12.4 %THb (0-5.0); Total Hemoglobin 11.4 g/dL (12.0-18.0)
[2019-10-04 04:59] LABS: Device VENTILATOR; Modified Allen's Test Pass; Site Drawn LEFT RADIAL
[2019-10-04 05:00] LABS: Arterial Blood Gas Minute Volume 9 LPM; Arterial Blood Gas PEEP 5 cmH2O; Arterial Blood Gas Tidal Volume 532 ml; Arterial Blood Gas Vent Mode ASV; Arterial Blood Gas Ventilator rate 24 /MIN
[2019-10-04] MEDS: CHLORDIAZEPOXIDE 25 MG CAPSULE PO ×3 (05:30→23:25)
[2019-10-04 06:10] LABS: Basophils Percent Auto 0.1 % (0.2-1.2); Eosinophils Absolute Auto 0.2 K/mm3 (0-0.3); Eosinophils Percent Auto 0.9 % (0-4.4); Hematocrit 32.2 % (42.0-52.0); Hemoglobin 10.4 g/dL (14.0-18.0); Immature Granulocyte Percent A 0.5 % (0-0.5); Lymphocytes Absolute Auto 1.74 K/mm3 (0.9-3.2); Lymphocytes Percent Auto 9.5 % (18.3-44.2); Mean Corpuscular HGB Conc 32.3 g/dl (32-36); Mean Corpuscular Hemoglobin 30.7 pg (26-34); Mean Platelet Volume 10.3 fl (7.4-10.4); Monocytes Absolute Auto 0.5 K/mm3 (0.1-0.6); Monocytes Percent Auto 2.5 % (2.6-8.5); Neutrophils Absolute Auto 15.8 K/mm3 (1.3-6.7); Neutrophils Percent Auto 86.5 % (45.5-73.1); Platelet Count Result 377 k/mm3 (150-375); Red Blood Count 3.39 M/mm3 (4.6-6.20); Red Cell Distribution Width 12.7 % (11.5-14.5); White Blood Count 18.2 K/mm3 (4.5-10.0)
[2019-10-04 06:38] LABS: Alanine Aminotransferase 47 U/L (4-50); Albumin Level 2.8 g/dL (3.5-5.1); Alkaline Phosphatase 93 U/L (38-126); Aspartate Amino Transferase 36 U/L (17-59); Bilirubin,Total 0.3 mg/dL (0.2-1.3); Blood Urea Nitrogen 44 mg/dL (9-20); Calcium 8.6 mg/dL (8.4-10.2); Carbon Dioxide 29 mmol/L (22-30); Chloride 102 mmol/L (98-107); Estimated CRCL calculation 48 ml/min; Estimated Glomerular Filt Rate 60; Glucose 152 mg/dL (75-110); Magnesium 2.3 mg/dL (1.6-2.3); Phosphorus 4.8 mg/dL (2.5-4.5); Potassium 3.9 mmol/L (3.4-5.0); Sodium 139 mmol/L (137-145)
[2019-10-04] MEDS: IPRATROPIUM BR 0.02% INH SOLN 0.5 MG/2.5 ML VIAL 1 MG INHALATION (07:31)
[2019-10-04] MEDS: ALBUTEROL SULFATE NEB 2.5 MG/0.5 ML INH 10 MG INHALATION (07:32)
[2019-10-04] MEDS: DORNASE ALFA INH SOLN 1 MG/ML 2.5 ML AMP 2.5 MG INHALATION ×2 (08:27→19:21)
[2019-10-04] MEDS: BUDESONIDE RESPULE NEB 0.5 MG/2 ML AMP INHALATION ×2 (08:27→19:20)
[2019-10-04] MEDS: ENOXAPARIN 40 MG/0.4 ML SYRINGE SUB-Q (08:31)
[2019-10-04] MEDS: QUEtiapine FUMARATE 25 MG TABLET 50 MG FEED TUBE ×2 (08:31→20:24)
[2019-10-04] MEDS: polyethylene glycoL 3350 17 GM POWD.PACK PO (08:31)
[2019-10-04] MEDS: carvediloL 12.5 MG TABLET PO ×2 (08:31→20:23)
[2019-10-04] MEDS: FAMOTIDINE 20 MG/2 ML VIAL IV PUSH ×2 (08:31→20:23)
[2019-10-04] MEDS: INSULIN GLARGINE (*BKC) 100 UNITS/ML 16 UNITS SUB-Q ×2 (08:39→20:30)
[2019-10-04] MEDS: MIDAZOLAM HCL 2 MG/2 ML VIAL (10:06)
--- NOTE | 2019-10-04 10:56 | PCDIET ---
Nutrition Follow-Up Complete: Nutrition Diagnosis: Inadequate Oral Intake as related to COPD as evidenced by weight loss of 10 pounds in the past 3 months/poor intake reported. Nutrition Goal: Patient to meet estimated nutritional needs. Goal met. Patient tolerating Glucerna 1.2 @ 60mL/hr goal rate via OG tube with 0-20mL residuals. Last recorded weight is 64.6 kg which is stable. Bowel Motility: +BM 10/03/19. Labs Reviewed: Glu (152), BUN (44), Alb (2.8), PO4 (4.8) Meds Noted: Albuterol, Rocephin, Librium, Precedex, Pepcid, Fentanyl, Novolog, Lantus, Miralax Additional Notes: Left lip scabbed; back side of scrotum small area noted by RN. Recommend continuing Glucerna 1.2 @ 60mL/hr for 1584kcal and 99g protein. Will continue to monitor with same goal. Nutrition Monitoring and Evaluation: Follow up every Monday/Monday. Follow daily in ICU rounds.
--- NOTE | 2019-10-04 11:48 | PM.PNCARD ---
Progress Note: A&P Additional Plan Asymptomatic left ventricular systolic dysfunction as described above patient is receiving carvedilol at this time and does not appear to be in any stated hemodynamic decompensation Continues to have asymptomatic ventricular ectopic activity Concern that patient has recurrent high fever last evening and this morning again. Continue to treat the Staph aureus sepsis Time Spent With Patient Time with patient: less than 15 minutes Subjective Date/time seen: Date of service: 10/04/19 11:48 Interval history: Follow-up visit for left ventricular systolic dysfunction identified on transesophageal echocardiogram. That exam was done to investigate for evidence of valvular vegetations. Patient continues to be intubated in the ICU Recurrent the febrile this morning temperature over 104 Exam Const: Other: Elderly white male intubated the ICU Eyes: Sclera: sclerae normal Pupils: Equal, round and reactive pupils present Neck: Neck: supple and no JVD Thyroid: thyroid normal Resp: Other: Central rhonchi Cardio: Rate: regular rate Rhythm: regular rhythm Other: No audible murmur GI: Auscultation: normal bowel sounds Skin: General skin exam: normal color Extrem: General: normal to inspection Other: Normal peripheral arterial perfusion Objective Data Vital Signs Vital Signs: Vital Signs - 24 hr 10/03/19 12:00 10/03/19 12:50 10/03/19 14:00 Temperature 38.6 C H 38.7 C H 38.2 C H Pulse Rate 85 88 Respiratory Rate 24 H 18 Blood Pressure 104/62 90/56 L Pulse Oximetry 93 97 10/03/19 14:04 10/03/19 14:05 10/03/19 16:00 Temperature 37.4 C Pulse Rate 84 82 71 Respiratory Rate 29 H 12 Blood Pressure 82/53 L Pulse Oximetry 92 93 10/03/19 16:30 10/03/19 18:00 10/03/19 19:58 Temperature 37.1 C 37.5 C Pulse Rate 79 81 86 Respiratory Rate 16 16 Blood Pressure 113/65 118/69 Pulse Oximetry 93 94 96 10/03/19 20:00 10/03/19 20:10 10/03/19 20:25 Temperature Pulse Rate 85 73 88 Respiratory Rate Blood Pressure Pulse Oximetry 96 10/03/19 20:36 10/03/19 20:50 10/03/19 21:37 Temperature Pulse Rate 90 74 70 Respiratory Rate 33 H 22 H Blood Pressure Pulse Oximetry 10/03/19 22:00 10/03/19 23:20 10/04/19 00:00 Temperature 37.9 C H 37.7 C H Pulse Rate 72 79 73 Respiratory Rate 23 H 18 Blood Pressure 87/54 L 110/63 Pulse Oximetry 96 93 95 10/04/19 02:00 10/04/19 02:14 10/04/19 02:15 Temperature 38.4 C H Pulse Rate 82 81 82 Respiratory Rate 17 18 Blood Pressure 121/68 Pulse Oximetry 93 93 10/04/19 02:22 10/04/19 03:03 10/04/19 03:57 Temperature 38.8 C H 38.6 C H Pulse Rate 83 91 Respiratory Rate 19 16 Blood Pressure 90/54 L Pulse Oximetry 90 10/04/19 04:00 10/04/19 05:03 10/04/19 06:00 Temperature 39.4 C H Pulse Rate 87 98 106 H Respiratory Rate 42 H Blood Pressure 107/62 Pulse Oximetry 93 90 10/04/19 07:25 10/04/19 07:30 10/04/19 08:31 Temperature Pulse Rate 96 96 106 H Respiratory Rate 31 H Blood Pressure Pulse Oximetry 98 10/04/19 08:47 Temperature Pulse Rate 101 H Respiratory Rate 20 Blood Pressure Pulse Oximetry Intake/Output Intake/Output: Intake & Output 10/01/19 10/02/19 10/03/19 10/04/19 23:59 23:59 23:59 23:59 Intake Total 2410 2889 1841 1513 Output Total 1800 1375 1225 800 Balance 610 1514 616 713 Meds/Results Medications: Active Medications Generic Name Dose Route Start Last Admin Trade Name Freq PRN Reason Stop Dose Admin Acetaminophen 650 mg 09/20/19 09:00 10/02/19 03:16 Tylenol Tablet PO 650 mg Q4H PRN Administration Headache Albuterol 5 mg 09/17/19 14:00 10/04/19 07:32 Albuterol Sulf Neb 2.5mg/0.5ml INHALATION Not Given Q6HRT [facility] Budesonide 0.5 mg 09/21/19 08:55 10/04/19 08:27 Pulmicort Respule Neb INHALATION 0.5 mg Q12HRT AZUCENA Administration Carvedilol 12.5 mg 10/01/19 21:00
[2019-10-04 12:32] LABS: Glucose Point of Care 137 (65-105)
--- NOTE | 2019-10-04 13:32 | WPDINTPN ---
Progress Note: A&P Assessment and Plan (1) Staphylococcus aureus bacteremia: Onset Date: 09/20/19 Code(s): R78.81 - Bacteremia Status: Acute Assessment and Plan: Blood cultures x2 from 09/20 growing Staphylococcus aureus, sensitive to oxacillin (But patient is allergic to penicillin) - Repeat blood cultures 09/22/2019 growing staph aureus. now blood culture from 09/26 are negative till date. - Echocardiogram on 09/23/2019 showed EF of 35-40%, grade 1 diastolic dysfunction, aortic valve is not visualized well, mitral valve has mild thickened leaflets, moderate to severe mitral valve regurg, - PANKAJ on 09/26/2019 with no vegetations or intracardiac thrombi, EF 35%, mild to moderate mitral valve regurg. - Appreciate infectious disease evaluation recommendations. Continue ceftriaxone 2 g daily - Patient continues to spike fevers, WBC count trending down., CT scan of the head, chest/abdomen /pelvis without contrast was ordered on 09/27/19, no acute intracranial abnormalities were noted, mild pneumonia involving the lower lobes, emphysema, right inguinal lymphadenopathy which may be lymphoma which could also be causing these fevers. - WBC count seems to be coming down now. Procalcitonin is still pending - blood culture on 10/01/2019 are negative x2 - sputum culture on 10/02/2019 grew Serratia (2) Acute and chronic respiratory failure: Qualifiers: Respiratory failure complication: unspecified whether with hypoxia or hypercapnia Qualified Code(s): J96.20 - Acute and chronic respiratory failure, unspecified whether with hypoxia or hypercapnia Code(s): J96.20 - Acute and chronic respiratory failure, unspecified whether with hypoxia or hypercapnia Status: Acute Assessment and Plan: patient worsened overnight on 09/20/2019, tachypneic, increased work of breathing, impending respiratory failure, Dr. Coughlin intubated the patient on 09/20/2019 and transferred the patient to the ICU. Likely related to bacteremia and UTI and severe sepsis - continue bronchodilators - chest x-ray and ABGs reviewed, on CMV mode of ventilation. - appreciate Pulmonary evaluation recommendation - Patient still has excessive and thick secretions, continuePulmozyme. - also has some component of systolic and diastolic heart failure contributing to respiratory failure. Moderate MR on echo, EF is 35% . On Coreg - patient will require tracheostomy and PEG tube placement, Will d/w Son[place], (3) Encephalopathy: Code(s): G93.40 - Encephalopathy, unspecified Status: Acute Assessment and Plan: patient with acute encephalopathy. Most [facility] - CT scan of the brain without contrast 09/27/2019 was done, did not show any acute intracranial abnormalities - EEG was done on 09/26/2019, Reportedly showing diffuse slowing. neurology following - CT head 09/30- negative - Continue precedex. continue Seroquel and Librium - LP done showed no signs of meningitis , bacterial, AFB, fungal cultures are all negative - on 10/03/2019 patient was more awake, nodded to questions and followed commands. Patient this morning only opens eyes but does not follow any commands (4) UTI (urinary tract infection): Qualifiers: Urinary tract infection type: site unspecified Hematuria presence: without hematuria Qualified Code(s): N39.0 - Urinary tract infection, site not specified Code(s): N39.0 - Urinary tract infection, site not specified Status: Acute Assessment and Plan: urine cultures growing Staph aureus continue ceftriaxone as above (5) Acute exacerbation of chronic obstructive airways disease: Code(s): J44.1 - Chronic obstructive pulmonary disease with (acute) exacerbation Status: Acute Assessment and Plan: continue mechanical ventilation, - continue antibiotics as above - Off steroids now. - Continue bronchodilators. (6) Mass of r
--- NOTE | 2019-10-04 13:51 | WPDINFPN2 ---
Progress Note: A&P Assessment and Plan (1) Staphylococcus aureus bacteremia: Onset Date: 09/20/19 Code(s): R78.81 - Bacteremia Status: Acute Assessment and Plan: 1. JAMILAH bacteremia, endovascular source, but no focal site is apparent. PANKAJ no infection seen. Microbiologic cure, though febrile still 2. New Dx NHL, with immunocompromise 3. Resp failure 4. Multifactorial leukocytosis, persists 5. PCN allergy REC Ctx # 13 / 28 days, continue. He is on optimal therapy. LP = no infection. His ongoing fever may be from his lymphoma. No additional studies at this time. Subjective Date/time seen: 10/04/19 13:51 Interval history: intubated, no pressors, OG tube in place Exam Narrative: Exam Narrative: t max 39.4 core Const: General: no acute distress Eyes: General: appearance normal, both eyes and all related structures Resp: Effort & Inspection: normal respiratory effort Auscultation: clear to auscultation bilaterally and diminished lung sounds Cardio: Rate: regular rate Rhythm: regular rhythm Heart sounds: no gallops and no murmurs GI: Inspection: non-distended GI Palp: Yes Firmness to palpation present (GI) and No Tenderness to palpation present (GI) Urinary Catheter: Urinary Catheter: patent and draining and urine clear Skin: General skin exam: no rashes or lesions noted Objective Data Vital Signs Vital Signs: Vital Signs - 24 hr 10/03/19 14:00 10/03/19 14:04 10/03/19 14:05 Temperature 38.2 C H Pulse Rate 88 84 82 Respiratory Rate 18 29 H Blood Pressure 90/56 L Pulse Oximetry 97 92 10/03/19 16:00 10/03/19 16:30 10/03/19 18:00 Temperature 37.4 C 37.1 C Pulse Rate 71 79 81 Respiratory Rate 12 16 Blood Pressure 82/53 L 113/65 Pulse Oximetry 93 93 94 10/03/19 19:58 10/03/19 20:00 10/03/19 20:10 Temperature 37.5 C Pulse Rate 86 85 73 Respiratory Rate 16 Blood Pressure 118/69 Pulse Oximetry 96 96 10/03/19 20:25 10/03/19 20:36 10/03/19 20:50 Temperature Pulse Rate 88 90 74 Respiratory Rate 33 H 22 H Blood Pressure Pulse Oximetry 10/03/19 21:37 10/03/19 22:00 10/03/19 23:20 Temperature 37.9 C H Pulse Rate 70 72 79 Respiratory Rate 23 H Blood Pressure 87/54 L Pulse Oximetry 96 93 10/04/19 00:00 10/04/19 02:00 10/04/19 02:14 Temperature 37.7 C H 38.4 C H Pulse Rate 73 82 81 Respiratory Rate 18 17 18 Blood Pressure 110/63 121/68 Pulse Oximetry 95 93 10/04/19 02:15 10/04/19 02:22 10/04/19 03:03 Temperature 38.8 C H Pulse Rate 82 83 Respiratory Rate 19 Blood Pressure Pulse Oximetry 93 10/04/19 03:57 10/04/19 04:00 10/04/19 05:03 Temperature 38.6 C H Pulse Rate 91 87 98 Respiratory Rate 16 Blood Pressure 90/54 L Pulse Oximetry 90 93 10/04/19 06:00 10/04/19 07:25 10/04/19 07:30 Temperature 39.4 C H Pulse Rate 106 H 96 96 Respiratory Rate 42 H 31 H Blood Pressure 107/62 Pulse Oximetry 90 98 10/04/19 08:31 10/04/19 08:47 10/04/19 12:15 Temperature Pulse Rate 106 H 101 H 72 Respiratory Rate 20 Blood Pressure Pulse Oximetry 98 Intake/Output Intake/Output: Intake & Output 10/01/19 10/02/19 10/03/19 10/04/19 23:59 23:59 23:59 23:59 Intake Total 2410 2889 1841 1513 Output Total 1800 1375 1225 800 Balance 610 1514 616 713 Meds/Results Medications: Active Medications Generic Name Dose Route Start Last Admin Trade Name Freq PRN Reason Stop Dose Admin Acetaminophen 650 mg 09/20/19 09:00 10/02/19 03:16 Tylenol Tablet PO 650 mg Q4H PRN Administration Headache Albuterol 5 mg 09/17/19 14:00 10/04/19 07:32 Albuterol Sulf Neb 2.5mg/0.5ml INHALATION Not Given Q6HRT [facility] Budesonide 0.5 mg 09/21/19 08:55 10/04/19 08:27 Pulmicort Respule Neb INHALATION 0.5 mg Q12HRT AZUCENA Administration Carvedilol 12.5 mg 10/01/19 21:00 10/04/19 08:31 Coreg PO 12.5 mg Q12HR AZUCENA Administration Chlordiazepoxide HCl 25 mg
[2019-10-04] MEDS: MIDAZOLAM HCL 50 MG in DEXTROSE 5% 90 ML IV CONT (16:59)
[2019-10-04 17:37] LABS: Glucose Point of Care 138 (65-105)
[2019-10-04] MEDS: EUCERIN CREAM 120 GM JAR 1 APPLIC TOPICAL (20:24)
[2019-10-04 20:43] LABS: Glucose Point of Care 155 (65-105)
--- NOTE | 2019-10-04 21:44 | PM.PNPUL ---
Progress Note: A&P Assessment and Plan (1) Acute and chronic respiratory failure: Qualifiers: Respiratory failure complication: unspecified whether with hypoxia or hypercapnia Qualified Code(s): J96.20 - Acute and chronic respiratory failure, unspecified whether with hypoxia or hypercapnia Code(s): J96.20 - Acute and chronic respiratory failure, unspecified whether with hypoxia or hypercapnia Status: Acute Assessment and Plan: He is not tolerating weaning trials with fevers. He has encephalopathy which is also a barrier to more weaning. Dr. Moran has talked with some family today about tracheostomy which is needed as he is not progressing now day #15 on the ventilator. (2) COPD exacerbation: Code(s): J44.1 - Chronic obstructive pulmonary disease with (acute) exacerbation Status: Acute Assessment and Plan: -Intubated for airway protection from septic encephalopathy -continue bronchodilator and inhaled steroids.-daily SBT per [employer] as tolerated -on moderate amounts of sedation; still febrile; mentation is gradually improving. Subjective Date/time seen: 10/04/19 18:45 Interval history: This 69 yo man is seen for acute and chronic respiratory failure, not doing as well today, running high fevers to 104 F, had a cooling blanket placed, then dropped to 95 F; Had to be switched back to CMV as he did not tolerate ASV weaning mode today. He was intubated Sep 20, has not been stable enough to extubate. His WBC is higher 18.2K. BUN 44, gradual improvement. He is sedated with Precedex 1.2 mcg/kg/hour, fentanyl 25 mcg/hour, versed 2 mg/hour. Sep 19 - Right lymph node biopsy (+) lymphoma Sep 20 -Staph aureus bacteremia ; echo has not shown vegetations on valves Sep 30 - LP negative for meningitis Review of Systems Review of Systems: Narrative: Cannot obtain review of systems due to sedation, intubation, critical illness. Constitutional: Constitutional: Reports as per HPI Exam Narrative: Exam Narrative: Intubated and sedated Const: General: comfortable, no acute distress and in distress (tachypnic ) moderate Other: intubated and sedated on Precedex, fentanyl, versed. HENMT: Mouth: Yes moist mucous membranes Neck: Neck: supple and no JVD Resp: Effort & Inspection: normal respiratory effort Auscultation: clear to auscultation bilaterally, no crackles, no rales, no rhonchi, no wheezes and diminished lung sounds Other: no significant ET tube secretions Cardio: Rate: regular rate and tachycardic Rhythm: regular rhythm Heart sounds: no gallops, no murmurs and no rubs GI: Auscultation: normal bowel sounds Other: decreased bowel sounds Skin: General skin exam: normal color Wounds: wounds noted Other: diffuse chronic eczema Neuro: Cognition (Neuro): abnormal cognition Other: Sedated Extrem: General: normal to inspection, no edema and no pedal edema Other: no petechial hemorrhages Psych: Other: sedated Objective Data Vital Signs Vital Signs: Vital Signs - 24 hr 10/03/19 22:00 10/03/19 23:20 10/04/19 00:00 Temperature 37.9 C H 37.7 C H Pulse Rate 72 79 73 Respiratory Rate 23 H 18 Blood Pressure 87/54 L 110/63 Pulse Oximetry 96 93 95 10/04/19 02:00 10/04/19 02:14 10/04/19 02:15 Temperature 38.4 C H Pulse Rate 82 81 82 Respiratory Rate 17 18 Blood Pressure 121/68 Pulse Oximetry 93 93 10/04/19 02:22 10/04/19 03:03 10/04/19 03:57 Temperature 38.8 C H 38.6 C H Pulse Rate 83 91 Respiratory Rate 19 16 Blood Pressure 90/54 L Pulse Oximetry 90 10/04/19 04:00 10/04/19 05:03 10/04/19 06:00 Temperature 39.4 C H Pulse Rate 87 98 106 H Respiratory Rate 42 H Blood Pressure 107/62 Pulse Oximetry 93 90 10/04/19 07:25 10/04/19 07:30 10/04/19 08:00 Temperature 39.8 C H Pulse Rate 96 96 95 Respiratory Rate 31 H 34 H Blood Pressure 108/65 Pulse Oximetry 98 94 10/04/19 08:31 10/04/19 08:47 10/04/19 10:00 Temperat
[2019-10-05] VITALS (36 sets, daily range): BP systolic 77–121; BP diastolic 57–77; PULSE 66–109; RESP 20–43; TEMP 36.2–38.1; O2SAT 69–100
[2019-10-05] MEDS: ALBUTEROL SULFATE NEB 2.5 MG/0.5 ML INH 5 MG INHALATION ×4 (02:01→19:43)
[2019-10-05] MEDS: IPRATROPIUM BR 0.02% INH SOLN 0.5 MG/2.5 ML VIAL INHALATION ×4 (02:01→19:44)
[2019-10-05 04:27] LABS: Alveolar/Arterial O2 Gradient 252.8 mmHg; Base Excess ABG 5.3 mEq/l (+/-2.0); Carboxyhemoglobin 0.2 % THb (0-2.0); Fractional Inspired Oxygen 50 %; HCO3 ABG 28.4 mEq/l (22.0-26.0); Methemoglobin ABG 0.2 %THb (0-1.5); Oxygen Saturation ABG 94.3 % (95.0-100.0); PCO2 ABG 35.8 mmHg (35.0-45.0); PO2 ABG 63.4 mmHg (80.0-100.0); PO2 FiO2 Ratio Arterial Blood 1.27 %; Reduced Hemoglobin 7.6 %THb (0-5.0); Total Hemoglobin 10.8 g/dL (12.0-18.0)
[2019-10-05 04:32] LABS: Device VENTILATOR; Modified Allen's Test Pass; Site Drawn LEFT RADIAL; pH ABG 7.517 (7.350-7.450)
[2019-10-05 04:33] LABS: Arterial Blood Gas Vent Mode CMV; Arterial Blood Gas Ventilator rate 12 /MIN
[2019-10-05 04:34] LABS: Arterial Blood Gas Minute Volume 10 LPM; Arterial Blood Gas PEEP 5 cmH2O; Arterial Blood Gas Tidal Volume 400 ml
[2019-10-05 05:26] LABS: Hematocrit 30.2 % (42.0-52.0); Hemoglobin 9.5 g/dL (14.0-18.0); Mean Corpuscular HGB Conc 31.5 g/dl (32-36); Mean Corpuscular Hemoglobin 30.3 pg (26-34); Mean Corpuscular Volume 96.2 fl (80-100); Mean Platelet Volume 10.4 fl (7.4-10.4); Platelet Count Result 341 k/mm3 (150-375); Red Blood Count 3.14 M/mm3 (4.6-6.20); Red Cell Distribution Width 12.6 % (11.5-14.5); White Blood Count 12.4 K/mm3 (4.5-10.0)
[2019-10-05 05:35] LABS: Phosphorus 4.9 mg/dL (2.5-4.5)
[2019-10-05 05:38] LABS: Alanine Aminotransferase 36 U/L (4-50); Albumin Level 2.8 g/dL (3.5-5.1); Alkaline Phosphatase 82 U/L (38-126); Aspartate Amino Transferase 27 U/L (17-59); Bilirubin,Total 0.3 mg/dL (0.2-1.3); Blood Urea Nitrogen 38 mg/dL (9-20); Calcium 8.8 mg/dL (8.4-10.2); Carbon Dioxide 31 mmol/L (22-30); Chloride 101 mmol/L (98-107); Estimated CRCL calculation 53 ml/min; Estimated Glomerular Filt Rate > 60; Glucose 119 mg/dL (75-110); Magnesium 2.4 mg/dL (1.6-2.3); Potassium 4.2 mmol/L (3.4-5.0); Sodium 138 mmol/L (137-145)
[2019-10-05] MEDS: CHLORDIAZEPOXIDE 25 MG CAPSULE PO ×3 (06:43→20:59)
[2019-10-05] MEDS: polyethylene glycoL 3350 17 GM POWD.PACK PO (07:56)
[2019-10-05] MEDS: ENOXAPARIN 40 MG/0.4 ML SYRINGE SUB-Q (07:56)
[2019-10-05] MEDS: QUEtiapine FUMARATE 25 MG TABLET 50 MG FEED TUBE ×2 (07:57→20:52)
[2019-10-05] MEDS: FAMOTIDINE 20 MG/2 ML VIAL IV PUSH ×2 (07:57→20:53)
[2019-10-05] MEDS: carvediloL 12.5 MG TABLET PO ×2 (07:57→21:18)
[2019-10-05] MEDS: EUCERIN CREAM 120 GM JAR 1 APPLIC TOPICAL ×2 (07:58→20:53)
[2019-10-05] MEDS: BUDESONIDE RESPULE NEB 0.5 MG/2 ML AMP INHALATION ×2 (08:12→19:44)
[2019-10-05] MEDS: DORNASE ALFA INH SOLN 1 MG/ML 2.5 ML AMP 2.5 MG INHALATION ×2 (08:12→19:44)
[2019-10-05] MEDS: INSULIN GLARGINE (*BKC) 100 UNITS/ML 16 UNITS SUB-Q ×2 (08:15→21:05)
--- NOTE | 2019-10-05 09:00 | PM.PNCARD ---
Progress Note: A&P Additional Plan compensated LV systolic dysfunction in setting of sepsis and resp failure, plan cont carvidelol and add small dose lisinopril 2.5 mg daily. Subjective Date/time seen: 10/05/19 09:00 Interval history: No acute events overnight Sinus rhythm in Tele Review of Systems Review of Systems: ROS unobtainable: unobtainable due to endotracheal tube Exam Const: General: comfortable and no acute distress Neck: Neck: supple and no JVD Resp: Auscultation: crackles and diminished lung sounds Cardio: Rate: regular rate Rhythm: regular rhythm Heart sounds: no murmurs GI: Auscultation: normal bowel sounds Other: soft Skin: General skin exam: normal color and no rashes or lesions noted Objective Data Vital Signs Vital Signs: Vital Signs - 24 hr 10/04/19 10:00 10/04/19 12:00 10/04/19 12:15 Temperature 38.5 C H 35.6 C L Pulse Rate 94 75 72 Respiratory Rate 44 H 22 H Blood Pressure 152/80 H 113/70 Pulse Oximetry 99 100 98 10/04/19 14:00 10/04/19 14:16 10/04/19 14:18 Temperature 35.9 C L Pulse Rate 75 105 H 105 H Respiratory Rate 17 16 Blood Pressure 89/61 L Pulse Oximetry 100 100 10/04/19 14:24 10/04/19 16:00 10/04/19 17:13 Temperature 36.5 C Pulse Rate 70 74 89 Respiratory Rate 22 H 23 H Blood Pressure 102/67 Pulse Oximetry 100 100 10/04/19 18:00 10/04/19 19:21 10/04/19 19:30 Temperature 37.3 C Pulse Rate 74 72 71 Respiratory Rate 15 19 20 Blood Pressure 92/66 L Pulse Oximetry 97 100 10/04/19 19:58 10/04/19 20:00 10/04/19 20:23 Temperature 36.9 C Pulse Rate 75 75 75 Respiratory Rate 19 Blood Pressure 96/69 L Pulse Oximetry 99 10/04/19 21:42 10/04/19 23:10 10/05/19 00:00 Temperature 36.9 C 37.1 C Pulse Rate 72 73 72 Respiratory Rate 21 H 23 H Blood Pressure 97/70 L 95/67 L Pulse Oximetry 100 98 100 10/05/19 00:05 10/05/19 02:00 10/05/19 02:05 Temperature 37.4 C Pulse Rate 77 76 Respiratory Rate 23 H 21 H Blood Pressure 110/73 Pulse Oximetry 98 97 10/05/19 02:07 10/05/19 02:15 10/05/19 04:00 Temperature 37.7 C H Pulse Rate 76 76 78 Respiratory Rate 21 H 28 H Blood Pressure 90/60 L Pulse Oximetry 98 97 10/05/19 04:19 10/05/19 04:49 10/05/19 04:52 Temperature 37.7 C H 36.8 C Pulse Rate 74 Respiratory Rate Blood Pressure Pulse Oximetry 100 10/05/19 06:00 10/05/19 07:57 10/05/19 08:12 Temperature 36.7 C Pulse Rate 70 67 68 Respiratory Rate 20 21 H Blood Pressure 112/77 Pulse Oximetry 100 10/05/19 08:20 10/05/19 08:41 Temperature Pulse Rate 69 69 Respiratory Rate 23 H Blood Pressure Pulse Oximetry 97 Intake/Output Intake/Output: Intake & Output 10/02/19 10/03/19 10/04/19 10/05/19 23:59 23:59 23:59 23:59 Intake Total 2889 1841 2948 1085 Output Total 1375 1225 1950 900 Balance 1514 616 998 185 Meds/Results Medications: Active Medications Generic Name Dose Route Start Last Admin Trade Name Freq PRN Reason Stop Dose Admin Acetaminophen 650 mg 09/20/19 09:00 10/02/19 03:16 Tylenol Tablet PO 650 mg Q4H PRN Administration Headache Albuterol 5 mg 09/17/19 14:00 10/05/19 08:12 Albuterol Sulf Neb 2.5mg/0.5ml INHALATION 5 mg Q6HRT AZUCENA Administration Budesonide 0.5 mg 09/21/19 08:55 10/05/19 08:12 Pulmicort Respule Neb INHALATION 0.5 mg Q12HRT AZUCENA Administration Carvedilol 12.5 mg 10/01/19 21:00 10/05/19 07:57 Coreg PO 12.5 mg Q12HR AZUCENA Administration Chlordiazepoxide HCl 25 mg 10/03/19 06:00 10/05/19 06:43 Librium Po PO 25 mg Q8HR AZUCENA Administration Dextrose 12.5 gm 09/24/19 08:05 Dextrose 50% Syringe IV PUSH PRN PRN Hypoglycemia Protocol Dornase Jesus 2.5 mg 10/03/19 10:35 10/05/19 08:12 Pulmozyme INHALATION 2.5 mg Q12HRT AZUCENA Administration Enoxaparin Sodium 40 mg 09/21/19 09:00 10/05/19 07:56 Lovenox SUB-Q 40 mg DAILY ZAUCENA A
--- NOTE | 2019-10-05 12:40 | WPDINTPN ---
Progress Note: A&P Assessment and Plan (1) Staphylococcus aureus bacteremia: Onset Date: 09/20/19 Code(s): R78.81 - Bacteremia Status: Acute Assessment and Plan: Blood cultures x2 from 09/20 growing Staphylococcus aureus, sensitive to oxacillin (But patient is allergic to penicillin), Repeat blood cultures 09/22/2019 growing staph aureus. - Echocardiogram on 09/23/2019 showed EF of 35-40%, grade 1 diastolic dysfunction, aortic valve is not visualized well, mitral valve has mild thickened leaflets, moderate to severe mitral valve regurg, - PANKAJ on 09/26/2019 with no vegetations or intracardiac thrombi, EF 35%, mild to moderate mitral valve regurg. - Appreciate infectious disease evaluation recommendations. Continue ceftriaxone 2 g daily - patient was afebrile overnight, WBC count trending down., - CT scan of the head, chest/abdomen /pelvis without contrast was ordered on 09/27/19, no acute intracranial abnormalities were noted, mild pneumonia involving the lower lobes, emphysema, right inguinal lymphadenopathy which may be lymphoma which could also be causing these fevers. - Procalcitonin is still pending - blood culture on 10/01/2019 are negative x2 - sputum culture on 10/02/2019 grew Serratia, sensitive to ceftriaxone (2) Acute and chronic respiratory failure: Qualifiers: Respiratory failure complication: unspecified whether with hypoxia or hypercapnia Qualified Code(s): J96.20 - Acute and chronic respiratory failure, unspecified whether with hypoxia or hypercapnia Code(s): J96.20 - Acute and chronic respiratory failure, unspecified whether with hypoxia or hypercapnia Status: Acute Assessment and Plan: patient worsened overnight on 09/20/2019, tachypneic, increased work of breathing, impending respiratory failure, Dr. Coughlin intubated the patient on 09/20/2019 and transferred the patient to the ICU. Likely related to bacteremia and UTI and severe sepsis - continue bronchodilators - chest x-ray and ABGs reviewed, on CMV mode of ventilation. - appreciate Pulmonary evaluation recommendation - Patient still has excessive and thick secretions, continue Pulmozyme. - also has some component of systolic and diastolic heart failure contributing to respiratory failure. Moderate MR on echo, EF is 35% . On Coreg - thick secretions and mental status preventing weaning trials - d/w Son, [place], he is agreeable for tracheostomy and PEG tube placement (3) Encephalopathy: Code(s): G93.40 - Encephalopathy, unspecified Status: Acute Assessment and Plan: patient with acute encephalopathy. [facility] - CT scan of the brain without contrast 09/27/2019 was done, did not show any acute intracranial abnormalities - EEG was done on 09/26/2019, Reportedly showing diffuse slowing. neurology following - CT head 09/30- negative - LP done showed no signs of meningitis , bacterial, AFB, fungal cultures are all negative - continue Seroquel and Librium - continue Precedex and Versed infusion (4) UTI (urinary tract infection): Qualifiers: Urinary tract infection type: site unspecified Hematuria presence: without hematuria Qualified Code(s): N39.0 - Urinary tract infection, site not specified Code(s): N39.0 - Urinary tract infection, site not specified Status: Acute Assessment and Plan: urine cultures growing Staph aureus continue ceftriaxone as above (5) Acute exacerbation of chronic obstructive airways disease: Code(s): J44.1 - Chronic obstructive pulmonary disease with (acute) exacerbation Status: Acute Assessment and Plan: continue mechanical ventilation, - continue antibiotics as above - Off steroids now. - Continue bronchodilators. (6) Mass of right inguinal region: Code(s): R19.09 - Other intra-abdominal and pelvic swelling, mass and lump Status: Acute Ass
[2019-10-05] MEDS: lisinopriL 2.5 MG TABLET PO (13:31)
[2019-10-05 14:10] LABS: Procalcitonin 0.41 ng/mL (<0.10)
--- NOTE | 2019-10-05 14:58 | PM.PNPUL ---
Progress Note: A&P Assessment and Plan (1) Acute and chronic respiratory failure: Qualifiers: Respiratory failure complication: unspecified whether with hypoxia or hypercapnia Qualified Code(s): J96.20 - Acute and chronic respiratory failure, unspecified whether with hypoxia or hypercapnia Code(s): J96.20 - Acute and chronic respiratory failure, unspecified whether with hypoxia or hypercapnia Status: Acute Assessment and Plan: He is not tolerating weaning trials with fevers. He has encephalopathy which is also a barrier to more weaning. Dr. Moran has talked with some family today about tracheostomy which is needed as he is not progressing now day #15 on the ventilator. 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 Subjective Date/time seen: 10/05/19 14:58 Interval history: This 69 yo man is seen for acute and chronic respiratory failure, not doing as well today, running high fevers to 104 F, had a cooling blanket placed, then dropped to 95 F; Had to be switched back to CMV as he did not tolerate ASV weaning mode today. He was intubated Sep 20, has not been stable enough to extubate. His WBC is higher 18.2K. BUN 44, gradual improvement. He is sedated with Precedex 1.2 mcg/kg/hour, fentanyl 25 mcg/hour, versed 2 mg/hour. Sep 19 - Right lymph node biopsy (+) lymphoma Sep 20 -Staph aureus bacteremia ; echo has not shown vegetations on valves Sep 30 - LP negative for meningitis Review of Systems Review of Systems: All systems reviewed & are unremarkable except as noted in HPI and below Constitutional: Constitutional: Reports as per HPI Exam Narrative: Exam Narrative: Intubated and sedated Const: General: comfortable, no acute distress and in distress (tachypnic ) moderate Other: intubated and sedated on Precedex, fentanyl, versed. HENMT: Mouth: Yes moist mucous membranes Eyes: Other: Left eye does not close completely. Neck: Neck: supple and no JVD Resp: Effort & Inspection: normal respiratory effort Auscultation: clear to auscultation bilaterally, no crackles, no rales, no rhonchi, no wheezes and diminished lung sounds Other: no significant ET tube secretions Cardio: Rate: regular rate and tachycardic Rhythm: regular rhythm Heart sounds: no gallops, no murmurs and no rubs GI: Auscultation: normal bowel sounds Other: decreased bowel sounds Skin: General skin exam: normal color Wounds: wounds noted Other: diffuse chronic eczema Neuro: Cognition (Neuro): abnormal cognition Other: Sedated Extrem: General: normal to inspection, no edema and no pedal edema Other: no petechial hemorrhages Psych: Other: sedated Objective Data Vital Signs Vital Signs: Vital Signs - 24 hr 10/04/19 16:00 10/04/19 17:13 10/04/19 18:00 Temperature 36.5 C 37.3 C Pulse Rate 74 89 74 Respiratory Rate 23 H 15 Blood Pressure 102/67 92/66 L Pulse Oximetry 100 100 97 10/04/19 19:21 10/04/19 19:30 10/04/19 19:58 Temperature 36.9 C Pulse Rate 72 71 75 Respiratory Rate 19 20 19 Blood Pressure 96/69 L Pulse Oximetry 100 99 10/04/19 20:00 10/04/19 20:23 10/04/19 21:42 Temperature 36.9 C Pulse Rate 75 75 72 Respiratory Rate 21 H Blood Pressure 97/70 L Pulse Oximetry 100 10/04/19 23:10 10/05/19 00:00 10/05/19 00:05 Temperature 37.1 C Pulse Rate 73 72 Respiratory Rate 23 H Blood Pressure 95/67 L Pulse Oximetry 98 100 98 10/05/19 02:00 10/05/19 02:05 10/05/19 02:07 Temperature 37.4 C
[2019-10-05 15:34] LABS: Glucose Point of Care 103 (65-105)
[2019-10-05] MEDS: MIDAZOLAM HCL 2 MG/2 ML VIAL IV PUSH (16:46)
--- NOTE | 2019-10-05 16:59 | PCRCNOTE ---
While being turned for cleaning, patient began breathing >50 breaths/min and the ventilator was reading multiple alarms. We emptied the tubing of any water, changed the flow sensor, performed a rescue cath, and suctioned the patient. The problem was temporarily resolved. Shortly after that, the patient began fighting the vent and his respirations again increased to >50 breaths/min and it became apparent that he was fighting the vent. The nurse spoke with Dr. Moran and increased his sedation, which seemed to resolve the problem.
[2019-10-05 18:11] LABS: Glucose Point of Care 83 (65-105)
--- NOTE | 2019-10-05 18:24 | PM.IMPN ---
Progress Note: A&P Assessment and Plan (1) Acute exacerbation of chronic obstructive airways disease: Code(s): J44.1 - Chronic obstructive pulmonary disease with (acute) exacerbation Status: Acute (2) Chronic respiratory failure with hypoxia: Code(s): J96.11 - Chronic respiratory failure with hypoxia Status: Acute Assessment and Plan: 09/30/19 16:25 Patient is a 69 yo M with history of COPD/asthma overlap, scleroderma, chronic respiratory failure with hypoxia, diastolic congestive heart failure, and history of tobacco abuse who is here for acute on chrronid respiratory failure 2/2 COPD exacerbation and for evaluation of right inguinal lymphadenopathy. Pt had lymph node biospy seen by Dr Barr will need further investigations later after discharge for possible non hodgkins lymphoma. Pt unfortunately developed severe SOB and was intubated and admitted to ICU, 09/20/2019. Continue ventilatory support. Discussion with brother at the bedside.. 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 Ongoing bactremia, encehalopathy and respiratory failure, pt doing much better today, on breathing trial hopeful extubation soon. Pt being seen by pulmology, ID, cardiology and ICU Mds. Bacterermia work up - LP is negative. PANKAJ was negative. Blood cultures x2 from 09/20 growing Staphylococcus aureus, sensitive to oxacillin (But patient is allergic to penicillin) Repeat blood cultures 09/22/2019 growing staph aureus. now blood culture from 09/26 are negative till date. Wcc coming down gradually, CXR shows mild PNEumonia ? secondary to lymphoma continue rocephin pt unwell with low grade fevers (3) Acute kidney injury: Code(s): N17.9 - Acute kidney failure, unspecified Status: Resolved Assessment and Plan: Monitor renal function. (4) Diastolic heart failure: Qualifiers: Heart failure chronicity: chronic Qualified Code(s): I50.32 - Chronic diastolic (congestive) heart failure Code(s): I50.30 - Unspecified diastolic (congestive) heart failure Status: Acute Assessment and Plan: He is clinically compensated. Cardiomyopathy, cardiology rounding (5) Chronic anemia: Code(s): D64.9 - Anemia, unspecified Status: Acute Assessment and Plan: Continue to trend hb/ hct (6) Mass of right inguinal region: Code(s): R19.09 - Other intra-abdominal and pelvic swelling, mass and lump Status: Acute Assessment and Plan: Soft tissue ultrasound of the right inguinal region read as right inguinal lymphadenopathy, largest demonstrating effacement of normal fatty hilum, possibly pathologic. Consider lymphoma. Biopsy performed yesterday and preliminary results have returned suggestive for lymphoma. Prelim biopsy suggestive of lymphoma Dr. Barr has been consulted and appreciate input. Pt to follow with Dr Barr on discharge (7) Staphylococcus aureus bacteremia: Onset Date: 09/20/19 Code(s): R78.81 - Bacteremia Status: Acute Assessment and Plan: Patient is seen by suspect possible endocardiac source however PANKAJ dose not show any vagetation, plan is above (8) Acute and chronic respiratory failure: Qualifiers: Respiratory failure complication: unspecified whether with hypoxia or hyp
[2019-10-05] MEDS: MIDAZOLAM HCL 50 MG in DEXTROSE 5% 90 ML 8 MG IV CONT (20:31)
[2019-10-05 21:23] LABS: Glucose Point of Care 104 (65-105)
[2019-10-06] VITALS (31 sets, daily range): BP systolic 78–125; BP diastolic 49–79; PULSE 77–104; RESP 20–30; TEMP 37.7–38.3; O2SAT 91–98
[2019-10-06 00:18] LABS: Glucose Point of Care 118 (65-105)
[2019-10-06] MEDS: IPRATROPIUM BR 0.02% INH SOLN 0.5 MG/2.5 ML VIAL INHALATION ×4 (01:31→20:06)
[2019-10-06] MEDS: ALBUTEROL SULFATE NEB 2.5 MG/0.5 ML INH 5 MG INHALATION ×4 (01:31→20:06)
[2019-10-06 04:13] LABS: Alveolar/Arterial O2 Gradient 165.4 mmHg; Base Excess ABG 1.9 mEq/l (+/-2.0); Carboxyhemoglobin 0.2 % THb (0-2.0); Fractional Inspired Oxygen 35 %; HCO3 ABG 23.7 mEq/l (22.0-26.0); Methemoglobin ABG 0.3 %THb (0-1.5); Oxygen Content ABG 12.9 %vol (16.0-22.0); Oxygen Saturation ABG 91.2 % (95.0-100.0); Oxyhemoglobin 87.3 % THb (90.0-100.0); PO2 ABG 51.6 mmHg (80.0-100.0); PO2 FiO2 Ratio Arterial Blood 1.47 %; Reduced Hemoglobin 12.2 %THb (0-5.0); Total Hemoglobin 10.5 g/dL (12.0-18.0)
[2019-10-06 04:15] LABS: Device VENTILATOR; Modified Allen's Test Pass; Site Drawn LEFT RADIAL; pH ABG 7.546 (7.350-7.450)
[2019-10-06 04:16] LABS: Arterial Blood Gas Minute Volume 11 LPM; Arterial Blood Gas PEEP 5 cmH2O; Arterial Blood Gas Tidal Volume 400 ml; Arterial Blood Gas Vent Mode CMV; Arterial Blood Gas Ventilator rate 12 /MIN
[2019-10-06 05:02] LABS: Hematocrit 30.6 % (42.0-52.0); Hemoglobin 9.6 g/dL (14.0-18.0); Mean Corpuscular HGB Conc 31.4 g/dl (32-36); Mean Corpuscular Hemoglobin 30.1 pg (26-34); Mean Corpuscular Volume 95.9 fl (80-100); Mean Platelet Volume 10.2 fl (7.4-10.4); Platelet Count Result 392 k/mm3 (150-375); Red Blood Count 3.19 M/mm3 (4.6-6.20); Red Cell Distribution Width 12.8 % (11.5-14.5); White Blood Count 13.7 K/mm3 (4.5-10.0)
[2019-10-06] MEDS: CHLORDIAZEPOXIDE 25 MG CAPSULE PO ×2 (05:37→13:32)
[2019-10-06 05:38] LABS: Glucose Point of Care 117 (65-105)
[2019-10-06 06:53] LABS: Blood Urea Nitrogen 45 mg/dL (9-20); Calcium 8.7 mg/dL (8.4-10.2); Carbon Dioxide 28 mmol/L (22-30); Chloride 100 mmol/L (98-107); Estimated CRCL calculation 45 ml/min; Estimated Glomerular Filt Rate 55; Glucose 113 mg/dL (75-110); Magnesium 2.5 mg/dL (1.6-2.3); Phosphorus 4.5 mg/dL (2.5-4.5); Potassium 4.5 mmol/L (3.4-5.0); Sodium 136 mmol/L (137-145)
[2019-10-06] MEDS: MIDAZOLAM HCL 50 MG in DEXTROSE 5% 90 ML 8 MG IV CONT ×2 (07:24→20:20)
[2019-10-06] MEDS: FAMOTIDINE 20 MG/2 ML VIAL IV PUSH ×2 (07:52→20:09)
[2019-10-06] MEDS: ENOXAPARIN 40 MG/0.4 ML SYRINGE SUB-Q (07:53)
[2019-10-06] MEDS: EUCERIN CREAM 120 GM JAR 1 APPLIC TOPICAL ×2 (07:54→20:09)
[2019-10-06] MEDS: QUEtiapine FUMARATE 25 MG TABLET 50 MG FEED TUBE ×2 (08:06→13:32)
[2019-10-06] MEDS: INSULIN GLARGINE (*BKC) 100 UNITS/ML 16 UNITS SUB-Q (08:09)
[2019-10-06] MEDS: BUDESONIDE RESPULE NEB 0.5 MG/2 ML AMP INHALATION ×2 (09:12→20:06)
[2019-10-06] MEDS: DORNASE ALFA INH SOLN 1 MG/ML 2.5 ML AMP 2.5 MG INHALATION ×2 (09:13→20:06)
[2019-10-06 11:49] LABS: Glucose Point of Care 109 (65-105)
--- NOTE | 2019-10-06 12:10 | PM.PNCARD ---
Progress Note: A&P Additional Plan compensated LV systolic dysfunction in setting of sepsis and resp failure, plan decrease carvidelol to 6.25 mg BID and cont lisinopril 2.5 mg daily. Subjective Date/time seen: 10/06/19 12:10 Interval history: No acute events overnight Intermittent low reading BP Review of Systems Review of Systems: ROS unobtainable: unobtainable due to endotracheal tube Exam Narrative: Exam Narrative: General: able to lie flat, no acute distress Respiratory: No chest wall tenderness, equal air entry and expansion, CTAB Cardiovascular: The heart has a regular rate and rhythm without murmur, No JVD. Lower extremities: No lower extremity edema. Warm, no skin lesion or bruises. Good capillary refill. Gastrointestinal: The abdomen is soft, nontender and nondistended with active bowel sounds. Objective Data Vital Signs Vital Signs: Vital Signs - 24 hr 10/05/19 13:58 10/05/19 14:00 10/05/19 14:08 Temperature 37.6 C Pulse Rate 77 77 77 Respiratory Rate 23 H 24 H 22 H Blood Pressure 117/67 Pulse Oximetry 98 10/05/19 14:10 10/05/19 14:49 10/05/19 16:00 Temperature 37.7 C H Pulse Rate 77 77 109 H Respiratory Rate 43 H Blood Pressure 113/75 Pulse Oximetry 96 95 95 10/05/19 16:31 10/05/19 17:21 10/05/19 18:00 Temperature 37.7 C H 37.8 C H Pulse Rate 95 95 Respiratory Rate 26 H Blood Pressure 84/61 L Pulse Oximetry 93 95 10/05/19 19:00 10/05/19 19:45 10/05/19 20:00 Temperature 38.1 C H 38.1 C H Pulse Rate 95 81 Respiratory Rate 24 H Blood Pressure 97/65 L Pulse Oximetry 95 93 10/05/19 20:05 10/05/19 21:18 10/05/19 22:00 Temperature 38.1 C H Pulse Rate 98 80 83 Respiratory Rate 22 H 20 Blood Pressure 86/57 L Pulse Oximetry 97 10/05/19 22:46 10/05/19 23:20 10/06/19 00:00 Temperature 38.3 C H Pulse Rate 77 80 Respiratory Rate 21 H Blood Pressure 77/57 L 78/54 L Pulse Oximetry 97 97 10/06/19 01:00 10/06/19 01:32 10/06/19 01:36 Temperature Pulse Rate 77 80 83 Respiratory Rate 22 H 25 H Blood Pressure 92/60 L Pulse Oximetry 96 98 10/06/19 02:00 10/06/19 03:00 10/06/19 04:00 Temperature 37.8 C H 38.1 C H Pulse Rate 83 92 97 Respiratory Rate 24 H 28 H 26 H Blood Pressure 78/55 L 90/61 L 125/79 Pulse Oximetry 93 96 94 10/06/19 05:00 10/06/19 06:00 10/06/19 08:00 Temperature 37.8 C H Pulse Rate 80 100 94 Respiratory Rate 20 20 24 H Blood Pressure 95/49 L 88/75 L 101/68 Pulse Oximetry 94 91 95 10/06/19 09:13 10/06/19 09:20 10/06/19 09:35 Temperature Pulse Rate 83 99 86 Respiratory Rate 20 20 Blood Pressure Pulse Oximetry 96 10/06/19 09:56 10/06/19 11:10 Temperature Pulse Rate 104 H 98 Respiratory Rate 30 H Blood Pressure 81/54 L Pulse Oximetry 94 95 Intake/Output Intake/Output: Intake & Output 10/03/19 10/04/19 10/05/19 10/06/19 23:59 23:59 23:59 23:59 Intake Total 1841 2948 2542 1130 Output Total 1225 1950 2100 350 Balance 616 998 442 780 Meds/Results Medications: Active Medications Generic Name Dose Route Start Last Admin Trade Name Freq PRN Reason Stop Dose Admin Acetaminophen 650 mg 09/20/19 09:00 10/02/19 03:16 Tylenol Tablet PO 650 mg Q4H PRN Administration Headache Albuterol 5 mg 09/17/19 14:00 10/06/19 09:12 Albuterol Sulf Neb 2.5mg/0.5ml INHALATION 5 mg Q6HRT AZUCENA Administration Budesonide 0.5 mg 09/21/19 08:55 10/06/19 09:12 Pulmicort Respule Neb INHALATION 0.5 mg Q12HRT AZUCENA Administration Carvedilol 12.5 mg 10/01/19 21:00 10/05/19 21:18 Coreg PO 12.5 mg Q12HR AZUCENA Administration Chlordiazepoxide HCl 25 mg 10/03/19 06:00 10/06/19 05:37 Librium Po PO 25 mg Q8HR AZUCENA Administration Dextrose 12.5 gm 09/24/19 08:05 Dextrose 50% Syringe IV PUSH PRN PRN Hypoglycemia Protocol Dornase Jesus 2.5 mg 10/03/19 10:35 10/06/19 09:13 Pulmozyme INHALATION 2.5 mg
--- NOTE | 2019-10-06 12:56 | WPDINTPN ---
Progress Note: A&P Assessment and Plan (1) Staphylococcus aureus bacteremia: Onset Date: 09/20/19 Code(s): R78.81 - Bacteremia Status: Acute Assessment and Plan: Blood cultures x2 from 09/20 growing Staphylococcus aureus, sensitive to oxacillin (But patient is allergic to penicillin), Repeat blood cultures 09/22/2019 growing staph aureus. - Echocardiogram on 09/23/2019 showed EF of 35-40%, grade 1 diastolic dysfunction, aortic valve is not visualized well, mitral valve has mild thickened leaflets, moderate to severe mitral valve regurg, - PANKAJ on 09/26/2019 with no vegetations or intracardiac thrombi, EF 35%, mild to moderate mitral valve regurg. - Appreciate infectious disease evaluation recommendations. Continue ceftriaxone 2 g daily - patient was afebrile overnight, WBC count trending down., - CT scan of the head, chest/abdomen /pelvis without contrast was ordered on 09/27/19, no acute intracranial abnormalities were noted, mild pneumonia involving the lower lobes, emphysema, right inguinal lymphadenopathy which may be lymphoma which could also be causing these fevers. - Procalcitonin is still pending - blood culture on 10/01/2019 are negative x2 - sputum culture on 10/02/2019 grew Serratia, sensitive to ceftriaxone (2) Acute and chronic respiratory failure: Qualifiers: Respiratory failure complication: unspecified whether with hypoxia or hypercapnia Qualified Code(s): J96.20 - Acute and chronic respiratory failure, unspecified whether with hypoxia or hypercapnia Code(s): J96.20 - Acute and chronic respiratory failure, unspecified whether with hypoxia or hypercapnia Status: Acute Assessment and Plan: patient worsened overnight on 09/20/2019, tachypneic, increased work of breathing, impending respiratory failure, Dr. Coughlin intubated the patient on 09/20/2019 and transferred the patient to the ICU. Likely related to bacteremia and UTI and severe sepsis - continue bronchodilators - chest x-ray and ABGs reviewed, on CMV mode of ventilation. - appreciate Pulmonary evaluation recommendation - Patient still has excessive and thick secretions, continue Pulmozyme. hick secretions and mental status preventing weaning trials - d/w Son, Orville, he is agreeable for tracheostomy and PEG tube placement - likely transferred to [place] on 10/07/2019 way will receive his PEG tube and tracheostomy (3) Encephalopathy: Code(s): G93.40 - Encephalopathy, unspecified Status: Acute Assessment and Plan: patient with acute encephalopathy. Most [facility] - CT scan of the brain without contrast 09/27/2019 was done, did not show any acute intracranial abnormalities - EEG was done on 09/26/2019, Reportedly showing diffuse slowing. neurology following - CT head 09/30- negative - LP done showed no signs of meningitis , bacterial, AFB, fungal cultures are all negative - continue Seroquel and Librium - continue Precedex and Versed infusion (4) UTI (urinary tract infection): Qualifiers: Urinary tract infection type: site unspecified Hematuria presence: without hematuria Qualified Code(s): N39.0 - Urinary tract infection, site not specified Code(s): N39.0 - Urinary tract infection, site not specified Status: Acute Assessment and Plan: urine cultures growing Staph aureus continue ceftriaxone as above (5) Acute exacerbation of chronic obstructive airways disease: Code(s): J44.1 - Chronic obstructive pulmonary disease with (acute) exacerbation Status: Acute Assessment and Plan: continue mechanical ventilation, - continue antibiotics as above - Off steroids now. - Continue bronchodilators. (6) Mass of right inguinal region: Code(s): R19.09 - Other intra-abdominal and pelvic swelling, mass and lump Status: Acute Assessment and Plan: patient had a lymph node biopsy from
--- NOTE | 2019-10-06 13:23 | P.PNIM_ITS ---
Progress Note: A&P Assessment and Plan (1) Acute exacerbation of chronic obstructive airways disease: Code(s): J44.1 - Chronic obstructive pulmonary disease with (acute) exacerbation Status: Acute (2) Chronic respiratory failure with hypoxia: Code(s): J96.11 - Chronic respiratory failure with hypoxia Status: Acute Assessment and Plan: 09/30/19 16:25 Patient is a 69 yo M with history of COPD/asthma overlap, scleroderma, chronic respiratory failure with hypoxia, diastolic congestive heart failure, and history of tobacco abuse who is here for acute on chrronid respiratory failure 2/2 COPD exacerbation and for evaluation of right inguinal lymphadenopathy. Pt had lymph node biospy seen by Dr Barr will need further investigations later after discharge for possible non hodgkins lymphoma. Pt unfortunately developed severe SOB and was intubated and admitted to ICU, 09/20/2019. Continue ventilatory support. Discussion with brother at the bedside.. 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 Ongoing bactremia, encehalopathy and respiratory failure, pt doing much better today, on breathing trial hopeful extubation soon. Pt being seen by pulmology, ID, cardiology and ICU Mds. Bacterermia work up - LP is negative. PANKAJ was negative. Blood cultures x2 from 09/20 growing Staphylococcus aureus, sensitive to oxacillin (But patient is allergic to penicillin) Repeat blood cultures 09/22/2019 growing staph aureus. now blood culture from 09/26 are negative till date. Wcc coming down gradually, CXR shows mild PNEumonia ? secondary to lymphoma continue rocephin pt unwell with low grade fevers (3) Acute kidney injury: Code(s): N17.9 - Acute kidney failure, unspecified Status: Resolved Assessment and Plan: * Monitor renal function. (4) Diastolic heart failure: Qualifiers: Heart failure chronicity: chronic Qualified Code(s): I50.32 - Chronic diastolic (congestive) heart failure Code(s): I50.30 - Unspecified diastolic (congestive) heart failure Status: Acute Assessment and Plan: He is clinically compensated. Cardiomyopathy, cardiology rounding (5) Chronic anemia: Code(s): D64.9 - Anemia, unspecified Status: Acute Assessment and Plan: Continue to trend hb/ hct (6) Mass of right inguinal region: Code(s): R19.09 - Other intra-abdominal and pelvic swelling, mass and lump Status: Acute Assessment and Plan: Soft tissue ultrasound of the right inguinal region read as right inguinal lymphadenopathy, largest demonstrating effacement of normal fatty hilum, possibly pathologic. Consider lymphoma. Biopsy performed yesterday and preliminary results have returned suggestive for lymphoma. * Prelim biopsy suggestive of lymphoma * Dr. Barr has been consulted and appreciate input. * Pt to follow with Dr Barr on discharge (7) Staphylococcus aureus bacteremia: Onset Date: 09/20/19 Code(s): R78.81 - Bacteremia
[2019-10-06] MEDS: MIDAZOLAM HCL 2 MG/2 ML VIAL IV PUSH (15:53)
[2019-10-06 17:23] LABS: Glucose Point of Care 118 (65-105)
--- NOTE | 2019-10-06 19:29 | PM.PNPUL ---
Progress Note: A&P Assessment and Plan (1) Acute and chronic respiratory failure: Qualifiers: Respiratory failure complication: unspecified whether with hypoxia or hypercapnia Qualified Code(s): J96.20 - Acute and chronic respiratory failure, unspecified whether with hypoxia or hypercapnia Code(s): J96.20 - Acute and chronic respiratory failure, unspecified whether with hypoxia or hypercapnia Status: Acute Assessment and Plan: He is going to have a tracheostomy on trandfer to LT[facility] tomorrow. He has encephalopathy which is also a barrier to more weaning. Dr. Moran has talked with family about tracheostomy which is needed as he is not progressing. Plans are noted for transfer tomorrow Oct 07. (2) COPD exacerbation: Code(s): J44.1 - Chronic obstructive pulmonary disease with (acute) exacerbation Status: Acute Assessment and Plan: -Intubated for airway protection from septic encephalopathy -continue bronchodilator and inhaled steroids. -daily SBT has not been successful yet, and he will have a tracheostomy for improved chances of successful weaning. -on moderate amounts of sedation; less febrile; mentation is gradually improving. Subjective Date/time seen: 10/06/19 19:29 Interval history: This 69 yo man is seen for acute and chronic respiratory failure, improved with less fever, improved white blood cell count. He is not responding normally, however has his eyes open and is not in distress. Lower fevers, improved wbc. He was intubated Sep 20, has not been stable enough to extubate. His WBC is trending down, 13.7K. BUN 45, gradual improvement. He is sedated with Precedex 1.2 mcg/kg/hour, fentanyl and versed. Sep 19 - Right lymph node biopsy (+) lymphoma Sep 20 -Staph aureus bacteremia ; echo has not shown vegetations on valves Sep 30 - LP negative for meningitis Review of Systems Review of Systems: All systems reviewed & are unremarkable except as noted in HPI and below Constitutional: Constitutional: Reports as per HPI Exam Narrative: Exam Narrative: Intubated and sedated Const: General: comfortable, no acute distress and in distress (tachypnic ) moderate Other: intubated and sedated on Precedex, fentanyl, versed. HENMT: Mouth: Yes moist mucous membranes Eyes: Other: L Neck: Neck: supple and no JVD Resp: Effort & Inspection: normal respiratory effort Auscultation: clear to auscultation bilaterally, no crackles, no rales, no rhonchi, no wheezes and diminished lung sounds Other: no significant ET tube secretions Cardio: Rate: regular rate and tachycardic Rhythm: regular rhythm Heart sounds: no gallops, no murmurs and no rubs GI: Auscultation: normal bowel sounds Other: decreased bowel sounds Skin: General skin exam: normal color Wounds: wounds noted Other: diffuse chronic eczema Neuro: Cognition (Neuro): abnormal cognition Other: Sedated Extrem: General: normal to inspection, no edema and no pedal edema Other: no petechial hemorrhages Psych: Other: sedated Objective Data Vital Signs Vital Signs: Vital Signs - 24 hr 10/05/19 19:45 10/05/19 20:00 10/05/19 20:05 Temperature 38.1 C H Pulse Rate 95 81 98 Respiratory Rate 24 H 22 H Blood Pressure 97/65 L Pulse Oximetry 95 93 10/05/19 21:18 10/05/19 22:00 10/05/19 22:46 Temperature 38.1 C H Pulse Rate 80 83 77 Respiratory Rate 20 Blood Pressure 86/57 L Pulse Oximetry 97 97 10/05/19 23:20 10/06/19 00:00 10/06/19 01:00 Temperature 38.3 C H Pulse Rate 80 77 Respiratory Rate 21 H 22 H Blood Pressure 77/57 L 78/54 L 92/60 L Pulse Oximetry 97 96 10/06/19 01:32 10/06/19 01:36 10/06/19 02:00 Temperature 37.8 C H Pulse Rate 80 83 83 Respiratory Rate 25 H 24 H Blood Pressure 78/55 L Pulse Oximetry 98 93 10/06/19 03:00
[2019-10-06] MEDS: INSULIN GLARGINE (*BKC) 100 UNITS/ML 10 UNITS SUB-Q (20:11)
[2019-10-06 22:54] LABS: Glucose Point of Care 112 (65-105)
[2019-10-07] VITALS (27 sets, daily range): BP systolic 92–135; BP diastolic 58–76; PULSE 77–124; RESP 16–30; TEMP 36.4–37.9; O2SAT 92–100
[2019-10-07] MEDS: ALBUTEROL SULFATE NEB 2.5 MG/0.5 ML INH 5 MG INHALATION ×4 (01:57→20:44)
[2019-10-07] MEDS: IPRATROPIUM BR 0.02% INH SOLN 0.5 MG/2.5 ML VIAL INHALATION ×4 (01:57→20:43)
[2019-10-07 04:03] LABS: Base Excess ABG 3.6 mEq/l (+/-2.0); Carboxyhemoglobin 0.3 % THb (0-2.0); Fractional Inspired Oxygen 45 %; HCO3 ABG 27.2 mEq/l (22.0-26.0); Methemoglobin ABG 0.3 %THb (0-1.5); Oxygen Content ABG 15.9 %vol (16.0-22.0); Oxygen Saturation ABG 96.9 % (95.0-100.0); Oxyhemoglobin 94.8 % THb (90.0-100.0); PCO2 ABG 37.3 mmHg (35.0-45.0); PO2 ABG 83.4 mmHg (80.0-100.0); PO2 FiO2 Ratio Arterial Blood 1.85 %; Reduced Hemoglobin 4.6 %THb (0-5.0); Site Drawn LEFT RADIAL; Total Hemoglobin 11.9 g/dL (12.0-18.0)
[2019-10-07 04:04] LABS: Device VENTILATOR; Modified Allen's Test Fail
[2019-10-07 05:38] LABS: Basophils Percent Auto 0.2 % (0.2-1.2); Eosinophils Absolute Auto 0.3 K/mm3 (0-0.3); Eosinophils Percent Auto 2.5 % (0-4.4); Hematocrit 29.7 % (42.0-52.0); Hemoglobin 9.5 g/dL (14.0-18.0); Immature Granulocyte Absolute 0.15 K/mm3 (0.00-0.031); Immature Granulocyte Percent A 1.2 % (0-0.5); Lymphocytes Absolute Auto 1.81 K/mm3 (0.9-3.2); Lymphocytes Percent Auto 14.3 % (18.3-44.2); Mean Corpuscular Hemoglobin 30.5 pg (26-34); Mean Corpuscular Volume 95.5 fl (80-100); Monocytes Absolute Auto 0.7 K/mm3 (0.1-0.6); Monocytes Percent Auto 5.5 % (2.6-8.5); Neutrophils Absolute Auto 9.6 K/mm3 (1.3-6.7); Neutrophils Percent Auto 76.3 % (45.5-73.1); Platelet Count Result 402 k/mm3 (150-375); Red Blood Count 3.11 M/mm3 (4.6-6.20); Red Cell Distribution Width 13.2 % (11.5-14.5); White Blood Count 12.7 K/mm3 (4.5-10.0)
[2019-10-07 05:41] LABS: Blood Urea Nitrogen 41 mg/dL (9-20); Calcium 8.5 mg/dL (8.4-10.2); Carbon Dioxide 28 mmol/L (22-30); Chloride 101 mmol/L (98-107); Estimated CRCL calculation 50 ml/min; Estimated Glomerular Filt Rate > 60; Glucose 126 mg/dL (75-110); Magnesium 2.4 mg/dL (1.6-2.3); Phosphorus 5.3 mg/dL (2.5-4.5); Potassium 4.7 mmol/L (3.4-5.0); Prothrombin Time 12.9 Seconds (11.1-14.7); Sodium 138 mmol/L (137-145)
[2019-10-07 05:42] LABS: Partial Thromboplastin Time 29.4 SECONDS (22.3-36.8)
[2019-10-07] MEDS: BUDESONIDE RESPULE NEB 0.5 MG/2 ML AMP INHALATION ×2 (08:56→20:43)
[2019-10-07] MEDS: DORNASE ALFA INH SOLN 1 MG/ML 2.5 ML AMP 2.5 MG INHALATION ×2 (08:56→20:44)
[2019-10-07] MEDS: ENOXAPARIN 40 MG/0.4 ML SYRINGE SUB-Q (09:13)
[2019-10-07] MEDS: FAMOTIDINE 20 MG/2 ML VIAL IV PUSH ×2 (09:14→20:18)
[2019-10-07] MEDS: INSULIN GLARGINE (*BKC) 100 UNITS/ML 10 UNITS SUB-Q ×2 (09:14→20:24)
[2019-10-07] MEDS: polyethylene glycoL 3350 17 GM POWD.PACK PO (09:15)
[2019-10-07 09:16] LABS: Arterial Blood Gas PEEP 5 cmH2O; Arterial Blood Gas Tidal Volume 400 ml; Arterial Blood Gas Vent Mode CMV; Arterial Blood Gas Ventilator rate 12 /MIN
--- NOTE | 2019-10-07 09:23 | PM.PNCARD ---
Progress Note: A&P Additional Plan Left ventricular systolic dysfunction on FRANCINE-inhibitor and beta-lee at modest doses Hemodynamics do not permit advancing medical therapy at this point Long-term respiratory status is principal problem patient appears to be ventilator dependent and potentially could being transferred to LTAC No additional/active cardiac problems will continue to follow while he is here at [facility] Time Spent With Patient Time with patient: less than 15 minutes Subjective Date/time seen: Date of service: 10/07/19 09:23 Interval history: Follow-up visit for left ventricular systolic dysfunction identified incidentally on PANKAJ. Patient remains sedated and on mechanical ventilator support. Because of ongoing ventilator dependency according to the chart plans are to transfer him to LTAC potentially today Sedated and on ventilator no history available Exam Const: Other: Sedated patient on mechanical ventilator support HENMT: Mouth: Yes moist mucous membranes Eyes: Sclera: sclerae normal Pupils: Equal, round and reactive pupils present Neck: Neck: no JVD Thyroid: thyroid normal Resp: Effort & Inspection: normal respiratory effort Other: Patient on ventilator support scattered central rhonchi are noted otherwise good air movement no rales no wheezing Cardio: Rate: regular rate Rhythm: regular rhythm GI: Auscultation: normal bowel sounds Skin: General skin exam: no rashes or lesions noted Extrem: General: normal to inspection Other: Warm well perfused, no edema Objective Data Vital Signs Vital Signs: Vital Signs - 24 hr 10/06/19 09:35 10/06/19 09:56 10/06/19 10:00 Temperature Pulse Rate 86 104 H 104 H Respiratory Rate 20 30 H Blood Pressure 81/54 L Pulse Oximetry 94 10/06/19 11:10 10/06/19 12:00 10/06/19 14:00 Temperature 37.7 C H Pulse Rate 98 96 98 Respiratory Rate 26 H Blood Pressure 110/65 Pulse Oximetry 95 96 10/06/19 14:02 10/06/19 14:04 10/06/19 14:09 Temperature Pulse Rate 95 95 94 Respiratory Rate 26 H 27 H Blood Pressure 105/69 Pulse Oximetry 97 97 10/06/19 14:10 10/06/19 16:00 10/06/19 17:25 Temperature 37.7 C H Pulse Rate 96 94 97 Respiratory Rate 26 H 24 H Blood Pressure 107/65 Pulse Oximetry 96 97 10/06/19 18:00 10/06/19 20:00 10/06/19 20:05 Temperature 38.1 C H Pulse Rate 94 91 84 Respiratory Rate 22 H 21 H Blood Pressure 92/59 L 98/63 L Pulse Oximetry 98 98 98 10/06/19 20:11 10/06/19 20:28 10/06/19 22:00 Temperature Pulse Rate 84 98 Respiratory Rate 24 H 24 H Blood Pressure 97/57 L Pulse Oximetry 98 98 10/06/19 23:00 10/07/19 00:00 10/07/19 01:42 Temperature 37.7 C H Pulse Rate 92 91 81 Respiratory Rate 19 Blood Pressure 107/64 Pulse Oximetry 95 97 10/07/19 01:43 10/07/19 02:01 10/07/19 04:00 Temperature 37.6 C Pulse Rate 80 90 92 Respiratory Rate 18 22 H Blood Pressure 92/58 L 112/67 Pulse Oximetry 96 100 97 10/07/19 04:50 10/07/19 06:00 10/07/19 08:57 Temperature Pulse Rate 86 92 82 Respiratory Rate 24 H 16 Blood Pressure 99/65 L Pulse Oximetry 96 96 10/07/19 09:08 Temperature Pulse Rate 97 Respiratory Rate Blood Pressure Pulse Oximetry 96 Intake/Output Intake/Output: Intake & Output 10/04/19 10/05/19 10/06/19 10/07/19 23:59 23:59 23:59 23:59 Intake Total 2948 2542 2984 638 Output Total 1950 2100 1150 900 Balance 012 842 3032 -262 Meds/Results Medications: Active Medications Generic Name Dose Route Start Last Admin Trade Name Freq PRN Reason Stop Dose Admin Acetaminophen 650 mg 09/20/19 09:00 10/02/19 03:16 Tylenol Tablet PO 650 mg Q4H PRN Administration Headache Albuterol 5 mg 09/17/19 14:00 10/07/19 08:56 Albuterol Sulf Neb 2.5mg/0.5ml INHALATION 5 mg Q6HRT AZUCENA Administration Budesonide 0.5 mg 09/21/19 08:55 10/07/19 08:56 Pulmicort Respule Neb INHALATION 0.5 mg Q12HRT AZUCENA Adm
[2019-10-07] MEDS: MIDAZOLAM HCL 50 MG in DEXTROSE 5% 90 ML 8 MG IV CONT ×2 (09:54→22:21)
[2019-10-07 12:44] LABS: Glucose Point of Care 158 (65-105)
--- NOTE | 2019-10-07 14:12 | WPDINFPN2 ---
Progress Note: A&P Assessment and Plan (1) Staphylococcus aureus bacteremia: Onset Date: 09/20/19 Code(s): R78.81 - Bacteremia Status: Acute Assessment and Plan: 1. JAMILAH bacteremia, endovascular source, but no focal site is apparent. PANKAJ no infection seen. Microbiologic cure. Temperature readings down to normal for now 2. New Dx NHL, with immunocompromise 3. Resp failure 4. Multifactorial leukocytosis, somewhat better 5. PCN allergy 6. Serratia in sputum, susceptible to Ctx REC Ctx # 16 / 28 days, continue. He is on optimal therapy. LP = no infection. His ongoing fever may be from his lymphoma. No additional studies at this time. Subjective Date/time seen: 10/07/19 14:12 Interval history: intubated Exam Narrative: Exam Narrative: t max 38.1 core Const: General: in distress Eyes: General: appearance normal, both eyes and all related structures Resp: Effort & Inspection: normal respiratory effort Auscultation: crackles and diminished lung sounds Cardio: Rate: regular rate Rhythm: regular rhythm Heart sounds: no murmurs GI: Inspection: non-distended GI Palp: Yes Soft to palpation, No Tenderness to palpation present (GI) and No Guarding due to palpation present (GI) : Male General Exam: Yes normal external exam Urinary Catheter: Urinary Catheter: patent and draining and urine clear Objective Data Vital Signs Vital Signs: Vital Signs - 24 hr 10/06/19 16:00 10/06/19 17:25 10/06/19 18:00 Temperature 37.7 C H Pulse Rate 94 97 94 Respiratory Rate 24 H 22 H Blood Pressure 107/65 92/59 L Pulse Oximetry 96 97 98 10/06/19 20:00 10/06/19 20:05 10/06/19 20:11 Temperature 38.1 C H Pulse Rate 91 84 84 Respiratory Rate 21 H 24 H Blood Pressure 98/63 L Pulse Oximetry 98 98 10/06/19 20:28 10/06/19 22:00 10/06/19 23:00 Temperature Pulse Rate 98 92 Respiratory Rate 24 H Blood Pressure 97/57 L Pulse Oximetry 98 98 95 10/07/19 00:00 10/07/19 01:42 10/07/19 01:43 Temperature 37.7 C H Pulse Rate 91 81 80 Respiratory Rate 19 18 Blood Pressure 107/64 92/58 L Pulse Oximetry 97 96 10/07/19 02:01 10/07/19 04:00 10/07/19 04:50 Temperature 37.6 C Pulse Rate 90 92 86 Respiratory Rate 22 H Blood Pressure 112/67 Pulse Oximetry 100 97 96 10/07/19 06:00 10/07/19 08:00 10/07/19 08:57 Temperature 37.9 C H Pulse Rate 92 81 82 Respiratory Rate 24 H 17 16 Blood Pressure 99/65 L 92/59 L Pulse Oximetry 96 96 10/07/19 09:08 10/07/19 09:30 10/07/19 10:00 Temperature Pulse Rate 97 108 H 124 H Respiratory Rate 16 30 H Blood Pressure 135/74 Pulse Oximetry 96 92 10/07/19 11:19 10/07/19 12:00 10/07/19 14:00 Temperature 37.2 C Pulse Rate 108 H 102 H 98 Respiratory Rate 21 H 20 Blood Pressure 108/74 117/76 Pulse Oximetry 96 98 99 Intake/Output Intake/Output: Intake & Output 10/04/19 10/05/19 10/06/19 10/07/19 23:59 23:59 23:59 23:59 Intake Total 2948 2542 2984 638 Output Total 1950 2100 1150 900 Balance 724 733 93168 176 1097 -994 Meds/Results Medications: Active Medications Generic Name Dose Route Start Last Admin Trade Name Freq PRN Reason Stop Dose Admin Acetaminophen 650 mg 09/20/19 09:00 10/02/19 03:16 Tylenol Tablet PO 650 mg Q4H PRN Administration Headache Albuterol 5 mg 09/17/19 14:00 10/07/19 08:56 Albuterol Sulf Neb 2.5mg/0.5ml INHALATION 5 mg Q6HRT AZUCENA Administration Budesonide 0.5 mg 09/21/19 08:55 10/07/19 08:56 Pulmicort Respule Neb INHALATION 0.5 mg Q12HRT AZUCENA Administration Carvedilol 6.25 mg 10/06/19 21:00 Coreg PO Q12HR AZUCENA Dextrose 12.5 gm 09/24/19 08:05 Dextrose 50% Syringe IV PUSH PRN PRN Hypoglycemia Protocol Dornase Jesus 2.5 mg 10/03/19 10:35 10/07/19 08:56 Pulmozyme INHALATION 2.5 mg Q12HRT AZUCENA Administration Enoxaparin Sodium 40 mg 09/21/19 09:00 10/07/19 09:13 Lovenox SUB-Q 40 mg DAILY [facility] Ad
--- NOTE | 2019-10-07 14:22 | PCDIET ---
ICU Rounding Note: Patient continues to tolerate Glucerna 1.2 @ 60mL/hr goal rate with no significant residuals. Plan for transfer to LTAC possibly as soon as today. Last recorded weight is 61.6kg which is decreased, despite +I/O. Bowel Motility: +BM on 10/06/19. Labs Reviewed: Glu (126), PO4 (5.3), Mg (2.4), BUN (41) Meds Noted: Albuterol, Rocephin, Precedex, Pepcid, Novolog, Lantus, Versed, Miralax Additional Notes: Scrotal area open, per RN. No other skin issues noted. Following daily in ICU rounds. Assessing/reassessing every Monday/Monday.
--- NOTE | 2019-10-07 14:33 | WPDINTPN ---
Progress Note: A&P Assessment and Plan (1) Staphylococcus aureus bacteremia: Onset Date: 09/20/19 Code(s): R78.81 - Bacteremia Status: Acute Assessment and Plan: Blood cultures x2 from 09/20 growing Staphylococcus aureus, sensitive to oxacillin (But patient is allergic to penicillin), Repeat blood cultures 09/22/2019 growing staph aureus. - Echocardiogram on 09/23/2019 showed EF of 35-40%, grade 1 diastolic dysfunction, aortic valve is not visualized well, mitral valve has mild thickened leaflets, moderate to severe mitral valve regurg, - PANKAJ on 09/26/2019 with no vegetations or intracardiac thrombi, EF 35%, mild to moderate mitral valve regurg. - Appreciate infectious disease evaluation recommendations. Continue ceftriaxone 2 g daily - patient was afebrile overnight, WBC count trending down., - CT scan of the head, chest/abdomen /pelvis without contrast was ordered on 09/27/19, no acute intracranial abnormalities were noted, mild pneumonia involving the lower lobes, emphysema, right inguinal lymphadenopathy which may be lymphoma which could also be causing these fevers. - Procalcitonin is still pending - blood culture on 10/01/2019 are negative x2 - sputum culture on 10/02/2019 grew Serratia, sensitive to ceftriaxone (2) Acute and chronic respiratory failure: Qualifiers: Respiratory failure complication: unspecified whether with hypoxia or hypercapnia Qualified Code(s): J96.20 - Acute and chronic respiratory failure, unspecified whether with hypoxia or hypercapnia Code(s): J96.20 - Acute and chronic respiratory failure, unspecified whether with hypoxia or hypercapnia Status: Acute Assessment and Plan: patient worsened overnight on 09/20/2019, tachypneic, increased work of breathing, impending respiratory failure, Dr. Coughlin intubated the patient on 09/20/2019 and transferred the patient to the ICU. Likely related to bacteremia and UTI and severe sepsis - continue bronchodilators - chest x-ray and ABGs reviewed, on CMV mode of ventilation. - appreciate Pulmonary evaluation recommendation - Patient still has excessive and thick secretions, continue Pulmozyme. hick secretions and mental status preventing weaning trials - d/w Son, Or[place], he is agreeable for tracheostomy and PEG tube placement - likely transferred to [place] on 10/07/2019 way will receive his PEG tube and tracheostomy - unclear when bed avaialble . orders placed for trach and peg - unable to extubate due to recurrent fevers and tacypnea and poor mental status. (3) Encephalopathy: Code(s): G93.40 - Encephalopathy, unspecified Status: Acute Assessment and Plan: patient with acute encephalopathy. Most [facility] - CT scan of the brain without contrast 09/27/2019 was done, did not show any acute intracranial abnormalities - EEG was done on 09/26/2019, Reportedly showing diffuse slowing. neurology following - CT head 09/30- negative - LP done showed no signs of meningitis , bacterial, AFB, fungal cultures are all negative - continue Seroquel and Librium - continue Precedex and Versed infusion - will transition to fentanyl and versed (4) UTI (urinary tract infection): Qualifiers: Hematuria presence: without hematuria Urinary tract infection type: site unspecified Qualified Code(s): N39.0 - Urinary tract infection, site not specified Code(s): N39.0 - Urinary tract infection, site not specified Status: Acute Assessment and Plan: urine cultures growing Staph aureus continue ceftriaxone as above (5) Acute exacerbation of chronic obstructive airways disease: Code(s): J44.1 - Chronic obstructive pulmonary disease with (acute) exacerbation Status: Acute Assessment and Plan: continue mechanical ventilation, - continue antibiotics as above - Off steroids now. - Continue bronchodilators. (6) Mass of righ
--- NOTE | 2019-10-07 17:02 | WPDANESEPP ---
Anes - Eval Pre Procedure Procedure: PEG Tube Operation Date: 10/08/19 10:00 Proposed Procedures p Percutaneous Endoscopic Gastrostomy - Vincenzo Moran MD Operation Date: 10/10/19 10:30 Proposed Procedures p Tracheostomy - Erwin Herbert MD Date/Time: 10/07/19 17:02 Surgeon: Luisa Preop Diagnosis: Respiratory failure, failure to wean Pre Op Diagnosis: copd exacerbation Patient Data Age: 69 Gender: M Height: 5 ft 7 in Weight: 61.6 kg Last Vital Signs Temp 99 F 10/07/19 12:00 Pulse 102 H 10/07/19 14:50 Resp 26 H 10/07/19 14:50 BP 117/76 10/07/19 14:00 Pulse Ox 97 10/07/19 14:47 Allergies Allergy/AdvReac Type Severity Reaction Status Date / Time penicillin G Allergy Severe Unknown Verified 09/17/19 09:02 Penicillins Allergy Unknown Unknown Verified 09/17/19 09:02 Home Medications Medication Instructions Recorded Confirmed Type budesonide-formoterol HFA 160 2 puff INHALATION Q4-6H #10.2 gm 07/17/19 09/17/19 Rx mcg-4.5 mcg/actuation aerosol inhaler furosemide 20 mg tablet 20 mg PO BID 07/17/19 09/17/19 History imiquimod 5 % topical cream packet See Rx Instructions TOPICAL 5XW 07/17/19 09/17/19 History metaxalone 800 mg tablet 800 mg PO BID PRN #60 tablet 07/17/19 09/17/19 Rx tiotropium bromide 18 mcg capsule 1 cap INHALATION DAILY 07/17/19 09/17/19 History with inhalation device trazodone 100 mg tablet 100 mg PO BID #180 tablet 07/17/19 09/17/19 Rx naproxen 500 mg tablet 500 mg PO BID #20 tablet 08/22/19 09/17/19 Rx Ventolin HFA 90 mcg/actuation 1 puff INHALATION Q4H PRN #18 gm NS 09/17/19 09/17/19 Rx aerosol inhaler prednisone 10 mg tablet 10 mg PO DAILY #100 tablet 09/17/19 09/17/19 Rx Laboratory Tests 10/06/19 10/06/19 10/07/19 17:21 22:52 03:52 WBC RBC Hgb Hct MCV MCH MCHC RDW Plt Count MPV Immature Gran % (Auto) Neut % (Auto) Lymph % (Auto) M[place] % (Auto) Eos % (Auto) Baso % (Auto) Lymph # (Auto) [place] # (Auto) Eos # (Auto) Baso # (Auto) Abs Immat Gran (auto) Absolute Neuts (auto) Absolute Nucleated RBC Nucleated RBC % PT INR APTT Puncture Site Left radial ABG pH 7.480 H (7.350-7.450) ABG pCO2 37.3 mmHg mmHg (35.0-45.0) ABG pO2 83.4 mmHg mmHg (80.0-100.0) ABG PO2/FiO2 Ratio 1.85 % % ABG HCO3 27.2 mEq/l H mEq/l (22.0-26.0) ABG O2 Saturation 96.9 % % (95.0-100.0) ABG O2 Content 15.9 %vol L %vol (16.0-22.0) ABG Base Excess 3.6 mEq/l mEq/l (+/-2.0) A-a Gradient 195.0 mmHg mmHg Oxyhemoglobin 94.8 % THb % THb (90.0-100.0) Carboxyhemoglobin 0.3 % THb % THb (0-2.0) Methemoglobin 0.3 %THb %THb (0-1.5) Reduced Hemoglobin 4.6 %THb %THb (0-5.0) Total Hemoglobin 11.9 g/dL L g/dL (12.0-18.0) O2 Delivery Device Ventilator O2 Liters/Min Not Reportable Minute Volume Not Reportable Vent Rate 12 /MIN /MIN Vent Mode Cmv FiO2 45 % % Tidal Volume 400 ml ml PEEP 5 cmH2O cmH2O Peak Inspir Pressure Not Reportable Pressure Support Not Reportable Sodium Potassium Chloride Carbon Dioxide BUN Creatinine Estim Creat Clear Calc Estimated GFR Glucose POC Capillary Glucose 118 mg/dl H mg/dl 112 mg/dl H mg/dl (65-105) (65-105) Calcium Phosphorus Magnesium 10/07/19 10/07/19 10/07/19 04:56 04:56 04:56 WBC
[2019-10-07] MEDS: carvediloL 6.25 MG TABLET PO ×2 (17:08→21:06)
--- NOTE | 2019-10-07 17:10 | WPDGICN ---
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 Patient is ventilator dependent and a percutaneous endoscopic gastrostomy tube is requested. Patient was admitted to the hospital on 09/17/2019 because of shortness of breath. Patient subsequently had respiratory failure and has been intubated in the intensive care unit subsequently. Past history is significant for COPD. Patient is unable to give any additional history. He is unresponsive. Past medical history is significant for COPD. He has non-Hodgkin's lymphoma. Without lymph node mass in the right groin. He has suffered with acute kidney injury. In the past he has been treated for chronic anemia. Anxiety. Dyslipidemia. He has a distant history of malignant skin cancer. Family history is noncontributory. No family history of colon or rectal disease. Current medications include budesonide. Furosemide. metaxalone. Naprosyn. Prednisone. Trazodone. Ventolin. Physical exam reveals patient to be intubated. He is unresponsive. HEENT exam is unremarkable he is anicteric. Lungs reveal a few rhonchi. He is on the ventilator. Heart is without murmur. Abdominal exam bowel sounds are present soft nontender. There are no scars in the upper abdomen. Laboratory work reveals CBC with a white count of 12.7. Hemoglobin 9.5. Hematocrit 29.7. MCV 99. Platelets 402. Electrolytes with a BUN of 41. Creatinine 1.2. Impression 1. Ventilator dependent. 2. COPD. Plan is for a PEG placement for nutritional support. GI Consult Note Consult date/time: 10/07/19 17:10 HPI: Beto Cornejo is a 69 year old male [facility] Past Medical History Medical History Anxiety associated with depression (~1971) Chronic anemia Chronic respiratory failure with hypoxia On 3 liters nasal cannula at nighttime and p.r.n. throughout the day. COPD exacerbation COPD mixed type (~2014) Asthma-COPD overlap. Followed by Dr. Karen Ozuna. Diastolic heart failure Echocardiogram in March 2019 showed normal LV size and function with an impaired diastolic relaxation and ejection fraction of 60 to 65%. Dyslipidemia Eczema History of tobacco abuse Osteoarthritis (arthritis due to wear and tear of joints) (~2008) Skin cancer (~2008) Smoking Tobacco abuse disorder (~1971) Surgical History Surgical History History of cataract surgery (~2015) Status post biopsy of skin (~2015) Status post surgical removal of malignant neoplasm of skin Patient has had multiple skin cancers excised from the face, chest, and back. Family History Family History Mother Family history of malignant neoplasm Family history of arthritis Hypertension Father Hypertension Acute myocardial infarction Sibling Hypertension 2 brothers and 2 sisters Acute myocardial infarction brother, sister Sibling Diabetes mellitus sister Sibling Cerebrovascular accident sister Social History Social History Social History: Pt states he quit smoking a couple of months ago. Started smoking @ age 18 Smoking packs per day: 1 Smoking cigarettes per day: 20.0 Years smoked: 40 Smoking pack-years: 40.00 Smoking status: Former smoker Tobacco type: cigarettes Second hand tobacco smoke exposure: No Alcohol intake: current Drinks per week: 2 Substance use: former Substance use type: marijuana and crack/cocaine Other substance usage details: Patient is previously used marijuana, cocaine remotely and rarely. Additional living arrangements comments: He lives with his son and [id number] in case he fell. His son is a boom pump operator and his [id number] is a nurse. He is retired from working in the [employer]
[2019-10-07 17:12] LABS: Glucose Point of Care 118 (65-105)
--- NOTE | 2019-10-07 18:43 | P.PNIM_ITS ---
Progress Note: A&P Assessment and Plan (1) Acute exacerbation of chronic obstructive airways disease: Code(s): J44.1 - Chronic obstructive pulmonary disease with (acute) exacerbation Status: Acute (2) Chronic respiratory failure with hypoxia: Code(s): J96.11 - Chronic respiratory failure with hypoxia Status: Acute Assessment and Plan: nyasia is a 69 yo M with history of COPD/asthma overlap, scleroderma, chronic respiratory failure with hypoxia, diastolic congestive heart failure, and history of tobacco abuse who is here for acute on chrronid respiratory failure 2/2 COPD exacerbation and for evaluation of right inguinal lymphadenopathy. Pt had lymph node biospy seen by Dr Barr will need further investigations later after discharge for possible non hodgkins lymphoma. Pt unfortunately developed severe SOB and was intubated and admitted to ICU, 09/20/2019. Continue ventilatory support. Discussion with brother at the bedside.. 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 Ongoing bactremia, encehalopathy and respiratory failure, pt doing much better today, on breathing trial hopeful extubation soon. Pt being seen by pulmology, ID, cardiology and ICU Mds. Bacterermia work up - LP is negative. PANKAJ was negative. Blood cultures x2 from 09/20 growing Staphylococcus aureus, sensitive to oxacillin (But patient is allergic to penicillin) Repeat blood cultures 09/22/2019 growing staph aureus. now blood culture from 09/26 are negative till date. Wcc coming down gradually, CXR shows mild PNEumonia ? secondary to lymphoma continue rocephin pt unwell with low grade fevers (3) Acute kidney injury: Code(s): N17.9 - Acute kidney failure, unspecified Status: Resolved Assessment and Plan: * Monitor renal function. (4) Diastolic heart failure: Qualifiers: Heart failure chronicity: chronic Qualified Code(s): I50.32 - Chronic diastolic (congestive) heart failure Code(s): I50.30 - Unspecified diastolic (congestive) heart failure Status: Acute Assessment and Plan: He is clinically compensated. Cardiomyopathy, cardiology rounding (5) Chronic anemia: Code(s): D64.9 - Anemia, unspecified Status: Acute Assessment and Plan: Continue to trend hb/ hct (6) Mass of right inguinal region: Code(s): R19.09 - Other intra-abdominal and pelvic swelling, mass and lump Status: Acute Assessment and Plan: Soft tissue ultrasound of the right inguinal region read as right inguinal lymphadenopathy, largest demonstrating effacement of normal fatty hilum, possibly pathologic. Consider lymphoma. Biopsy performed yesterday and preliminary results have returned suggestive for lymphoma. * Prelim biopsy suggestive of lymphoma * Dr. Barr has been consulted and appreciate input. * Pt to follow with Dr Barr on discharge (7) Staphylococcus aureus bacteremia: Onset Date: 09/20/19 Code(s): R78.81 - Bacteremia Status: Acute
[2019-10-07] MEDS: EUCERIN CREAM 120 GM JAR 1 APPLIC TOPICAL (20:18)
[2019-10-08] VITALS (34 sets, daily range): BP systolic 96–131; BP diastolic 66–94; PULSE 79–110; RESP 20–42; TEMP 36.2–37.4; O2SAT 92–100
[2019-10-08 00:09] LABS: Glucose Point of Care 118 (65-105)
[2019-10-08] MEDS: IPRATROPIUM BR 0.02% INH SOLN 0.5 MG/2.5 ML VIAL INHALATION ×4 (02:03→20:02)
[2019-10-08] MEDS: ALBUTEROL SULFATE NEB 2.5 MG/0.5 ML INH 5 MG INHALATION ×4 (02:03→20:02)
[2019-10-08 04:48] LABS: Hematocrit 28.5 % (42.0-52.0); Hemoglobin 9.1 g/dL (14.0-18.0); Mean Corpuscular HGB Conc 31.9 g/dl (32-36); Mean Corpuscular Hemoglobin 30.2 pg (26-34); Mean Corpuscular Volume 94.7 fl (80-100); Mean Platelet Volume 9.7 fl (7.4-10.4); Platelet Count Result 392 k/mm3 (150-375); Red Blood Count 3.01 M/mm3 (4.6-6.20); White Blood Count 9.8 K/mm3 (4.5-10.0)
[2019-10-08 05:05] LABS: Blood Urea Nitrogen 42 mg/dL (9-20); Calcium 8.4 mg/dL (8.4-10.2); Carbon Dioxide 29 mmol/L (22-30); Chloride 99 mmol/L (98-107); Estimated CRCL calculation 55 ml/min; Estimated Glomerular Filt Rate > 60; Glucose 202 mg/dL (75-110); Magnesium 2.3 mg/dL (1.6-2.3); Phosphorus 4.3 mg/dL (2.5-4.5); Potassium 4.6 mmol/L (3.4-5.0); Sodium 135 mmol/L (137-145)
[2019-10-08 05:14] LABS: Alveolar/Arterial O2 Gradient 321.1 mmHg; Base Excess ABG 1.9 mEq/l (+/-2.0); Carboxyhemoglobin 0.2 % THb (0-2.0); Fractional Inspired Oxygen 70 %; HCO3 ABG 25.5 mEq/l (22.0-26.0); Methemoglobin ABG 0.4 %THb (0-1.5); Oxygen Content ABG 15.2 %vol (16.0-22.0); Oxygen Saturation ABG 98.9 % (95.0-100.0); Oxyhemoglobin 97.4 % THb (90.0-100.0); PCO2 ABG 36.1 mmHg (35.0-45.0); PO2 ABG 139.2 mmHg (80.0-100.0); PO2 FiO2 Ratio Arterial Blood 1.99 %; Total Hemoglobin 10.9 g/dL (12.0-18.0); pH ABG 7.467 (7.350-7.450)
[2019-10-08 05:18] LABS: Arterial Blood Gas PEEP 8 cmH2O; Arterial Blood Gas Vent Mode PRESSURE CONTROL; Arterial Blood Gas Ventilator rate 20 /MIN; Device VENTILATOR; Modified Allen's Test Unable to perform; Peak Inspiratory Pressure 20 cmH2O; Site Drawn RIGHT RADIAL
[2019-10-08 06:12] LABS: Glucose Point of Care 123 (65-105)
[2019-10-08] MEDS: EUCERIN CREAM 120 GM JAR 1 APPLIC TOPICAL ×2 (07:45→20:31)
[2019-10-08] MEDS: carvediloL 6.25 MG TABLET PO ×2 (07:45→20:32)
[2019-10-08] MEDS: ENOXAPARIN 40 MG/0.4 ML SYRINGE SUB-Q (07:46)
[2019-10-08] MEDS: INSULIN GLARGINE (*BKC) 100 UNITS/ML 10 UNITS SUB-Q ×2 (07:46→20:58)
[2019-10-08] MEDS: FAMOTIDINE 20 MG/2 ML VIAL IV PUSH ×2 (07:46→20:31)
[2019-10-08 07:52] LABS: Glucose Point of Care 120 (65-105)
[2019-10-08] MEDS: BUDESONIDE RESPULE NEB 0.5 MG/2 ML AMP INHALATION ×2 (08:17→20:02)
[2019-10-08] MEDS: DORNASE ALFA INH SOLN 1 MG/ML 2.5 ML AMP 2.5 MG INHALATION ×2 (08:17→20:02)
[2019-10-08 11:25] LABS: Glucose Point of Care 112 (65-105)
--- NOTE | 2019-10-08 11:34 | PCDIET ---
Nutrition Follow-Up Complete: Nutrition Diagnosis: Inadequate Oral Intake as related to COPD as evidenced by weight loss of 10 ibs in the past 3 months/poor po intake reported Nutrition Goal: Patient to meet estimated nutritional needs. Tube feedings held for PEG placement today. Patient previously tolerated Glucerna 1.2 @ goal rate. Expect feedings to resume once PEG placed and verified for use. Last recorded weight is 61.3 kg which is stable. Bowel Motility: Last documented bowel movement on 10/06/19. Labs Reviewed: Glu (120), BUN (42), Na (135) Meds Noted: Albuterol, Rocpehin, Precedex, Novolog, Lantus, Miralax Additional Notes: Magnesium and phosphorus levels normal today. Lip scab and scrotal areas reported; no other skin breakdown documented. Recommend resuming tube feeding once medically appropriate. Will continue to monitor with same goal. Nutrition Monitoring and Evaluation: Follow up every Monday/Monday. Follow daily in ICU rounds.
--- NOTE | 2019-10-08 12:03 | PM.OP ---
Procedure Note - Brief Procedure Note - Brief Date of procedure: 10/08/19 Pre-op diagnosis: copd exacerbation Surgeon: Vincenzo Moran MD EGD and PEG Procedure performed on 10/08/2019. Preop diagnosis nutritional support. Ventilator dependency. Postop diagnosis normal EGD. Placement of PEG tube. Informed consent is obtained from power of audio production engineer. The risks benefits alternatives indications are discuss with POA. Who agrees to the procedure and risks. The risks include but are not limited to adverse reaction to medications including allergies. The risk of bleeding possible need for surgery. The risks for missed pathology. Risks for infection at PEG tube site. Patient given no additional sedation. Instrument is the [email or web address] video endoscope. Description of procedure. Endoscope is passed to the esophagus because the GE junction is located at 40 cm stomach make his hands entirety including U-turn is normal. Duodenum reveals normal bulb and sweep to 2nd portion. In the area of maximal transillumination within the body of the stomach needle is passed into the abdominal wall into the stomach. Guidewire is passed through this needle and withdrawn endoscopically. Over this a 20 gauge gastrostomy tube placed without difficulty. Patient tolerated this well. Impression normal EGD with placement of PEG tube. Plan is to start tube feedings after an interval of several hours. Medications may be given through the PEG tube now if necessary. Previous NG tube can be discontinued. Frequent cleansing of G-tube site is encouraged. It should be cleansed with either Betadine or hydrogen peroxide.
--- NOTE | 2019-10-08 12:47 | OP_ITS ---
DATE OF PROCEDURE: 10/08/2019 PROCEDURE: EGD with percutaneous endoscopic gastrostomy tube placement. PREOPERATIVE DIAGNOSIS: Ventilator dependency and nutritional support. POSTOPERATIVE DIAGNOSIS: Unremarkable EGD with placement of PEG tube. DESCRIPTION OF PROCEDURE: Informed consent for the EGD and PEG tube placement is obtained from [id number]. The risks, benefits, alternatives and indications are discussed and agreed to prior to starting the procedure. The risks include, but are not limited to, adverse reaction to medications including allergies, the risk of bleeding and possible need for transfusion, the risk of perforation and possible need for surgery, and the risk for missed pathology. Power of transactional attorney voiced clear understanding, agreed to proceed. The patient is given no additional sedation. The [email or web address] video endoscope was passed through the esophagus, the squamocolumnar junction is intact at 40 cm, appears normal. Stomach is seen in its entirety including U-turn is normal. Duodenum reveals normal bulb sweep to 2nd portion. In the area of the stomach with maximal light transillumination and also finger indentation. 1% lidocaine anesthesia is used in this area. Guidewire needle was passed through the abdominal wall and visualized within the stomach. Guidewire is passed through the needle and withdrawn endoscopically. Over this, a 20-gauge Bard gastrostomy tube is placed without difficulty. The patient tolerated the procedure well with no immediate complications. Plan is to allow medications be given through the PEG tube at this time. Tube feedings will be started slowly in several hours. Please send copy of all reports to Dr. Cortez in the intensive care unit and a copy to myself Dr. Moran. Fannie I MT: Reagan
--- NOTE | 2019-10-08 13:39 | WPDINFPN2 ---
Progress Note: A&P Assessment and Plan (1) Staphylococcus aureus bacteremia: Onset Date: 09/20/19 Code(s): R78.81 - Bacteremia Status: Acute Assessment and Plan: 1. JAMILAH bacteremia, endovascular source, microbiologic cure. Temperature readings down to normal for now 2. New Dx NHL, with immunocompromise 3. Resp failure 4. Multifactorial leukocytosis, back to normal 5. PCN allergy 6. Serratia in sputum, susceptible to Ctx REC Ctx # 17 / 28 days, continue. He is on optimal therapy. LP = no infection. Subjective Date/time seen: 10/08/19 13:39 Interval history: on vent PEG in place Exam Narrative: Exam Narrative: afebrile Const: General: in distress Resp: Effort & Inspection: normal respiratory effort Auscultation: rales and diminished lung sounds Cardio: Rate: tachycardic Heart sounds: no gallops and no murmurs GI: Inspection: non-distended GI Palp: Yes Soft to palpation and No Tenderness to palpation present (GI) Urinary Catheter: Urinary Catheter: patent and draining and urine clear Skin: General skin exam: normal color Objective Data Vital Signs Vital Signs: Vital Signs - 24 hr 10/07/19 14:00 10/07/19 14:34 10/07/19 14:47 Temperature Pulse Rate 98 99 93 Respiratory Rate 20 21 H Blood Pressure 117/76 Pulse Oximetry 99 97 10/07/19 14:50 10/07/19 16:00 10/07/19 17:56 Temperature 36.4 C L Pulse Rate 102 H 100 96 Respiratory Rate 26 H 22 H Blood Pressure 115/68 Pulse Oximetry 99 100 10/07/19 18:00 10/07/19 20:00 10/07/19 20:44 Temperature 36.8 C Pulse Rate 92 96 91 Respiratory Rate 20 22 H 20 Blood Pressure 98/60 L 126/71 Pulse Oximetry 99 100 97 10/07/19 21:06 10/07/19 21:07 10/07/19 22:00 Temperature Pulse Rate 90 95 77 Respiratory Rate 20 24 H Blood Pressure 96/63 L Pulse Oximetry 100 10/07/19 23:12 10/08/19 00:00 10/08/19 02:00 Temperature 37.4 C Pulse Rate 82 79 90 Respiratory Rate 20 20 Blood Pressure 118/76 102/66 Pulse Oximetry 100 100 99 10/08/19 02:03 10/08/19 02:14 10/08/19 04:00 Temperature 37.3 C Pulse Rate 83 88 92 Respiratory Rate 20 20 20 Blood Pressure 106/85 Pulse Oximetry 100 99 10/08/19 05:22 10/08/19 06:00 10/08/19 07:45 Temperature Pulse Rate 102 H 93 101 H Respiratory Rate 30 H Blood Pressure 111/76 Pulse Oximetry 100 92 10/08/19 07:58 10/08/19 08:00 10/08/19 08:18 Temperature 36.4 C Pulse Rate 107 H 107 H 103 H Respiratory Rate 29 H 30 H 29 H Blood Pressure 112/84 Pulse Oximetry 98 98 10/08/19 08:24 10/08/19 08:41 10/08/19 10:00 Temperature Pulse Rate 103 H 105 H 103 H Respiratory Rate 29 H 29 H Blood Pressure 117/66 Pulse Oximetry 100 96 10/08/19 11:15 10/08/19 11:38 10/08/19 11:48 Temperature Pulse Rate 106 H 108 H 109 H Respiratory Rate 34 H 34 H Blood Pressure 131/69 127/77 Pulse Oximetry 97 99 99 10/08/19 11:53 10/08/19 11:58 10/08/19 12:00 Temperature Pulse Rate 109 H 110 H 109 H Respiratory Rate 34 H 42 H 23 H Blood Pressure 118/94 H 126/82 Pulse Oximetry 99 99 95 Intake/Output Intake/Output: Intake & Output 10/05/19 10/06/19 10/07/19 10/08/19 23:59 23:59 23:59 23:59 Intake Total 2542 2984 1994 1078 Output Total 2100 1150 1800 775 Balance 442 1834 194 303 Meds/Results Medications: Active Medications Generic Name Dose Route Start Last Admin Trade Name Freq PRN Reason Stop Dose Admin Acetaminophen 650 mg 09/20/19 09:00 10/02/19 03:16 Tylenol Tablet PO 650 mg Q4H PRN Administration Headache Albuterol 5 mg 09/17/19 14:00 10/08/19 08:18 Albuterol Sulf Neb 2.5mg/0.5ml INHALATION 5 mg Q6HRT AZUCENA Administration Budesonide 0.5 mg 09/21/19 08:55 10/08/19 08:17 Pulmicort Respule Neb INHALATION 0.5 mg Q12HRT AZUCENA Administration Carvedilol 6.25 mg 10/07/19 15:00 10/08/19 07:45 Coreg PO 6.25 mg Q12HR AZUCENA Administration Dextrose 12.5 gm 09/24/19 08:05
--- NOTE | 2019-10-08 13:51 | PM.PNCARD ---
Progress Note: A&P Assessment and Plan (1) Cardiomyopathy: Qualifiers: Cardiomyopathy type: unspecified Qualified Code(s): I42.9 - Cardiomyopathy, unspecified Code(s): I42.9 - Cardiomyopathy, unspecified Status: Acute Assessment and Plan: New diagnosis EF 35-40%. Was tachycardic and carvedilol increased 10/01/2019 which he seems to be tolerating. BP soft at times. Compensated, without volume overload.. Tolerating carvedilol, lisinopril Will evaluate CM further as an outpatient. (2) Mitral regurgitation: Qualifiers: Cardiac valve disease etiology: nonrheumatic Qualified Code(s): I34.0 - Nonrheumatic mitral (valve) insufficiency Code(s): I34.0 - Nonrheumatic mitral (valve) insufficiency Status: Acute Assessment and Plan: PANKAJ as above, no veggies, mild to moderate MR (3) Staphylococcus aureus bacteremia: Onset Date: 09/20/19 Code(s): R78.81 - Bacteremia Status: Acute Assessment and Plan: Unknown source. PANKAJ 09/26/2019: No vegetations. Lumbar puncture negative. Still having fevers. White cell count declining. Management per hospitalist and Dr. Frausto (4) Encephalopathy: Code(s): G93.40 - Encephalopathy, unspecified Status: Acute Assessment and Plan: Improving. (5) Acute and chronic respiratory failure: Qualifiers: Respiratory failure complication: unspecified whether with hypoxia or hypercapnia Qualified Code(s): J96.20 - Acute and chronic respiratory failure, unspecified whether with hypoxia or hypercapnia Code(s): J96.20 - Acute and chronic respiratory failure, unspecified whether with hypoxia or hypercapnia Status: Acute Assessment and Plan: Remains intubated but on a breathing trial. Management per Critical Care Service (6) Lymphoma: Code(s): C85.90 - Non-Hodgkin lymphoma, unspecified, unspecified site Status: Acute Assessment and Plan: Oncology following. Recent diagnosis of lymphoma. Subjective Date/time seen: 10/08/19 13:51 Interval history: Follow-up visit for left ventricular systolic dysfunction identified incidentally on PANKAJ. Date of service 10/08/2019 Patient remains sedated and on mechanical ventilator support. Because of ongoing ventilator dependency according to the chart plans are to transfer him to LTAC potentially today. Peg tube placed today Review of Systems Review of Systems: All systems reviewed & are unremarkable except as noted in HPI and below ROS unobtainable: unobtainable due to endotracheal tube, unobtainable due to mental condition, unobtainable due to mental status and other ( Patient indicates that he is not having any pain and is not cold by shaki) Constitutional: Constitutional: Reports as per HPI and Reports no additional constitutional complaints Eyes: Eyes: Reports as per HPI and Reports no additional eye complaints ENT: Reports system reviewed and no additional complaints, except as documented and Reports as per HPI Cardiovascular: Cardiovascular: Reports as per HPI and Reports no additional cardiovascular complaints Respiratory: Respiratory: Reports excessive phlegm production Gastrointestinal: Gastrointestinal: Reports as per HPI ( tube feedings on hold for breathing trial) Genitourinary: Genitourinary: Reports as per HPI ( Muro catheter) Musculoskeletal: Musculoskeletal: Denies back pain and Reports arthralgias Integumentary/Breasts: Skin/Breast: Reports system reviewed and no additional complaints, except as docu and Reports as per HPI Neurologic: Reports system reviewed and no additional complaints, except as documented and Reports as per HPI Psychiatric: Psychiatric: Reports no additional psychiat
[2019-10-08] MEDS: MIDAZOLAM HCL 50 MG in DEXTROSE 5% 90 ML 6 MG IV CONT (15:23)
--- NOTE | 2019-10-08 15:47 | WPDINTPN ---
Progress Note: A&P Assessment and Plan (1) Staphylococcus aureus bacteremia: Onset Date: 09/20/19 Code(s): R78.81 - Bacteremia Status: Acute Assessment and Plan: Blood cultures x2 from 09/20 growing Staphylococcus aureus, sensitive to oxacillin (But patient is allergic to penicillin), Repeat blood cultures 09/22/2019 growing staph aureus. - Echocardiogram on 09/23/2019 showed EF of 35-40%, grade 1 diastolic dysfunction, aortic valve is not visualized well, mitral valve has mild thickened leaflets, moderate to severe mitral valve regurg, - PANKAJ on 09/26/2019 with no vegetations or intracardiac thrombi, EF 35%, mild to moderate mitral valve regurg. - Appreciate infectious disease evaluation recommendations. Continue ceftriaxone 2 g daily - patient was afebrile overnight, WBC count trending down., - CT scan of the head, chest/abdomen /pelvis without contrast was ordered on 09/27/19, no acute intracranial abnormalities were noted, mild pneumonia involving the lower lobes, emphysema, right inguinal lymphadenopathy which may be lymphoma which could also be causing these fevers. - Procalcitonin is still pending - blood culture on 10/01/2019 are negative x2 - sputum culture on 10/02/2019 grew Serratia, sensitive to ceftriaxone (2) Acute and chronic respiratory failure: Qualifiers: Respiratory failure complication: unspecified whether with hypoxia or hypercapnia Qualified Code(s): J96.20 - Acute and chronic respiratory failure, unspecified whether with hypoxia or hypercapnia Code(s): J96.20 - Acute and chronic respiratory failure, unspecified whether with hypoxia or hypercapnia Status: Acute Assessment and Plan: patient worsened overnight on 09/20/2019, tachypneic, increased work of breathing, impending respiratory failure, Dr. Coughlin intubated the patient on 09/20/2019 and transferred the patient to the ICU. Likely related to bacteremia and UTI and severe sepsis - continue bronchodilators - chest x-ray and ABGs reviewed, on CMV mode of ventilation. - appreciate Pulmonary evaluation recommendation - Patient still has excessive and thick secretions, continue Pulmozyme. hick secretions and mental status preventing weaning trials - d/w Son, [place], he is agreeable for tracheostomy and PEG tube placement - likely transferred to [place] on 10/07/2019 way will receive his PEG tube and tracheostomy - unclear when bed avaialble . orders placed for trach and peg - unable to extubate due to recurrent fevers and tacypnea and poor mental status. (3) Encephalopathy: Code(s): G93.40 - Encephalopathy, unspecified Status: Acute Assessment and Plan: patient with acute encephalopathy. [facility] - CT scan of the brain without contrast 09/27/2019 was done, did not show any acute intracranial abnormalities - EEG was done on 09/26/2019, Reportedly showing diffuse slowing. neurology following - CT head 09/30- negative - LP done showed no signs of meningitis , bacterial, AFB, fungal cultures are all negative - continue Seroquel and Librium - continue Precedex and Versed infusion -?l transition to fentanyl and versed (4) UTI (urinary tract infection): Qualifiers: Urinary tract infection type: site unspecified Hematuria presence: without hematuria Qualified Code(s): N39.0 - Urinary tract infection, site not specified Code(s): N39.0 - Urinary tract infection, site not specified Status: Acute Assessment and Plan: urine cultures growing Staph aureus continue ceftriaxone as above (5) Acute exacerbation of chronic obstructive airways disease: Code(s): J44.1 - Chronic obstructive pulmonary disease with (acute) exacerbation Status: Acute Assessment and Plan: continue mechanical ventilation, - continue antibiotics as above - Off steroids now. - Continue bronchodilators. (6) Mass of right i
[2019-10-08 17:09] LABS: Glucose Point of Care 102 (65-105)
--- NOTE | 2019-10-08 19:24 | PM.PNPUL ---
Progress Note: A&P Assessment and Plan (1) Acute and chronic respiratory failure: Qualifiers: Respiratory failure complication: unspecified whether with hypoxia or hypercapnia Qualified Code(s): J96.20 - Acute and chronic respiratory failure, unspecified whether with hypoxia or hypercapnia Code(s): J96.20 - Acute and chronic respiratory failure, unspecified whether with hypoxia or hypercapnia Status: Acute Assessment and Plan: He is going to have a tracheostomy on trandfer to LTAC tomorrow. He has encephalopathy which is also a barrier to more weaning. Dr. Moran has talked with family about tracheostomy which is needed as he is not progressing. Plans are noted for transfer tomorrow Oct 07. (2) COPD exacerbation: Code(s): J44.1 - Chronic obstructive pulmonary disease with (acute) exacerbation Status: Acute Assessment and Plan: -Intubated for airway protection from septic encephalopathy -continue bronchodilator and inhaled steroids. -daily SBT has not been successful yet, and he will have a tracheostomy for improved chances of successful weaning. -on moderate amounts of sedation; less febrile; mentation is gradually improving. Subjective Date/time seen: 10/08/19 19:24 He had a Peg placed today,will be transferred to [place] tomorrow. Interval history: This 69 yo man is seen for acute and chronic respiratory failure, improved with less fever, improved white blood cell count. He is not responding normally, however has his eyes open and is not in distress. Lower fevers, improved wbc. He was intubated Sep 20, has not been stable enough to extubate. His WBC is trending down, 13.7K. BUN 45, gradual improvement. He is sedated with Precedex 0.7, versed 3 mg/hour. Had 2 doses of fentanyl today. Sep 19 - Right lymph node biopsy (+) lymphoma Sep 20 -Staph aureus bacteremia ; echo has not shown vegetations on valves Sep 30 - LP negative for meningitis Review of Systems Review of Systems: All systems reviewed & are unremarkable except as noted in HPI and below Constitutional: Constitutional: Reports as per HPI Exam Narrative: Exam Narrative: Intubated and sedated Const: General: comfortable, no acute distress and in distress (tachypnic ) moderate Other: intubated and sedated on Precedex, fentanyl, versed. HENMT: Mouth: Yes moist mucous membranes Eyes: Other: L Neck: Neck: supple and no JVD Resp: Effort & Inspection: normal respiratory effort Auscultation: clear to auscultation bilaterally, no crackles, no rales, no rhonchi, no wheezes and diminished lung sounds Other: no significant ET tube secretions Cardio: Rate: regular rate and tachycardic Rhythm: regular rhythm Heart sounds: no gallops, no murmurs and no rubs GI: Auscultation: normal bowel sounds Other: decreased bowel sounds Skin: General skin exam: normal color Wounds: wounds noted Other: diffuse chronic eczema Neuro: Cognition (Neuro): abnormal cognition Other: Sedated Extrem: General: normal to inspection, no edema and no pedal edema Other: no petechial hemorrhages Psych: Other: sedated Objective Data Vital Signs Vital Signs: Vital Signs - 24 hr 10/07/19 20:00 10/07/19 20:44 10/07/19 21:06 Temperature 36.8 C Pulse Rate 96 91 90 Respiratory Rate 22 H 20 Blood Pressure 126/71 Pulse Oximetry 100 97 10/07/19 21:07 10/07/19 22:00 10/07/19 23:12 Temperature Pulse Rate 95 77 82 Respiratory Rate 20 24 H Blood Pressure 96/63 L Pulse Oximetry 100 100 10/08/19 00:00 10/08/19 02:00 10/08/19 02:03 Temperature 37.4 C Pulse Rate 79 90 83 Respiratory Rate 20 20 20 Blood Pressure 118/76 102/66 Pulse Oximetry 100 99 100 10/08/19 02:14 10/08/19 04:00 10/08/19 05:22 Temperature 37.3 C Pulse Rate 88 92 102 H Respiratory Rate 20 20 Blood
[2019-10-09] VITALS (16 sets, daily range): BP systolic 108–138; BP diastolic 67–82; PULSE 84–104; RESP 20–31; TEMP 36.4–37.1; O2SAT 94–98
[2019-10-09 00:28] LABS: Glucose Point of Care 111 (65-105)
[2019-10-09] MEDS: IPRATROPIUM BR 0.02% INH SOLN 0.5 MG/2.5 ML VIAL INHALATION ×2 (01:55→09:06)
[2019-10-09] MEDS: ALBUTEROL SULFATE NEB 2.5 MG/0.5 ML INH 5 MG INHALATION ×2 (01:55→09:06)
[2019-10-09 05:17] LABS: Alveolar/Arterial O2 Gradient 177.6 mmHg; Carboxyhemoglobin 0.3 % THb (0-2.0); Fractional Inspired Oxygen 40 %; HCO3 ABG 23.5 mEq/l (22.0-26.0); Methemoglobin ABG 0.4 %THb (0-1.5); Oxyhemoglobin 93.4 % THb (90.0-100.0); PCO2 ABG 30.3 mmHg (35.0-45.0); PO2 ABG 72.8 mmHg (80.0-100.0); PO2 FiO2 Ratio Arterial Blood 1.82 %; Reduced Hemoglobin 5.9 %THb (0-5.0); Total Hemoglobin 11.4 g/dL (12.0-18.0)
[2019-10-09 05:19] LABS: Site Drawn LEFT RADIAL
[2019-10-09 05:20] LABS: Arterial Blood Gas PEEP 8 cmH2O; Arterial Blood Gas Vent Mode PRESSURE CONTROL; Arterial Blood Gas Ventilator rate 20 /MIN; Device VENTILATOR; Modified Allen's Test Unable to perform; Peak Inspiratory Pressure 20 cmH2O
[2019-10-09 05:23] LABS: pH ABG 7.507 (7.350-7.450)
[2019-10-09 05:51] LABS: Hematocrit 32.3 % (42.0-52.0); Hemoglobin 10.4 g/dL (14.0-18.0); Mean Corpuscular HGB Conc 32.2 g/dl (32-36); Mean Corpuscular Hemoglobin 30.3 pg (26-34); Mean Corpuscular Volume 94.2 fl (80-100); Mean Platelet Volume 9.9 fl (7.4-10.4); Platelet Count Result 485 k/mm3 (150-375); Red Blood Count 3.43 M/mm3 (4.6-6.20); Red Cell Distribution Width 13.2 % (11.5-14.5)
[2019-10-09 06:26] LABS: Glucose Point of Care 119 (65-105)
[2019-10-09 06:28] LABS: Blood Urea Nitrogen 44 mg/dL (9-20); Calcium 8.9 mg/dL (8.4-10.2); Carbon Dioxide 27 mmol/L (22-30); Chloride 97 mmol/L (98-107); Estimated CRCL calculation 49 ml/min; Estimated Glomerular Filt Rate > 60; Glucose 125 mg/dL (75-110); Magnesium 2.3 mg/dL (1.6-2.3); Phosphorus 4.8 mg/dL (2.5-4.5); Potassium 4.3 mmol/L (3.4-5.0); Sodium 133 mmol/L (137-145)
[2019-10-09] MEDS: MIDAZOLAM HCL 50 MG in DEXTROSE 5% 90 ML 6 MG IV CONT (07:53)
[2019-10-09 07:54] LABS: Glucose Point of Care 143 (65-105)
[2019-10-09] MEDS: INSULIN GLARGINE (*BKC) 100 UNITS/ML 10 UNITS SUB-Q (07:54)
[2019-10-09] MEDS: EUCERIN CREAM 120 GM JAR 1 APPLIC TOPICAL (07:57)
[2019-10-09] MEDS: FAMOTIDINE 20 MG/2 ML VIAL IV PUSH (07:58)
[2019-10-09] MEDS: carvediloL 6.25 MG TABLET PO (07:58)
[2019-10-09] MEDS: ENOXAPARIN 40 MG/0.4 ML SYRINGE SUB-Q (07:58)
[2019-10-09] MEDS: BUDESONIDE RESPULE NEB 0.5 MG/2 ML AMP INHALATION (09:06)
[2019-10-09] MEDS: DORNASE ALFA INH SOLN 1 MG/ML 2.5 ML AMP 2.5 MG INHALATION (09:07)
--- NOTE | 2019-10-09 09:54 | WPDGIPROGNO ---
Progress Note: A&P Additional Plan Patient remains sedated on the ventilator. Not responsive. Patient is status post PEG tube placement yesterday. Physical exam reveals patient on the ventilator. Unresponsive. Lungs reveal a few rhonchi. Abdomen is soft. Bowel sounds are present. Peg tube in the left upper quadrant. Peg site appears to be healing well. Impression 1. Nutritional support. 2. Patient is status post percutaneous endoscopic gastrostomy. Tube feedings being tolerated well overnight. Plan is to increase tube feeding rate to60cc/hour. Continue local care to PEG site. 3. Ventilator dependent. Plan is to continue local care to PEG site and advanced to feedings as tolerated. Further disposition per primary care service. Subjective Date/time seen: 10/09/19 09:54 Objective Data Vital Signs Vital Signs: Vital Signs - 24 hr 10/08/19 10:00 10/08/19 11:15 10/08/19 11:38 Temperature Pulse Rate 103 H 106 H 108 H Respiratory Rate 29 H 34 H Blood Pressure 117/66 131/69 Pulse Oximetry 96 97 99 10/08/19 11:48 10/08/19 11:53 10/08/19 11:58 Temperature Pulse Rate 109 H 109 H 110 H Respiratory Rate 34 H 34 H 42 H Blood Pressure 127/77 118/94 H 126/82 Pulse Oximetry 99 99 99 10/08/19 12:00 10/08/19 14:00 10/08/19 14:16 Temperature Pulse Rate 109 H 102 H 106 H Respiratory Rate 23 H 29 H Blood Pressure Pulse Oximetry 95 97 10/08/19 14:23 10/08/19 14:34 10/08/19 15:25 Temperature Pulse Rate 101 H 100 102 H Respiratory Rate 28 H 23 H 21 H Blood Pressure 100/83 Pulse Oximetry 96 97 10/08/19 16:00 10/08/19 16:40 10/08/19 18:00 Temperature 37.1 C Pulse Rate 104 H 103 H 106 H Respiratory Rate 26 H 22 H Blood Pressure 97/71 L 97/72 L Pulse Oximetry 95 98 96 10/08/19 19:55 10/08/19 20:00 10/08/19 20:10 Temperature 36.2 C L Pulse Rate 92 102 H 102 H Respiratory Rate 20 20 20 Blood Pressure 96/75 L Pulse Oximetry 95 96 10/08/19 20:32 10/08/19 21:43 10/08/19 23:05 Temperature Pulse Rate 99 98 104 H Respiratory Rate 23 H Blood Pressure 106/78 Pulse Oximetry 94 96 10/09/19 00:00 10/09/19 01:55 10/09/19 02:00 Temperature 36.6 C Pulse Rate 88 84 99 Respiratory Rate 20 20 22 H Blood Pressure 120/74 131/82 Pulse Oximetry 94 95 10/09/19 02:04 10/09/19 02:08 10/09/19 04:00 Temperature 36.4 C Pulse Rate 84 95 95 Respiratory Rate 20 21 H Blood Pressure 108/82 Pulse Oximetry 98 95 10/09/19 05:31 10/09/19 06:00 10/09/19 07:58 Temperature Pulse Rate 101 H 103 H 104 H Respiratory Rate 24 H Blood Pressure 125/72 Pulse Oximetry 95 95 10/09/19 08:00 10/09/19 09:07 10/09/19 09:12 Temperature 36.9 C Pulse Rate 104 H 98 101 H Respiratory Rate 23 H 20 Blood Pressure 137/68 Pulse Oximetry 96 95 10/09/19 09:38 Temperature Pulse Rate 100 Respiratory Rate 27 H Blood Pressure Pulse Oximetry Intake/Output Intake/Output: Intake & Output 10/06/19 10/07/19 10/08/19 10/09/19 23:59 23:59 23:59 23:59 Intake Total 2984 1994 1378 889 Output Total 1150 1800 1475 750 Balance 1834 194 -97 139 Meds/Results Medications: Active Medications Generic Name Dose Route Start Last Admin Trade Name Freq PRN Reason Stop Dose Admin Acetaminophen 650 mg 09/20/19 09:00 10/02/19 03:16 Tylenol Tablet PO 650 mg Q4H PRN Administration Headache Albuterol 5 mg 09/17/19 14:00 10/09/19 09:06 Albuterol Sulf Neb 2.5mg/0.5ml INHALATION 5 mg Q6HRT AZUCENA Administration Budesonide 0.5 mg 09/21/19 08:55 10/09/19 09:06 Pulmicort Respule Neb INHALATION 0.5 mg Q12HRT AZUCENA Administration Carvedilol 6.25 mg 10/07/19 15:00 10/09/19 07:58 Coreg PO 6.25 mg Q12HR AZUCENA Administration Dextrose 12.5 gm 09/24/19 08:05 Dextrose 50% Syringe IV PUSH PRN PRN Hypoglycemia Protocol Dornase Jesus 2.5 mg 10/03/19 10:35 10/09/19 09:07 Pulmozyme INHALATION 2.5 mg Q1
--- NOTE | 2019-10-09 10:32 | PM.DS ---
DS: Diagnosis Admitting Diagnosis Admitting Diagnosis: Chronic obstructive pulmonary disease with (acute) exacerbation Discharge Diagnosis (1) Acute exacerbation of chronic obstructive airways disease: Code(s): J44.1 - Chronic obstructive pulmonary disease with (acute) exacerbation Status: Acute (2) Chronic respiratory failure with hypoxia: Code(s): J96.11 - Chronic respiratory failure with hypoxia Status: Acute Assessment and Plan: Patient is a 69 yo M with history of COPD/asthma overlap, scleroderma, chronic respiratory failure with hypoxia, diastolic congestive heart failure, and history of tobacco abuse who is here for acute on chrronid respiratory failure 2/2 COPD exacerbation and for evaluation of right inguinal lymphadenopathy. Pt had lymph node biospy seen by Dr Barr will need further investigations later after discharge for possible non hodgkins lymphoma. Pt unfortunately developed severe SOB and was intubated and admitted to ICU, 09/20/2019. Continue ventilatory support. Discussion with brother at the bedside.. patient blood and urine culure are growing staph resulting in bactremia, patient is being treated with vancomycin and ceftriaxone and cardiac echo and PANKAJ is orderd, on 09/25 patient was more somnolent and not as responsive DW all purpose clerk CT scan of the head is negative seen by neurologist recommended EEG, patient had a PANKAJ 09/26 did not show any vegetation, patient has persisting fever patient is on rocephin 2g daily, pt had LP seen by neurologist had EEG. Ongoing bactremia, encehalopathy and respiratory failure, pt doing much better today, on breathing trial hopeful extubation soon. Pt being seen by pulmology, ID, cardiology and ICU Mds. Bacterermia work up - LP is negative. PANKAJ was negative. Blood cultures x2 from 09/20 growing Staphylococcus aureus, sensitive to oxacillin (But patient is allergic to penicillin) Repeat blood cultures 09/22/2019 growing staph aureus. now blood culture from 09/26 are negative till date. Wcc coming down gradually, CXR shows mild PNEumonia ? secondary to lymphoma continue rocephin pt unwell with low grade fevers (3) Acute kidney injury: Code(s): N17.9 - Acute kidney failure, unspecified Status: Resolved Assessment and Plan: Monitor renal function. (4) Diastolic heart failure: Qualifiers: Heart failure chronicity: chronic Qualified Code(s): I50.32 - Chronic diastolic (congestive) heart failure Code(s): I50.30 - Unspecified diastolic (congestive) heart failure Status: Acute Assessment and Plan: He is clinically compensated. Cardiomyopathy, cardiology rounding (5) Chronic anemia: Code(s): D64.9 - Anemia, unspecified Status: Acute Assessment and Plan: Continue to trend hb/ hct (6) Mass of right inguinal region: Code(s): R19.09 - Other intra-abdominal and pelvic swelling, mass and lump Status: Acute Assessment and Plan: Soft tissue ultrasound of the right inguinal region read as right inguinal lymphadenopathy, largest demonstrating effacement of normal fatty hilum, possibly pathologic. Consider lymphoma. Biopsy performed yesterday and preliminary results have returned suggestive for lymphoma. Prelim biopsy suggestive of lymphoma Dr. Barr has been consulted and appreciate input. Pt to follow with Dr Barr on discharge (7) Staphylococcus aureus bacteremia: Onset Date: 09/20/19 Code(s): R78.81 - Bacteremia Status: Acute Assessment and Plan: Patient is seen by suspect possible endocardiac source however PANKAJ dose not show any vagetation, plan is above (8) Acute and chronic respiratory failure: Qualifiers
--- NOTE | 2019-10-09 11:09 | P.PNINT_ITS ---
Progress Note: A&P Assessment and Plan (1) Staphylococcus aureus bacteremia: Onset Date: 09/20/19 Code(s): R78.81 - Bacteremia Status: Acute Assessment and Plan: Blood cultures x2 from 09/20 growing Staphylococcus aureus, sensitive to oxacillin (But patient is allergic to penicillin), Repeat blood cultures 09/22/2019 growing staph aureus. - Echocardiogram on 09/23/2019 showed EF of 35-40%, grade 1 diastolic dysfunction, aortic valve is not visualized well, mitral valve has mild thickened leaflets, moderate to severe mitral valve regurg, - PANKAJ on 09/26/2019 with no vegetations or intracardiac thrombi, EF 35%, mild to moderate mitral valve regurg. - Appreciate infectious disease evaluation recommendations. Continue ceftriaxone 2 g daily - patient was afebrile overnight, WBC count trending down., - CT scan of the head, chest/abdomen /pelvis without contrast was ordered on 09/27/19, no acute intracranial abnormalities were noted, mild pneumonia involving the lower lobes, emphysema, right inguinal lymphadenopathy which may be lymphoma which could also be causing these fevers. - Procalcitonin is still pending - blood culture on 10/01/2019 are negative x2 - sputum culture on 10/02/2019 grew Serratia, sensitive to ceftriaxone (2) Acute and chronic respiratory failure: Qualifiers: Respiratory failure complication: unspecified whether with hypoxia or hypercapnia Qualified Code(s): J96.20 - Acute and chronic respiratory failure, unspecified whether with hypoxia or hypercapnia Code(s): J96.20 - Acute and chronic respiratory failure, unspecified whether with hypoxia or hypercapnia Status: Acute Assessment and Plan: patient worsened overnight on 09/20/2019, tachypneic, increased work of breathing, impending respiratory failure, Dr. Coughlin intubated the patient on and transferred the patient to the ICU. Likely related to bacteremia and UTI and severe sepsis - continue bronchodilators - chest x-ray and ABGs reviewed, on CMV mode of ventilation. - appreciate Pulmonary evaluation recommendation - Patient still has excessive and thick secretions, continue Pulmozyme. hick secretions and mental status preventing weaning trials - d/w Son, Orville, he is agreeable for tracheostomy and PEG tube placement - likely transferred to [place] on 10/07/2019 way will receive his PEG tube and tracheostomy - unclear when bed avaialble . orders placed for trach and peg - unable to extubate due to recurrent fevers and tacypnea and poor mental status. (3) Encephalopathy: Code(s): G93.40 - Encephalopathy, unspecified Status: Acute Assessment and Plan: patient with acute encephalopathy. [facility] - CT scan of the brain without contrast 09/27/2019 was done, did not show any acute intracranial abnormalities - EEG was done on 09/26/2019, Reportedly showing diffuse slowing. neurology following - CT head 09/30- negative - LP done showed no signs of meningitis , bacterial, AFB, fungal cultures are all negative - continue Seroquel and Librium - continue Precedex and Versed infusion (4) UTI (urinary tract infection): Qualifiers: Urinary tract infection type: site unspecified Hematuria presence: without hematuria Qualified Code(s): N39.0 - Urinary tract infection, site not specified Code(s): N39.0 - Urinary tract infection, site not specified Status: Acute Assessment and Plan: urine cultures growing Staph aureus continue ceftriaxone as above (5) Acute exacerbation of chronic obstructive airways disease:
--- NOTE | 2019-10-09 11:16 | PM.PNCARD ---
Progress Note: A&P Assessment and Plan (1) Cardiomyopathy: Qualifiers: Cardiomyopathy type: unspecified Qualified Code(s): I42.9 - Cardiomyopathy, unspecified Code(s): I42.9 - Cardiomyopathy, unspecified Status: Acute Assessment and Plan: New diagnosis EF 35-40%. Was tachycardic and carvedilol increased 10/01/2019 which he seems to be tolerating. BP soft at times. Compensated, without volume overload.. Tolerating carvedilol, lisinopril Will evaluate CM further as an outpatient. (2) Mitral regurgitation: Qualifiers: Cardiac valve disease etiology: nonrheumatic Qualified Code(s): I34.0 - Nonrheumatic mitral (valve) insufficiency Code(s): I34.0 - Nonrheumatic mitral (valve) insufficiency Status: Acute Assessment and Plan: PANKAJ as above, no veggies, mild to moderate MR (3) Staphylococcus aureus bacteremia: Onset Date: 09/20/19 Code(s): R78.81 - Bacteremia Status: Acute Assessment and Plan: Unknown source. PANKAJ 09/26/2019: No vegetations. Lumbar puncture negative. Still having fevers. White cell count Rony today Management per hospitalist and Dr. Frausto (4) Encephalopathy: Code(s): G93.40 - Encephalopathy, unspecified Status: Acute Assessment and Plan: Improving. (5) Acute and chronic respiratory failure: Qualifiers: Respiratory failure complication: unspecified whether with hypoxia or hypercapnia Qualified Code(s): J96.20 - Acute and chronic respiratory failure, unspecified whether with hypoxia or hypercapnia Code(s): J96.20 - Acute and chronic respiratory failure, unspecified whether with hypoxia or hypercapnia Status: Acute Assessment and Plan: Remains intubated but on a breathing trial. Management per Critical Care Service (6) Lymphoma: Code(s): C85.90 - Non-Hodgkin lymphoma, unspecified, unspecified site Status: Acute Assessment and Plan: Oncology following. Recent diagnosis of lymphoma. Additional Plan Left ventricular systolic dysfunction on FRANCINE-inhibitor and beta-lee at modest doses Hemodynamics do not permit advancing medical therapy at this point Long-term respiratory status is principal problem patient appears to be ventilator dependent and potentially could being transferred to LTAC No additional/active cardiac problems will continue to follow while he is here at [place] Subjective Date/time seen: 10/09/19 11:16 Interval history: Follow-up visit for left ventricular systolic dysfunction identified incidentally on PANKAJ. Date of service 10/09/2019 Patient remains sedated and on mechanical ventilator support. Transfer him to LTAC potentially today. Review of Systems Review of Systems: All systems reviewed & are unremarkable except as noted in HPI and below ROS unobtainable: unobtainable due to endotracheal tube, unobtainable due to mental condition, unobtainable due to mental status and other ( Patient indicates that he is not having any pain and is not cold by shaki) Constitutional: Constitutional: Reports as per HPI and Reports no additional constitutional complaints Eyes: Eyes: Reports as per HPI and Reports no additional eye complaints ENT: Reports system reviewed and no additional complaints, except as documented and Reports as per HPI Cardiovascular: Cardiovascular: Reports as per HPI and Reports no additional cardiovascular complaints Respiratory: Respiratory: Reports excessive phlegm production Gastrointestinal: Gastrointestinal: Reports as per HPI ( tube feedings on hold for breathing trial) Genitourinary: Genitourinary: Reports as per HPI ( Muro catheter) Musculoskeletal: Musculoskeletal: Denies back pain and Reports art
--- NOTE | 2019-10-09 11:43 | PCDIET ---
ICU Rounding Note: Tube feedings have been resumed post PEG placement. Patient tolerating advancing tube feedings which are currently at 30mL/hr (Glucerna 1.2). Plan for transfer to LTAC later today. Last recorded weight is 60.3kg which is decreased. Bowel Motility: +BM on 10/08/19. Labs Reviewed: Glu (125), BUN (44), Cl (97), Na (133), PO4 (4.8) Meds Noted: Rocephin, Precedex, Pepcid, Novolog, Lantus, Versed, Miralax Additional Notes: Left lip scab and scrotal area reported. No new issues reported. Recommend continuing to advance tube feeding toward goal and implementing volume based feeding protocol. Following daily in ICU rounds. Assessing/reassessing every Monday/Monday.
[2019-10-09 12:01] LABS: Glucose Point of Care 122 (65-105)
--- NOTE | 2019-10-09 12:07 | WPDINFPN2 ---
Progress Note: A&P Assessment and Plan (1) Staphylococcus aureus bacteremia: Onset Date: 09/20/19 Code(s): R78.81 - Bacteremia Status: Acute Assessment and Plan: 1. JAMILAH bacteremia, endovascular source, microbiologic cure. Temperature readings down to normal for now 2. New Dx NHL, with immunocompromise 3. Resp failure 4. Multifactorial leukocytosis, back up to 14 5. PCN allergy 6. Serratia in sputum, susceptible to Ctx REC Ctx # 18 / 28 days, continue. He is on optimal therapy. LP = no infection. Ok transfer to LTAC. No additional studies from my standpoint are needed presently. Subjective Date/time seen: 10/09/19 12:07 Interval history: sedated. no pressors. PEG in place POD #1 Exam Narrative: Exam Narrative: afebrile Const: General: in distress Eyes: General: appearance normal, both eyes and all related structures Resp: Effort & Inspection: normal respiratory effort Auscultation: clear to auscultation bilaterally and diminished lung sounds Other: tachypnea Cardio: Rate: regular rate Rhythm: regular rhythm Heart sounds: no gallops and no murmurs GI: Inspection: non-distended GI Palp: Yes Soft to palpation, No Tenderness to palpation present (GI) and No Guarding due to palpation present (GI) Urinary Catheter: Urinary Catheter: patent and draining and urine clear Objective Data Vital Signs Vital Signs: Vital Signs - 24 hr 10/08/19 14:00 10/08/19 14:16 10/08/19 14:23 Temperature Pulse Rate 102 H 106 H 101 H Respiratory Rate 29 H 28 H Blood Pressure 100/83 Pulse Oximetry 97 96 10/08/19 14:34 10/08/19 15:25 10/08/19 16:00 Temperature 37.1 C Pulse Rate 100 102 H 104 H Respiratory Rate 23 H 21 H 26 H Blood Pressure 97/71 L Pulse Oximetry 97 95 10/08/19 16:40 10/08/19 18:00 10/08/19 19:55 Temperature 36.2 C L Pulse Rate 103 H 106 H 92 Respiratory Rate 22 H 20 Blood Pressure 97/72 L 96/75 L Pulse Oximetry 98 96 95 10/08/19 20:00 10/08/19 20:10 10/08/19 20:32 Temperature Pulse Rate 102 H 102 H 99 Respiratory Rate 20 20 Blood Pressure Pulse Oximetry 96 10/08/19 21:43 10/08/19 23:05 10/09/19 00:00 Temperature 36.6 C Pulse Rate 98 104 H 88 Respiratory Rate 23 H 20 Blood Pressure 106/78 120/74 Pulse Oximetry 94 96 94 10/09/19 01:55 10/09/19 02:00 10/09/19 02:04 Temperature Pulse Rate 84 99 84 Respiratory Rate 20 22 H 20 Blood Pressure 131/82 Pulse Oximetry 95 10/09/19 02:08 10/09/19 04:00 10/09/19 05:31 Temperature 36.4 C Pulse Rate 95 95 101 H Respiratory Rate 21 H Blood Pressure 108/82 Pulse Oximetry 98 95 95 10/09/19 06:00 10/09/19 07:58 10/09/19 08:00 Temperature 36.9 C Pulse Rate 103 H 104 H 104 H Respiratory Rate 24 H 23 H Blood Pressure 125/72 137/68 Pulse Oximetry 95 96 10/09/19 09:07 10/09/19 09:12 10/09/19 09:38 Temperature Pulse Rate 98 101 H 100 Respiratory Rate 20 27 H Blood Pressure Pulse Oximetry 95 10/09/19 10:00 10/09/19 10:52 10/09/19 12:00 Temperature 37.1 C Pulse Rate 102 H 90 101 H Respiratory Rate 31 H 26 H Blood Pressure 112/74 138/67 Pulse Oximetry 95 94 96 Intake/Output Intake/Output: Intake & Output 10/06/19 10/07/19 10/08/19 10/09/19 23:59 23:59 23:59 23:59 Intake Total 2984 1994 1378 889 Output Total 1150 1800 1475 750 Balance 1834 194 -97 139 Meds/Results Medications: Active Medications Generic Name Dose Route Start Last Admin Trade Name Freq PRN Reason Stop Dose Admin Acetaminophen 650 mg 09/20/19 09:00 10/02/19 03:16 Tylenol Tablet PO 650 mg Q4H PRN Administration Headache Albuterol 5 mg 09/17/19 14:00 10/09/19 09:06 Albuterol Sulf Neb 2.5mg/0.5ml INHALATION 5 mg Q6HRT AZUCENA Administration Budesonide 0.5 mg 09/21/19 08:55 10/09/19 09:06 Pulmicort Respule Neb INHALATION 0.5 mg Q12HRT AZUCENA Administration Carvedilol 6.25 mg 10/07/19 15:00 10/09/19 07:58 Coreg PO 6.2
--- NOTE | 2019-10-10 05:27 | WPDHPUPDATE1 ---
History and Physical Update Update Date/Time: 10/10/19 05:27 History and Physical has been reviewed, including an updated exam of the patient. There are NO changes in the patient's condition. Risks, benefits, and alternatives have been discussed and questions answered. Patient agrees to proceed with procedure.
--- NOTE | 2019-10-10 06:56 | HP_ITS ---
DATE OF SERVICE: HISTORY: Prolonged intubation. PHYSICAL EXAMINATION: CHEST: Clear. HEART: Without murmurs. ABDOMEN: Soft. EXTREMITIES: Negative. PLAN: Tracheotomy. D I MT: [place]
== END 2019-10-09 14:40 | DRG 987 ==
LOC: ANHED 13:04 → ANH3MEDSUR 13:09 → ANHICU 09-21 07:31 → ANH3MEDSUR 10-10 08:14 → ANHICU 10-10 08:14
PROVIDERS: Family Medicine; Internal Medicine; Internal Medicine Critical Care Medicine; Internal Medicine Gastroenterology; Physician Assistant; Admitting Provider Family Medicine; Emergency Provider Family Medicine; PCP Family Medicine; Visit Provider Family Medicine
PROC: 0DH63UZ Insertion of Feeding Device into Stomach, Percutaneous Approach (ICD-10-PCS; CPT 43246; principal; 2019-10-08 10:00)
DX: J44.1 Chronic obstructive pulmonary disease with (acute) exacerbation (principal); A41.01 Sepsis due to Methicillin susceptible Staphylococcus aureus; R65.20 Severe sepsis without septic shock; G93.41 Metabolic encephalopathy; J96.21 Acute and chronic respiratory failure with hypoxia; I50.32 Chronic diastolic (congestive) heart failure; N17.9 Acute kidney failure, unspecified; C85.95 Non-Hodgkin lymphoma, unspecified, lymph nodes of inguinal region and lower limb; N39.0 Urinary tract infection, site not specified; I42.9 Cardiomyopathy, unspecified; E87.0 Hyperosmolality and hypernatremia; G81.94 Hemiplegia, unspecified affecting left nondominant side; G62.81 Critical illness polyneuropathy; Z99.81 Dependence on supplemental oxygen; D64.9 Anemia, unspecified; Z87.891 Personal history of nicotine dependence; F41.8 Other specified anxiety disorders; E78.5 Hyperlipidemia, unspecified; R73.9 Hyperglycemia, unspecified
CPT/HCPCS: 31500; 36415; 36569; 36600; 38505; 62328; 70450; 71045; 71046; 71250; 74018; 74176; 76882; 76942; 80048; 80053; 80069; 80202; 82375; 82805; 82945; 83050; 83605; 83690; 83735; 84100; 84145; 84157; 85025; 85027; 85610; 85730; 86140; 86403; 86592; 87015; 87040; 87070; 87077; 87081; 87086; 87088; 87102; 87116; 87147; 87186; 87205; 87206; 87529; 87798; 87804; 88108; 88184; 88185; 88239; 88305; 88312; 88342; 88365; 89051; 93005; 93306; 93312; 93320; 93325; 93923; 93970; 94003; 94640; 94667; 94668; 96361; 96374; 96376; 99285; A9270; C1751; C9113; G0378; J0131; J0330; J0696; J1650; J1815; J2250; J2704; J2920; J2930; J3010; J3370; J7030; J7040; J7050